=== PATIENT | female | born 1980 | race Caucasian/White ===

== ENCOUNTER 2023-12-06 11:44 | Outpatient (OUT) | payer BC, SELFPAY ==
--- NOTE | 2023-12-06 12:04 | XR_ITS ---
[facility] [place] [id number] Patient Name: RACHEL TAYLOR MRN: [id number] date: 1980 Sex: F Assigned Patient Location: [facility] Current Patient Location: [facility] Accession/Order Number: [id number] Exam Date: 12/06/2023 12:00 Report Date: 12/06/2023 12:36 At the request of: JUAN MCCONNELL Procedure: XR abdomen 1V EXAM: XR abdomen 1V HISTORY: Kidney Stone COMPARISON: None. TECHNIQUE: AP view of the abdomen. FINDINGS: Nonobstructive bowel gas pattern is noted. There are bilateral punctate renal calculi. The osseous structures are intact. XR/XR abdomen 1V IMPRESSION: Nonobstructive bowel gas pattern. Bilateral nephrolithiasis. Electronically authenticated by: DEBRA AYALA Date: 12/06/2023 12:36
== END 2023-12-06 11:45 | disposition home or self-care (01) ==
LOC: RAD 11:50
PROVIDERS: PCP Family Medicine; Visit Provider Urology
DX: N20.0 Calculus of kidney (principal)
CPT/HCPCS: 74018

== ENCOUNTER 2024-03-28 14:53 | Outpatient (OUT) | payer BC, SELFPAY ==
[2024-03-28 15:38] LABS: Basophils Percent Auto 0.6 % (0.2-2.0); Eosinophils Absolute Auto 0.4 10^3/uL (0.0-0.7); Eosinophils Percent Auto 5.2 % (0.9-7.0); Hemoglobin 12.2 g/dL (12.0-16.0); Immature Granulocytes Abs Auto 0.02 10^3/uL (0.00-0.03); Immature Granulocytes Pct Auto 0.3 % (0.0-0.5); Lymphocytes Absolute Auto 2.2 10^3/uL (1.2-3.8); Lymphocytes Percent Auto 31.1 % (20.5-60.0); Mean Corpuscular HGB Conc 32.1 g/dL (29.9-35.2); Mean Corpuscular Hemoglobin 29.9 pg (26.7-34.0); Mean Corpuscular Volume 93.1 fL (81.0-99.0); Mean Platelet Volume 10.4 fL (9.5-13.5); Monocytes Absolute Auto 0.4 10^3/uL (0.3-0.8); Monocytes Percent Auto 6.1 % (1.7-12.0); Neutrophils Percent Auto 56.7 % (43.0-75.0); Platelet Count 270 10^3/uL (150-450); Red Blood Count 4.08 10^6/uL (4.20-5.40); Red Cell Distribution Width 12.7 % (11.0-15.0); White Blood Count 7.1 10^3/uL (4.0-11.0)
[2024-03-28 15:42] LABS: Anion Gap 10.6; BUN Creatinine Ratio 11.5; Calcium 8.9 mg/dL (8.5-10.1); Carbon Dioxide 28.1 mmol/L (21.0-32.0); Chloride 105 mmol/L (98-107); Estimated GFR (African America >60 (>=60); Estimated GFR (Non-African Ame >60 (>=60); Glucose 98 mg/dL (74-106); Potassium 3.7 mmol/L (3.5-5.1); Sodium 140 mmol/L (136-145); Thyroid Stimulating Hormone 1.152 uIU/mL (0.358-3.740)
[2024-03-28 16:05] LABS: Free T4 1.17 ng/dL (0.76-1.46)
== END 2024-03-28 14:54 | disposition home or self-care (01) ==
LOC: LAB 14:54
PROVIDERS: PCP Family Medicine; Visit Provider Family Medicine
DX: R53.83 Other fatigue (principal); E03.9 Hypothyroidism, unspecified
CPT/HCPCS: 36415; 80048; 84439; 84443; 85025

== ENCOUNTER 2024-05-25 19:52 | Emergency (ER) | payer BC, SELFPAY ==
[2024-05-25 20:00] VITALS: BP 121/75; PULSE 74; TEMP 36.8; O2SAT 99; BMI 25.4
--- OUTSIDE RECORDS SUMMARY | 2024-05-25 20:02 | XMS_ITS | CCD ---
Author Organization [facility] CliniSyga Care Team Providers Care Director Of Perioperative Services Name Role Phone SHAIKH Desmond HOUSE Admitting Unavailable SANFORD MARTINEZ Consulting Unavailable DUMAS, DR TIERA Zacarias Primary Care Unavailable SHAIKH Desmond HOUSE Attending Unavailable SHAIKH Desmond HOUSE Consulting Unavailable SHANNAN, DR YEMI Fernandez Consulting Unavailable DUMAS, DR TIERA Zacarias Primary Care Unavailable ALEIDA, TRACI Attending Unavailable ALEIDA, TRACI Admitting Unavailable ALEIDA, TRACI Consulting Unavailable DUMAS, DR TIERA Zacarias Admitting Unavailable DUMAS, DR TIERA Zacarias Primary Care Unavailable DUMAS, DR TIERA Zacarias Attending Unavailable DUMAS, DR TIERA Zacarias Consulting Unavailable ALEIDA, TRACI Admitting Unavailable DUMAS, DR TIERA Zacarias Primary Care Unavailable ALEIDA, TRACI Attending Unavailable DUMAS, DR TIERA Zacarias Admitting Unavailable DUMAS, DR TIERA Zacarias Attending Unavailable DUMAS, DR TIERA Zacarias Consulting Unavailable DUMAS, DR TIERA Zacarias Primary Care Unavailable DUMAS, DR TIERA Zacarias Admitting Unavailable DUMAS, DR TIERA Zacarias Attending Unavailable DUMAS, DR TIERA Zacarias Consulting Unavailable ALESIA, DR TIERA Zacarias Primary Care Unavailable MD Tiera Dumas Primary Care Provider LELA Quijano Emergency Provider [phone] Tiera Dumas Unavailable MD Tiera Dumas Primary Care Provider DO Lucrecia Nunn Emergency Provider TIERA DUMAS Primary Care Physician Mariano MCCONNELL Attending Unavailable Mariano MCCONNELL Attending Unavailable MD Tiera Dumas Primary Care Provider DO Lucrecia Nunn Emergency Provider MD Mariano Mcconnell Attending Provider Mariano Mcconnell Admitting Unavailable Mariano Mcconnell Attending Unavailable Tiera Dumas Primary Care Unavailable Tiera Dumas Primary Care Unavailable Lucrecia Nunn Admitting Unavailable Lucrecia Nunn Attending Unavailable Tiera Dumas Primary Care Unavailable Mariano Mcconnell Admitting Unavailable Mariano Mcconnell Attending Unavailable Allergies Allergy Classification Reported Allergen(s) Allergy Type Date of Onset Reaction(s) Facility (3 sources) Codeine; Translations: [codeine] Drug Allergy 5 unknown [facility] (4 sources) Morphine; Translations: [morphine] Drug Allergy 5 Gastrointestinal Upset [facility] (1 source) Codeine; Translations: [codeine] Drug Allergy Nausea and vomiting [facility] (1 source) Morphine; Translations: [morphine] Drug Allergy Nausea [facility] (1 source) Codeine Drug Allergy 4 [facility] (1 source) Morphine Drug Allergy [address] [place] [address] Repository Medications Current Medications Medication Drug Class(es) Dates Sig (Normalized) Sig (Original) Acetaminophen / oxyCODONE (1 source) Opioid Agonist Start: 10-23-2015 Percocet 325 mg-5 mg Tab See Instructions, as needed for pain, 60 tab(s), Refill(s) 0, 1-2 tab(s) Oral q4hr Start Date: 10/23/15 Status: Ordered docusate sodium 100 mg oral capsule (1 source) Start: 10-23-2015 take 1 capsule by mouth twice daily as needed for constipation Colace 100 mg Cap 100 mg = 1 cap(s), Oral, BID, PRN for constipation, # 20 cap(s), Refills(s) 0 Start Date: 10/23/15 Status: Ordered levothyroxine sodium 0.137 mg oral tablet (10 sources) l-Thyroxine Start: 12-27-2023 take 1 tablet by mouth once daily Levothyroxine Active 0 .ROUTE .COMPLEX 90 December 27, 2023 11:54am TAKE 1 TABLET BY MOUTH DAILY Start: 12-07-2023 levothyroxine 137 mcg (0.137 mg) Tab Refills(s) 0 Start Date: 12/07/23 Status: Ordered Start: 12-13-2022 End: 12-27-2023 take 137 ug by mouth once daily Levothyroxine Discontinued 137 MCG PO Daily December 13, 2022 12:00am December 27, 2023 11:54am take 1 tablet by miki th once daily Levothyroxine Sodium 137 mcg TAKE 1 TABLET BY MOUTH DAILY for 90 Active meloxicam 15 mg oral tablet (1 source) Nonsteroidal Anti-inflammatory Drug Start: 10-23-2015 take 1 tablet by mouth once daily meloxicam 15 mg Tab 15 mg = 1 tab(s), Oral, Daily, # 30 tab(s), Refills(s) 2 Start Date: 10/23/15 Status: Ordered Methylprednisolone (4 sources) Corticosteroid Start: 03-28-2024 Methylprednisolone Active 0 PO per package directions March 28, 2024 12:00am PO PER PKG DIR for 6 days Start: 07-07-2023 methylPREDNISo lone 4 MG as directed Orally for 6 days Jun, Active Start: 12-03-2022 methylPREDNISo lone 4 MG as directed Orally for 6 days Nov, Active promethazine hydrochloride 25 mg oral tablet (1 source) Phenothiazine Start: 10-23-2015 take 1 tablet by mouth every eight hours as needed for nausea promethazine 25 mg Tab 25 mg = 1 tab(s), Oral, q8hr, PRN as needed for nausea/vomiting, # 30 tab(s), Refills(s) 0 Start Date: 10/23/15 Status: Ordered sulfamethoxazole 800 mg / trimethoprim 160 mg oral tablet (2 sources) Dihydrofolate Reductase Inhibitor Antibacterial, Sulfonamide Antimicrobial Start: 12-03-2022 take 1 tablet by mouth every twelve hours Bactrim DS 800-160 MG 1 tablet Orally Twice a day for 5 days Nov, Active tiZANidine 2 mg oral tablet (4 sources) Central alpha-2 Adrenergic Agonist Start: 03-28-2024 take 2 mg by mouth every eight hours Tizanidine Active 2 MG PO Every 8 hours March 28, 2024 12:00am Start: 12-03-2022 take 1 tablet by miki th every eight hours tiZANidine HCl 4 MG 1 tablet as needed Orally Three times a day for 5 days Nov, Active Completed/Discontinued Medications Medication Drug Class(es) Dates Sig (Normalized) Sig (Original) azithromycin 250 mg oral tablet (3 sources) Macrolide Antimicrobial Start: 01-12-2024 End: 03-28-2024 Azithromycin Discontinued 250 MG PO daily 6 January 12, 2024 12:00am March 28, 2024 2:25pm take 2 tablets today and then 1 for the next four days. Start: 07-07-2023 Azithromycin 2 50 MG as directed Orally 2 tabs po today, then 1 tab daily x 4 more days for 5 Jun, Active cephalexin 500 mg oral capsule (2 sources) Cephalosporin Antibacterial Start: 12-07-2023 End: 01-12-2024 take 500 mg by mouth twice daily Cephalexin Discontinued 500 MG PO Twice daily 6 December 07, 2023 12:00am January 12, 2024 10:19am ibuprofen 800 mg oral tablet (4 sources) Nonsteroidal Anti-inflammatory Drug Start: 06-24-2021 End: 12-13-2022 take 800 mg by mouth three times daily Ibuprofen Discontinued 800 MG PO Three times daily June 24, 2021 5:03pm December 13, 2022 11:22am ondansetron 4 mg oral tablet (3 sources) Serotonin-3 Receptor Antagonist Start: 11-13-2023 End: 12-07-2023 take 4 mg by mouth every eight hours Ondansetron Hcl Discontinued 4 MG PO Q8H 15 November 13, 2023 1:00am December 07, 2023 2:42pm oxyCODONE hydrochloride 5 mg oral tablet (3 sources) Opioid Agonist Start: 11-13-2023 End: 12-07-2023 take 5 mg by mouth every four to six hours Oxycodone Discontinued 5 MG PO EVERY 4-6 HOURS 12 November 13, 2023 December 07, 2023 2:42pm tamsulosin hydrochloride 0.4 mg oral capsule (3 sources) alpha-Adrenergic Guerrero Start: 11-13-2023 End: 12-07-2023 take 1 capsule by mouth once daily Tamsulosin (Flomax) 0.4 mg capsule Discontinued 0.4 MG PO Daily November 13, 2023 1:00am December 07, 2023 2:42pm Problems Active Problems Problem Classification Problem Date Documented Da te Episodic/Chronic Abdominal pain (3 sources) Abdominal pain; Translations: [Unspecified abdominal pain] Onset: 11-13-2023 Episodic Acquired foot deformities (1 source) Acquired deformity of left foot; Translations: [Other acquired deformities of left foot] Episodic Acquired foot deformities (1 source) Acquired deformity of right foot; Translations: [Other acquired deformities of right foot] Episodic Acute bronchitis (1 source) Acute bronchitis; Translations: [Acute bronchitis due to other specified organisms] Episodic Calculus of urinary tract (9 sources) Kidney stone; Translations: [Calculus of kidney] Onset: 12-01-2023 11-13-2023 Episodic Chronic obstructive pulmonary disease and bronchiectasis (1 source) Bronchitis, not specified as acute or chronic Episodic Endometriosis (1 source) Endometriosis (clinical) 10-10-2015 Chronic Fever of unknown origin (2 sources) Fever, unspecified; Translations: [Fever] Onset: 10-05-2021 Episodic Genitourinary symptoms and ill-defined conditions (2 sources) Hematuria, unspecified; Translations: [Unspecified symptoms and signs involving the genitourinary system] Episodic Immunizations and screening for infectious disease (1 source) Contact with and (suspected) exposure to other viral communicable diseases; Translations: [Contact with and (suspected) exposure to COVID-19] Episodic Malaise and fatigue (1 source) Chronic fatigue syndrome; Translations: [Chronic fatigue, unspecified] Chronic Malaise and fatigue (7 sources) Other fatigue; Translations: [Fatigue] Onset: 04-07-2022 Episodic Other circulatory disease (1 source) Elevated blood-pressure reading without diagnosis of hypertension; Translations: [Elevated blood-pressure reading, without diagnosis of hypertension] Episodic Other connective tissue disease (1 source) Spasm; Translations: [Other muscle spasm] Episodic Other connective tissue disease (1 source) Muscle pain; Translations: [MYALGIA, UNSPECIFIED SITE] Episodic Other connective tissue disease (1 source) Disorder of rotator cuff 10-10-2015 Episodic Other gastrointestinal disorders (1 source) Irritable bowel syndrome 10-10-2015 Chronic Other injuries and conditions due to external causes (1 source) History of fall; Translations: [History of falling] Episodic Other non-traumatic joint disorders (1 source) Arthralgia of the ankle and/or foot; Translations: [Pain in left ankle and joints of left foot] Episodic Other nutritional; endocrine; and metabolic disorders (1 source) Body mass index 25-29 - overweight; Translations: [Body mass index (BMI) 27.0-27.9, adult] Episodic Other nutritional; endocrine; and metabolic disorders (1 source) Overweight; Translations: [Overweight] Episodic Other upper respiratory infections (2 sources) Sinusitis; Translations: [Chronic sinusitis, unspecified] 01-12-2024 Chronic Ovarian cyst (1 source) Cyst of ovary 10-10-2015 Episodic Residual codes; unclassified (1 source) Tobacco user; Translations: [Tobacco use] Episodic Sprains and strains (10 sources) Sprain of ankle; Translations: [Sprain of unspecified ligament of unspecified ankle, initial encounter] 12-13-2022 Episodic Thyroid disorders (4 sources) Hypothyroidism; Translations: [Hypothyroidism, unspecified] 12-07-2023 Chronic Unclassified (3 sources) CONTACT W/AND (SUSP) EXPOS COVID-19; Translations: [CONTACT W/AND (SUSP) EXPOS COVID-19] Onset: 06-08-2021 Viral infection (2 sources) COVID-19; Translations: [Disease caused by 2019-nCoV] Onset: 10-05-2021 Past or Other Problems Problem Classification Problem Date Documented Da te Episodic/Chronic Allergic reactions (1 source) Contact dermatitis due to plants; Translations: [Unspecified contact dermatitis due to plants, except food] Onset: 01-27-2019 Episodic Other connective tissue disease (1 source) Pain in right foot; Translations: [PAIN IN RIGHT FOOT] Onset: 07-21-2021 Episodic Other connective tissue disease (1 source) Pain in left foot; Translations: [PAIN IN LEFT FOOT] Onset: 07-21-2021 Episodic Other non-traumatic joint disorders (4 sources) Pain in right ankle and joints of right foot; Translations: [PAIN IN RIGHT ANKLE] Onset: 07-15-2021 Episodic Other non-traumatic joint disorders (5 sources) Pain in left ankle and joints of left foot; Translations: [PAIN IN LEFT ANKLE] Onset: 07-07-2021 Episodic Unclassified (1 source) CONTACT W/AND (SUSP) EXPOS COVID-19; Translations: [CONTACT W/AND (SUSP) EXPOS COVID-19] Onset: 09-30-2021 Unclassified (1 source) Lumbar pain M54.50 Results Test Name Value Interpretation Reference Range Facility [facility] 12-08-2023 Forms [id number] #1.00TIFF Normal [facility] Operative Reporton Operative Report [id number] #1.00TIFF Normal [facility] RAD - MISCon 12-08-2023 RAD - MISC [id number] #1.00TIFF Normal [facility] MIS [id number] #1.00TIFF Normal [facility] Ambulatory Visit Summaryon 0 12-07-2023 Ambulatory Visit Summary NGUYEN TAYLOR :1980 Visit Date:12/07/2023 Ambulatory Visit Instructions Your Diagnosis Ureteral stone Kidney stone Flank pain Your Care Team Attending Physician - ENEDINA CONTRERAS, Mariano Causey Primary Care Physician - ALESIA CONTRERAS, TIERA This Is Your Medications List Contact prescribing physician if questions or concerns acetaminophen-oxycod one (Percocet 325 mg-5 mg Tab) docusate (Colace 100 mg Cap) levothyroxine (levothyroxine 137 mcg (0.137 mg) Tab) meloxicam (meloxicam 15 mg Tab) promethazine (promethazine 25 mg Tab) Procedures Performed Arthroscopy of shoulder (10/23/2015), section, reconstructive surgery after childbirth, Tubal ligation. Discharge Vitals Temperature (Temporal Artery) 37 ?C Heart Rate (Peripheral) 64 Respiratory Rate 16 Blood Pressure 111/78 Height 153 cm Height 60 in Weight 59 kg Weight 129.8 lb BMI 25.2 Medications What How Much When Instructions Unchanged acetaminophen-oxycod one (Percocet 325 mg-5 mg Tab) See instructions 1-2 tab(s) Oral q4hr Contact prescribing physician if questions or concerns Unchanged docusate (Colace 100 mg Cap) 1 Capsules By Mouth 2 times a day as needed for for constipation Contact prescribing physician if questions or concerns Unchanged levothyroxine (levothyroxine 137 mcg (0.137 mg) Tab) Contact prescribing physician if questions or concerns Unchanged meloxicam (meloxicam 15 mg Tab) 1 Tablets By Mouth Every day Contact prescribing physician if questions or concerns Unchanged promethazine (promethazine 25 mg Tab) 1 Tablets By Mouth Every 8 hours as needed for as needed for nausea/vomiting Contact prescribing physician if questions or concerns Medications and Immunizations Administered Not Given influenza virus vaccine, inactivated, Postpone due to refusal Allergies codeine (Nausea and vomiting) Problems Ongoing - Any problem that you are currently receiving treatment for. Flank pain Hypothyroid Kidney stone Ureteral stone Patient Survey You may receive a survey via text or e-mail asking about your office visit. Please share your experience with us by completing your survey. We appreciate your feedback and thank you for choosing us for your care. Education Materials Laser Therapy for Kidney Stones Laser therapy for kidney stones is a procedure to break up small, hard mineral deposits that form in the kidney (kidney stones). The procedure is done using a device that produces a focused beam of light (laser). The laser breaks up kidney stones into pieces that are small enough to be passed out of the body through urination or removed from the body during the procedure. You may need laser therapy if you have kidney stones that are painful or block your urinary tract. This procedure is done by inserting a tube (ureteroscope) into your kidney through the urethral opening. The urethra is the part of the body that drains urine from the bladder. In women, the urethra opens above the vaginal opening. In men, the urethra opens at the tip of the penis. The ureteroscope is inserted through the urethra, and surgical instruments are moved through the bladder and the muscular tube that connects the kidney to the bladder (ureter) until they reach the kidney. Tell a health care provider about: ? Any allergies you have. ? All medicines you are taking, including vitamins, herbs, eye drops, creams, and knqe-nta-xfngjdf medicines. ? Any problems you or family members have had with anesthetic medicines. ? Any blood disorders you have. ? Any surgeries you have had. ? Any medical conditions you have. ? Whether you are or may be . What are the risks? Generally, this is a safe procedure. However, problems may occur, including: ? Infection. ? Bleeding. ? Allergic reactions to medicines. ? Damage to the urethra, bladder, or ureter. ? Urinary tract infection (UTI). ? Narrowing of the urethra (urethral stricture). ? Difficulty passing urine. ? Blockage of the kidney caused by a fragment of kidney stone. What happens before the procedure? Medicines ? Ask your health care provider about: ? Changing or stopping your regular medicines. This is especially important if you are taking diabetes medicines or blood thinners. ? Taking medicines such as aspirin and ibuprofen. These medicines can thin your blood. Do not take these medicines unless your health care provider tells you to take them. ? Taking vwvo-pub-qhavdny medicines, vitamins, herbs, and supplements. Eating and drinking Follow instructions from your health care provider about eating and drinking, which may include: ? 8 hours before the procedure ? stop eating heavy meals or foods, such as meat, fried foods, or fatty foods. ? 6 hours before the procedure ? stop eating light meals or foods, such as toast or cereal. ? 6 hours before the procedure ? stop dri (more content not included)... Normal [facility] Amphetamine Screen Ql (U)Ord ered By: Sanford Mason on 12-07-2023 Amphetamines Ql (U) Negative Negative [facility] Barbiturates [Presence] in U rine by Screen methodOrdered By: Sanford Mason on 12-07-2023 Barbiturates Screen Ql (U) Negative Negative [facility] Benzodiazepines Screen Ql (U )Ordered By: Sanford Mason on 12-07-2023 Benzodiazepines Ql (U) Negative Negative [facility] Benzoylecgonine [Presence] i n Urine by Screen methodOrdered By: Sanford Mason on 12-07-2023 Benzoylecgonine Screen Ql (U) Negative Negative [facility] Cannabinoids [Presence] in U rine by Screen methodOrdered By: Sanford Mason on 12-07-2023 Cannabinoids Screen Ql (U) Positive Negative [facility] Comment on above: These are unconfirme d results and should not be used for legal purposes. Drug Cut-Off Concentration: AMPH 1000 ng/mL GARETT 200 ng/mL LEVY 200 ng/mL COCM 300 ng/mL OP 300 ng/mL PCP 25 ng/mL THC 20 ng/mL Drug Screen,Urineon 12-07-19 24 Amphetamine Screen,Urine Negative Normal Negative [facility] Comment on above: Performed By: #### U RDS #### [address] Barbiturate Screen,Urine Negative Normal Negative [facility] Comment on above: Performed By: #### U RDS #### [place] [address] [place] Benzodiazepines Screen,Urine Negative Normal Negative [facility] Comment on above: Performed By: #### U RDS #### [place] [address] [place] Cannabinoid Screen,Urine Positive High Negative [facility] Comment on above: Result Comment: Thes e are unconfirmed results and should not be used for legal purposes. Drug Cut-Off Concentration: AMPH 1000 ng/mL GARETT 200 ng/mL LEVY 200 ng/mL COCM 300 ng/mL OP 300 ng/mL PCP 25 ng/mL THC 20 ng/mL PERFORMED BY: [place] [id number] PATHOLOGIST INDUSTRIAL CONTROLS TECHNICIAN DINA WALKER M.D. Performed By: #### U RDS #### [place] [address] [place] Cocaine Screen,Urine Negative Normal Negative [facility] Comment on above: Performed By: #### U RDS #### [place] [address] [place] Opiate Screen,Urine Negative Normal Negative [facility] Comment on above: Performed By: #### U RDS #### [place] [address] [place] Phencyclidine Screen,Urine Negative Normal Negative [facility] Comment on above: Performed By: #### U RDS #### [place] [address] [place] urethrocystogram retroon 12-07-2023 [place] urethrocystogram retro [facility] [place] [address] [place] [address] Fluoroscopy Report Signed Patient: Nguyen Taylor MR#: [id number] : 1980 Acct:[id number] Age/Sex: 43 / F ADM Date: 12/07/23 Loc: [place] Room: Type: [facility] Attending Dr: Mariano Mcconnell MD Copies to: Mariano Mcconnell MD Ordering Provider: Mariano Mcconnell MD Date of Service: 12/07/23 FL/FL urethrocystogram retro: RETROGRADE [place] urethrocystogram retro 12/07/2023 5:24 PM SIGNS AND SYMPTOMS: Abdominal cramping, left lower quadrant pain, left flank pain with nausea PROTOCOL: Intraoperative views of the pelvis were obtained during cystourethrogram COMPARISON: 12/01/2023 FINDINGS: Contrast readily passes through the ureters into the renal collecting systems without evidence of filling defect. Cumulative Air Kerma in mGy: 183.2 mGy FL/FL urethrocystogram retro IMPRESSION: Contrast readily passes through the ureters into the renal collecting systems without evidence of filling defect. Impression dictated by: Gabriele Corbin M.D.12/07/2023 6:04 PM Dictation Location: [place] [address] Transcribed By: [facility] 12/07/231803 Dictated By: Gabriele Corbin II, MD 12/07/231801 Signed By: 12/07/231803 Normal [facility] HCG ( test) IA.rapi d Ql (U)Ordered By: Sanford Mason on 12-07-2023 HCG ( test) Ql (U) Negative [facility] HCG,Urineon 12-07-2023 Beta HCG ( test) Ql (U) Negative Normal [facility] Comment on above: Result Comment: PERF ORMED BY: [place] [id number] PATHOLOGIST INDUSTRIAL CONTROLS TECHNICIAN DINA WALKER M.D. Performed By: #### U HCG #### [address] Insurance Correspondenceon 0 12-07-2023 Insurance Correspondence [id number]#1.00TIFF Normal [facility] Opiates [Presence] in Urine by Screen methodOrdered By: Sanford Mason on 12-07-2023 Opiates Screen Ql (U) Negative Negative [facility] Patient Educationon 12-07-19 Patient Education Nephrology Laser Therapy for Kidney Stones Laser therapy for kidney stones is a procedure to break up small, hard mineral deposits that form in the kidney (kidney stones). The procedure is done using a device that produces a focused beam of light (laser). The laser breaks up kidney stones into pieces that are small enough to be passed out of the body through urination or removed from the body during the procedure. You may need laser therapy if you have kidney stones that are painful or block your urinary tract. This procedure is done by inserting a tube (ureteroscope) into your kidney through the urethral opening. The urethra is the part of the body that drains urine from the bladder. In women, the urethra opens above the vaginal opening. In men, the urethra opens at the tip of the penis. The ureteroscope is inserted through the urethra, and surgical instruments are moved through the bladder and the muscular tube that connects the kidney to the bladder (ureter) until they reach the kidney. Tell a health care provider about: ? Any allergies you have. ? All medicines you are taking, including vitamins, herbs, eye drops, creams, and bwqd-dng-ylsujsw medicines. ? Any problems you or family members have had with anesthetic medicines. ? Any blood disorders you have. ? Any surgeries you have had. ? Any medical conditions you have. ? Whether you are or may be . What are the risks? Generally, this is a safe procedure. However, problems may occur, including: ? Infection. ? Bleeding. ? Allergic reactions to medicines. ? Damage to the urethra, bladder, or ureter. ? Urinary tract infection (UTI). ? Narrowing of the urethra (urethral stricture). ? Difficulty passing urine. ? Blockage of the kidney caused by a fragment of kidney stone. What happens before the procedure? Medicines ? Ask your health care provider about: ? Changing or stopping your regular medicines. This is especially important if you are taking diabetes medicines or blood thinners. ? Taking medicines such as aspirin and ibuprofen. These medicines can thin your blood. Do not take these medicines unless your health care provider tells you to take them. ? Taking kpfi-ekv-ihokizv medicines, vitamins, herbs, and supplements. Eating and drinking Follow instructions from your health care provider about eating and drinking, which may include: ? 8 hours before the procedure ? stop eating heavy meals or foods, such as meat, fried foods, or fatty foods. ? 6 hours before the procedure ? stop eating light meals or foods, such as toast or cereal. ? 6 hours before the procedure ? stop drinking milk or drinks that contain milk. ? 2 hours before the procedure ? stop drinking clear liquids. Staying hydrated Follow instructions from your health care provider about hydration, which may include: ? Up to 2 hours before the procedure ? you may continue to drink clear liquids, such as water, clear fruit juice, black coffee, and plain tea. General instructions ? You may have a physical exam before the procedure. You may also have tests, such as imaging tests and blood or urine tests. ? If your ureter is too narrow, your health care provider may place a soft, flexible tube (stent) inside of it. The stent may be placed days or weeks before your laser therapy procedure. ? Plan to have someone take you home from the hospital or clinic. ? If you will be going home right after the procedure, plan to have someone stay with you for 24 hours. ? Do not use any products that contain nicotine or tobacco for at least 4 weeks before the procedure. These products include cigarettes, e-cigarettes, and chewing tobacco. If you need help quitting, ask your health care provider. ? Ask your health care provider: ? How your surgical site will be marked or identified. ? What steps will be taken to help prevent infection. These may include: ? Removing hair at the surgery site. ? Washing skin with a germ-killing soap. ? Taking antibiotic medicine. What happens during the procedure? ? An IV will be inserted into one of your veins. ? You will be given one or more of the following: ? A medicine to help you relax (sedative). ? A medicine to numb the area (local anesthetic). ? A medicine to make you fall asleep (general anesthetic). ? A ureteroscope will be inserted into your urethra. The ureteroscope will send images to a video screen in the operating room to guide your surgeon to the area of your kidney that will be treated. ? A small, flexible tube will be threaded through the ureteroscope and into your bladder and ureter, up to your kidney. ? The laser device will be inserted into your kidney through the tube. Your surgeon will pulse the laser on and off to break up kidney stones. ? A surgical instrument that has a tiny wire basket may be inserted through the tube into your kidney to remove the pieces (more content not included)... Normal [facility] Phencyclidine Screen Ql (U)O rdered By: Sanford Mason on 12-07-2023 Phencyclidine Ql (U) Negative Negative [facility] Urology Office/Clinic Noteon 12-07-2023 Urology Office/Clinic Note Chief Complaint Pt is here for [facility] ER f/u HPI Staff 43 year old female New Pt. Pt. was in the [facility] ER on 11/13/23 due to Lt. lower quadrant and lt. flank pain. CT done while in the ER. KUB done 12/01/23. Pt states she does not believe she has passed kidney stone. Dysuria: yes Incomplete bladder emptying: denies Hematuria: yes last seen this morning Frequency: yes Urgency: yes Nocturia: 1x a night Stream: little stream Leaking: denies Post void dripping: denies Wearing pads/ Depends: yes panty liner Urge incontinence: denies Stress incontinence: denies Incontinence without Sensory Awareness: denies Abdominal pain: yes suprapubic pain Flank pain: bilateral flank pain Sexual complaints: _ History of Present Illness Tests reviewed: reviewed UA I have reviewed the previous health record information and history for this patient from external providers. I have reviewed and verified the staff HPI to be accurate for this encounter. Review of Systems PHQ Score Initial Depression Screen Score: 0 SCORE ROS - Provider Constitutional: denies weight loss, denies hot flashes. Eyes: denies eye problems. Gastrointestinal: denies nausea, denies vomiting. Cardiovascular: denies chest pain or angina. Integumentary: no dryness Musculoskeletal: denies musculoskeletal symptoms. ENMT: denies otolaryngeal symptoms. Respiratory: no shortness of breath. Heme/Lymph: denies easy bleeding tendency, denies easy bruising tendency. Psychiatric: no confusion, no anxiety. Genitourinary: See HPI. Physical Exam Vitals & Measurements T: 37 ?C(Temporal Artery) HR: 64(Peripheral) RR: 16 BP: 111/78 HT: 60 in HT: 153 cm WT: 59 kg WT: 129.8 lb BMI: 25.2 General Appearance: alert , no acute distress, well nourished, well developed female. Head: normocephalic . Eyes: normal orbit and globe. ENMT: normal examination of external ears. Chest: Lungs CTA, respirations non labored . Cardiovascular: regular rate and rhythm. Abdomen: soft , non distended, no tenderness, no mass or organomegaly, no hernia. Genitourinary: bladder nonpalpable, no flank tenderness. Tender in LLQ. Lymph Nodes: unremarkable palpation of the cervical area. Skin: warm, dry, no bruising. Psychiatric: cooperative, affect appropriate for age, normal judgement, euthymic mood. Assessment/Plan 1. Ureteral stone (N20.1: Calculus of ureter) [facility] ER visit 11/13/23 due to left flank pain. Given Fomax and pain medication to help pass stone. CT AP w con 11/13/23 [facility] - Obstructing 3 mm L UVJ calculus wiht delayed enhancement of L kidney compared to R. KUB 12/01/23 [facility] - Punctate L renal calculus confirmed on prior CT. Known L UVJ stone may still be present as calcification is seen in this region. KUB 12/06/23 [facility] - Bilateral punctate renal calculi. Discussed imaging results, most recent KUB does not appear to have ureteral stone. Advised pt this can only be confirmed via CT scan. UA today shows large blood. Unclear if she still has stone given ongoing pain. Discussed management options including medical expulsive therapy vs intervention including extracorporeal shockwave lithotripsy vs ureteroscopy with laser lithotripsy/stone basket extraction possible stent. Offered to schedule pt today for stone procedure. Pt is willing to proceed. -Will schedule a Cystoscopy with Possible Left Retrogrades, Left Ureteroscopy, Left Laser Litho, Left Stone Basket, Left possible stent placement. The procedure risks, benefits, alternatives and complications have been discussed with the patient. These include but are not limited to bleeding, pain, infection, ureteral perforation, extravasation, stricture formation, sepsis, obstruction, inability to reach the stone, inability to fragment the stone, and inability to retrieve all stone fragments. The need for ancillary procedures such as stent placement and removal, retrograde urography, and percutaneous nephrostomy were also discussed. The patient also understood that a ureteral stent may be placed and removal of the stent is critical. Failure to follow up for stent removal can result in recurrent UTIs, encrustation of the stent, loss of kidney function and need for nephrectomy. All of their questions and concerns have been addressed. Full informed consent has been obtained. Will order General anesthesia. Risks discussed. 2. Kidney stone (N20.0: Calculus of kidney) See #1. 3. Flank pain (R10.9: Unspecified abdominal pain) Continues to have LLQ pain, 04/05. Pt is currently npo. -See #1 This patient was seen in the ER back on 11/13/2023 and was found to have a 3 mm left distal ureteral calculus with hydronephrosis. She has failed to pass the stone. Subsequent KUB on 12/01/2023 demonstrated the stone to be still present. KUB from a couple days ago at the [facility] is inconclusive. She continues with significant pain up to a level 7 out of 10 and does desire surgical intervention. This is well outlined above. She understands the ris (more content not included)... Normal [facility] Comment on above: Result Comment: Elec tronically Signed By: ENEDINA CONTRERAS, Mariano Causey\.br\Date and Time Signed: 12/07/23 12:06 EDT\.br\Electronically Co-Signed By: Lakeisha Beebe\.br\Date and Time Co-Signed: 12/07/23 12:02 EDT RAD - MISCon 12-06-2023 RAD - MISC [id number] #1.00TIFF Normal [facility] XR KUBon 12-01-2023 XR KUB [place] [address] XRay Report Signed Patient: Nguyen Taylor MR#: [id number] : 1980 Acct:[id number] Age/Sex: 43 / F ADM Date: 12/01/23 Loc: XD Room: Type: [facility] Attending Dr: Mariano Mcconnell MD Copies to: Mariano Mcconnell MD Ordering Provider: Mariano Mcconnell MD Date of Service: 12/01/23 XR/XR KUB: KIDNEY STON, N20.0 KUB: CLINICAL INFORMATION: Left flank pain today. Diagnosed with left kidney stone 2 days ago. COMPARISON: CT abdomen and pelvis 11/13/2023. FINDINGS: A punctate left renal calculus is noted confirmed on the prior CT study. The patient's known left UVJ stone may still be present as a calcification is seen within this region. No bowel obstruction or free air. Osseous structures demonstrate mild degenerative change. XR/XR KUB IMPRESSION: LEFT UROLITHIASIS. THE PATIENT'S KNOWN LEFT UVJ STONE MAY STILL BE PRESENT WITH A CALCIFICATION SEEN ON TODAY'S STUDY WITHIN THIS REGION. Impression dictated by: Freeman Palacios Jr., DPatitoOPatito12/01/2023 4:13 PM Dictation Location: [place] [address] Transcribed By: [facility] 12/01/23 1613 Dictated By: Freeman Palacios Jr, DO 12/01/23 1611 Signed By: 12/01/23 1613 Normal [facility] ED Note-Physicianon 11-19-19 ED Note-Physician [id number] #1.00TIFF Normal [facility] Alanine aminotransferase [En zymatic activity/volume] in Serum or PlasmaOrdered By: Lucrecia Nunn on 11-13-2023 ALT [Catalytic activity/Vol] 16 U/L 7-52 [facility] Albumin [Mass/volume] in Ser um or Plasma by Bromocresol green (BCG) dye binding methoOrdered By: Lucrecia Nunn on 11-13-2023 Albumin BCG dye [Mass/Vol] 4.8 g/dL 3.5-5.7 [facility] Alkaline phosphatase [Enzyma tic activity/volume] in Serum or PlasmaOrdered By: Lucrecia Nunn on 11-13-2023 ALP [Catalytic activity/Vol] 59 U/L 34-104 [facility] Aspartate aminotransferase [ Enzymatic activity/volume] in Serum or PlasmaOrdered By: Lucrecia Nunn on 11-13-2023 AST [Catalytic activity/Vol] 18 U/L 13-39 [facility] Automated epithelial cells c ount in urine sediment (number/area)Ordered By: Lucrecia Nunn on 11-13-2023 Epithelial cells Auto (Urine sed) [#/Area] None seen [HPF] 0-2 [facility] Automated erythrocytes count in urine sediment (number/area)Ordered By: Lucrecia Nunn on 11-13-2023 RBC Auto (Urine sed) [#/Area] 20-49 [HPF] 0-4 [facility] Automated leukocytes count i n urine sediment (number/area)Ordered By: Lucrecia Brown on 11-13-2023 WBC Auto (Urine sed) [#/Area] None seen [HPF] 0-4 [facility] Automated urine hyaline cast s count (number/volume)Ordered By: Lucrecia Brown on 11-13-2023 Hyaline casts Auto (U) [#/Vol] None seen [LPF] 0-1 [facility] Basic Metabolic Panelon 10-28 Anion gap [Moles/Vol] 12.0 mmol/L Normal 6.0-15.0 [facility] Comment on above: Performed By: #### C BC, HEPATIC, LIPASE, HCGQUAL, BMP #### [facility] [address] Calcium [Mass/Vol] 9.6 mg/dL Normal 8.6-10.3 [facility] Comment on above: Performed By: #### C BC, HEPATIC, LIPASE, HCGQUAL, BMP #### [facility] [address] [place] [address] [place] Chloride [Moles/Vol] 106 mmol/L Normal 98-107 [facility] Comment on above: Performed By: #### C BC, HEPATIC, LIPASE, HCGQUAL, BMP #### [address] CO2 [Moles/Vol] 22.8 mmol/L Normal 21.0-31.0 [facility] Comment on above: Performed By: #### C BC, HEPATIC, LIPASE, HCGQUAL, BMP #### [facility] [address] [place] [address] [place] Creatinine [Mass/Vol] 0.73 mg/dL Normal 0.60-1.20 [facility] Comment on above: Performed By: #### C BC, HEPATIC, LIPASE, HCGQUAL, BMP #### [facility] [address] [place] [address] [place] Creatinine Clr Calc Pharmacy 81.17 Normal [facility] Comment on above: Performed By: #### C BC, HEPATIC, LIPASE, HCGQUAL, BMP #### [facility] [address] [place] [address] [place] GFR/1.73 sq M.predicted MDRD (S/P/Bld) [Vol rate/Area] mL/min/{1.73_m2} Normal [facility] Comment on above: Performed By: #### C BC, HEPATIC, LIPASE, HCGQUAL, BMP #### [facility] [address] [place] [address] [place] Glucose [Mass/Vol] 92 mg/dL Normal 70-100 [facility] Comment on above: Result Comment: [facility] Glucose Reference Range is dependent on time and content of last meal. Glucose of more than 200 mg/dL in a nonstressed, ambulatory subject supports the diagnosis of Diabetes Mellitus. ADA recommended reference range Performed By: #### C BC, HEPATIC, LIPASE, HCGQUAL, BMP #### [facility] [address] [place] [address] [place] Potassium [Moles/Vol] 3.8 mmol/L Normal 3.5-5.1 [facility] Comment on above: Performed By: #### C BC, HEPATIC, LIPASE, HCGQUAL, BMP #### [facility] [address] [place] [address] [place] Sodium [Moles/Vol] 137 mmol/L Normal 136-145 [facility] Comment on above: Performed By: #### C BC, HEPATIC, LIPASE, HCGQUAL, BMP #### [facility] [address] [place] [address] [place] Urea nitrogen [Mass/Vol] 10 mg/dL Normal 7-25 [facility] Comment on above: Performed By: #### C BC, HEPATIC, LIPASE, HCGQUAL, BMP #### [facility] [address] [place] [address] [place] Basophils Auto (Bld) [#/Vol] Ordered By: Lucrecia Nunn on 11-13-2023 Basophils (Bld) [#/Vol] 0.0 10*3/uL 0.0-0.2 [facility] Basophils/100 WBC Auto (Bld) Ordered By: Lucrecia Nunn on 11-13-2023 Basophils/100 WBC (Bld) 0.4 % . [facility] Bilirubin Test strip Ql (U)O rdered By: Lucrecia Nunn on 11-13-2023 Bilirubin Ql (U) Negative Negative [facility] Bilirubin.direct [Mass/volum e] in Serum or PlasmaOrdered By: Lucrecia Nunn on 11-13-2023 Bilirubin.direct [Mass/Vol] 0.10 mg/dL 0.03-0.18 [facility] Bilirubin.total [Mass/volume ] in Serum or PlasmaOrdered By: Lucrecia uNnn on 11-13-2023 Bilirubin [Mass/Vol] 0.5 mg/dL 0.3-1.[address] [facility] [address] abdomen pelvis w conon CT abdomen pelvis w con [facility] [address] CT Scan Report Signed Patient: Nguyen Taylor MR#: [id number] : 1980 Acct:[id number] Age/Sex: 43 / F ADM Date: 11/13/23 Loc: ER Room: Type: [facility] ER Attending Dr: Copies to: Lucrecia Nunn DO Ordering Provider: Lucrecia Nunn DO Date of Service: 11/13/23 CT/CT abdomen pelvis w con: LLQ pain, L flank pain CT ABDOMEN AND PELVIS WITH INTRAVENOUS CONTRAST: CLINICAL HISTORY: Abdominal cramping, left flank pain and nausea COMPARISON: None TECHNIQUE: Spiral images were obtained through the abdomen and pelvis following the administration of intravenous contrast. This CT exam was performed using one or more following dose reduction techniques: Automated exposure control, adjustment of the mA and/or kV according to patient size, or use of iterative reconstruction technique. FINDINGS: Lung Bases: [Minimal scarring.] Organs:Liver portal vein gallbladder pancreas spleen and adrenal glands appear unremarkable. Obstructing 3 mm left UVJ calculus with associated delayed enhancement of the left kidney with compared to the right. The right kidney appears unremarkable. Abdominal aorta appears normal in caliber.[ GI: Stomach is grossly unremarkable. Small bowel appears nondilated. No acute colonic abnormality. Appendix is normal.[ Pelvis:[Urinary bladder is grossly unremarkable. Uterus is grossly unremarkable. No adnexal mass. Prominent periuterine vessels.] Peritoneum/Retroperi toneum:No free air, free fluid or lymphadenopathy.[ Abd wall/Bones:Abdominal wall demonstrates no acute findings. Osseous structures demonstrate degenerative change.[ CT/CT abdomen pelvis w con IMPRESSION: Obstructing 3 mm left UVJ stone. Impression dictated by: Freeman Palacios Jr., DPatitoOPatito11/13/2023 11:29 AM Dictation Location: [place] [address] Transcribed By: [facility] 11/13/23 1129 Dictated By: Freeman Palacios Jr, DO 11/13/23 1125 Signed By: 11/13/23 1129 Normal [facility] Calcium [Mass/volume] in Ser um or PlasmaOrdered By: Lucrecia Nunn on 11-13-2023 Calcium [Mass/Vol] 9.6 mg/dL 8.6-10.3 [facility] Carbon dioxide, total [Moles /volume] in Serum or PlasmaOrdered By: Lucrecia Nunn on 11-13-2023 CO2 [Moles/Vol] 22.8 mmol/L 21.0-31.0 [facility] Chloride [Moles/volume] in S noemy or PlasmaOrdered By: Lucrecia Nunn on 11-13-2023 Chloride [Moles/Vol] 106 mmol/L 98-107 [facility] Choriogonadotropin.beta subu nit [Units/volume] in Serum or PlasmaOrdered By: Lucrecia Nunn on 11-13-2023 HCG.beta subunit Qn Negative [facility] Color Auto (U)Ordered By: Shashank Nunn on 11-13-2023 Color (U) Yellow Yellow [facility] Complete Blood Count Auto Di ffon 11-13-2023 Basophils (Bld) [#/Vol] 0.0 10*3/uL Normal 0.0-0.2 [facility] Comment on above: Result Comment: PERF ORMED BY: [place] [id number] PATHOLOGIST [employer] TECHNICIAN DINA WALKER M.D. Performed By: #### C BC, HEPATIC, LIPASE, HCGQUAL, BMP #### [address] Basophils/100 WBC (Bld) 0.4 % Normal . T cassandra [facility] Comment on above: Performed By: #### C BC, HEPATIC, LIPASE, HCGQUAL, BMP #### [address] Eosinophils (Bld) [#/Vol] 0.3 10*3/uL Normal 0.0-0.45 [facility] Comment on above: Performed By: #### C BC, HEPATIC, LIPASE, HCGQUAL, BMP #### [address] Eosinophils/100 WBC (Bld) 3.4 % Normal . [facility] Comment on above: Performed By: #### C BC, HEPATIC, LIPASE, HCGQUAL, BMP #### [address] Erythrocyte distribution width (RBC) [Ratio] 13.3 % Normal 11.9-15.3 [facility] Comment on above: Performed By: #### C BC, HEPATIC, LIPASE, HCGQUAL, BMP #### [address] Hematocrit (Bld) [Volume fraction] 40.4 % Normal 34.0-46.4 [facility] Comment on above: Performed By: #### C BC, HEPATIC, LIPASE, HCGQUAL, BMP #### [address] Hemoglobin (Bld) [Mass/Vol] 13.6 g/dL Normal 11.8-15.4 [facility] Comment on above: Performed By: #### C BC, HEPATIC, LIPASE, HCGQUAL, BMP #### [place] [address] [place] Lymphocytes (Bld) [#/Vol] 1.7 10*3/uL Normal 1.00-4.8 [facility] Comment on above: Performed By: #### C BC, HEPATIC, LIPASE, HCGQUAL, BMP #### [place] [address] [place] Lymphocytes/100 WBC (Bld) 22.8 % Normal . [facility] Comment on above: Performed By: #### C BC, HEPATIC, LIPASE, HCGQUAL, BMP #### [address] MCH (RBC) [Entitic mass] 29.8 pg Normal 24.7-34.3 [facility] Comment on above: Performed By: #### C BC, HEPATIC, LIPASE, HCGQUAL, BMP #### [address] MCV (RBC) [Entitic vol] 88.6 fL Normal 80-100 [facility] Comment on above: Performed By: #### C BC, HEPATIC, LIPASE, HCGQUAL, BMP #### [address] Mean Corpuscular HGB Conc 33.7 g/dL Normal 32.0-35.0 [facility] Comment on above: Performed By: #### C BC, HEPATIC, LIPASE, HCGQUAL, BMP #### [address] Monocytes (Bld) [#/Vol] 0.4 10*3/uL Normal 0.0-0.8 [facility] Comment on above: Performed By: #### C BC, HEPATIC, LIPASE, HCGQUAL, BMP #### [address] Monocytes/100 WBC (Bld) 15.49 % Normal 0.00-20.00 [facility] Comment on above: Performed By: #### C BC, HEPATIC, LIPASE, HCGQUAL, BMP #### [address] Monocytes/100 WBC (Bld) 5.9 % Normal . [facility] Comment on above: Performed By: #### C BC, HEPATIC, LIPASE, HCGQUAL, BMP #### [address] Neutrophils (Bld) [#/Vol] 5.1 10*3/uL Normal 1.8-7.7 [facility] Comment on above: Performed By: #### C BC, HEPATIC, LIPASE, HCGQUAL, BMP #### [address] Neutrophils/100 WBC (Bld) 67.5 % Normal . [facility] Comment on above: Performed By: #### C BC, HEPATIC, LIPASE, HCGQUAL, BMP #### [address] NRBC% 0.1 /100{WBC} Normal 0-0.5 [facility] Comment on above: Performed By: #### C BC, HEPATIC, LIPASE, HCGQUAL, BMP #### [address] Platelet mean volume (Bld) [Entitic vol] 8.6 fL Normal 6.3-10.7 [facility] Comment on above: Performed By: #### C BC, HEPATIC, LIPASE, HCGQUAL, BMP #### [address] Platelets (Bld) [#/Vol] 295 10*3/uL Normal 150-450 [facility] Comment on above: Performed By: #### C BC, HEPATIC, LIPASE, HCGQUAL, BMP #### [address] RBC (Bld) [#/Vol] 4.56 10*6/uL Normal 3.60-5.00 [facility] Comment on above: Performed By: #### C BC, HEPATIC, LIPASE, HCGQUAL, BMP #### [address] WBC (Bld) [#/Vol] 7.5 10*3/uL Normal 3.8-11.6 [facility] Comment on above: Performed By: #### C BC, HEPATIC, LIPASE, HCGQUAL, BMP #### [address] Creatinine [Mass/volume] in Serum or PlasmaOrdered By: Lucrecia Nunn on 11-13-2023 Creatinine [Mass/Vol] 0.73 mg/dL 0.60-1.20 [facility] Dipstick and Microscopicon 0 11-13-2023 Appearance (U) Clear Normal Clear [facility] Comment on above: Order Comment: Name Collection Type:: Clean-Voided Midstream Performed By: #### A DDONUAPLUS ####[place] [id number] [place] [address] [facility] Bacteria,Urine None Seen Normal None Seen [facility] Comment on above: Order Comment: Name Collection Type:: Clean-Voided Midstream Performed By: #### A DDONUAPLUS ####[address] [address] [facility] Bilirubin,Urine Negative Normal Negative [facility] Comment on above: Order Comment: Name Collection Type:: Clean-Voided Midstream Performed By: #### A DDONUAPLUS ####[address] [address] [facility] Color (U) Yellow Normal Yellow [facility] Comment on above: Order Comment: Name Collection Type:: Clean-Voided Midstream Performed By: #### A DDONUAPLUS ####[address] [address] [facility] Glucose Ql (U) Normal Normal Normal [facility] Comment on above: Order Comment: Name Collection Type:: Clean-Voided Midstream Performed By: #### A DDONUAPLUS ####[address] [address] [facility] Hyaline Casts,Urine None Seen Normal 0-1 [facility] Comment on above: Order Comment: Name Collection Type:: Clean-Voided Midstream Result Comment: PERF ORMED BY: [facility] [address] [place] [address] PATHOLOGIST [employer] TECHNICIAN DINA WALKER M.D. Performed By: #### A DDONUAPLUS ####[address] [address] [facility] Ketones Ql (U) 1+ High Negative [facility] Comment on above: Order Comment: Name Collection Type:: Clean-Voided Midstream Performed By: #### A DDONUAPLUS ####[address] [address] [facility] Leukocyte esterase Test strip Ql (U) Negative Normal Negative [facility] Comment on above: Order Comment: Name Collection Type:: Clean-Voided Midstream Performed By: #### A DDONUAPLUS ####[address] [address] [facility] Nitrite,Urine Negative Normal Negative [facility] Comment on above: Order Comment: Name Collection Type:: Clean-Voided Midstream Performed By: #### A DDONUAPLUS ####[address] [address] [facility] Occult Blood,Urine 3+ High Negative [facility] Comment on above: Order Comment: Name Collection Type:: Clean-Voided Midstream Result Comment: PERF ORMED BY: [facility] [address] [facility] [address] PATHOLOGIST INDUSTRIAL CONTROLS TECHNICIAN DINA WALKER M.D. Performed By: #### A DDONUAPLUS ####[address] [address] [facility] pH (U) 7.5 [pH] Normal 5.0-9.0 [facility] Comment on above: Order Comment: Name Collection Type:: Clean-Voided Midstream Performed By: #### A DDONUAPLUS ####[address] [address] [facility] Protein,Urine Negative Normal Negative [facility] Comment on above: Order Comment: Name Collection Type:: Clean-Voided Midstream Performed By: #### A DDONUAPLUS ####[address] [address] [facility] RBC,Urine 20-49 High 0-4 [facility] Comment on above: Order Comment: Name Collection Type:: Clean-Voided Midstream Performed By: #### A DDONUAPLUS ####[address] [address] [facility] Specificy [place],Urine 1.011 Normal 1.001-1.030 [facility] Comment on above: Order Comment: Name Collection Type:: Clean-Voided Midstream Performed By: #### A DDONUAPLUS ####[address] Squamous Epithelial Cell,Urine None Seen Normal 0-2 [facility] Comment on above: Order Comment: Name Collection Type:: Clean-Voided Midstream Performed By: #### A DDONUAPLUS ####[address] Urobilinogen,Urine Normal Normal Normal [facility] Comment on above: Order Comment: Name Collection Type:: Clean-Voided Midstream Performed By: #### A DDONUAPLUS ####[address] WBC,Urine None Seen Normal 0-4 [facility] Comment on above: Order Comment: Name Collection Type:: Clean-Voided Midstream Performed By: #### A DDONUAPLUS ####[address] Eosinophils Auto (Bld) [#/Vo l]Ordered By: Lucrecia Nunn on 11-13-2023 Eosinophils (Bld) [#/Vol] 0.3 10*3/uL 0.0-0.45 [facility] Eosinophils/100 WBC Auto (Bl d)Ordered By: Lucrecia Nunn on 11-13-2023 Eosinophils/100 WBC (Bld) 3.4 % . [facility] Erythrocyte distribution wid th Auto (RBC) [Ratio]Ordered By: Lucrecia Nunn on 11-13-2023 Erythrocyte distribution width (RBC) [Ratio] 13.3 % 11.9-15.3 [facility] Globulin Calc (S) [Mass/Vol] Ordered By: Lucrecia Nunn on 11-13-2023 Globulin (S) [Mass/Vol] 3.0 g/dL [facility] Glucose [Mass/volume] in Ser um or PlasmaOrdered By: Lucrecia Nunn on 11-13-2023 Glucose [Mass/Vol] 92 mg/dL 70-100 [facility] Comment on above: ADA recommended refe rence rangeRandom Glucose Reference Range is dependent on time and content of last meal. Glucose of more than 200 mg/dL in a nonstressed, ambulatory subject supports the diagnosis of Diabetes Mellitus. HCG,Qualitative Serumon 10-28 HCG,Qualitative Serum Negative Normal [facility] Comment on above: Result Comment: PERF ORMED BY: [place] [address] PATHOLOGIST INDUSTRIAL CONTROLS TECHNICIAN DINA WALKER M.D. Performed By: #### C BC, HEPATIC, LIPASE, HCGQUAL, BMP #### [address] Hematocrit Auto (Bld) [Volum e fraction]Ordered By: Lucrecia Nunn on 11-13-2023 Hematocrit (Bld) [Volume fraction] 40.4 % 34.0-46.4 [facility] Hemoglobin [Mass/volume] in BloodOrdered By: Lucrecia Nunn on 11-13-2023 Hemoglobin (Bld) [Mass/Vol] 13.6 g/dL 11.8-15.4 [facility] Hepatic Panelon 11-13-2023 Albumin [Mass/Vol] 4.8 g/dL Normal 3.5-5.7 [facility] Comment on above: Performed By: #### C BC, HEPATIC, LIPASE, HCGQUAL, BMP #### [address] Albumin/Globulin [Mass ratio] 1.6 {ratio} Normal [facility] Comment on above: Performed By: #### C BC, HEPATIC, LIPASE, HCGQUAL, BMP #### [place] [address] [place] ALP [Catalytic activity/Vol] 59 U/L Normal 34-104 [facility] Comment on above: Performed By: #### C BC, HEPATIC, LIPASE, HCGQUAL, BMP #### [address] ALT [Catalytic activity/Vol] 16 U/L Normal 7-52 [facility] Comment on above: Performed By: #### C BC, HEPATIC, LIPASE, HCGQUAL, BMP #### [address] AST [Catalytic activity/Vol] 18 U/L Normal 13-39 [facility] Comment on above: Performed By: #### C BC, HEPATIC, LIPASE, HCGQUAL, BMP #### [address] Bilirubin [Mass/Vol] 0.5 mg/dL Normal 0.3-1.0 [facility] Comment on above: Performed By: #### C BC, HEPATIC, LIPASE, HCGQUAL, BMP #### [address] Bilirubin,Indirect 0.4 mg/dL Normal [facility] Comment on above: Performed By: #### C BC, HEPATIC, LIPASE, HCGQUAL, BMP #### [address] Bilirubin.indirect [Mass/Vol] 0.10 mg/dL Normal 0.03-0.18 [facility] Comment on above: Performed By: #### C BC, HEPATIC, LIPASE, HCGQUAL, BMP #### [address] Globulin (S) [Mass/Vol] 3.0 g/dL Normal T [facility] Comment on above: Performed By: #### C BC, HEPATIC, LIPASE, HCGQUAL, BMP #### [address] Protein [Mass/Vol] 7.8 g/dL Normal 6.4-8.9 [facility] Comment on above: Performed By: #### C BC, HEPATIC, LIPASE, HCGQUAL, BMP #### [address] Ketones Auto test strip (U) [Mass/Vol]Ordered By: Lucrecia Nunn on 11-13-2023 Ketones (U) [Mass/Vol] 1+ Negative [facility] Leukocytes [#/volume] correc marshal for nucleated erythrocytes in Blood by Automated counOrdered By: Lucrecia Nunn on 11-13-2023 WBC corrected for nucl RBC Auto (Bld) [#/Vol] 7.5 10*3/uL 3.8-11.6 [facility] Lipaseon 11-13-2023 Lipase [Catalytic activity/Vol] 45.0 U/L Normal 11.0-82.0 [facility] Comment on above: Performed By: #### C BC, HEPATIC, LIPASE, HCGQUAL, BMP #### [facility] [address] Lipase [Enzymatic activity/v olume] in Serum or PlasmaOrdered By: Lucrecia Nunn on 11-13-2023 Lipase [Catalytic activity/Vol] 45.0 U/L 11.0-82.0 [facility] Lymphocytes Auto (Bld) [#/Vo l]Ordered By: Lucrecia Nunn on 11-13-2023 Lymphocytes (Bld) [#/Vol] 1.7 10*3/uL 1.00-4.8 [facility] Lymphocytes/100 WBC Auto (Bl d)Ordered By: Lucrecia Nunn on 11-13-2023 Lymphocytes/100 WBC (Bld) 22.8 % . [facility] MCH Auto (RBC) [Entitic mass ]Ordered By: Lucrecia Nunn on 11-13-2023 MCH (RBC) [Entitic mass] 29.8 pg 24.7-34.3 [facility] MCHC Auto (RBC) [Mass/Vol]Or dered By: Lucrecia Nunn on 11-13-2023 MCHC (RBC) [Mass/Vol] 33.7 g/dL 32.0-35.0 [facility] MCV Auto (RBC) [Entitic vol] Ordered By: Lucrecia Nunn on 11-13-2023 MCV (RBC) [Entitic vol] 88.6 fL 80-100 [facility] Monocyte distribution width [Entitic volume] in Blood by AutomatedOrdered By: Lucrecia Nunn on 11-13-2023 Monocyte distribution width Auto (Bld) [Entitic vol] 15.49 % 0.00-20.00 [facility] Monocytes Auto (Bld) [#/Vol] Ordered By: Lucrecia Nunn on 11-13-2023 Monocytes (Bld) [#/Vol] 0.4 10*3/uL 0.0-0.8 [facility] Monocytes/100 WBC Auto (Bld) Ordered By: Lucrecia Nunn on 11-13-2023 Monocytes/100 WBC (Bld) 5.9 % . [facility] Neutrophils Auto (Bld) [#/Vo l]Ordered By: Lucrecia Nunn on 11-13-2023 Neutrophils (Bld) [#/Vol] 5.1 10*3/uL 1.8-7.7 [facility] Neutrophils/100 WBC Auto (Bl d)Ordered By: Lucrecia Nunn on 11-13-2023 Neutrophils/100 WBC (Bld) 67.5 % . [facility] Nitrite Test strip Ql (U)Ord ered By: Lucrecia Nunn on 11-13-2023 Nitrite Ql (U) Negative Negative [facility] No Panel InformationOrdered By: Lucrecia Nunn on 11-13-2023 Estimated GFR (CKD-EPI) > 60.0 mL/Min [facility] Creatinine Clearance (Chem 81.17 [facility] Nucleated erythrocytes [Pres ence] in Blood by Automated countOrdered By: Lucrecia Nunn on 11-13-2023 Nucleated RBC Auto Ql (Bld) 0.1 /100{WBC} 0-0.5 [facility] Platelet mean volume Auto (B ld) [Entitic vol]Ordered By: Lucrecia Nunn on 11-13-2023 Platelet mean volume (Bld) [Entitic vol] 8.6 fL 6.3-10.7 [facility] Platelets Auto (Bld) [#/Vol] Ordered By: Lucrecia Nunn on 11-13-2023 Platelets (Bld) [#/Vol] 295 10*3/uL 150-450 [facility] Potassium [Moles/volume] in Serum or PlasmaOrdered By: Lucrecia Nunn on 11-13-2023 Potassium [Moles/Vol] 3.8 mmol/L 3.5-5.1 [facility] Protein Auto test strip (U) [Mass/Vol]Ordered By: Lucrecia Nunn on 11-13-2023 Protein (U) [Mass/Vol] Negative Negative [facility] Protein [Mass/volume] in Ser um or PlasmaOrdered By: Lucrecia Nunn on 11-13-2023 Protein [Mass/Vol] 7.8 g/dL 6.4-8.9 [facility] RBC Auto (Bld) [#/Vol]Ordere d By: Lucrecia Nunn on 11-13-2023 RBC (Bld) [#/Vol] 4.56 10*6/uL 3.60-5.00 [facility] Serum or plasma albumin/glob ulin mass ratioOrdered By: Lucrecia Nunn on 11-13-2023 Albumin/Globulin [Mass ratio] 1.6 {ratio} [facility] Serum or plasma anion gap de terminationOrdered By: Lucrecia Nunn on 11-13-2023 Anion gap [Moles/Vol] 12.0 mmol/L 6.0-15.0 [facility] Serum or plasma non-glucuron idated bilirubin measurement (mass/volume)Ordered By: Lucrecia Nunn on 11-13-2023 Bilirubin.indirect [Mass/Vol] 0.4 mg/dL [facility] Sodium [Moles/volume] in Ser um or PlasmaOrdered By: Lucrecia Nunn on 11-13-2023 Sodium [Moles/Vol] 137 mmol/L 136-145 [facility] Specific gravity Auto test s trip (U) [Rel density]Ordered By: Lucrecia Nunn on 11-13-2023 Specific gravity (U) [Rel density] 1.011 1.001-1.030 [facility] Urea nitrogen [Mass/volume] in Serum or PlasmaOrdered By: Lucrecia Nunn on 11-13-2023 Urea nitrogen [Mass/Vol] 10 mg/dL 7-25 [facility] Urine bacteria detection by automated methodOrdered By: Lucrecia Nunn on 11-13-2023 Bacteria Auto Ql (U) None seen None Seen [facility] Urine clarity by refractomet ry automatedOrdered By: Lucrecia Nunn on 11-13-2023 Clarity Refractometry automated (U) Clear Clear [facility] Urine glucose measurement by automated test strip (mass/volume)Ordered By: Lucrecia Nunn on 11-13-2023 Glucose Auto test strip (U) [Mass/Vol] Normal mg/dL Normal [facility] Urine hemoglobin detection b y automated test stripOrdered By: Lucrecia Nunn on 11-13-2023 Hemoglobin Auto test strip Ql (U) 3+ Negative [facility] Urine leukocyte esterase det ection by automated test stripOrdered By: Lucrecia Nunn on 11-13-2023 Leukocyte esterase Auto test strip Ql (U) Negative Negative [facility] Urobilinogen Auto test strip (U) [Mass/Vol]Ordered By: Lucrecia Nunn on 11-13-2023 Urobilinogen (U) [Mass/Vol] Normal mg/dL Normal [facility] WBC Auto (Bld) [#/Vol]Ordere d By: Lucrecia Nunn on 11-13-2023 WBC (Bld) [#/Vol] 7.5 10*3/uL 3.8-11.6 [facility] pH Auto test strip (U)Ordere d By: Lucrecia Nunn on 11-13-2023 pH (U) 7.5 [pH] 5.0-9.0 [facility] CBC AUTO DIFFon 04-07-2022 BASO # 0.0 103/ul Normal 0.0-0.1 [facility] Comment on above: Performed By: #### C BC #### [facility] [address] [place] [address] Dr. Joe Desir Basophils/100 WBC (Bld) 0.2 % Normal 0.2-2.0 [facility] Comment on above: Performed By: #### C BC #### [facility] [address] [place] [address] Dr. Joe Desir EO # 0.3 103/ul Normal 0.0-0.7 [facility] Comment on above: Performed By: #### C BC #### [facility] [address] [place] [address] Dr. Joe Desir Eosinophils/100 WBC (Bld) 2.1 % Normal 0.9-7.0 [facility] Comment on above: Performed By: #### C BC #### [facility] [address] [place] [address] Dr. Joe Desir Erythrocyte distribution width (RBC) [Ratio] 12.9 % Normal 11.0-15.0 [facility] Comment on above: Performed By: #### C BC #### [facility] [address] [place] [address] Dr. Joe Desir Hematocrit (Bld) [Volume fraction] 41.1 % Normal 36.0-48.0 [facility] Comment on above: Performed By: #### C BC #### [facility] [address] [place] [address] Dr. Joe Desir Hemoglobin (Bld) [Mass/Vol] 13.5 g/dL Normal 12.0-16.0 [facility] Comment on above: Performed By: #### C BC #### [facility] [address] [place] [address] Dr. Joe Desir IG # 0.05 10e3/ul Critically high 0.00-0.03 [facility] Comment on above: Performed By: #### C BC #### [facility] [address] [place] [address] Dr. Joe Desir IG % 0.4 % Normal 0.0-0.5 [facility] Comment on above: Performed By: #### C BC #### [facility] [address] [place] [address] Dr. Joe Desri LYMPH # 2.3 103/ul Normal 1.2-3.8 [facility] Comment on above: Performed By: #### C BC #### [facility] [address] [place] [address] Dr. Joe Desir Lymphocytes/100 WBC (Bld) 17.7 % Critically low 20.5-60.0 [facility] Comment on above: Performed By: #### C BC #### [facility] [address] [place] [address] Dr. Joe Desir MANUAL DIFF REQ NO Normal [facility] Comment on above: Performed By: #### C BC #### [facility] [address] [place] [address] Dr. Joe Desir MCH (RBC) [Entitic mass] 30.4 pg Normal 26.7-34.0 [facility] Comment on above: Performed By: #### C BC #### [facility] [address] [place] [address] Dr. Joe Desir MCHC (RBC) [Mass/Vol] 32.8 g/dL Normal 29.9-35.2 [facility] Comment on above: Performed By: #### C BC #### [facility] [address] [place] [address] Dr. Joe Desir MCV (RBC) [Entitic vol] 92.6 fL Normal 81.0-99.0 [facility] Comment on above: Performed By: #### C BC #### [facility] [address] [place] [address] Dr. Joe Desir MONO # 0.6 103/ul Normal 0.3-0.8 [facility] Comment on above: Performed By: #### C BC #### [facility] [address] [place] [address] Dr. Joe Desir Monocytes/100 WBC (Bld) 4.7 % Normal 1.7-12.0 [facility] Comment on above: Performed By: #### C BC #### [facility] [address] [place] [address] Dr. Joe Desir NEUT # 9.6 103/ul Critically high 1.4-6.5 [facility] Comment on above: Performed By: #### C BC #### [facility] [address] [place] [address] Dr. Jeo Desir Neutrophils/100 WBC (Bld) 74.9 % Normal 43.0-75.0 [facility] Comment on above: Performed By: #### C BC #### [facility] [address] [place] [address] Dr. Joe Desir Platelet mean volume (Bld) [Entitic vol] 10.2 fL Normal 9.5-13.5 [facility] Comment on above: Performed By: #### C BC #### [facility] [address] [place] [address] Dr. Joe Desir PLT 285 103/ul Normal 150-450 [facility] Comment on above: Performed By: #### C BC #### [facility] [address] [place] [address] Dr. Joe Desir RBC 4.44 106/ul Normal 4.20-5.40 [facility] Comment on above: Performed By: #### C BC #### [facility] [address] [place] [address] Dr. Joe Desir WBC 12.8 103/ul Critically high 4.0-11.0 [facility] Comment on above: Performed By: #### C BC #### [facility] [address] [place] [address] Dr. Joe Desir FREE T4on 04-07-2022 Free T4 [Mass/Vol] 0.70 ng/dL Critically low 0.76-1.46 [facility] Comment on above: Performed By: #### F T4 #### [facility] [address] [place] [address] Dr. Joe Desir TSHon 04-07-2022 TSH 19.728 uIU/mL Critically high 0.358-3.740 [facility] Comment on above: Performed By: #### T SH #### [facility] [address] [place] [address] Dr. Joe Desir Covid-19 PCR (CVDTB)on SARS-CoV-2 (COVID-19) RNA KRISS+probe Ql (Unsp spec) Detected Critically abnormal NOT DETECTED [facility] Comment on above: Result Comment: This test is not yet approved or cleared by the [place] FDA. When there are no FDA-approved or cleared tests available, and other criteria are met, FDA can make tests available under an emergency access mechanism called an Emergency Use Authorization (EUA). The EUA for this test is supported by the Watch Repair Technician of Health and Human Service's (HHS's) declaration that circumstances exist to justify the emergency use of in vitro diagnostics for the detection and/or diagnosis of the virus that causes COVID-19. This EUA will remain in effect (meaning this test can be used) for the duration of the COVID-19 declaration justifying emergency of IVDs, unless it is terminated or revoked by FDA (after which the test may no longer be used). Performed By: #### C [facility] #### [facility] [address] [place], [place] [id number] Dr. Joe Desir XR ANKLE ELISA MIN 3 VIEWSon 1 XR ANKLE ELISA MIN 3 VIEWS EXAMINATION: XR ANKLE ELISA MIN 3 VIEWS, XR FOOT ELISA MIN 3 VIEWS HISTORY: Bilateral ankle joint pain COMPARISON: 07/07/2021 MRI FINDINGS: RIGHT FINDINGS: BONES: No acute fracture or dislocation. Exaggerated plantar arch. No significant arthropathy or acute abnormality. SOFT TISSUES: Negative. No visible soft tissue swelling. OTHER: Negative. LEFT FINDINGS: BONES: No acute fracture or dislocation. Exaggerated plantar arch. No significant arthropathy or acute abnormality. SOFT TISSUES: Negative. No visible soft tissue swelling. OTHER: Negative. IMPRESSION: RIGHT CONCLUSION: No acute abnormality LEFT CONCLUSION: No acute abnormality Electronically authenticated by: YEMI CAMPBELL Date: 2021-07-15 11:42 Normal [facility] MRI ANKLE LT WO CONon 2020 MRI ANKLE LT WO CON EXAM: MRI ANKLE LT WO CON HISTORY: Arthralgia of the ankle and/or foot. Acute left lateral ankle pain after falling and twisting the ankle. COMPARISON: None. TECHNIQUE: Multiplanar and multisequence imaging of the left ankle was performed without contrast. FINDINGS: No acute fracture or dislocation is evident. The distal tibiofibular intact. There is no OCD lesion involving the talar dome. There is relative preservation of the joint spaces in the ankle and visualized foot. The tarsometatarsal alignment appears grossly anatomic. There is slight thickening and intermediate signal of the Achilles tendon consistent with mild tendinopathy. No Achilles tendon tear is evident. No well-defined peroneal tendon tear is visualized. A small amount of fluid tracks along the peroneal tendons. The flexor and extensor tendons appear intact including the posterior tibialis tendon. Minimal fluid tracks along the posterior tibialis tendon. There is attenuation and intermediate signal of the anterior talofibular ligament consistent with a moderate prior sprain. There is mild thickening and intermediate signal of the calcaneofibular ligament consistent with a moderate prior sprain. The posterior talofibular ligament and superficial and deep components of the deltoid ligament appear intact. There is no cystic or solid mass in the region of the tarsal tunnel. There is no acute abnormality involving the plantar fascia. IMPRESSION: 1. No acute or healing fracture involving the ankle or visualized foot. There is no OCD lesion involving the talar dome. 2. There is mild tendinopathy of the Achilles tendon with no focal tendon tear. 3. Minimal fluid tracks along the peroneal tendons and posterior tibialis tendon. Correlation for clinical findings of mild tenosynovitis would be helpful. 4. Moderate prior sprain of the anterior talofibular ligament and calcaneofibular ligament Electronically authenticated by: SANFORD MARTINEZ Date: 2021-07-07 19:44 Normal [facility] Covid-19 PCR ([facility])on SARS-CoV-2 (COVID-19) RNA KRISS+probe Ql (Unsp spec) Not detected Normal NOT DETECTED [facility] Comment on above: Result Comment: This test is not yet approved or cleared by the [place] FDA. When there are no FDA-approved or cleared tests available, and other criteria are met, FDA can make tests available under an emergency access mechanism called an Emergency Use Authorization (EUA). The EUA for this test is supported by the [place] of Health and Human Service's (HHS's) declaration that circumstances exist to justify the emergency use of in vitro diagnostics for the detection and/or diagnosis of the virus that causes COVID-19. This EUA will remain in effect (meaning this test can be used) for the duration of the COVID-19 declaration justifying emergency of IVDs, unless it is terminated or revoked by FDA (after which the test may no longer be used). When diagnostic testing is negative, the possibility of a false negative should be considered in the context of a patient's recent exposures and the presence of clinical signs and symptoms consistent with SARS-CoV-2. Performed By: #### C VDAGS, CVDTB #### [facility] [address] [place] [address] Emy Cohen SYMPTOMATIC COVID-19 ANTIGEN on 05-30-2021 EUA Statement SEE BELOW Normal [facility] Comment on above: Result Comment: This test has not been FDA cleared or approved, but has been authorized by the FDA under an Emergency Use Authorization (EUA) for use by authorized laboratories certified under CLIA that meet the requirements to perform moderate or high complexity testing. This test has been authorized only for the detection of proteins from SARS-CoV-2, not for any other viruses or pathogens. The emergency use of this test is authorized for the duration of the declaration that circumstances exist justifying the authorization of emergency use of in vitro diagnostic tests for detection and/or diagnosis of Covid-19 under section 564(b)(1) of the Act, 21 U.S.C. 360bbb-3(b)(1), unless the declaration is terminated or authorization is revoked sooner. Performed By: #### C VDAGS, CVDTB #### [facility] [address] [place] [address] Emy Cohen SARS-CoV-2 (COVID-19) RNA KRISS+probe Ql (Unsp spec) Negative Normal NEGATIVE [facility] Comment on above: Result Comment: CONF IRMATION BY PCR PENDING PER CDC GUIDELINES/ SYMPTOMATIC PATIENT. Performed By: #### C VDAGS, CVDTBH #### [facility] [address] [place] [id number] Emy Cohen Vital Signs Date Time Vital Sign Value Performing Clinician Facility 03-28-2024 14:25-0400 Body height 152.4 cm [facility] 03-28-2024 14:250400 Body mass index (BMI) [Ratio] 25 kg/m2 [facility] 03-28-2024 [id number] Body weight 58.05 kg [facility] 03-28-2024 14:25-0400 Diastolic blood pressure 68 mm[Hg] [facility] 03-28-2024 14:25-0400 Heart rate 75 /min [facility] 03-28-2024 14:25-0400 Systolic blood pressure 103 mm[Hg] [facility] 01-12-2024 13:06-040 Body height 152.4 cm MD Tiera Dumas Work Phone: [facility] 01-12-2024 13:06-0400 Body mass index (BMI) [Ratio] 25.7 kg/m2 MD Tiera Dumas Work Phone: [facility] 01-12-2024 13:06-0400 Body weight 59.87 kg MD Tiera Dumas Work Phone: [facility] 01-12-2024 13:06-0400 Diastolic blood pressure 72 mm[Hg] MD Tiera Dumas Work Phone: [facility] 01-12-2024 13:06-0400 Heart rate 74 /min MD Tiera Dumas Work Phone: [facility] 01-12-2024 13:06-0400 SaO2% (BldA) [Mass fraction] 98 % MD Tiera Dumas Work Phone: [facility] 01-12-2024 13:06-0400 Systolic blood pressure 110 mm[Hg] MD Tiera Dumas Work Phone: [facility] 12-07-2023 17:40-0400 Diastolic blood pressure 76 mm[Hg] MD Tiera Dumas Work Phone: [facility] 12-07-2023 17:40-0400 Heart rate 69 /min MD Tiera Dumas Work Phone: [facility] 12-07-2023 17:40-0400 Respiratory rate 16 /min MD Tirea Dumas Work Phone: [facility] 12-07-2023 17:40-0400 SaO2% (BldA) [Mass fraction] 99 % MD Tiera Dumas Work Phone: [facility] 12-07-2023 17:40-0400 Systolic blood pressure 111 mm[Hg] MD Tiera Dumas Work Phone: [facility] 12-07-2023 15:13-0400 Body height 152.4 cm MD Tiera Dumas Work Phone: [facility] 12-07-2023 15:13-0400 Body mass index (BMI) [Ratio] 25.4 kg/m2 MD Tiera Dumas Work Phone: [facility] 12-07-2023 15:13-0400 Body weight 58.96 kg MD Tiera Dumas Work Phone: [facility] 12-07-2023 14:47-0400 Body temperature 98.8 [degF] MD Tiera Dumas Work Phone: [facility] 12-07-2023 11:34-0400 Body temperature 98.6 [degF] Mariano MCCONNELL [facility] 12-07-2023 11:34-0400 Diastolic blood pressure 78 mm[Hg] Mariano MCCONNELL [facility] 12-07-2023 11:34-0400 Heart rate 64 /min Mariano MCCONNELL [facility] 12-07-2023 11:34-0400 Respiratory rate 16 /min Mariano MCCONNELL [facility] 12-07-2023 11:34-0400 Systolic blood pressure 111 mm[Hg] Mariano MCCONNELL [facility] 11-13-2023 12:21-0500 Diastolic blood pressure 72 mm[Hg] MD Tiera Dumas Work Phone: [facility] 11-13-2023 12:21-0500 Heart rate 63 /min MD Tiera Dumas Work Phone: [facility] 11-13-2023 12:21-0500 Respiratory rate 18 /min MD Tiera Dumas Work Phone: [facility] 11-13-2023 12:21-0500 SaO2% (BldA) [Mass fraction] 100 % MD Tiera Dumas Work Phone: [facility] 11-13-2023 12:21-0500 Systolic blood pressure 106 mm[Hg] MD Tiera Dumas Work Phone: [facility] 11-13-2023 10:02-0500 Body height 156.21 cm MD Tiera Dumas Work Phone: [facility] 11-13-2023 10:02-0500 Body temperature 97.4 [degF] MD Tiera Dumas Work Phone: [facility] 11-13-2023 10:02-0500 Body weight 59 kg MD Tiera Dumas Work Phone: [facility] 12-13-2022 11:21-0400 Body height 154.94 cm MD Tiera Dumas Work Phone: [facility] 12-13-2022 11:21-0400 Body temperature 97.9 [degF] MD Tiera Dumas Work Phone: [facility] 12-13-2022 11:21-0400 Body weight 59 kg MD Tiera Dumas Work Phone: [facility] 12-13-2022 11:21-0400 Diastolic blood pressure 79 mm[Hg] MD Tiera Dumas Work Phone: [facility] 12-13-2022 11:21-0400 Heart rate 87 /min MD Tiera Dumas Work Phone: [facility] 12-13-2022 11:21-0400 Respiratory rate 18 /min MD Tiera Dumas Work Phone: [facility] 12-13-2022 11:21-0400 SaO2% (BldA) [Mass fraction] 97 % MD Tiera Dumas Work Phone: [facility] 12-13-2022 11:21-0400 Systolic blood pressure 118 mm[Hg] MD Tiera Dumas Work Phone: [facility] 12-03-2022 11:15-0500 Body height 153.67 cm Tiera Dumas Other [employer] Other 12-03-2022 11:15-0500 Body mass index (BMI) [Ratio] 24.78 kg/m2 Tiera Dumas Other [employer] Other 12-03-2022 11:15-0500 Body temperature 99.7 [degF] Tiera Dumas Other [employer] Other 12-03-2022 11:15-0500 Body weight 58.51 kg Tiera Dumas Other [employer] Other 12-03-2022 11:15-0500 Diastolic blood pressure 72 mm[Hg] Tiera Dumas Other [employer] Other 12-03-2022 11:15-0500 SaO2% (BldA) [Mass fraction] 97 % Tiera Dumas Other [employer] Other 12-03-2022 11:15-0500 Systolic blood pressure 112 mm[Hg] Tiera Dumas Other [employer] Other Encounters Encounter Date Encounter Type Care Provider Facility Start: 03-28-2024 End: 03-28-2024 ambulatory [facility] Work Phone: Start: 03-28-2024 End: 03-28-2024 Patient encounter procedure [facility] Physician [facility] Work Phone: Start: 01-12-2024 End: 01-12-2024 ambulatory MD Tiera Dumas Work Phone: [facility] Work Phone: Start: 01-12-2024 End: 01-12-2024 Patient encounter procedure MD Tiera Dumas Work Phone: [facility] Physician [facility] Work Phone: Start: 12-07-2023 End: 12-07-2023 ambulatory Mariano Mcconnell Facility:[facility] Start: 12-07-2023 End: 12-07-2023 Admission to same day surgery center MD Tiera Dumas Work Phone: [facility] [place] Start: 12-07-2023 End: 12-08-2023 ambulatory Mariano MCCONNELL Facility:[id number] Start: 12-07-2023 End: 12-08-2023 ambulatory Mariano MCCONNELL Facility:[facility] Start: 12-07-2023 End: 12-07-2023 Patient encounter procedure Mariano MCCONNELL [facility] Start: 12-01-2023 End: 12-01-2023 ambulatory Tiera Dumas Facility:[facility] Start: 12-01-2023 End: 12-01-2023 Patient encounter procedure MD Tiera Dumas Work Phone: [facility] [place] Work Phone: Start: 11-16-2023 ambulatory Mariano ENEDINA Facility:[facility] Start: 11-13-2023 End: 11-13-2023 Emergency department patient visit Tiera Dumas Facility:[facility] Start: 11-13-2023 End: 11-13-2023 Emergency department patient visit MD Tiera Dumas Work Phone: [facility] Work Phone: Start: 07-07-2023 (Televisit) Televisit Tiera Zepeda [facility] Start: 07-07-2023 End: 07-07-2023 ambulatory Tiera Dumas Other [employer] Other Start: 12-16-2022 End: 12-16-2022 ambulatory Tiera Dumas Other [employer] Other Start: 12-16-2022 Telephone encounter Tiera Dumas [facility] Start: 12-13-2022 End: 12-13-2022 Emergency department patient visit MD Tiera Dumas Work Phone: [facility] Work Phone: Start: 12-03-2022 End: 12-03-2022 ambulatory Tiera Dumas Other [facility] [employer] Other Start: 12-03-2022 Office outpatient vi sit [address] [facility] Start: 04-07-2022 End: 04-08-[address] TIERA DUMAS Facility:[facility] Start: 09-30-2021 End: 09-30-[address] TIERA DUMAS Facility:[facility] Start: 07-18-2021 ambulatory TRACIJAMIR CANTUEN Facilit y:[facility] Start: 07-15-2021 End: 07-16-[address] YEMI CAMPBELL Facility:[facility] Start: 07-07-2021 End: 07-08-2021 ambulatory VOGT H ASTRIDDajaHAMILTON Facility:[facility] Start: 05-30-2021 End: 05-30-[address] TIERA DUMAS Facility:[facility] Procedures Date Procedure Procedure Detail Performing Clinician Start: 12-07-2023 Cystoscopy MD Tiera Dumas Work Phone: Start: 12-01-2023 Diagnostic radiograp hy of abdomen MD Tiera Dumas Work Phone: Start: 11-13-2023 Computed tomography of abdomen and pelvis with contrast MD Tiera Dumas Work Phone: Start: 12-13-2022 X-ray of right ankle MD Tiera Dumas Work Phone: Start: 12-13-2022 X-ray of right foot MD Tiera Dumas Work Phone: Start: 10-23-2015 Arthroscopy of shoulder Mariano MCCONNELL section Mariano Burrell Depression screening Tiera Dumas Other Ligation of fallopian tube Aura keke ENEDINA reconstructive surge ry after childbirth Mariano MCCONNELL Plan of Treatment Date Care Activity Detail Author Start: 12-07-2023 [facility] Start: 12-07-2023 [facility] Patient Education [facility] Work Phone: Patient referral [facility] Work Phone: [facility] Immunizations Immunization Date Immunization Notes Care Provider Fa kevin 02-13-2021 SARS-CoV-2 (COVID-19 ) mRNA-1273 vaccine Mariano MCCONNELL [facility] 01-15-2021 SARS-CoV-2 (COVID-19 ) mRNA-1273 vaccine Mariano MCCONNELL [facility] 07-10-2018 influenza virus vaccine, unspecified formulation Mariano MCCONNELL [facility] 07-10-2018 Influenza, injectabl e, Madin [place] Canine Kidney, preservative free, quadrivalent MD Tiera Dumas Work Phone: [facility] 07-24-2015 influenza virus vaccine, unspecified formulation Mariano ENEDINA [facility] 07-24-2015 influenza, injectabl e, quadrivalent, contains preservative MD Tiera Dumas Work Phone: [facility] 07-25-2014 influenza virus vaccine, unspecified formulation Mariano ENEDINA [facility] 07-25-2014 influenza, seasonal, injectable, preservative free MD Tiera Dumas Work Phone: [facility] 08-02-2013 influenza virus vaccine, unspecified formulation Mariano ENEDINA [facility] 08-02-2013 influenza, seasonal, injectable MD Tiera Dumas Work Phone: [facility] NEGATED: Highlighted row has not occurred!12-07-2023 influenza virus vaccine, unspecified formulation Mariano MCCONNELL [facility] Payers Date Payer Category Payer Self-pay [id number] 2015 Unknown 1979 Unknown [id number] 2.16.84 [id number] 1979 Unknown [id number] 2.16.84 [id number] 1979 Unknown [id number] 2.16.84 [id number] 1979 Unknown [id number] 2.16.84 [id number] 1979 Unknown [id number] 2.16.84 [id number] 1979 Unknown [id number] 2.16.84 [id number] 1979 Unknown [id number] 2.16.8 [id number] 1979 Unknown [id number] 2.16.8 [id number] 1979 Unknown [id number] 2.16.8 [id number] 1959 Unknown [id number] Unknown [id number] 2.16.8 [id number] Unknown [id number] 2.16.8 [id number] Unknown [id number] 2.16.8 [id number] Social History Date Type Detail Facility Start: 12-13-2022 Tobacco smoking status NHIS Never smoked tobacco (finding) [facility] Start: 1980 Sex Assigned At Female [facility] Sex Assigned At [facility] Start: 11-13-2023 End: 03-28-2024 Tobacco smoking status NHIS Ex-smoker (finding) [facility] Tobacco smoking status Never [facility] NEGATED: Highlighted row Spencer [facility] Goals Date Patient Goal Desired Activity /State Functional Status Date Assessment Result Facility 12-07-2023 Functional Status N/A [facility] Discharge instructions 12-07-2023 Note Date & Type Note Facility 12-07-2023 Hospital Discharg e instructions Patient Education 12/07/2023 11:56:17 Laser Therapy for Kidney Stones Laser Therapy for Kidney Stones Laser therapy for kidney stones is a procedure to break up small, hard mineral deposits that form in the kidney (kidney stones). The procedure is done using a device that produces a focused beam of light (laser). The laser breaks up kidney stones into pieces that are small enough to be passed out of the body through urination or removed from the body during the procedure. You may need laser therapy if you have kidney stones that are painful or block your urinary tract. This procedure is done by inserting a tube (ureteroscope) into your kidney through the urethral opening. The urethra is the part of the body that drains urine from the bladder. In women, the urethra opens above the vaginal opening. In men, the urethra opens at the tip of the penis. The ureteroscope is inserted through the urethra, and surgical instruments are moved through the bladder and the muscular tube that connects the kidney to the bladder (ureter) until they reach the kidney. Tell a health care provider about: Any allergies you have. All medicines you are taking, including vitamins, herbs, eye drops, creams, and niqp-tjz-zdkqsoq medicines. Any problems you or family members have had with anesthetic medicines. Any blood disorders you have. Any surgeries you have had. Any medical conditions you have. Whether you are or may be . What are the risks? Generally, this is a safe procedure. However, problems may occur, including: Infection. Bleeding. Allergic reactions to medicines. Damage to the urethra, bladder, or ureter. Urinary tract infection (UTI). Narrowing of the urethra (urethral stricture). Difficulty passing urine. Blockage of the kidney caused by a fragment of kidney stone. What happens before the procedure? Medicines Ask your health care provider about: ?Changing or stopping your regular medicines. This is especially important if you are taking diabetes medicines or blood thinners. ?Taking medicines such as aspirin and ibuprofen. These medicines can thin your blood. Do not take these medicines unless your health care provider tells you to take them. ?Taking lsrk-uks-xfmrxei medicines, vitamins, herbs, and supplements. Eating and drinking Follow instructions from your health care provider about eating and drinking, which may include: 8 hours before the procedure stop eating heavy meals or foods, such as meat, fried foods, or fatty foods. 6 hours before the procedure stop eating light meals or foods, such as toast or cereal. 6 hours before the procedure stop drinking milk or drinks that contain milk. 2 hours before the procedure stop drinking clear liquids. Staying hydrated Follow instructions from your health care provider about hydration, which may include: Up to 2 hours before the procedure you may continue to drink clear liquids, such as water, clear fruit juice, black coffee, and plain tea. General instructions You may have a physical exam before the procedure. You may also have tests, such as imaging tests and blood or urine tests. If your ureter is too narrow, your health care provider may place a soft, flexible tube (stent) inside of it. The stent may be placed days or weeks before your laser therapy procedure. Plan to have someone take you home from the hospital or clinic. If you will be going home right after the procedure, plan to have someone stay with you for 24 hours. Do not use any products that contain nicotine or tobacco for at least 4 weeks before the procedure. These products include cigarettes, e-cigarettes, and chewing tobacco. If you need help quitting, ask your health care provider. Ask your health care provider: ?How your surgical site will be marked or identified. ?What steps will be taken to help prevent infection. These may include: ?Removing hair at the surgery site. ?Washing skin with a germ-killing soap. ?Taking antibiotic medicine. What happens during the procedure? An IV will be inserted into one of your veins. You will be given one or more of the following: ?A medicine to help you relax (sedative). ?A medicine to numb the area (local anesthetic). ?A medicine to make you fall asleep (general anesthetic). A ureteroscope will be inserted into your urethra. The ureteroscope will send images to a video screen in the operating room to guide your surgeon to the area of your kidney that will be treated. A small, flexible tube will be threaded through the ureteroscope and into your bladder and ureter, up to your kidney. The laser device will be inserted into your kidney through the tube. Your surgeon will pulse the laser on and off to break up kidney stones. A surgical instrument that has a tiny wire basket may be inserted through the tube into your kidney to remove the pieces of broken kidney stone. The procedure may vary among health care providers and hospitals. What happens after the procedure? Your blood pressure, heart rate, breathing rate, and blood oxygen level will be monitored until you leave the hospital or clinic. You will be given pain medicine as needed. You may continue to receive antibiotics. You may have a stent temporarily placed in your ureter. Do not drive for 24 hours if you were given a sedative during your procedure. You may be given a strainer to collect any stone fragments that you pass in your urine. Your health care provider may have these tested. This information is not intended to replace advice given to you by your health care provider. Make sure you discuss any questions you have with your health care provider. Document Revised: 01/20/2023 Document Reviewed: 05/18/2022 [employer] Patient Education 2022 [employer]. Follow Up Care 12/06/2023 08:36:19 With:ENEDINA CONTRERAS, Mariano Causey, URL Address: [address] [place], [place] [id number]- When: Unknown Comments:sched cysto/L RGP/URS/possible stent [facility] Evaluation note 07-07-2023 Note Date & Type Note Facility 07-07-2023 Evaluation note Encounter Date Diagnosis Assessment Notes Jun, Bronchitis (ICD-10 - J40) Finish antibiotics as prescribed. Medrol for chest tightness. Will call if needs work note. [employer] Other Evaluation note 12-03-2022 Note Date & Type Note Facility 12-03-2022 Evaluation note Encounter Date Diagnosis Assessment Notes Nov, Hematuria, unspecified type (ICD-10 - R31.9) Will treat based on her symptoms Nov, Lumbar pain (ICD-10 - M54.50) Generalized pain. no acute injury. Recommend rest and heat. [employer] Other Evaluation + Plan note Note Date & Type Note Facility Evaluation + Plan note No data available for this section [facility] Evaluation note Note Date & Type Note Facility Evaluation note No assessment information availa ble [facility] Work Phone: Evaluation note Note Date & Type Note Facility Evaluation note No Information [facility] [employer] Other Evaluation note Note Date & Type Note Facility Evaluation note Diagnosis Onset Date Sinusitis acute Fatigue acute Hypothyroid acute [facility] Work Phone: History general Narrative - Reported Note Date & Type Note Facility History general Narrative - Reported Type Surgical History Problem Title : past surgical history reviewed, Problem Description : past surgical history reviewed, Problem Comment : reviewed - no changes required, Problem Status : Active, Surgical History Problem Title : surg ical procedures, hx of, Problem Description : surgical procedures, hx of, Problem Comment : Tubal ligation Left Shoulder Surgery, Problem Status : Active, [employer] Other Hospital Discharge instructions Note Date & Type Note Facility Hospital Discharge instructions Additional Instructions We evaluated you for your pain. We found that you have a kidney stone on the left, it is 3 mm. You will most likely passed the stone. Your urine did not have an infection. Please use the oxycodone as needed for pain. Use the Zofran as needed for nausea. Please take the Flomax as this may help you pass the stone. Please follow very close with your primary care doctor. Additionally please schedule appoint with the urologist. Please return to the emergency department if you develop any worsening or concerning symptoms. [facility] Work Phone: Progress note Note Date & Type Note Facility Progress note No data available for this section [facility] Summary Purpose Family History Relationship Condition Age at Onset Recorded Date/T patricia father Unknown Not Specified Unknown Relationship Condition Age at Onset Recorded Date/T patricia Not Specified Diabetes mellitus Unknown Not Specified Gastrointestinal hemorrhage Unknown Unknown father COVID Unknown grandparent Malignant neoplasm of lung Unknown Relationship Condition Age at Onset Recorded Date/T patricia maternal grandmother Diabetes mellitus Unknown mother Gastrointestinal hemorrhage Unknown Unknown father COVID Unknown grandparent Malignant neoplasm of lung Unknown Advance Directives Advance Directive Response Recorded Date/ Time Advance Directives No May 5:17pm Advance Directive Response Recorded Date/ Time Advance Directives No May 4:17pm Chief Complaint and Reason for Visit Chief Complaint Fell down stairs, le ft arm and right foot pain Chief Complaint cramps, back pain Chief Complaint cramps, back pain n20.0 . sinus infection Chief Complaint sinus infection shoulder pain/fatigue Reason for Visit Sinusitis Fatigue Hypothyroid Additional Source Comments INFORMATION SOURCE (unrecogn ized section and content) DATE CREATED AUTHOR 04/15/2022 [facility] DATE CREATED AUTHOR AUTHOR'S ORGANIZ ATION 12/15/2023 [facility] DATE CREATED AUTHOR AUTHOR'S ORGANIZ ATION 01/14/2024 [facility] Care Teams (unrecognized sec tion and content) Team Status: Active Member Role Status Dates Tiera Dumas MD Primary Care Provider Active Team Status: Inactive Member Role Status Dates Tiera Dumas MD Primary Care Provider Active Elmer Quijano APRN Emergency Provider Active Team Status: Inactive Member Role Status Dates Tiera Dumas MD Primary Care Provider Active Start: November 13, 2023 End: November 13, 2023 Lucrecia Nunn DO Emergency Provider Active Start: November 13, 2023 End: November 13, 2023 Team Status: Inactive Member Role Status Dates Tiera Dumas MD Primary Care Provider Active Start: December 01, 2023 End: December 01, 2023 Mariano Mcconnell MD Attending Provider Active St art: December 01, 2023 End: December 01, 2023 Team Status: Inactive Member Role Status Dates Tiera Dumas MD Primary Care Provider Active Start: December 07, 2023 End: December 07, 2023 Mariano Mcconnell MD Attending Provider Active St art: December 07, 2023 End: December 07, 2023 Team Status: Inactive Member Role Status Dates Tiera Dumas MD Primary Care Provider Active Start: January 12, 2024 End: January 12, 2024 Nguyen Aguirre APRN [employer] Attending Provider Act ophelia Start: January 12, 2024 End: January 12, 2024 Team Status: Inactive Member Role Status Dates Tiera Dumas MD Primary Care Provide r, Attending Provider Active Start: March 28, 2024 End: March 28, 2024 Goals (unrecognized section and content) Goals may be documented in a n alternate sectionNo InformationNo InformationNo InformationGoals may be documented in an alternate section No data available for this sectionGoals may be documented in an alternate section REASON FOR VISIT (unrecogniz ed section and content) Multiple IssuesNeeds off Wor k NoteSinuses, Congestion, Cough- [phone] FOR RECORDS PERTAINING TO PATIENTS WHO ARE OR HAVE BEEN ENROLLED IN A CHEMICAL DEPENDENCY/SUBSTANCEABUSE PROGRAM, SOME INFORMATION MAY BE OMITTED. This clinical summary was aggregated from multiple sources. Caution should be exercised in using it in the provision of clinical care. This summary normalizes information from multiple sources, and as a consequence, information in this document may materially change the coding, format and clinical context of patient data. In addition, data may be omitted in some cases. CLINICAL DECISIONS SHOULD BE BASED ON THE PRIMARY CLINICAL RECORDS. [facility]. provides no warranty or guarantee of the accuracy or completeness of information in this document.
--- NOTE | 2024-05-25 20:17 | PC.NURSE ---
Pt presents to ER for bilateral foot pain after a fall at home Pt states she tripped off her front step and rolled her right ankle and when she fell also injured the left foot Pt states most the pain in the right foot is near the ankle and accross the top of the foot The foot does have mild generalized swelling with red/abrasion like rash present to the big toe and dorsal aspect of the foot The left foot has a similar red/abrasion like rash as well as an approximate golfball size lump of edematous tissue present to the top of the foot Pt states she cannot bear weight on either foot Pt is able to move all toes, sensation and pulses present Pt presented to ER in a wheelchair and was moved with assistance to ER bed and back to wheelchair to go to the restroom with the assistance of her spouse and this nurse as well as Deidra EDWARDS Ice packs placed bilaterally
--- NOTE | 2024-05-25 20:19 | XR_ITS ---
The [address] [address] Patient Name: RACHEL TAYLOR MRN: [id number] date: 1980 Sex: F Assigned Patient Location: ED.MAIN Current Patient Location: ED.MAIN Accession/Order Number: [id number] Exam Date: 05/25/2024 20:23 Report Date: 05/25/2024 22:23 At the request of: SHILPI REINOSO Procedure: XR foot ELISA min 3V XR foot ELISA min 3V: HISTORY: Foot pain, injury. Pain midfoot, anterior. Foot pain, injury. Pain midfoot, anterior. COMPARISON: 07/15/2021. TECHNIQUE: 3 views of each foot are submitted. FINDINGS: BONES/JOINT SPACES: No acute fracture is present in the left foot. There is a cortical step-off deformity in the fifth distal phalanx concerning for an acute fracture. Correlation with physical exam findings for point tenderness is recommended. No areas suspicious for fracture present elsewhere in the right foot.. The joint spaces are well-maintained in both feet. SOFT TISSUES: There is soft tissue swelling of the left foot. There is minimal soft tissue edema of the right foot. XR/XR foot ELISA min 3V IMPRESSION: 1. Imaging findings are concerning for an acute fracture of the fifth distal phalanx. Correlation for point tenderness on physical exam is recommended. 2. No acute fracture of the left foot. 3. Soft tissue swelling, left greater than right. Electronically authenticated by: HEMANT CABRERA Date: 05/25/2024 22:23
--- NOTE | 2024-05-25 20:33 | ED_ITS ---
HPI HPI - General Adult General Chief complaint: Extremity Injury, Lower Stated complaint: LOWER EXTREMITY INJURY Time Seen by Provider: 05/25/24 19:59 Source: patient Mode of arrival: Wheelchair Limitations: no limitations History of Present Illness HPI narrative: 43-year-old female to the emergency department chief complaint of bilateral foot pain. Patient reports that she stepped down funny off of a large step and inverted her right foot and then had pain over her right foot/lateral foot. She then stepped down with her left foot at a funny angle and now has pain over the anterior foot and swelling on that foot. She reports pain with walking. No medications taken prior to arrival. She did not fall. No other injuries. She denies any ankle, knee, hip pain. Related Data Home Medications ?Medication ?Instructions ?Recorded ?Confirmed levothyroxine 137 mcg tablet mcg 05/25/24 Allergies Allergy/AdvReac Type Severity Reaction Status Date / Time codeine AdvReac Intermediate Swelling Verified 05/25/24 19:59 of Lip/Tongue/Throat Opioid HPI Opioid Management Most Recent Opioid Data: No Data to Display Review of Systems ROS Status of ROS 10 or more systems reviewed and unremark able except as noted in history and below Exam Narrative Exam Narrative: VITALS: I have reviewed the triage vital signs. GENERAL: Well developed, well appearing adult in no acute distress. NEURO: Alert and oriented. Moves all extremities. Face is symmetric and expressive. EYES: PERRL. No scleral icterus or conjunctival injection. No discharge. HENT: Normocephalic, atraumatic. Hearing is grossly intact. Nares grossly patent and without discharge. Mucous membranes moist. NECK: No JVD. Patient moves neck without restriction. Right foot: Tenderness over the anterior foot. Mild swelling. DP and PT pulses are intact. Sensation intact of the foot. Similar content to the contralateral extremity. No hip or knee tenderness. Left foot: Tenderness over the anterior foot. Mild swelling. DP and PT pulses are intact. Sensation intact over the foot. Similar color and temperature to the contralateral extremity. No hip or knee tenderness. SKIN: Warm and dry. Normal turgor. No rash or lesions appreciated. PSYCH: Mood, affect, and interaction is appropriate to the setting. Constitutional Vital Signs, click to edit/add: Last Vital Signs Temp 98.2 F 05/25/24 20:00 Pulse 74 05/25/24 20:00 Resp 16 05/25/24 20:00 BP 121/75 05/25/24 20:00 Pulse Ox 99 05/25/24 20:00 Course Vital Signs Vital signs: Vital Signs Temperature 98.2 F 05/25/24 20:00 Pulse Rate 74 05/25/24 20:00 Respiratory Rate 16 05/25/24 20:00 Blood Pressure 121/75 05/25/24 20:00 Pulse Oximetry 99 05/25/24 20:00 Temperature 98.2 F 05/25/24 20:00 Pulse Rate 74 05/25/24 20:00 Respiratory Rate 16 05/25/24 20:00 Blood Pressure 121/75 05/25/24 20:00 Pulse Oximetry 99 05/25/24 20:00 Medical Decision Making MDM Narrative Medical decision making narrative: 43-year-old female to the emergency department chief complaint of bilateral foot pain. Vital stable, the patient is afebrile. Bilateral lower extremities are neurovascularly intact. Bilateral foot x-rays are ordered. Ibuprofen is orde red for discomfort. Patient agrees with this plan. X-rays without obvious acute fracture by my read. Radiologist over read question of cortical step-off at the distal fifth phalanx on the right foot. No other acute fracture. This does not correlate with any tenderness on exam. Foot sprains. Rest, ice, compression, elevation. Work note given. She will follow-up with PCP. Return precautions were discussed. All questions were answered. The patient was discharged home. Medical Records Medical records reviewed: Yes I reviewed the patient's medical records Imaging Data Foot x-ray: Radiologist's impression: ITS Impressions Foot X-Ray 05/25/24 20:19 IMPRESSION: 1. Imaging findings are concerning for an acute fracture of the fifth distal phalanx. Correlation for point tenderness on physical exam is recommended. 2. No acute fracture of the left foot. 3. Soft tissue swelling, left greater than right. Electronically authenticated by: HEMANT CABRERA Date: 05/25/2024 22:23 Discharge Plan Discharge Stand Alone Forms: Work/School Release, Portal Instructions Chief Complaint: Extremity Injury, Lower Clinical Impression: Foot sprain Patient Disposition: Home, Self-Care Time of Disposition Decision: 22:34 Condition: Good Mode of Transportation: Private Vehicle Prescriptions / Home Meds: No Action levothyroxine 137 mcg tablet Print Language: Libyan Instructions: Foot Sprain (ED), P.R.I.C.E. Treatment (ED) Additional Instructions: Tylenol or ibuprofen for discomfort. Elevate. Wear Noam wrap's for compression. Ice intermittently for the first 24 hours. Referrals: Tiera Hampton MD [Primary Care Provider] - 1 week
[2024-05-25] MEDS: IBUPROFEN 600 MG TABLET PO (20:50)
== END 2024-05-25 23:00 | disposition home or self-care (01) ==
PROVIDERS: Emergency Provider Student in an Organized Health Care Education/Training Program; PCP Family Medicine
DX: S93.601A Unspecified sprain of right foot, initial encounter (principal); S93.602A Unspecified sprain of left foot, initial encounter; X50.1XXA Overexertion from prolonged static or awkward postures, initial encounter
CPT/HCPCS: 73630; 99283

== ENCOUNTER 2024-06-01 11:44 | Outpatient (OUT) | payer BC, SELFPAY ==
--- NOTE | 2024-06-01 | XR_ITS ---
The [address] [address] Patient Name: RACHEL TAYLOR MRN: [id number] date: 1980 Sex: F Assigned Patient Location: Current Patient Location: Accession/Order Number: [id number] Exam Date: 06/01/2024 11:45 Report Date: 06/01/2024 18:25 At the request of: TRACI SHIN Procedure: XR ankle ELISA min 3V EXAM: XR ankle ELISA min 3V, XR foot RT min 3V HISTORY: BILATERAL ANKLE PAIN COMPARISON: Feet radiograph dated 05/25/2024. TECHNIQUE: Routine views were obtained for bilateral ankle and right foot. FINDINGS/IMPRESSION: Right foot: 1. The fracture described in the fifth toe in recent radiograph cannot be well appreciated in today's exam. This may be due to positioning. If there is a clinical concern, need for further evaluation with CT/MRI can be determined clinically. 2. No evidence of acute/traumatic subluxation. No significant degenerative changes. Bilateral ankle: Normal bony alignment and joint space are preserved without evidence of acute fracture, subluxation, significant degenerative or erosive changes. Electronically authenticated by: STEPHANY ODONNELL Date: 06/01/2024 18:25
--- NOTE | 2024-06-01 | XR_ITS ---
The [address] [address] Patient Name: RACHEL TAYLOR MRN: [id number] date: 1980 Sex: F Assigned Patient Location: Current Patient Location: Accession/Order Number: [id number] Exam Date: 06/01/2024 11:45 Report Date: 06/01/2024 18:25 At the request of: TRACI SHIN Procedure: XR foot RT min 3V EXAM: XR ankle ELISA min 3V, XR foot RT min 3V HISTORY: BILATERAL ANKLE PAIN COMPARISON: Feet radiograph dated 05/25/2024. TECHNIQUE: Routine views were obtained for bilateral ankle and right foot. FINDINGS/IMPRESSION: Right foot: 1. The fracture described in the fifth toe in recent radiograph cannot be well appreciated in today's exam. This may be due to positioning. If there is a clinical concern, need for further evaluation with CT/MRI can be determined clinically. 2. No evidence of acute/traumatic subluxation. No significant degenerative changes. Bilateral ankle: Normal bony alignment and joint space are preserved without evidence of acute fracture, subluxation, significant degenerative or erosive changes. Electronically authenticated by: STEPHANY ODONNELL Date: 06/01/2024 18:25
== END 2024-06-01 11:45 | disposition home or self-care (01) ==
LOC: EC 11:44
PROVIDERS: PCP Family Medicine; Visit Provider Physician Assistant
DX: M79.671 Pain in right foot (principal); M25.571 Pain in right ankle and joints of right foot; M25.572 Pain in left ankle and joints of left foot
CPT/HCPCS: 73610; 73630

== ENCOUNTER 2024-06-05 14:23 | Outpatient (OUT) | payer BC, SELFPAY ==
--- NOTE | 2024-06-05 14:28 | CT_ITS ---
The [address] [address] Patient Name: RACHEL TAYLOR MRN: [id number] date: 1980 Sex: F Assigned Patient Location: CT Current Patient Location: CT Accession/Order Number: [id number] Exam Date: 06/05/2024 14:45 Report Date: 06/05/2024 16:27 At the request of: TRACI SHIN Procedure: CT foot LT wo con EXAMINATION: CT foot LT wo con HISTORY: Navicular Fracture Left Foot COMPARISON: 06/01/2024 TECHNIQUE: Multi-planar CT images were created without IV contrast. Dose reduction techniques were achieved by using automated exposure control and/or adjustment of mA and/or kV according to patient size and/or use of iterative reconstruction technique. FINDINGS: BONES: Subtle contour deformity identified along the medial aspect of the navicular this is best seen on coronal image 54 consistent with a nondisplaced nonangulated fracture. Multiple calcific densities are identified along the lateral base of the first metatarsal as well as the lateral aspect of the medial cuneiform, avulsion fractures are favored. No Lisfranc fracture is identified. SOFT TISSUES: Negative. No visible soft tissue swelling. EFFUSION: None visible. OTHER: Negative. CT/CT foot LT wo con IMPRESSION: Nondisplaced medial navicular fracture Linear avulsion fractures along the lateral base of the first metatarsal and lateral medial cuneiform Electronically authenticated by: YEMI CAMPBELL Date: 06/05/2024 16:27
--- OUTSIDE RECORDS SUMMARY | 2024-06-05 14:45 | XMS_ITS | CCD ---
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 Name Role Phone SHAIKH Desmond HOUSE Admitting [...] Primary Care Provider LELA Quijano Emergency Provider [phone] Tiera Dumas Unavailable MD Tiera Dumas Primary Care Provider DO Lucrecia Nunn Emergency Provider TIERA DUMAS Primary Care Physician Mariano MCCONNELL Attending Unavailable Mariano MCCONNELL Attending Unavailable MD Tiera Dumas Primary Care Provider [phone] DO Lucrecia Nunn Emergency Provider MD Mariano Mcconnell Attending Provider Mariano Mcconnell Admitting Unavailable Mariano Mcconnell Attending Unavailable Tiera Dumas Primary Care Unavailable Tiera Dumas Primary Care Unavailable Lucrecia Nunn Admitting Unavailable Lucrecia Nunn Attending Unavailable Tiera Dumas Primary Care Unavailable Mariano cMconnell Admitting Unavailable Mariano Mcconnell Attending Unavailable Allergies Allergy Classification Reported Allergen(s) Allergy Type Date of Onset Reaction(s) Facility (3 sources) Codeine; Translations: [codeine] Drug Allergy 5 unknown [facility] Repository (4 sources) Morphine; Translations: [morphine] Drug Allergy 5 Gastrointestinal Upset [facility] Repository (1 source) Codeine; Translations: [codeine] Drug Allergy Nausea and vomiting [facility] (1 source) Morphine; Translations: [morphine] Drug Allergy Nausea [facility] (1 source) Codeine Drug Allergy 4 [facility] Repository (1 source) Morphine Drug Allergy [address] [place] [address] Repository Medications Current Medications Medication Drug Class(es) [...] Ordered levothyroxine sodium 0.137 mg oral tablet (13 sources) l-Thyroxine Start: 12-27-2023 End: 04-10-2024 take 1 tablet by mouth once daily Levothyroxine Active 0 .ROUTE .COMPLEX 90 April 10, 2024 10:17am TAKE 1 TABLET BY MOUTH ONCE DAILY Start: 12-07-2023 levothyroxine 137 mcg (0.137 [...] Refills(s) 2 Start Date: 10/23/15 Status: Ordered promethazine hydrochloride 25 mg oral tablet (1 [...] Sig (Original) azithromycin 250 mg oral tablet (4 sources) Macrolide Antimicrobial Start: 01-12-2024 End: 03-28-2024 Azithromycin Discontinued 250 MG PO daily 6 5 January 12, 2024 12:00am March 28, 2024 2:25pm take 2 tablets today and then 1 for the next four days. Start: 07-07-2023 Azithromycin 2 50 MG as directed Orally 2 tabs po today, then 1 tab daily x 4 more days for 5 Jun, Active cephalexin 500 mg oral capsule (3 sources) Cephalosporin Antibacterial Start: 12-07-2023 End: 01-12-2024 take 500 mg by mouth twice daily Cephalexin Discontinued 500 MG PO Twice daily 6 3 December 07, 2023 12:00am January 12, 2024 10:19am ibuprofen 800 mg oral tablet (5 sources) Nonsteroidal Anti-inflammatory Drug Start: 06-24-2021 End: 12-13-2022 take 800 mg by mouth three times daily Ibuprofen Discontinued 800 MG PO Three times daily June 24, 2021 5:03pm December 13, 2022 11:22am Methylprednisolone (5 sources) Corticosteroid Start: 03-28-2024 End: 05-30-2024 Methylprednisolone Discontinued 0 PO per package directions March 28, 2024 12:00am May 30, 2024 2:44pm PO PER PKG DIR for 6 days Start: 03-28-2024 Methylpredniso lone Active 0 PO per package directions March 28, 2024 12:00am PO PER PKG DIR for 6 days Start: 07-07-2023 methylPREDNISo lone 4 MG as directed Orally for 6 days Jun, Active Start: 12-03-2022 methylPREDNISo lone 4 MG as directed Orally for 6 days Nov, Active ondansetron 4 mg oral tablet (4 sources) Serotonin-3 Receptor Antagonist Start: 11-13-2023 End: 12-07-2023 take 4 mg by mouth every eight hours Ondansetron Hcl Discontinued 4 MG PO Q8H 15 5 November 13, 2023 1:00am December 07, 2023 2:42pm oxyCODONE hydrochloride 5 mg oral tablet (4 sources) Opioid Agonist Start: 11-13-2023 End: 12-07-2023 take 5 mg by mouth every four to six hours Oxycodone Discontinued 5 MG PO EVERY 4-6 HOURS 12 November 13, 2023 December 07, 2023 2:42pm tamsulosin hydrochloride 0.4 mg oral capsule (4 sources) alpha-Adrenergic Guerrero Start: 11-13-2023 End: 12-07-2023 take 1 capsule by mouth once daily Tamsulosin (Flomax) 0.4 mg capsule Discontinued 0.4 MG PO Daily November 13, 2023 1:00am December 07, 2023 2:42pm tiZANidine 2 mg oral tablet (5 sources) Central alpha-2 Adrenergic Agonist Start: 03-28-2024 End: 05-30-2024 take 2 mg by mouth every eight hours Tizanidine Discontinued 2 MG PO Every 8 hours March 28, 2024 12:00am May 30, 2024 2:44pm Start: 12-03-2022 take 1 tablet by miki th every eight hours tiZANidine HCl 4 MG 1 tablet as needed Orally Three times a day for 5 days Nov, Active Problems Active Problems Problem Classification Problem Date [...] specified organisms] Episodic Calculus of urinary tract (10 sources) Kidney stone; Translations: [Calculus of kidney] [...] [Chronic fatigue, unspecified] Chronic Malaise and fatigue (9 sources) Other fatigue; Translations: [Fatigue] Onset: 04-07-2022 [...] Translations: [Overweight] Episodic Other upper respiratory infections (3 sources) Sinusitis; Translations: [Chronic sinusitis, unspecified] 01-12-2024 Chronic Ovarian cyst (1 source) Cyst of ovary 10-10-2015 Episodic Residual codes; unclassified (1 source) Tobacco user; Translations: [Tobacco use] Episodic Spondylosis; intervertebral disc disorders; other back problems (2 sources) Acute thoracic back pain; Translations: [Pain in thoracic spine] 03-29-2024 Episodic Sprains and strains (12 sources) Sprain of ankle; Translations: [Sprain of unspecified ligament of unspecified ankle, initial encounter] 12-13-2022 Episodic Thyroid disorders (6 sources) Hypothyroidism; Translations: [Hypothyroidism, unspecified] 12-07-2023 Chronic [...] Test Name Value Interpretation Reference Range Facility Basophils Auto (Bld) [#/Vol] on 03-28-2024 Basophils (Bld) [#/Vol] 0.0 10 3/uL 0.0-0.1 [facility] Basophils/100 WBC Auto (Bld) on 03-28-2024 Basophils/100 WBC (Bld) 0.6 % 0.2-2.0 [facility] Eosinophils/100 WBC Auto (Bl d)on 03-28-2024 Eosinophils/100 WBC (Bld) 5.2 % 0.9-7.0 [facility] Erythrocyte distribution wid th Auto (RBC) [Ratio]on 03-28-2024 Erythrocyte distribution width (RBC) [Ratio] 12.7 % 11.0-15.0 [facility] Estimated glomerular filtrat ion rate (GFR) non- Americanon 03-28-2024 GFR/1.73 sq M.predicted among non-blacks MDRD (S/P/Bld) [Vol rate/Area] mL/min/{1.73_m2} >=60 [facility] Hematocrit Auto (Bld) [Volum e fraction]on 03-28-2024 Hematocrit (Bld) [Volume fraction] 38.0 % 36.0-48.0 [facility] Hemoglobin [Mass/volume] in Bloodon 03-28-2024 Hemoglobin (Bld) [Mass/Vol] 12.2 g/dL 12.0-16.0 [facility] Laboratory - Chemistry and C hemistry - challengeon 03-28-2024 Calcium [Mass/Vol] 8.9 mg/dL 8.5-10.1 [facility] Chloride [Moles/Vol] 105 mmol/L 98-107 [facility] CO2 [Moles/Vol] 28.1 mmol/L 21.0-32.0 [facility] Creatinine [Mass/Vol] 0.78 mg/dL 0.55-1.02 [facility] Free T4 [Mass/Vol] 1.17 ng/dL 0.76-1.46 [facility] GFR/1.73 sq M.predicted MDRD (S/P/Bld) [Vol rate/Area] mL/min/{1.73_m2} >=60 [facility] Glucose [Mass/Vol] 98 mg/dL 74-106 [facility] Potassium [Moles/Vol] 3.7 mmol/L 3.5-5.1 [facility] Sodium [Moles/Vol] 140 mmol/L 136-145 [facility] TSH Qn 1.152 m[IU]/L 0.358-3.740 [facility] Urea nitrogen [Mass/Vol] 9.0 mg/dL 7.0-18.0 [facility] Urea nitrogen/Creatinine [Mass ratio] 11.5 mg/mg [facility] - Hematology and Cell countson 03-28-2024 Immature granulocytes/100 WBC (Bld) 0.3 % 0.0-0.5 [facility] Leukocytes [#/volume] correc marshal for nucleated erythrocytes in Blood by Automated counon 03-28-2024 WBC corrected for nucl RBC Auto (Bld) [#/Vol] 7.1 10 3/uL 4.0-11.0 [facility] Lymphocytes Auto (Bld) [#/Vo l]on 03-28-2024 Lymphocytes (Bld) [#/Vol] 2.2 10 3/uL 1.2-3.8 [facility] Lymphocytes/100 WBC Auto (Bl d)on 03-28-2024 Lymphocytes/100 WBC (Bld) 31.1 % 20.5-60.0 [facility] MCH Auto (RBC) [Entitic mass ]on 03-28-2024 MCH (RBC) [Entitic mass] 29.9 pg 26.7-34.0 [facility] MCHC Auto (RBC) [Mass/Vol]on 03-28-2024 MCHC (RBC) [Mass/Vol] 32.1 g/dL 29.9-35.2 [facility] MCV Auto (RBC) [Entitic vol] on 03-28-2024 MCV (RBC) [Entitic vol] 93.1 fL 81.0-99.0 [facility] Monocytes Auto (Bld) [#/Vol] on 03-28-2024 Monocytes (Bld) [#/Vol] 0.4 10 3/uL 0.3-0.8 [facility] Monocytes/100 WBC Auto (Bld) on 03-28-2024 Monocytes/100 WBC (Bld) 6.1 % 1.7-12.0 [facility] Neutrophils Auto (Bld) [#/Vo l]on 03-28-2024 Neutrophils (Bld) [#/Vol] 4.0 10 3/uL 1.4-6.5 [facility] Neutrophils/100 WBC Auto (Bl d)on 03-28-2024 Neutrophils/100 WBC (Bld) 56.7 % 43.0-75.0 [facility] No Panel Informationon 03-28 Eosinophils # (Auto) 0.4 10 3/uL 0.0-0.7 [facility] Immature Granulocyte # (Auto) 0.02 10 3/uL 0.00-0.03 [facility] Platelet mean volume Auto (B ld) [Entitic vol]on 03-28-2024 Platelet mean volume (Bld) [Entitic vol] 10.4 fL 9.5-13.5 [facility] Platelets Auto (Bld) [#/Vol] on 03-28-2024 Platelets (Bld) [#/Vol] 270 10 3/uL 150-450 [facility] RBC Auto (Bld) [#/Vol]on RBC (Bld) [#/Vol] 4.08 10 6/uL Low 4.20-5.40 [facility] Serum or plasma anion gap de terminationon 03-28-2024 Anion gap [Moles/Vol] 10.6 mmol/L [facility] Formson 12-08-2023 Forms [id number] #1.00TIFF [facility] Operative Reporton Operative Report [id number] #1.00TIFF [facility] RAD - MISCon 12-08-2023 [facility] - MISC [id number] #1.00TIFF Normal [facility] [id number] #1.00TIFF [facility] Ambulatory Visit Summaryon 0 12-07-2023 Ambulatory Visit Summary OSKAR TAYLORJULISA Marroquin :1980 Visit Date:12/07/2023 Ambulatory Visit Instructions Your Diagnosis Ureteral stone Kidney stone Flank pain Your Care Team Attending Physician - ENEDINA CONTRERAS, Mariano Causey Primary Care Physician - TIERA DUMAS MD This Is Your Medications List Contact prescribing [...] including vitamins, herbs, eye drops, creams, and ilcf-dog-eopoqlz medicines. ? Any problems you or family [...] tells you to take them. ? Taking icou-kiq-nnrkyyk medicines, vitamins, herbs, and supplements. Eating and [...] stop dri (more content not included)... Normal [facility] Amphetamine Screen Ql (U)Ord ered By: Sanford Mason on 12-07-2023 Amphetamines Ql (U) Negative Negative [facility] Barbiturates [Presence] in U rine by Screen methodOrdered By: Sanford Mason on 12-07-2023 Barbiturates Screen Ql (U) Negative Negative [facility] Benzodiazepines Screen Ql (U )Ordered By: Sanford Mason on 12-07-2023 Benzodiazepines Ql (U) Negative Negative [facility] Benzoylecgonine [Presence] i n Urine by Screen methodOrdered By: Sanford Mason on 12-07-2023 Benzoylecgonine Screen Ql (U) Negative Negative [facility] Cannabinoids [Presence] in U rine by Screen methodOrdered By: Sanford Mason on 12-07-2023 Cannabinoids Screen Ql (U) Positive Negative [facility] Comment on above: These are unconfirme d results and should not be used for legal purposes. Drug Cut-Off Concentration: AMPH 1000 ng/mL GARETT 200 ng/mL LEVY 200 ng/mL COCM 300 ng/mL OP 300 ng/mL PCP 25 ng/mL THC 20 ng/mL Drug Screen,Urineon 12-07-19 24 Amphetamine Screen,Urine Negative Normal Negative [facility] Comment on above: Performed By: #### U RDS #### [address] Barbiturate Screen,Urine Negative Normal Negative [facility] Comment on above: Performed By: #### U RDS #### [address] Benzodiazepines Screen,Urine Negative Normal Negative [facility] Comment on above: Performed By: #### U RDS #### [address] Cannabinoid Screen,Urine Positive High Negative [facility] Comment on above: Result Comment: Thes e are unconfirmed results and should not be used for legal purposes. Drug Cut-Off Concentration: AMPH 1000 ng/mL GARETT 200 ng/mL LEVY 200 ng/mL COCM 300 ng/mL OP 300 ng/mL PCP 25 ng/mL THC 20 ng/mL PERFORMED BY: [place] [address] [address] SEALER DINA WALKER M.D. Performed By: #### U RDS #### [address] Cocaine Screen,Urine Negative Normal Negative [facility] Comment on above: Performed By: #### U RDS #### [address] Opiate Screen,Urine Negative Normal Negative [facility] Comment on above: Performed By: #### U RDS #### [address] Phencyclidine Screen,Urine Negative Normal Negative [facility] Comment on above: Performed By: #### U RDS #### [address] [place] urethrocystogram retroon 12-07-2023 [place] urethrocystogram retro [facility] Main [place] [address] [place] [address] Fluoroscopy Report Signed Patient: Nguyen Taylor MR#: [id number] : 1980 Acct:[id number] Age/Sex: 43 / F ADM Date: 12/07/23 Loc: [place] Room: Type: [facility] Attending Dr: Mariano Mcconnell MD Copies to: [...] Gabriele Corbin M.D.12/07/2023 6:04 PM Dictation Location: [place] [address] Transcribed By: [facility] 12/07/231803 Dictated By: Gabriele Corbin II, MD 12/07/231801 Signed By: 12/07/231803 Normal [facility] HCG ( test) IA.rapi d Ql (U)Ordered By: Sanford Mason on 12-07-2023 HCG ( test) Ql (U) Negative [facility] HCG,Urineon 12-07-2023 Beta HCG ( test) Ql (U) Negative Normal [facility] Comment on above: Result Comment: PERF ORMED BY: [place] [address] [address] SEALER DINA WALKER M.D. Performed By: #### U HCG #### [address] Insurance Correspondenceon 0 12-07-2023 Insurance Correspondence [id number]#1.00TIFF [facility] Opiates [Presence] in Urine by Screen methodOrdered By: Sanford Mason on 12-07-2023 Opiates Screen Ql (U) Negative Negative [facility] Patient Educationon 12-07-19 Patient Education Nephrology [...] including vitamins, herbs, eye drops, creams, and ltsc-ouo-eeebtgc medicines. ? Any problems you or family [...] tells you to take them. ? Taking lolu-iug-aouifji medicines, vitamins, herbs, and supplements. Eating and [...] the pieces (more content not included)... [facility] Phencyclidine Screen Ql (U)O rdered By: Sanford Mason on 12-07-2023 Phencyclidine Ql (U) Negative Negative [facility] Urology Office/Clinic Noteon 12-07-2023 Urology Office/Clinic Note Chief Complaint Pt is here for [facility] f/u HPI Staff 43 year old female New Pt. Pt. was in the [facility] ER on 11/13/23 due to Lt. lower [...] 1. Ureteral stone (N20.1: Calculus of ureter) [facility] visit 11/13/23 due to left flank pain. Given Fomax and pain medication to help pass stone. CT AP w con 11/13/23 [facility] - Obstructing 3 mm L UVJ calculus [...] abdominal pain) Continues to have LLQ pain, 7/10. Pt is currently npo. -See #1 This patient was seen in the ER back on 11/13/2023 and was found to have a 3 mm left distal ureteral calculus with hydronephrosis. She has failed to pass the stone. Subsequent KUB on 12/01/2023 demonstrated the stone to be still present. KUB from a couple days ago at the [facility] is inconclusive. She continues with significant pain up to a level 7 out of 10 and does desire surgical intervention. This is well outlined above. She understands the ris (more content not included)... [facility] Comment on above: Result Comment: Elec tronically Signed By: Mariano MCCONNELL MD\.br\Date and Time Signed: 12/07/23 12:06 EDT\.br\Electronically Co-Signed By: Lakeisha Beebe\.br\Date and Time Co-Signed: 12/07/23 12:02 EDT RAD - MISCon 12-06-2023 RAD - MISC [id number] #1.00TIFF [facility] XR KUBon 12-01-2023 XR KUB [facility] [place] [address] XRay Report Signed Patient: Nguyen Taylor MR#: [id number] : 1980 Acct:[id number] Age/Sex: 43 / F ADM Date: 12/01/23 Loc: XD Room: Type: [facility] Attending Dr: Mariano Mcconnell MD Copies [...] REGION. Impression dictated by: Freeman Palacios Jr., D.O.12/01/2023 4:13 PM Dictation Location: [place] [address] Transcribed By: [facility] 12/01/23 1613 Dictated By: Freeman Palacios Jr, DO 12/01/23 1611 Signed By: 12/01/23 1613 Normal [facility] ED Note-Physicianon 11-19-19 ED Note-Physician [id number] #1.00TIFF [facility] Alanine aminotransferase [En zymatic activity/volume] in Serum or PlasmaOrdered By: Lucrecia Nunn on 11-13-2023 ALT [Catalytic activity/Vol] 16 U/L 7-52 [facility] Albumin [Mass/volume] in Ser um or Plasma by Bromocresol green (BCG) dye binding methoOrdered By: Lucrecia Nunn on 11-13-2023 Albumin BCG dye [Mass/Vol] 4.8 g/dL 3.5-5.7 [facility] Alkaline phosphatase [Enzyma tic activity/volume] in Serum or PlasmaOrdered By: Lucrecia Nunn on 11-13-2023 ALP [Catalytic activity/Vol] 59 U/L 34-104 [facility] Aspartate aminotransferase [ Enzymatic activity/volume] in Serum or PlasmaOrdered By: Lucrecia Nunn on 11-13-2023 AST [Catalytic activity/Vol] 18 U/L 13-39 [facility] Automated epithelial cells c ount in urine sediment (number/area)Ordered By: Lucrecia Nunn on 11-13-2023 Epithelial cells Auto (Urine sed) [#/Area] None seen [HPF] 0-2 [facility] Automated erythrocytes count in urine sediment (number/area)Ordered By: Lucrecia Nunn on 11-13-2023 RBC Auto (Urine sed) [#/Area] 20-49 [HPF] 0-4 [facility] Automated leukocytes count i n urine sediment (number/area)Ordered By: Lucrecia Edouard on 11-13-2023 WBC Auto (Urine sed) [#/Area] None seen [HPF] 0-4 [facility] Automated urine hyaline cast s count (number/volume)Ordered By: Lucrecia Edouard on 11-13-2023 Hyaline casts Auto (U) [#/Vol] None seen [LPF] 0-1 [facility] Basic Metabolic Panelon 10-28 Anion gap [Moles/Vol] 12.0 mmol/L Normal 6.0-15.0 [facility] Comment on above: Performed By: #### C BC, HEPATIC, LIPASE, HCGQUAL, BMP #### [address] Calcium [Mass/Vol] 9.6 mg/dL Normal 8.6-10.3 [facility] Comment on above: Performed By: #### C BC, HEPATIC, LIPASE, HCGQUAL, BMP #### [address] Chloride [Moles/Vol] 106 mmol/L Normal 98-107 [facility] Comment on above: Performed By: #### C BC, HEPATIC, LIPASE, HCGQUAL, BMP #### [address] CO2 [Moles/Vol] 22.8 mmol/L Normal 21.0-31.0 [facility] Comment on above: Performed By: #### C BC, HEPATIC, LIPASE, HCGQUAL, BMP #### [address] Creatinine [Mass/Vol] 0.73 mg/dL Normal 0.60-1.20 [facility] Comment on above: Performed By: #### C BC, HEPATIC, LIPASE, HCGQUAL, BMP #### [address] Creatinine Clr Calc Pharmacy 81.17 Normal [facility] Comment on above: Performed By: #### C BC, HEPATIC, LIPASE, HCGQUAL, BMP #### [address] GFR/1.73 sq M.predicted MDRD (S/P/Bld) [Vol rate/Area] mL/min/{1.73_m2} Normal [facility] Comment on above: Performed By: #### C BC, HEPATIC, LIPASE, HCGQUAL, BMP #### [facility] [address] Glucose [Mass/Vol] 92 mg/dL Normal 70-100 [facility] Comment on above: Result Comment: [facility] Glucose Reference Range is dependent on time and content of last meal. Glucose of more than 200 mg/dL in a nonstressed, ambulatory subject supports the diagnosis of Diabetes Mellitus. ADA recommended reference range Performed By: #### C BC, HEPATIC, LIPASE, HCGQUAL, BMP #### [address] Potassium [Moles/Vol] 3.8 mmol/L Normal 3.5-5.1 [facility] Comment on above: Performed By: #### C BC, HEPATIC, LIPASE, HCGQUAL, BMP #### [place] [address] [place] Sodium [Moles/Vol] 137 mmol/L Normal 136-145 [facility] Comment on above: Performed By: #### C BC, HEPATIC, LIPASE, HCGQUAL, BMP #### [place] [address] [place] Urea nitrogen [Mass/Vol] 10 mg/dL Normal 7-25 [facility] Comment on above: Performed By: #### C BC, HEPATIC, LIPASE, HCGQUAL, BMP #### [facility] [address] [place] [address] [place] Basophils Auto (Bld) [#/Vol] Ordered By: Lucrecia Nunn on 11-13-2023 Basophils (Bld) [#/Vol] 0.0 10*3/uL 0.0-0.2 [facility] Basophils/100 WBC Auto (Bld) Ordered By: Lucrecia Nunn on 11-13-2023 Basophils/100 WBC (Bld) 0.4 % . [facility] Bilirubin Test strip Ql (U)O rdered By: Lucrecia Nunn on 11-13-2023 Bilirubin Ql (U) Negative Negative [facility] Bilirubin.direct [Mass/volum e] in Serum or PlasmaOrdered By: Lucrecia Nunn on 11-13-2023 Bilirubin.direct [Mass/Vol] 0.10 mg/dL 0.03-0.18 [facility] Bilirubin.total [Mass/volume ] in Serum or PlasmaOrdered By: Lucrecia Nunn on 11-13-2023 Bilirubin [Mass/Vol] 0.5 mg/dL 0.3-1.0 [facility] CT abdomen pelvis w conon CT abdomen pelvis w con [facility] Main [place] [address] [place] [address] CT Scan Report Signed Patient: Nguyen Taylor MR#: [id number] : 1980 Acct:[id number] Age/Sex: 43 / F ADM Date: 11/13/23 Loc: ER Room: Type: [facility] ER Attending Dr: Copies to: Lucrecia Nunn [...] stone. Impression dictated by: Freeman Palacios Jr., D.OPatito11/13/2023 11:29 AM Dictation Location: [place] [address] Transcribed By: [facility] 11/13/23 1129 Dictated By: Freeman Palacios Jr, DO 11/13/23 1125 Signed By: 11/13/23 1129 Normal [facility] Calcium [Mass/volume] in Ser um or PlasmaOrdered By: Lucrecia Nunn on 11-13-2023 Calcium [Mass/Vol] 9.6 mg/dL 8.6-10.3 [facility] Carbon dioxide, total [Moles /volume] in Serum or PlasmaOrdered By: Lucrecia Nunn on 11-13-2023 CO2 [Moles/Vol] 22.8 mmol/L 21.0-31.0 [facility] Chloride [Moles/volume] in S noemy or PlasmaOrdered By: Lucrecia Nunn on 11-13-2023 Chloride [Moles/Vol] 106 mmol/L 98-107 [facility] Choriogonadotropin.beta subu nit [Units/volume] in Serum or PlasmaOrdered By: Lucrecia Nunn on 11-13-2023 HCG.beta subunit Qn Negative [facility] Color Auto (U)Ordered By: Shashank Nunn on 11-13-2023 Color (U) Yellow Yellow [facility] Complete Blood Count Auto Di ffon 11-13-2023 Basophils (Bld) [#/Vol] 0.0 10*3/uL Normal 0.0-0.2 [facility] Comment on above: Result Comment: PERF ORMED BY: [place] [address] [address] SEALER DINA WALKER M.D. Performed By: #### C BC, HEPATIC, LIPASE, HCGQUAL, BMP #### [address] Basophils/100 WBC (Bld) 0.4 % Normal . T [facility] Comment on above: Performed By: #### C BC, HEPATIC, LIPASE, HCGQUAL, BMP #### [address] Eosinophils (Bld) [#/Vol] 0.3 10*3/uL Normal 0.0-0.45 [facility] Comment on above: Performed By: #### C BC, HEPATIC, LIPASE, HCGQUAL, BMP #### [address] Eosinophils/100 WBC (Bld) 3.4 % Normal . [facility] Comment on above: Performed By: #### C BC, HEPATIC, LIPASE, HCGQUAL, BMP #### [address] Erythrocyte distribution width (RBC) [Ratio] 13.3 % Normal 11.9-15.3 [facility] Comment on above: Performed By: #### C BC, HEPATIC, LIPASE, HCGQUAL, BMP #### [address] Hematocrit (Bld) [Volume fraction] 40.4 % Normal 34.0-46.4 [facility] Comment on above: Performed By: #### C BC, HEPATIC, LIPASE, HCGQUAL, BMP #### [address] Hemoglobin (Bld) [Mass/Vol] 13.6 g/dL Normal 11.8-15.4 [facility] Comment on above: Performed By: #### C BC, HEPATIC, LIPASE, HCGQUAL, BMP #### [address] Lymphocytes (Bld) [#/Vol] 1.7 10*3/uL Normal 1.00-4.8 [facility] Comment on above: Performed By: #### C BC, HEPATIC, LIPASE, HCGQUAL, BMP #### [address] Lymphocytes/100 WBC (Bld) 22.8 % Normal . [facility] Comment on above: Performed By: #### C BC, HEPATIC, LIPASE, HCGQUAL, BMP #### [address] MCH (RBC) [Entitic mass] 29.8 pg Normal 24.7-34.3 [facility] Comment on above: Performed By: #### C BC, HEPATIC, LIPASE, HCGQUAL, BMP #### [address] MCV (RBC) [Entitic vol] 88.6 fL Normal 80-100 [facility] Comment on above: Performed By: #### C BC, HEPATIC, LIPASE, HCGQUAL, BMP #### [address] Mean Corpuscular HGB Conc 33.7 g/dL Normal 32.0-35.0 [facility] Comment on above: Performed By: #### C BC, HEPATIC, LIPASE, HCGQUAL, BMP #### [address] Monocytes (Bld) [#/Vol] 0.4 10*3/uL Normal 0.0-0.8 [facility] Comment on above: Performed By: #### C BC, HEPATIC, LIPASE, HCGQUAL, BMP #### [address] Monocytes/100 WBC (Bld) 15.49 % Normal 0.00-20.00 [facility] Comment on above: Performed By: #### C BC, HEPATIC, LIPASE, HCGQUAL, BMP #### [address] Monocytes/100 WBC (Bld) 5.9 % Normal . [facility] Comment on above: Performed By: #### C BC, HEPATIC, LIPASE, HCGQUAL, BMP #### [address] Neutrophils (Bld) [#/Vol] 5.1 10*3/uL Normal 1.8-7.7 [facility] Comment on above: Performed By: #### C BC, HEPATIC, LIPASE, HCGQUAL, BMP #### [address] Neutrophils/100 WBC (Bld) 67.5 % Normal . [facility] Comment on above: Performed By: #### C BC, HEPATIC, LIPASE, HCGQUAL, BMP #### [address] NRBC% 0.1 /100{WBC} Normal 0-0.5 [facility] Comment on above: Performed By: #### C BC, HEPATIC, LIPASE, HCGQUAL, BMP #### [address] Platelet mean volume (Bld) [Entitic vol] 8.6 fL Normal 6.3-10.7 [facility] Comment on above: Performed By: #### C BC, HEPATIC, LIPASE, HCGQUAL, BMP #### [address] Platelets (Bld) [#/Vol] 295 10*3/uL Normal 150-450 [facility] Comment on above: Performed By: #### C BC, HEPATIC, LIPASE, HCGQUAL, BMP #### [address] RBC (Bld) [#/Vol] 4.56 10*6/uL Normal 3.60-5.00 [facility] Comment on above: Performed By: #### C BC, HEPATIC, LIPASE, HCGQUAL, BMP #### [address] WBC (Bld) [#/Vol] 7.5 10*3/uL Normal 3.8-11.6 [facility] Comment on above: Performed By: #### C BC, HEPATIC, LIPASE, HCGQUAL, BMP #### [address] Creatinine [Mass/volume] in Serum or PlasmaOrdered By: Lucrecia Nunn on 11-13-2023 Creatinine [Mass/Vol] 0.73 mg/dL 0.60-1.20 [facility] Dipstick and Microscopicon 0 11-13-2023 Appearance (U) Clear Normal Clear [facility] Comment on above: Order Comment: Name Collection Type:: Clean-Voided Midstream Performed By: #### A DDONUAPLUS ####[id number] [place] [address] [facility] Bacteria,Urine None Seen Normal None Seen [facility] Comment on above: Order Comment: Name Collection Type:: Clean-Voided Midstream Performed By: #### A DDONUAPLUS ####[address] [address] [place] Bilirubin,Urine Negative Normal Negative [facility] Comment on above: Order Comment: Name Collection Type:: Clean-Voided Midstream Performed By: #### A DDONUAPLUS ####[address] [address] [facility] Color (U) Yellow Normal Yellow [facility] Comment on above: Order Comment: Name Collection Type:: Clean-Voided Midstream Performed By: #### A DDONUAPLUS ####[address] [address] [facility] Glucose Ql (U) Normal Normal Normal [facility] Comment on above: Order Comment: Name Collection Type:: Clean-Voided Midstream Performed By: #### A DDONUAPLUS ####[address] [address] [facility] Hyaline Casts,Urine None Seen Normal 0-1 [facility] Comment on above: Order Comment: Name Collection Type:: Clean-Voided Midstream Result Comment: PERF ORMED BY: [facility] [address] [place] [address] [address] SEALER DINA WALKER M.D. Performed By: #### A DDONUAPLUS ####[address] [address] [facility] Ketones Ql (U) 1+ High Negative [facility] Comment on above: Order Comment: Name Collection Type:: Clean-Voided Midstream Performed By: #### A DDONUAPLUS ####[address] [address] [place] [address] [facility] Leukocyte esterase Test strip Ql (U) Negative Normal Negative [facility] Comment on above: Order Comment: Name Collection Type:: Clean-Voided Midstream Performed By: #### A DDONUAPLUS ####[address] [address] [facility] Nitrite,Urine Negative Normal Negative [facility] Comment on above: Order Comment: Name Collection Type:: Clean-Voided Midstream Performed By: #### A DDONUAPLUS ####[address] [address] [facility] Occult Blood,Urine 3+ High Negative [facility] Comment on above: Order Comment: Name Collection Type:: Clean-Voided Midstream Result Comment: PERF ORMED BY: [facility] [address] [place] [place] [id number] PATHOLOGIST DRIVEWAY SEALER DINA WALKER M.D. Performed By: #### A DDONUAPLUS ####[address] [address] [facility] pH (U) 7.5 [pH] Normal 5.0-9.0 [facility] Comment on above: Order Comment: Name Collection Type:: Clean-Voided Midstream Performed By: #### A DDONUAPLUS ####[address] [address] [facility] Protein,Urine Negative Normal Negative [facility] Comment on above: Order Comment: Name Collection Type:: Clean-Voided Midstream Performed By: #### A DDONUAPLUS ####[address] [address] [facility] RBC,Urine 20-49 High 0-4 [facility] Comment on above: Order Comment: Name Collection Type:: Clean-Voided Midstream Performed By: #### A DDONUAPLUS ####[address] [address] [facility] Specificy [place],Urine 1.011 Normal 1.001-1.030 [facility] Comment on above: Order Comment: Name Collection Type:: Clean-Voided Midstream Performed By: #### A DDONUAPLUS ####[id number] Squamous Epithelial Cell,Urine None Seen Normal 0-2 [facility] Comment on above: Order Comment: Name Collection Type:: Clean-Voided Midstream Performed By: #### A DDONUAPLUS ####[id number] Urobilinogen,Urine Normal Normal Normal [facility] Comment on above: Order Comment: Name Collection Type:: Clean-Voided Midstream Performed By: #### A DDONUAPLUS ####[id number] WBC,Urine None Seen Normal 0-4 [facility] Comment on above: Order Comment: Name Collection Type:: Clean-Voided Midstream Performed By: #### A DDONUAPLUS ####[address] Eosinophils Auto (Bld) [#/Vo l]Ordered By: Lucrecia Nunn on 11-13-2023 Eosinophils (Bld) [#/Vol] 0.3 10*3/uL 0.0-0.45 [facility] Eosinophils/100 WBC Auto (Bl d)Ordered By: Lucrecia Nunn on 11-13-2023 Eosinophils/100 WBC (Bld) 3.4 % . [facility] Erythrocyte distribution wid th Auto (RBC) [Ratio]Ordered By: Lucrecia Nunn on 11-13-2023 Erythrocyte distribution width (RBC) [Ratio] 13.3 % 11.9-15.3 [facility] Globulin Calc (S) [Mass/Vol] Ordered By: Lucrecia Nunn on 11-13-2023 Globulin (S) [Mass/Vol] 3.0 g/dL [facility] Glucose [Mass/volume] in Ser um or PlasmaOrdered By: Lucrecia Nunn on 11-13-2023 Glucose [Mass/Vol] 92 mg/dL 70-100 [facility] Comment on above: ADA recommended refe rence rangeRandom Glucose Reference Range is dependent on time and content of last meal. Glucose of more than 200 mg/dL in a nonstressed, ambulatory subject supports the diagnosis of Diabetes Mellitus. HCG,Qualitative Serumon 10-28 HCG,Qualitative Serum Negative Normal [facility] Comment on above: Result Comment: PERF ORMED BY: [place] [address] [address] SEALER DINA WALKER M.D. Performed By: #### C BC, HEPATIC, LIPASE, HCGQUAL, BMP #### [address] Hematocrit Auto (Bld) [Volum e fraction]Ordered By: Lucrecia Nunn on 11-13-2023 Hematocrit (Bld) [Volume fraction] 40.4 % 34.0-46.4 [facility] Hemoglobin [Mass/volume] in BloodOrdered By: Lucrecia Nunn on 11-13-2023 Hemoglobin (Bld) [Mass/Vol] 13.6 g/dL 11.8-15.4 [facility] Hepatic Panelon 11-13-2023 Albumin [Mass/Vol] 4.8 g/dL Normal 3.5-5.7 [facility] Comment on above: Performed By: #### C BC, HEPATIC, LIPASE, HCGQUAL, BMP #### [address] Albumin/Globulin [Mass ratio] 1.6 {ratio} Normal [facility] Comment on above: Performed By: #### C BC, HEPATIC, LIPASE, HCGQUAL, BMP #### [address] ALP [Catalytic activity/Vol] 59 U/L Normal 34-104 [facility] Comment on above: Performed By: #### C BC, HEPATIC, LIPASE, HCGQUAL, BMP #### [address] ALT [Catalytic activity/Vol] 16 U/L Normal 7-52 [facility] Comment on above: Performed By: #### C BC, HEPATIC, LIPASE, HCGQUAL, BMP #### [address] AST [Catalytic activity/Vol] 18 U/L Normal 13-39 [facility] Comment on above: Performed By: #### C BC, HEPATIC, LIPASE, HCGQUAL, BMP #### [address] Bilirubin [Mass/Vol] 0.5 mg/dL Normal 0.3-1.0 [facility] Comment on above: Performed By: #### C BC, HEPATIC, LIPASE, HCGQUAL, BMP #### [address] Bilirubin,Indirect 0.4 mg/dL Normal [facility] Comment on above: Performed By: #### C BC, HEPATIC, LIPASE, HCGQUAL, BMP #### [address] Bilirubin.indirect [Mass/Vol] 0.10 mg/dL Normal 0.03-0.18 [facility] Comment on above: Performed By: #### C BC, HEPATIC, LIPASE, HCGQUAL, BMP #### [address] Globulin (S) [Mass/Vol] 3.0 g/dL Normal T [facility] Comment on above: Performed By: #### C BC, HEPATIC, LIPASE, HCGQUAL, BMP #### [address] Protein [Mass/Vol] 7.8 g/dL Normal 6.4-8.9 [facility] Comment on above: Performed By: #### C BC, HEPATIC, LIPASE, HCGQUAL, BMP #### [address] Ketones Auto test strip (U) [Mass/Vol]Ordered By: Lucrecia Nunn on 11-13-2023 Ketones (U) [Mass/Vol] 1+ Negative [facility] Leukocytes [#/volume] correc marshal for nucleated erythrocytes in Blood by Automated counOrdered By: Lucrecai Nunn on 11-13-2023 WBC corrected for nucl RBC Auto (Bld) [#/Vol] 7.5 10*3/uL 3.8-11.6 [facility] Lipaseon 11-13-2023 Lipase [Catalytic activity/Vol] 45.0 U/L Normal 11.0-82.0 [facility] Comment on above: Performed By: #### C BC, HEPATIC, LIPASE, HCGQUAL, BMP #### [facility] [address] Lipase [Enzymatic activity/v olume] in Serum or PlasmaOrdered By: Lucrecia Nunn on 11-13-2023 Lipase [Catalytic activity/Vol] 45.0 U/L 11.0-82.0 [facility] Lymphocytes Auto (Bld) [#/Vo l]Ordered By: Lucrecia Nunn on 11-13-2023 Lymphocytes (Bld) [#/Vol] 1.7 10*3/uL 1.00-4.8 [facility] Lymphocytes/100 WBC Auto (Bl d)Ordered By: Lucrecia Nunn on 11-13-2023 Lymphocytes/100 WBC (Bld) 22.8 % . [facility] MCH Auto (RBC) [Entitic mass ]Ordered By: Lucrecia Nunn on 11-13-2023 MCH (RBC) [Entitic mass] 29.8 pg 24.7-34.3 [facility] MCHC Auto (RBC) [Mass/Vol]Or dered By: Lucrecia Nunn on 11-13-2023 MCHC (RBC) [Mass/Vol] 33.7 g/dL 32.0-35.0 [facility] MCV Auto (RBC) [Entitic vol] Ordered By: Lucrecia Nunn on 11-13-2023 MCV (RBC) [Entitic vol] 88.6 fL 80-100 [facility] Monocyte distribution width [Entitic volume] in Blood by AutomatedOrdered By: Lucrecia Nunn on 11-13-2023 Monocyte distribution width Auto (Bld) [Entitic vol] 15.49 % 0.00-20.00 [facility] Monocytes Auto (Bld) [#/Vol] Ordered By: Lucrecia Nunn on 11-13-2023 Monocytes (Bld) [#/Vol] 0.4 10*3/uL 0.0-0.8 [facility] Monocytes/100 WBC Auto (Bld) Ordered By: Lucrecia Nunn on 11-13-2023 Monocytes/100 WBC (Bld) 5.9 % . [facility] Neutrophils Auto (Bld) [#/Vo l]Ordered By: Lucrecia Nunn on 11-13-2023 Neutrophils (Bld) [#/Vol] 5.1 10*3/uL 1.8-7.7 [facility] Neutrophils/100 WBC Auto (Bl d)Ordered By: Lucrecia Nunn on 11-13-2023 Neutrophils/100 WBC (Bld) 67.5 % . [facility] Nitrite Test strip Ql (U)Ord ered By: Lucrecia Nunn on 11-13-2023 Nitrite Ql (U) Negative Negative [facility] No Panel InformationOrdered By: Lucrecia Nunn on 11-13-2023 Estimated GFR (CKD-EPI) > 60.0 mL/Min [facility] Creatinine Clearance (Chem 81.17 [facility] Nucleated erythrocytes [Pres ence] in Blood by Automated countOrdered By: Lucrecia Nunn on 11-13-2023 Nucleated RBC Auto Ql (Bld) 0.1 /100{WBC} 0-0.5 [facility] Platelet mean volume Auto (B ld) [Entitic vol]Ordered By: Lucrecia Nunn on 11-13-2023 Platelet mean volume (Bld) [Entitic vol] 8.6 fL 6.3-10.7 [facility] Platelets Auto (Bld) [#/Vol] Ordered By: Lucrecia Nunn on 11-13-2023 Platelets (Bld) [#/Vol] 295 10*3/uL 150-450 [facility] Potassium [Moles/volume] in Serum or PlasmaOrdered By: Lucrecia Nunn on 11-13-2023 Potassium [Moles/Vol] 3.8 mmol/L 3.5-5.1 [facility] Protein Auto test strip (U) [Mass/Vol]Ordered By: Lucrecia Nunn on 11-13-2023 Protein (U) [Mass/Vol] Negative Negative [facility] Protein [Mass/volume] in Ser um or PlasmaOrdered By: Lucrecia Nunn on 11-13-2023 Protein [Mass/Vol] 7.8 g/dL 6.4-8.9 [facility] RBC Auto (Bld) [#/Vol]Ordere d By: Lucrecia Nunn on 11-13-2023 RBC (Bld) [#/Vol] 4.56 10*6/uL 3.60-5.00 [facility] Serum or plasma albumin/glob ulin mass ratioOrdered By: Lucrecia Nunn on 11-13-2023 Albumin/Globulin [Mass ratio] 1.6 {ratio} [facility] Serum or plasma anion gap de terminationOrdered By: Lucrecia Nunn on 11-13-2023 Anion gap [Moles/Vol] 12.0 mmol/L 6.0-15.0 [facility] Serum or plasma non-glucuron idated bilirubin measurement (mass/volume)Ordered By: Lucrecia Nunn on 11-13-2023 Bilirubin.indirect [Mass/Vol] 0.4 mg/dL [facility] Sodium [Moles/volume] in Ser um or PlasmaOrdered By: Lucrecia Nunn on 11-13-2023 Sodium [Moles/Vol] 137 mmol/L 136-145 [facility] Specific gravity Auto test s trip (U) [Rel density]Ordered By: Lucrecia Nunn on 11-13-2023 Specific gravity (U) [Rel density] 1.011 1.001-1.030 [facility] Urea nitrogen [Mass/volume] in Serum or PlasmaOrdered By: Lucrecia Nunn on 11-13-2023 Urea nitrogen [Mass/Vol] 10 mg/dL 7-25 [facility] Urine bacteria detection by automated methodOrdered By: Lucrecia Nunn on 11-13-2023 Bacteria Auto Ql (U) None seen None Seen [facility] Urine clarity by refractomet ry automatedOrdered By: Lucrecia Nunn on 11-13-2023 Clarity Refractometry automated (U) Clear Clear [facility] Urine glucose measurement by automated test strip (mass/volume)Ordered By: Lucrecia Nunn on 11-13-2023 Glucose Auto test strip (U) [Mass/Vol] Normal mg/dL Normal [facility] Urine hemoglobin detection b y automated test stripOrdered By: Lucrecia Nunn on 11-13-2023 Hemoglobin Auto test strip Ql (U) 3+ Negative [facility] Urine leukocyte esterase det ection by automated test stripOrdered By: Lucrecia Nunn on 11-13-2023 Leukocyte esterase Auto test strip Ql (U) Negative Negative [facility] Urobilinogen Auto test strip (U) [Mass/Vol]Ordered By: Lucrecia Nunn on 11-13-2023 Urobilinogen (U) [Mass/Vol] Normal mg/dL Normal [facility] WBC Auto (Bld) [#/Vol]Ordere d By: Lucrecia Nunn on 11-13-2023 WBC (Bld) [#/Vol] 7.5 10*3/uL 3.8-11.6 [facility] pH Auto test strip (U)Ordere d By: Lucrecia Nunn on 11-13-2023 pH (U) 7.5 [pH] 5.0-9.0 [facility] CBC AUTO DIFFon 04-07-2022 BASO # 0.0 103/ul Normal 0.0-0.1 [facility] Comment on above: Performed By: #### C BC #### [facility] [address] [place] [address] Dr. Joe Desir Basophils/100 WBC (Bld) 0.2 % Normal 0.2-2.0 [facility] Comment on above: Performed By: #### C BC #### [facility] [address] [place] [address] Dr. Joe Desir EO # 0.3 103/ul Normal 0.0-0.7 [facility] Comment on above: Performed By: #### C BC #### [facility] [address] [place] [address] Dr. Joe Desir Eosinophils/100 WBC (Bld) 2.1 % Normal 0.9-7.0 [facility] Comment on above: Performed By: #### C BC #### [facility] [address] [place] [address] Dr. Joe Desir Erythrocyte distribution width (RBC) [Ratio] 12.9 % Normal 11.0-15.0 [facility] Comment on above: Performed By: #### C BC #### [facility] [address] [place] [address] Dr. Joe Desir Hematocrit (Bld) [Volume fraction] 41.1 % Normal 36.0-48.0 [facility] Comment on above: Performed By: #### C BC #### [facility] [address] [place] [address] Dr. Joe Desir Hemoglobin (Bld) [Mass/Vol] 13.5 g/dL Normal 12.0-16.0 [facility] Comment on above: Performed By: #### C BC #### [facility] [address] [place] [address] Dr. Joe Desir IG # 0.05 10e3/ul Critically high 0.00-0.03 [facility] Comment on above: Performed By: #### C BC #### [facility] [address] [place] [address] Dr. Joe Desir IG % 0.4 % Normal 0.0-0.5 [facility] Comment on above: Performed By: #### C BC #### [facility] [address] [place] [address] Dr. Joe Desir LYMPH # 2.3 103/ul Normal 1.2-3.8 [facility] Comment on above: Performed By: #### C BC #### [facility] [address] [place] [address] Dr. Joe Desir Lymphocytes/100 WBC (Bld) 17.7 % Critically low 20.5-60.0 [facility] Comment on above: Performed By: #### C BC #### [facility] [address] [place] [address] Dr. Joe Desir MANUAL DIFF REQ NO Normal [facility] Comment on above: Performed By: #### C BC #### [facility] [address] [place] [address] Dr. Joe Desir MCH (RBC) [Entitic mass] 30.4 pg Normal 26.7-34.0 [facility] Comment on above: Performed By: #### C BC #### [facility] [address] [address] [address] Joe Desir MCHC (RBC) [Mass/Vol] 32.8 g/dL Normal 29.9-35.2 [facility] Comment on above: Performed By: #### C BC #### [facility] [address] [address] [address] Joe Desir MCV (RBC) [Entitic vol] 92.6 fL Normal 81.0-99.0 [facility] Comment on above: Performed By: #### C BC #### [facility] [address] [address] [address] Joe Desir MONO # 0.6 103/ul Normal 0.3-0.8 [facility] Comment on above: Performed By: #### C BC #### [facility] [address] [address] [address] Joe Desir Monocytes/100 WBC (Bld) 4.7 % Normal 1.7-12.0 [facility] Comment on above: Performed By: #### C BC #### [facility] [address] [address] [address] Joe Desir NEUT # 9.6 103/ul Critically high 1.4-6.5 [facility] Comment on above: Performed By: #### C BC #### [facility] [address] [address] [address] Joe Desir Neutrophils/100 WBC (Bld) 74.9 % Normal 43.0-75.0 [facility] Comment on above: Performed By: #### C BC #### [facility] [address] [address] [address] Joe Desir Platelet mean volume (Bld) [Entitic vol] 10.2 fL Normal 9.5-13.5 [facility] Comment on above: Performed By: #### C BC #### [facility] [address] [address] [address] Joe Desir PLT 285 103/ul Normal 150-450 [facility] Comment on above: Performed By: #### C BC #### [facility] [address] [place] [address] Dr. Joe Desir RBC 4.44 106/ul Normal 4.20-5.40 [facility] Comment on above: Performed By: #### C BC #### [facility] [address] [place] [address] Dr. Joe Desir WBC 12.8 103/ul Critically high 4.0-11.0 [facility] Comment on above: Performed By: #### C BC #### [facility] [address] [place] [address] Dr. Joe Desir FREE T4on 04-07-2022 Free T4 [Mass/Vol] 0.70 ng/dL Critically low 0.76-1.46 [facility] Comment on above: Performed By: #### F T4 #### [facility] [address] [place] [address] Dr. Joe Desir TSHon 04-07-2022 TSH 19.728 uIU/mL Critically high 0.358-3.740 [facility] Comment on above: Performed By: #### T SH #### [facility] [address] [place] [address] Dr. Joe Desir Covid-19 PCR [facility]on SARS-CoV-2 (COVID-19) RNA KRISS+probe Ql (Unsp spec) Detected Critically abnormal NOT DETECTED [facility] Comment on above: Result Comment: This test is not yet approved or cleared by the [place] FDA. When there are no FDA-approved or cleared tests available, and other criteria are met, FDA can make tests available under an emergency access mechanism called an Emergency Use Authorization (EUA). The EUA for this test is supported by the [place] of Health and Human Service's (HHS's) declaration [...] be used). Performed By: #### C [facility] #### [facility] [address] [place] [address] Dr. Joe Desir XR ANKLE ELISA MIN [...] YEMI CAMPBELL Date: 2021-07-15 11:42 Normal [facility] MRI ANKLE LT WO CONon 2020 MRI [...] SANFORD MARTINEZ Date: 2021-07-07 19:44 Normal [facility] Covid-19 PCR ([facility])on SARS-CoV-2 (COVID-19) RNA KRISS+probe Ql (Unsp spec) Not detected Normal NOT DETECTED [facility] Comment on above: Result Comment: This test is not yet approved or cleared by the [place] FDA. When there are no FDA-approved or cleared tests available, and other criteria are met, FDA can make tests available under an emergency access mechanism called an Emergency Use Authorization (EUA). The EUA for this test is supported by the [employer] of Health and Human Service's (HHS's) declaration [...] Performed By: #### C VDAGS, CVDTB #### [facility] [address] [place] [address] Emy Cohen SYMPTOMATIC COVID-19 ANTIGEN on 05-30-2021 EUA Statement SEE BELOW Normal [facility] Comment on above: Result Comment: This test [...] is revoked sooner. Performed By: #### C SITAS, CVDTB #### [facility] [address] [place] [id number] Emy Cohen SARS-CoV-2 (COVID-19) RNA KRISS+probe Ql (Unsp spec) Negative Normal NEGATIVE [facility] Comment on above: Result Comment: CONF IRMATION BY PCR PENDING PER CDC GUIDELINES/ SYMPTOMATIC PATIENT. Performed By: #### C SYDAGS, CVDTB #### [facility] [address] [place], [place] [address] Emy Cohen Vital Signs Date Time Vital Sign Value Performing Clinician Facility 05-30-2024 14:38-0400 Body height 152.4 cm [facility] 05-30-2024 14:38-0400 Body mass index (BMI) [Ratio] 25.5 kg/m2 [facility] 05-30-2024 14:38-0400 Body weight 59.42 kg [facility] 05-30-2024 14:38-0400 Diastolic blood pressure 74 mm[Hg] [facility] 05-30-2024 14:38-0400 Heart rate 67 /min [facility] 05-30-2024 14:38-0400 SaO2% (BldA) [Mass fraction] 98 % [facility] 05-30-2024 14:38-0400 Systolic blood pressure 122 mm[Hg] [facility] 03-28-2024 14:25-0400 Body height 152.4 cm [facility] 03-28-2024 14:25-0400 Body mass index (BMI) [Ratio] 25 kg/m2 [facility] 03-28-2024 14:25-0400 Body weight 58.05 kg [facility] 03-28-2024 14:25-0400 Diastolic blood pressure 68 mm[Hg] [facility] 03-28-2024 14:25-0400 Heart rate 75 /min [facility] 03-28-2024 14:25-0400 Systolic blood pressure 103 mm[Hg] [facility] 01-12-2024 13:06-0400 Body height 152.4 cm MD Tiera Dumas Work Phone: [facility] 01-12-2024 13:06-0400 Body mass index (BMI) [Ratio] 25.7 kg/m2 MD Tiera Dumas Work Phone: [facility] 01-12-2024 13:06-0400 Body weight 59.87 kg MD Tiera Dumas Work Phone: [facility] 01-12-2024 13:06-0400 Diastolic blood pressure 72 mm[Hg] MD Tiera Dumas Work Phone: [facility] 01-12-2024 13:06-0400 Heart rate 74 /min MD Tiera Dumas Work Phone: [facility] 01-12-2024 13:06-0400 SaO2% (BldA) [Mass fraction] 98 % MD Tiera Dumas Work Phone: [facility] 01-12-2024 13:06-0400 Systolic blood pressure 110 mm[Hg] MD Tiera Dumas Work Phone: [facility] 12-07-2023 17:40-0400 Diastolic blood pressure 76 mm[Hg] MD Tiera Dumas Work Phone: [facility] 12-07-2023 17:40-0400 Heart rate 69 /min MD Tiera Dumas Work Phone: [facility] 12-07-2023 17:40-0400 Respiratory rate 16 /min MD Tiera Dumas Work Phone: [facility] 12-07-2023 17:40-0400 SaO2% (BldA) [Mass fraction] 99 % MD Tiera Dumas Work Phone: [facility] 12-07-2023 17:40-0400 Systolic blood pressure 111 mm[Hg] MD Tiera Dumas Work Phone: [facility] 12-07-2023 15:13-0400 Body height 152.4 cm MD Tiera Dumas Work Phone: [facility] 12-07-2023 15:13-0400 Body mass index (BMI) [Ratio] 25.4 kg/m2 MD Tiera Dumas Work Phone: [facility] 12-07-2023 15:13-0400 Body weight 58.96 kg MD Tiera Dumas Work Phone: [facility] 12-07-2023 14:47-0400 Body temperature 98.8 [degF] MD Tiera Dumas Work Phone: [facility] 12-07-2023 11:34-0400 Body temperature 98.6 [degF] Mariano ENEDINA [facility] 12-07-2023 11:34-0400 Diastolic blood pressure 78 mm[Hg] Mariano MCCONNELL [facility] 12-07-2023 11:34-0400 Heart rate 64 /min Mariano COOK [facility] 12-07-2023 11:34-0400 Respiratory rate 16 /min Mariano COOK [facility] 12-07-2023 11:34-0400 Systolic blood pressure 111 mm[Hg] Mariano COOK [facility] 11-13-2023 12:21-0500 Diastolic blood pressure 72 mm[Hg] MD Tiera Dumas Work Phone: [facility] 11-13-2023 12:21-0500 Heart rate 63 /min MD Tiera Dumas Work Phone: [facility] 11-13-2023 12:21-0500 Respiratory rate 18 /min MD Tiera Dumas Work Phone: [facility] 11-13-2023 12:21-0500 SaO2% (BldA) [Mass fraction] 100 % MD Tiera Dumas Work Phone: [facility] 11-13-2023 12:21-0500 Systolic blood pressure 106 mm[Hg] MD Tiera Dumas Work Phone: [facility] 11-13-2023 10:02-0500 Body height 156.21 cm MD Tiera Dumas Work Phone: [facility] 11-13-2023 10:02-0500 Body temperature 97.4 [degF] MD Tiera Dumas Work Phone: [facility] 11-13-2023 10:02-0500 Body weight 59 kg MD Tiera Dumas Work Phone: [facility] 12-13-2022 11:21-0400 Body height 154.94 cm MD Tiera Dumas Work Phone: [facility] 12-13-2022 11:21-0400 Body temperature 97.9 [degF] MD Tiera Dumas Work Phone: [facility] 12-13-2022 11:21-0400 Body weight 59 kg MD Tiera Dumas Work Phone: [facility] 12-13-2022 11:21-0400 Diastolic blood pressure 79 mm[Hg] MD Tiera Dumas Work Phone: [facility] 12-13-2022 11:21-0400 Heart rate 87 /min MD Tiera Dumas Work Phone: [facility] 12-13-2022 11:21-0400 Respiratory rate 18 /min MD Tiera Dumas Work Phone: [facility] 12-13-2022 11:21-0400 SaO2% (BldA) [Mass fraction] 97 % MD Tiera Dumas Work Phone: [facility] 12-13-2022 11:21-0400 Systolic blood pressure 118 mm[Hg] MD Tiera Dumas Work Phone: [facility] 12-03-2022 11:15-0500 Body height 153.67 cm Tiera Dumas Other [facility] Other 12-03-2022 11:15-0500 Body mass index (BMI) [Ratio] 24.78 kg/m2 Tiera Dumas Other [facility] Other 12-03-2022 11:15-0500 Body temperature 99.7 [degF] Tiera Dumas Other [facility] Other 12-03-2022 11:15-0500 Body weight 58.51 kg Tiera Dumas Other [facility] Other 12-03-2022 11:15-0500 Diastolic blood pressure 72 mm[Hg] Tiera Dumas Other [facility] Other 12-03-2022 11:15-0500 SaO2% (BldA) [Mass fraction] 97 % Tiera Dumas Other [facility] Other 12-03-2022 11:15-0500 Systolic blood pressure 112 mm[Hg] Tiera Dumas Other [facility] Other Encounters Encounter Date Encounter Type Care Provider Facility Start: 05-30-2024 End: 05-30-2024 ambulatory [facility] Work Phone: Start: 05-30-2024 End: 05-30-2024 Patient encounter procedure [facility] Work Phone: Start: 03-28-2024 End: 03-28-2024 ambulatory [facility] Work Phone: Start: 03-28-2024 End: 03-28-2024 Patient encounter procedure [facility] Work Phone: Start: 01-12-2024 End: 01-12-2024 ambulatory MD Tiera Dumas Work Phone: [facility] Work Phone: Start: 01-12-2024 End: 01-12-2024 Patient encounter procedure MD Tiera Dumas Work Phone: [facility] Work Phone: Start: 12-07-2023 End: 12-07-2023 ambulatory Mariano Mcconnell [facility] Start: 12-07-2023 End: 12-07-2023 Admission to same day surgery center MD Tiera Dumas Work Phone: [facility] [place] Start: 12-07-2023 End: 12-08-2023 ambulatory Mariano MCCONNELL Facility:[id number] Start: 12-07-2023 End: 12-08-2023 ambulatory Mariano MCCONNELL Facility:[facility] Start: 12-07-2023 End: 12-07-2023 Patient encounter procedure Mariano MCCONNELL [facility] Start: 12-01-2023 End: 12-01-2023 ambulatory Tiera Dumas Facility[facility] Start: 12-01-2023 End: 12-01-2023 Patient encounter procedure MD Tiera Dumas Work Phone: [facility] [place] Work Phone: Start: 11-16-2023 ambulatory Mariano MCCONNELL Facility:[facility] Start: 11-13-2023 End: 11-13-2023 Emergency department patient visit Tiera Dumas Facility[facility] Start: 11-13-2023 End: 11-13-2023 Emergency department patient visit MD Tiera Dumas Work Phone: [facility] Work Phone: Start: 07-07-2023 (Televisit) Televisit Tiera Dumas [facility] Start: 07-07-2023 End: 07-07-2023 ambulatory Tiera Dumas Other [facility] Other Start: 12-16-2022 End: 12-16-2022 ambulatory Tiera Dumas Other [facility] Other Start: 12-16-[address] [facility] Start: 12-13-2022 End: 12-13-2022 Emergency department patient visit MD Tiera Dumas Work Phone: [facility] Work Phone: Start: 12-03-2022 End: 12-03-2022 ambulatory Tiera Dumas Other [facility] Other Start: 12-03-2022 Office outpatient vi sit [address] [facility] Start: 04-07-2022 End: 04-08-[address] TIERA DUMAS Facility:[facility] Start: 09-30-2021 End: 09-30-[address] TIERA DUMAS Facility:[facility] Start: 07-18-2021 ambulatory TRACI SHIN Facilit y:[facility] Start: 07-15-2021 End: 07-16-[address] YEMI CAMPBELL Facility:[facility] Start: 07-07-2021 End: 07-08-2021 ambulatory SHAIKH Desmond HOUSE Facility:[facility] Start: 05-30-2021 End: 05-30-[address] [...] Phone: Start: 10-23-2015 Arthroscopy of shoulder Mariano ENEDINA section Mariano Burrell Depression screening Tiera Dumas Other Ligation of fallopian tube Aura MCCONNELL reconstructive surge ry after childbirth Mariano ENEDINA Plan of Treatment Date Care Activity Detail Author Start: 12-07-2023 [facility] Start: 12-07-2023 [facility] Patient Education [facility] Work Phone: Patient referral [facility] Work Phone: [facility] Immunizations Immunization Date Immunization Notes Care Provider Fa cility 02-13-2021 SARS-CoV-2 (COVID-19 ) mRNA-1273 vaccine Mariano MCCONNELL [facility] 01-15-2021 SARS-CoV-2 (COVID-19 ) mRNA-1273 vaccine Mariano MCCONNELL [facility] 07-10-2018 influenza virus vaccine, unspecified formulation Mariano MCCONNELL [facility] 07-10-2018 Influenza, injectabl e, Madin Amairani Canine Kidney, preservative free, quadrivalent MD Tiera Dumas Work Phone: [facility] 07-24-2015 influenza virus vaccine, unspecified formulation Mariano MCCONNELL [facility] 07-24-2015 influenza, injectabl e, quadrivalent, contains preservative MD Tiera Dumas Work Phone: [facility] 07-25-2014 influenza virus vaccine, unspecified formulation Mariano MCCONNELL [facility] 07-25-2014 influenza, seasonal, injectable, preservative free MD Tiera Dumas Work Phone: [facility] 08-02-2013 influenza virus vaccine, unspecified formulation Mariano MCCONNELL [facility] 08-02-2013 influenza, seasonal, injectable MD Tiera Dumas Work Phone: [facility] NEGATED: Highlighted row has not occurred!12-07-2023 influenza virus vaccine, unspecified formulation Mariano MCCONNELL [facility] Payers Date Payer Category Payer Self-pay [id number] Unknown 1980 Unknown [id number] .16.84 [id number] 1979 Unknown [id number] .16.84 [id number] 1979 Unknown [id number] .16.84 [id number] 1979 Unknown [id number] .16.84 [id number] 1979 Unknown [id number] .16.84 [id number] 1979 Unknown [id number] .16.84 [id number] 1979 Unknown [id number] 2.16.8 [id number] 1979 Unknown [id number] 2.16.8 [id number] 1979 Unknown [id number] 2.16.8 [id number] 1959 Unknown [id number] Unknown [id number] 2.16.8 [id number] Unknown [id number] 2.16.8 [id number] Unknown [id number] 2.16.8 [id number] Social History Date Type Detail Facility Start: 12-13-2022 Tobacco smoking status [facility] Never smoked tobacco (finding) [facility] Start: 1980 Sex Assigned At Female [facility] Sex Assigned At [facility] Start: 11-13-2023 End: 03-28-2024 Tobacco smoking status [facility] Ex-smoker (finding) [facility] Tobacco smoking status Never [facility] NEGATED: Highlighted row [facility] Goals Date Patient Goal Desired Activity /State Functional Status Date Assessment Result Facility 12-07-2023 Functional Status N/A [facility] Clinical Notes 12-03-2022 to 12-07-2023 Note Date & Type Note Facility [...] including vitamins, herbs, eye drops, creams, and yieq-hut-cshoooi medicines. Any problems you or family members [...] provider tells you to take them. ?Taking fsqd-mgr-zltrcno medicines, vitamins, herbs, and supplements. Eating and [...] provider. Document Revised: 01/20/2023 Document Reviewed: 05/18/2022 [employer] Patient Education 2022 [employer]. Follow Up Care 12/06/2023 08:36:19 With:ENEDINA CONTRERAS, Mariano Causey, URL Address: [address] [place] [address] [place], [place] [id number]- When: Unknown Comments:sched cysto/L RGP/URS/possible stent [facility] 07-07-2023 Evaluation note Encounter Date Diagnosis Assessment Notes Jun, Bronchitis (ICD-10 - J40) Finish antibiotics as prescribed. Medrol for chest tightness. Will call if needs work note. [facility] Other 03-09-2023 Evaluation note* Encounter Date Diagnosis Assessment Notes Treatment Notes Treatment Clinical Notes Nov, Hematuria, unspecified type (ICD-10 - R31.9) Will treat based on her symptoms Nov, Lumbar pain (ICD-10 - M54.50) Generalized pain. no acute injury. Recommend rest and heat. [facility] Other Evaluation + Plan note No data available for this section [facility] [place] Evaluation noteNo assessment information available [facility] Work Phone: Evaluation noteNo InformationNort [employer] Other Evaluation note* Diagnosis Onset Date Resolution Status Sinusitis acute Fatigue acute Hypothyroid acute [facility] Work Phone: Evaluation note* Diagnosis Onset Date Resolution Status Acute thoracic back pain acu te Fatigue acute Hypothyroid acute [facility] Work Phone: History general Narrative - Reported* Type Description Date Surgical History Problem Title : past surgical history reviewed, Problem Description : past surgical history reviewed, Problem Comment : reviewed - no changes required, Problem Status : Active, Surgical History Problem Title : surg ical procedures, hx of, Problem Description : surgical procedures, hx of, Problem Comment : Tubal ligation Left Shoulder Surgery, Problem Status : Active, [facility] Other Hospital Discharge instructions Additional Instructions We evaluated [...] if you develop any worsening or concerning symptoms.[facility] Work Phone: Progress note No data available for this section [facility] Summary Purpose Family History Relationship Condition Age [...] pain/fatigue Reason for Visit Sinusitis Fatigue Hypothyroid Chief Complaint shoulder pain/fatigu e Sprained Ankles Reason for Visit Acute thoracic back pain Fatigue Hypothyroid Additional Source Comments INFORMATION SOURCE (unrecogn ized section and content) DATE CREATED AUTHOR 04/15/2022 [facility] DATE CREATED AUTHOR AUTHOR'S ORGANIZ ATION 12/15/2023 [facility] DATE CREATED AUTHOR AUTHOR'S ORGANIZ ATION 01/14/[address] [facility] Care Teams (unrecognized sec tion and content) Team Status: Active Member Role Status Dates Tiera Dumas MD Primary Care Provider Active Team Status: Inactive Member Role Status Dates Tiera Dumas MD Primary Care Provider Active Elmer Quijano APRN Emergency Provider Active Team Status: Inactive Member Role Status Cheli Dumas MD Primary Care Provider Active Start: November 13, 2023 End: November 13, 2023 Lucrecia Nunn DO Emergency Provider Active Start: November 13, 2023 End: November 13, 2023 Team Status: Inactive Member Role Status Cheli Dumas MD Primary Care Provider Active Start: December 01, 2023 End: December 01, 2023 Mariano Mcconnell MD Attending Provider Active St art: December 01, 2023 End: December 01, 2023 Team Status: Inactive Member Role Status Cheli Dumas MD Primary Care Provider Active Start: December 07, 2023 End: December 07, 2023 Mariano Mcconnell MD Attending Provider Active St art: December 07, 2023 End: December 07, 2023 Team Status: Inactive Member Role Status Cheli Dumas MD Primary Care Provider Active Start: January 12, 2024 End: January 12, 2024 Nguyen Aguirre APRN [employer] Attending Provider Act ophelia Start: January 12, 2024 End: January 12, 2024 Team Status: Inactive Member Role Status Cheli Dumas MD Primary Care Provide r, Attending Provider Active Start: March 28, 2024 End: March 28, 2024 Team Status: Inactive Member Role Status Cheli Dumas MD Primary Care Provide r, Attending Provider Active Start: May 30, 2024 End: May 30, 2024 Goals (unrecognized section and content) Goals may be documented in a n alternate sectionNo InformationNo InformationNo InformationGoals may be documented in an alternate section No data available for this sectionGoals may be documented in an alternate sectionGoals may be documented in an alternate section REASON FOR VISIT (unrecogniz ed section and content) Multiple IssuesNeeds off Wor k NoteSinuses, Congestion, Cough- [phone] FOR RECORDS PERTAINING TO PATIENTS WHO ARE [...] BE BASED ON THE PRIMARY CLINICAL RECORDS. [employer] [facility]. provides no warranty or guarantee of the accuracy or completeness of information in this document.
== END 2024-06-05 14:24 | disposition home or self-care (01) ==
LOC: CT 14:23
PROVIDERS: PCP Family Medicine; Visit Provider Physician Assistant
DX: S92.255A Nondisplaced fracture of navicular [scaphoid] of left foot, initial encounter for closed fracture (principal)
CPT/HCPCS: 73700

== ENCOUNTER 2024-06-27 10:20 | Outpatient (OUT) | payer BC, SELFPAY ==
--- NOTE | 2024-06-27 | XR_ITS ---
The [address] [address] Patient Name: RACHEL TAYLOR MRN: [id number] date: 1980 Sex: F Assigned Patient Location: Current Patient Location: Accession/Order Number: [id number] Exam Date: 06/27/2024 10:21 Report Date: 06/28/2024 07:51 At the request of: LACY SHARMA Procedure: XR foot LT min 3V PROCEDURE: XR foot LT min 3V COMPARISON: None. HISTORY: LEFT FOOT PAIN FINDINGS: BONES:No fracture, acute abnormality, or significant arthropathy. SOFT TISSUES:Negative. No visible soft tissue swelling. EFFUSION:None visible. OTHER: Negative. XR/XR foot LT min 3V IMPRESSION: No acute radiographic abnormality Electronically authenticated by: YEMI CAMPBELL Date: 06/28/2024 07:51
--- OUTSIDE RECORDS SUMMARY | 2024-06-27 10:23 | XMS_ITS | CCD ---
Author Organization [facility] CliniSyfl Care Team Providers Care Social Media Designer Name Role Phone SHAIKH Desmond HOUSE Admitting [...] Primary Care Provider LELA Quijano Emergency Provider [phone] Tiera Dumas Unavailable MD Tiera Dumas Primary [...] Translations: [codeine] Drug Allergy 5 unknown The [facility] Repository (4 sources) Morphine; Translations: [morphine] Drug Allergy 5 Gastrointestinal Upset [facility] Rep[facility] (1 source) Codeine; Translations: [codeine] Drug Allergy Nausea and vomiting [facility] (1 source) Morphine; Translations: [morphine] Drug Allergy Nausea [facility] (1 source) Codeine Drug Allergy 4 [facility] Repository (1 source) Morphine Drug Allergy [address] [place] [address] Repository Medications Current Medications Medication Drug Class(es) [...] Basophils (Bld) [#/Vol] 0.0 10 3/uL 0.0-0.1 [facility] Basophils/100 WBC Auto (Bld) on 03-28-2024 Basophils/100 WBC (Bld) 0.6 % 0.2-2.0 [facility] Eosinophils/100 WBC Auto (Bl d)on 03-28-2024 Eosinophils/100 WBC (Bld) 5.2 % 0.9-7.0 [facility] Erythrocyte distribution wid th Auto (RBC) [Ratio]on 03-28-2024 Erythrocyte distribution width (RBC) [Ratio] 12.7 % 11.0-15.0 [facility] Estimated glomerular filtrat ion rate (GFR) non- Americanon 03-28-2024 GFR/1.73 sq M.predicted among non-blacks MDRD (S/P/Bld) [Vol rate/Area] mL/min/{1.73_m2} >=60 [facility] Hematocrit Auto (Bld) [Volum e fraction]on 03-28-2024 Hematocrit (Bld) [Volume fraction] 38.0 % 36.0-48.0 [facility] Hemoglobin [Mass/volume] in Bloodon 03-28-2024 Hemoglobin (Bld) [Mass/Vol] 12.2 g/dL 12.0-16.0 [facility] Laboratory - Chemistry and C hemistry - challengeon 03-28-2024 Calcium [Mass/Vol] 8.9 mg/dL 8.5-10.1 [facility] Chloride [Moles/Vol] 105 mmol/L 98-107 [facility] CO2 [Moles/Vol] 28.1 mmol/L 21.0-32.0 [facility] Creatinine [Mass/Vol] 0.78 mg/dL 0.55-1.02 [facility] Free T4 [Mass/Vol] 1.17 ng/dL 0.76-1.46 [facility] GFR/1.73 sq M.predicted MDRD (S/P/Bld) [Vol rate/Area] mL/min/{1.73_m2} >=60 [facility] Glucose [Mass/Vol] 98 mg/dL 74-106 [facility] Potassium [Moles/Vol] 3.7 mmol/L 3.5-5.1 [facility] Sodium [Moles/Vol] 140 mmol/L 136-145 [facility] TSH Qn 1.152 m[IU]/L 0.358-3.740 [facility] Urea nitrogen [Mass/Vol] 9.0 mg/dL 7.0-18.0 [facility] Urea nitrogen/Creatinine [Mass ratio] 11.5 mg/mg [facility] Laboratory - Hematology and Cell countson 03-28-2024 Immature granulocytes/100 WBC (Bld) 0.3 % 0.0-0.5 [facility] Leukocytes [#/volume] correc marshal for nucleated erythrocytes in Blood by Automated counon 03-28-2024 WBC corrected for nucl RBC Auto (Bld) [#/Vol] 7.1 10 3/uL 4.0-11.0 [facility] Lymphocytes Auto (Bld) [#/Vo l]on 03-28-2024 Lymphocytes (Bld) [#/Vol] 2.2 10 3/uL 1.2-3.8 [facility] Lymphocytes/100 WBC Auto (Bl d)on 03-28-2024 Lymphocytes/100 WBC (Bld) 31.1 % 20.5-60.0 [facility] MCH Auto (RBC) [Entitic mass ]on 03-28-2024 MCH (RBC) [Entitic mass] 29.9 pg 26.7-34.0 [facility] MCHC Auto (RBC) [Mass/Vol]on 03-28-2024 MCHC (RBC) [Mass/Vol] 32.1 g/dL 29.9-35.2 [facility] MCV Auto (RBC) [Entitic vol] on 03-28-2024 MCV (RBC) [Entitic vol] 93.1 fL 81.0-99.0 [facility] Monocytes Auto (Bld) [#/Vol] on 03-28-2024 Monocytes (Bld) [#/Vol] 0.4 10 3/uL 0.3-0.8 [facility] Monocytes/100 WBC Auto (Bld) on 03-28-2024 Monocytes/100 WBC (Bld) 6.1 % 1.7-12.0 [facility] Neutrophils Auto (Bld) [#/Vo l]on 03-28-2024 Neutrophils (Bld) [#/Vol] 4.0 10 3/uL 1.4-6.5 [facility] Neutrophils/100 WBC Auto (Bl d)on 03-28-2024 Neutrophils/100 WBC (Bld) 56.7 % 43.0-75.0 [facility] No Panel Informationon 03-28 Eosinophils # (Auto) 0.4 10 3/uL 0.0-0.7 [facility] Immature Granulocyte # (Auto) 0.02 10 3/uL 0.00-0.03 [facility] Platelet mean volume Auto (B ld) [Entitic vol]on 03-28-2024 Platelet mean volume (Bld) [Entitic vol] 10.4 fL 9.5-13.5 [facility] Platelets Auto (Bld) [#/Vol] on 03-28-2024 Platelets (Bld) [#/Vol] 270 10 3/uL 150-450 [facility] RBC Auto (Bld) [#/Vol]on RBC (Bld) [#/Vol] 4.08 10 6/uL Low 4.20-5.40 [facility] Serum or plasma anion gap de terminationon 03-28-2024 Anion gap [Moles/Vol] 10.6 mmol/L [facility] Formson 12-08-2023 Forms [id number] #1.00TIFF Normal [facility] Operative Reporton Operative Report [id number] #1.00TIFF Normal [facility] RAD - MISCon 12-08-2023 [facility] - MISC [id number] #1.00TIFF Normal [facility] [id number] #1.00TIFF Normal [facility] Ambulatory Visit Summaryon 0 12-07-2023 Ambulatory Visit Summary OSKAR TAYLORJLUISA Marroquin :1980 Visit Date:12/07/2023 Ambulatory Visit Instructions [...] including vitamins, herbs, eye drops, creams, and oftu-atr-zwqcwmw medicines. ? Any problems you or family [...] tells you to take them. ? Taking rgzl-djm-yvmccrv medicines, vitamins, herbs, and supplements. Eating and [...] dri (more content not included)... Normal [facility] Amphetamine Screen Ql (U)Ord ered By: Sanford Mason on 12-07-2023 Amphetamines Ql (U) Negative Negative [facility] Barbiturates [Presence] in U rine by Screen methodOrdered By: Sanford Mason on 12-07-2023 Barbiturates Screen Ql (U) Negative Negative [facility] Benzodiazepines Screen Ql (U )Ordered By: Sanford Mason on 12-07-2023 Benzodiazepines Ql (U) Negative Negative [facility] Benzoylecgonine [Presence] i n Urine by Screen methodOrdered By: Sanford Mason on 12-07-2023 Benzoylecgonine Screen Ql (U) Negative Negative [facility] Cannabinoids [Presence] in U rine by Screen methodOrdered By: Sanford Mason on 12-07-2023 Cannabinoids Screen Ql (U) Positive Negative [facility] Comment on above: These are unconfirme d results and should not be used for legal purposes. Drug Cut-Off Concentration: AMPH 1000 ng/mL GARETT 200 ng/mL LEVY 200 ng/mL COCM 300 ng/mL OP 300 ng/mL PCP 25 ng/mL THC 20 ng/mL Drug Screen,Urineon 12-07-19 24 Amphetamine Screen,Urine Negative Normal Negative [facility] Comment on above: Performed By: #### U RDS #### [address] Barbiturate Screen,Urine Negative Normal Negative [facility] Comment on above: Performed By: #### U RDS #### [address] Benzodiazepines Screen,Urine Negative Normal Negative [facility] Comment on above: Performed By: #### U RDS #### [address] Cannabinoid Screen,Urine Positive High Negative [facility] Comment on above: Result Comment: Thes e are unconfirmed results and should not be used for legal purposes. Drug Cut-Off Concentration: AMPH 1000 ng/mL GARETT 200 ng/mL LEVY 200 ng/mL COCM 300 ng/mL OP 300 ng/mL PCP 25 ng/mL THC 20 ng/mL PERFORMED BY: [place] [address] PATHOLOGIST [employer] CONSTRU[employer] WORKER DINA WALKER M.D. Performed By: #### U RDS #### [address] Cocaine Screen,Urine Negative Normal Negative [facility] Comment on above: Performed By: #### U RDS #### [address] Opiate Screen,Urine Negative Normal Negative [facility] Comment on above: Performed By: #### U RDS #### [address] Phencyclidine Screen,Urine Negative Normal Negative [facility] Comment on above: Performed By: #### U RDS #### [address] [place] urethrocystogram retroon 12-07-2023 [place] urethrocystogram retro [facility] [place] [address] [place] [address] Fluoroscopy Report Signed Patient: Nguyen Taylor MR#: [id number] : 1980 Acct:[id number] Age/Sex: 43 / F ADM Date: 12/07/23 Loc: CT Room: Type: [facility] Attending Dr: Mariano Mcconnell MD Copies to: [...] Gabriele Corbin M.D.12/07/2023 6:04 PM Dictation Location: [place] [address] Transcribed By: [facility] 12/07/231803 Dictated By: Gabriele Corbin II, MD 12/07/231801 Signed By: 12/07/231803 Normal [facility] HCG ( test) IA.rapi d Ql (U)Ordered By: Sanford Mason on 12-07-2023 HCG ( test) Ql (U) Negative [facility] HCG,Urineon 12-07-2023 Beta HCG ( test) Ql (U) Negative Normal [facility] Comment on above: Result Comment: PERF ORMED BY: [place] [address] PATHOLOGIST STEEL CONSTRUCTION WORKER DINA WALKER M.D. Performed By: #### U HCG #### [address] Insurance Correspondenceon 0 12-07-2023 Insurance Correspondence [id number]#1.00TIFF Normal [facility] Opiates [Presence] in Urine by Screen methodOrdered By: Sanford Mason on 12-07-2023 Opiates Screen Ql (U) Negative Negative [facility] Patient Educationon 12-07-19 Patient Education Nephrology [...] including vitamins, herbs, eye drops, creams, and vowc-jmg-twwjnjx medicines. ? Any problems you or family [...] tells you to take them. ? Taking rwmk-bbj-evlvczd medicines, vitamins, herbs, and supplements. Eating and [...] the pieces (more content not included)... Normal [facility] Phencyclidine Screen Ql (U)O rdered By: Sanford Mason on 12-07-2023 Phencyclidine Ql (U) Negative Negative [facility] Urology Office/Clinic Noteon 12-07-2023 Urology Office/Clinic Note Chief Complaint Pt is here for [facility] ER f/u HPI Staff 43 year old female New Pt. Pt. was in the [facility] ER on 11/13/23 [...] 1. Ureteral stone (N20.1: Calculus of ureter) [facility] ER visit 11/13/23 due to left flank pain. Given Fomax and pain medication to help pass stone. CT AP w con 11/13/23 [facility] - Obstructing 3 [...] from a couple days ago at the [facility] is inconclusive. She continues with significant pain up to a level 7 out of 10 and does desire surgical intervention. This is well outlined above. She understands the ris (more content not included)... Normal [facility] Comment on above: Result Comment: Elec tronically Signed By: Mariano MCCONNELL MD\.br\Date and Time Signed: 12/07/23 12:06 EDT\.br\Electronically Co-Signed By: Lakeisha Beebe\.br\Date and Time Co-Signed: 12/07/23 12:02 EDT RAD - MISCon 12-06-2023 RAD - MISC [id number] #1.00TIFF [facility] XR KUBon 12-01-2023 XR KUB [facility] [place] [address] XRay Report Signed Patient: Nguyen Taylor MR#: [id number] : 1980 Acct:[id number] Age/Sex: 43 / F ADM Date: 12/01/23 Loc: XD Room: Type: [facility] Attending Dr: Mariano Mcconnell MD [...] Palacios Jr., D.O.12/01/2023 4:13 PM Dictation Location: [place] [address] Transcribed By: [facility] 12/01/23 1613 Dictated By: Freeman Palacios Jr, DO 12/01/23 1611 Signed By: 12/01/23 1613 Normal [facility] ED Note-Physicianon 11-19-19 ED Note-Physician [id number] #1.00TIFF Normal [facility] Alanine aminotransferase [En zymatic activity/volume] in Serum or PlasmaOrdered By: Lucrecia Nunn on 11-13-2023 ALT [Catalytic activity/Vol] 16 U/L 7-52 [facility] Albumin [Mass/volume] in Ser um or Plasma by Bromocresol green (BCG) dye binding methoOrdered By: Lucrecia Nunn on 11-13-2023 Albumin BCG dye [Mass/Vol] 4.8 g/dL 3.5-5.7 [facility] Alkaline phosphatase [Enzyma tic activity/volume] in Serum or PlasmaOrdered By: Lucrecia Nunn on 11-13-2023 ALP [Catalytic activity/Vol] 59 U/L 34-104 [facility] Aspartate aminotransferase [ Enzymatic activity/volume] in Serum or PlasmaOrdered By: Lucrecia Nunn on 11-13-2023 AST [Catalytic activity/Vol] 18 U/L 13-39 [facility] Automated epithelial cells c ount in urine sediment (number/area)Ordered By: Lucrecia Nunn on 11-13-2023 Epithelial cells Auto (Urine sed) [#/Area] None seen [HPF] 0-2 [facility] Automated erythrocytes count in urine sediment (number/area)Ordered By: Lucrecia Nunn on 11-13-2023 RBC Auto (Urine sed) [#/Area] 20-49 [HPF] 0-4 [facility] Automated leukocytes count i n urine sediment (number/area)Ordered By: Lucrecia Edouard on 11-13-2023 WBC Auto (Urine sed) [#/Area] None seen [HPF] 0-4 [facility] Automated urine hyaline cast s count (number/volume)Ordered By: Lucrecia Edouard on 11-13-2023 Hyaline casts Auto (U) [#/Vol] None seen [LPF] 0-1 [facility] Basic Metabolic Panelon 10-28 Anion gap [Moles/Vol] 12.0 mmol/L Normal 6.0-15.0 [facility] Comment on above: Performed By: #### C BC, HEPATIC, LIPASE, HCGQUAL, BMP #### [address] Calcium [Mass/Vol] 9.6 mg/dL Normal 8.6-10.3 [facility] Comment on above: Performed By: #### C BC, HEPATIC, LIPASE, HCGQUAL, BMP #### [address] Chloride [Moles/Vol] 106 mmol/L Normal 98-107 [facility] Comment on above: Performed By: #### C BC, HEPATIC, LIPASE, HCGQUAL, BMP #### [address] CO2 [Moles/Vol] 22.8 mmol/L Normal 21.0-31.0 [facility] Comment on above: Performed By: #### C BC, HEPATIC, LIPASE, HCGQUAL, BMP #### [address] Creatinine [Mass/Vol] 0.73 mg/dL Normal 0.60-1.20 [facility] Comment on above: Performed By: #### C BC, HEPATIC, LIPASE, HCGQUAL, BMP #### [address] Creatinine Clr Calc Pharmacy 81.17 Normal [facility] Comment on above: Performed By: #### C BC, HEPATIC, LIPASE, HCGQUAL, BMP #### [address] GFR/1.73 sq M.predicted MDRD (S/P/Bld) [Vol rate/Area] mL/min/{1.73_m2} Normal [facility] Comment on above: Performed By: #### C BC, HEPATIC, LIPASE, HCGQUAL, BMP #### [facility] [address] Glucose [Mass/Vol] 92 mg/dL Normal 70-100 [facility] Comment on above: Result Comment: [facility] Glucose Reference Range is dependent on time and content of last meal. Glucose of more than 200 mg/dL in a nonstressed, ambulatory subject supports the diagnosis of Diabetes Mellitus. ADA recommended reference range Performed By: #### C BC, HEPATIC, LIPASE, HCGQUAL, BMP #### [address] Potassium [Moles/Vol] 3.8 mmol/L Normal 3.5-5.1 [facility] Comment on above: Performed By: #### C BC, HEPATIC, LIPASE, HCGQUAL, BMP #### [place] [id number] [place] Sodium [Moles/Vol] 137 mmol/L Normal 136-145 [facility] Comment on above: Performed By: #### C BC, HEPATIC, LIPASE, HCGQUAL, BMP #### [place] [id number] [place] Urea nitrogen [Mass/Vol] 10 mg/dL Normal 7-25 [facility] Comment on above: Performed By: #### C BC, HEPATIC, LIPASE, HCGQUAL, BMP #### [facility] [address] [place] [address] [place] Basophils Auto (Bld) [#/Vol] Ordered By: Lucrecia Nunn on 11-13-2023 Basophils (Bld) [#/Vol] 0.0 10*3/uL 0.0-0.2 [facility] Basophils/100 WBC Auto (Bld) Ordered By: Lucrecia Nunn on 11-13-2023 Basophils/100 WBC (Bld) 0.4 % . [facility] Bilirubin Test strip Ql (U)O rdered By: Lucrecia Nunn on 11-13-2023 Bilirubin Ql (U) Negative Negative [facility] Bilirubin.direct [Mass/volum e] in Serum or PlasmaOrdered By: Lucrecia Nunn on 11-13-2023 Bilirubin.direct [Mass/Vol] 0.10 mg/dL 0.03-0.18 [facility] Bilirubin.total [Mass/volume ] in Serum or PlasmaOrdered By: Lucrecia Nunn on 11-13-2023 Bilirubin [Mass/Vol] 0.5 mg/dL 0.3-1.[address] [facility] [address] abdomen pelvis w conon CT abdomen pelvis w con [facility] [place] [address] [place] [address] CT Scan Report Signed Patient: Nguyen Taylor MR#: [id number] : 1980 Acct:[id number] Age/Sex: 43 / F ADM Date: 11/13/23 Loc: ER Room: Type: [facility] ER Attending Dr: Copies to: Lucrecia [...] Palacios Jr., D.OPatito11/13/2023 11:29 AM Dictation Location: [place] [address] Transcribed By: [facility] 11/13/23 1129 Dictated By: Freeman Palacios Jr, DO 11/13/23 1125 Signed By: 11/13/23 1129 Normal [facility] Calcium [Mass/volume] in Ser um or PlasmaOrdered By: Lucrecia Nunn on 11-13-2023 Calcium [Mass/Vol] 9.6 mg/dL 8.6-10.3 [facility] Carbon dioxide, total [Moles /volume] in Serum or PlasmaOrdered By: Lucrecia Nunn on 11-13-2023 CO2 [Moles/Vol] 22.8 mmol/L 21.0-31.0 [facility] Chloride [Moles/volume] in S noemy or PlasmaOrdered By: Lucrecia Nunn on 11-13-2023 Chloride [Moles/Vol] 106 mmol/L 98-107 [facility] Choriogonadotropin.beta subu nit [Units/volume] in Serum or PlasmaOrdered By: Lucrecia Nunn on 11-13-2023 HCG.beta subunit Qn Negative [facility] Color Auto (U)Ordered By: Shashank Nunn on 11-13-2023 Color (U) Yellow Yellow [facility] Complete Blood Count Auto Di ffon 11-13-2023 Basophils (Bld) [#/Vol] 0.0 10*3/uL Normal 0.0-0.2 [facility] Comment on above: Result Comment: PERF ORMED BY: [place] [address] PATHOLOGIST [employer] WORKER DINA WALKER M.D. Performed By: #### C BC, HEPATIC, LIPASE, HCGQUAL, BMP #### [address] Basophils/100 WBC (Bld) 0.4 % Normal . [facility] Comment on above: Performed By: #### C BC, HEPATIC, LIPASE, HCGQUAL, BMP #### [address] Eosinophils (Bld) [#/Vol] 0.3 10*3/uL Normal 0.0-0.45 [facility] Comment on above: Performed By: #### C BC, HEPATIC, LIPASE, HCGQUAL, BMP #### [address] Eosinophils/100 WBC (Bld) 3.4 % Normal . [facility] Comment on above: Performed By: #### C BC, HEPATIC, LIPASE, HCGQUAL, BMP #### [address] Erythrocyte distribution width (RBC) [Ratio] 13.3 % Normal 11.9-15.3 [facility] Comment on above: Performed By: #### C BC, HEPATIC, LIPASE, HCGQUAL, BMP #### [address] Hematocrit (Bld) [Volume fraction] 40.4 % Normal 34.0-46.4 [facility] Comment on above: Performed By: #### C BC, HEPATIC, LIPASE, HCGQUAL, BMP #### [address] Hemoglobin (Bld) [Mass/Vol] 13.6 g/dL Normal 11.8-15.4 [facility] Comment on above: Performed By: #### C BC, HEPATIC, LIPASE, HCGQUAL, BMP #### [address] Lymphocytes (Bld) [#/Vol] 1.7 10*3/uL Normal 1.00-4.8 [facility] Comment on above: Performed By: #### C BC, HEPATIC, LIPASE, HCGQUAL, BMP #### [address] Lymphocytes/100 WBC (Bld) 22.8 % Normal . [facility] Comment on above: Performed By: #### C BC, HEPATIC, LIPASE, HCGQUAL, BMP #### [address] MCH (RBC) [Entitic mass] 29.8 pg Normal 24.7-34.3 [facility] Comment on above: Performed By: #### C BC, HEPATIC, LIPASE, HCGQUAL, BMP #### [address] MCV (RBC) [Entitic vol] 88.6 fL Normal 80-100 [facility] Comment on above: Performed By: #### C BC, HEPATIC, LIPASE, HCGQUAL, BMP #### [address] Mean Corpuscular HGB Conc 33.7 g/dL Normal 32.0-35.0 [facility] Comment on above: Performed By: #### C BC, HEPATIC, LIPASE, HCGQUAL, BMP #### [address] Monocytes (Bld) [#/Vol] 0.4 10*3/uL Normal 0.0-0.8 [facility] Comment on above: Performed By: #### C BC, HEPATIC, LIPASE, HCGQUAL, BMP #### [address] Monocytes/100 WBC (Bld) 15.49 % Normal 0.00-20.00 [facility] Comment on above: Performed By: #### C BC, HEPATIC, LIPASE, HCGQUAL, BMP #### [address] Monocytes/100 WBC (Bld) 5.9 % Normal . [facility] Comment on above: Performed By: #### C BC, HEPATIC, LIPASE, HCGQUAL, BMP #### [address] Neutrophils (Bld) [#/Vol] 5.1 10*3/uL Normal 1.8-7.7 [facility] Comment on above: Performed By: #### C BC, HEPATIC, LIPASE, HCGQUAL, BMP #### [address] Neutrophils/100 WBC (Bld) 67.5 % Normal . [facility] Comment on above: Performed By: #### C BC, HEPATIC, LIPASE, HCGQUAL, BMP #### [address] NRBC% 0.1 /100{WBC} Normal 0-0.5 [facility] Comment on above: Performed By: #### C BC, HEPATIC, LIPASE, HCGQUAL, BMP #### [address] Platelet mean volume (Bld) [Entitic vol] 8.6 fL Normal 6.3-10.7 [facility] Comment on above: Performed By: #### C BC, HEPATIC, LIPASE, HCGQUAL, BMP #### [address] Platelets (Bld) [#/Vol] 295 10*3/uL Normal 150-450 [facility] Comment on above: Performed By: #### C BC, HEPATIC, LIPASE, HCGQUAL, BMP #### [address] RBC (Bld) [#/Vol] 4.56 10*6/uL Normal 3.60-5.00 [facility] Comment on above: Performed By: #### C BC, HEPATIC, LIPASE, HCGQUAL, BMP #### [address] WBC (Bld) [#/Vol] 7.5 10*3/uL Normal 3.8-11.6 [facility] Comment on above: Performed By: #### C BC, HEPATIC, LIPASE, HCGQUAL, BMP #### [address] Creatinine [Mass/volume] in Serum or PlasmaOrdered By: Lucrecia Nunn on 11-13-2023 Creatinine [Mass/Vol] 0.73 mg/dL 0.60-1.20 [facility] Dipstick and Microscopicon 0 11-13-2023 Appearance (U) Clear Normal Clear [facility] Comment on above: Order Comment: Name Collection Type:: Clean-Voided Midstream Performed By: #### A DDONUAPLUS ####[place] [address] [place] [address] [facility] Bacteria,Urine None Seen Normal None Seen [facility] Comment on above: Order Comment: Name Collection Type:: Clean-Voided Midstream Performed By: #### A DDONUAPLUS ####[address] [address] [place] Bilirubin,Urine Negative Normal Negative [facility] Comment on above: Order Comment: Name Collection Type:: Clean-Voided Midstream Performed By: #### A DDONUAPLUS ####[address] [address] [facility] Color (U) Yellow Normal Yellow [facility] Comment on above: Order Comment: Name Collection Type:: Clean-Voided Midstream Performed By: #### A DDONUAPLUS ####[address] [address] [facility] Glucose Ql (U) Normal Normal Normal [facility] Comment on above: Order Comment: Name Collection Type:: Clean-Voided Midstream Performed By: #### A DDONUAPLUS ####[address] [address] [facility] Hyaline Casts,Urine None Seen Normal 0-1 [facility] Comment on above: Order Comment: Name Collection Type:: Clean-Voided Midstream Result Comment: PERF ORMED BY: [facility] [address] [place] [address] PATHOLOGIST [employer]STRU[employer] WORKER DINA WALKER M.D. Performed By: #### A DDONUAPLUS ####[address] [address] [facility] Ketones Ql (U) 1+ High Negative [facility] Comment on above: Order Comment: Name Collection Type:: Clean-Voided Midstream Performed By: #### A DDONUAPLUS ####[address] [address] [place] [address] [facility] Leukocyte esterase Test strip Ql (U) Negative Normal Negative [facility] Comment on above: Order Comment: Name Collection Type:: Clean-Voided Midstream Performed By: #### A DDONUAPLUS ####[address] [address] [facility] Nitrite,Urine Negative Normal Negative [facility] Comment on above: Order Comment: Name Collection Type:: Clean-Voided Midstream Performed By: #### A DDONUAPLUS ####[address] [address] [facility] Occult Blood,Urine 3+ High Negative [facility] Comment on above: Order Comment: Name Collection Type:: Clean-Voided Midstream Result Comment: PERF ORMED BY: [facility] [address] [place] [id number] PATHOLOGIST [employer] DINA WALKER M.D. Performed By: #### A DDONUAPLUS ####[address] [address] [facility] pH (U) 7.5 [pH] Normal 5.0-9.0 [facility] Comment on above: Order Comment: Name Collection Type:: Clean-Voided Midstream Performed By: #### A DDONUAPLUS ####[address] [address] [facility] Protein,Urine Negative Normal Negative [facility] Comment on above: Order Comment: Name Collection Type:: Clean-Voided Midstream Performed By: #### A DDONUAPLUS ####[address] [address] [facility] RBC,Urine 20-49 High 0-4 [facility] Comment on above: Order Comment: Name Collection Type:: Clean-Voided Midstream Performed By: #### A DDONUAPLUS ####[address] [address] [facility] Specificy [place],Urine 1.011 Normal 1.001-1.030 [facility] Comment on above: Order Comment: Name Collection Type:: Clean-Voided Midstream Performed By: #### A DDONUAPLUS ####[place] [id number] Squamous Epithelial Cell,Urine None Seen Normal 0-2 [facility] Comment on above: Order Comment: Name Collection Type:: Clean-Voided Midstream Performed By: #### A DDONUAPLUS ####[place] [id number] Urobilinogen,Urine Normal Normal Normal [facility] Comment on above: Order Comment: Name Collection Type:: Clean-Voided Midstream Performed By: #### A DDONUAPLUS ####[place] [id number] WBC,Urine None Seen Normal 0-4 [facility] Comment on above: Order Comment: Name Collection Type:: Clean-Voided Midstream Performed By: #### A DDONUAPLUS ####[address] Eosinophils Auto (Bld) [#/Vo l]Ordered By: Lucrecia Nunn on 11-13-2023 Eosinophils (Bld) [#/Vol] 0.3 10*3/uL 0.0-0.45 [facility] Eosinophils/100 WBC Auto (Bl d)Ordered By: Lucrecia Nunn on 11-13-2023 Eosinophils/100 WBC (Bld) 3.4 % . [facility] Erythrocyte distribution wid th Auto (RBC) [Ratio]Ordered By: Lucrecia Nunn on 11-13-2023 Erythrocyte distribution width (RBC) [Ratio] 13.3 % 11.9-15.3 [facility] Globulin Calc (S) [Mass/Vol] Ordered By: Lucrecia Nunn on 11-13-2023 Globulin (S) [Mass/Vol] 3.0 g/dL [facility] Glucose [Mass/volume] in Ser um or PlasmaOrdered By: Lucrecia Nunn on 11-13-2023 Glucose [Mass/Vol] 92 mg/dL 70-100 [facility] Comment on above: ADA recommended refe rence rangeRandom Glucose Reference Range is dependent on time and content of last meal. Glucose of more than 200 mg/dL in a nonstressed, ambulatory subject supports the diagnosis of Diabetes Mellitus. HCG,Qualitative Serumon 10-28 HCG,Qualitative Serum Negative Normal [facility] Comment on above: Result Comment: PERF ORMED BY: [place] [address] PATHOLOGIST [employer]STRU[employer] WORKER DINA WALKER M.D. Performed By: #### C BC, HEPATIC, LIPASE, HCGQUAL, BMP #### [address] Hematocrit Auto (Bld) [Volum e fraction]Ordered By: Lucrecia Nunn on 11-13-2023 Hematocrit (Bld) [Volume fraction] 40.4 % 34.0-46.4 [facility] Hemoglobin [Mass/volume] in BloodOrdered By: Lucrecia Nunn on 11-13-2023 Hemoglobin (Bld) [Mass/Vol] 13.6 g/dL 11.8-15.4 [facility] Hepatic Panelon 11-13-2023 Albumin [Mass/Vol] 4.8 g/dL Normal 3.5-5.7 [facility] Comment on above: Performed By: #### C BC, HEPATIC, LIPASE, HCGQUAL, BMP #### [address] Albumin/Globulin [Mass ratio] 1.6 {ratio} Normal [facility] Comment on above: Performed By: #### C BC, HEPATIC, LIPASE, HCGQUAL, BMP #### [address] ALP [Catalytic activity/Vol] 59 U/L Normal 34-104 [facility] Comment on above: Performed By: #### C BC, HEPATIC, LIPASE, HCGQUAL, BMP #### [address] ALT [Catalytic activity/Vol] 16 U/L Normal 7-52 [facility] Comment on above: Performed By: #### C BC, HEPATIC, LIPASE, HCGQUAL, BMP #### [address] AST [Catalytic activity/Vol] 18 U/L Normal 13-39 [facility] Comment on above: Performed By: #### C BC, HEPATIC, LIPASE, HCGQUAL, BMP #### [address] Bilirubin [Mass/Vol] 0.5 mg/dL Normal 0.3-1.0 [facility] Comment on above: Performed By: #### C BC, HEPATIC, LIPASE, HCGQUAL, BMP #### [address] Bilirubin,Indirect 0.4 mg/dL Normal [facility] Comment on above: Performed By: #### C BC, HEPATIC, LIPASE, HCGQUAL, BMP #### [address] Bilirubin.indirect [Mass/Vol] 0.10 mg/dL Normal 0.03-0.18 [facility] Comment on above: Performed By: #### C BC, HEPATIC, LIPASE, HCGQUAL, BMP #### [address] Globulin (S) [Mass/Vol] 3.0 g/dL Normal [facility] Comment on above: Performed By: #### C BC, HEPATIC, LIPASE, HCGQUAL, BMP #### [address] Protein [Mass/Vol] 7.8 g/dL Normal 6.4-8.9 [facility] Comment on above: Performed By: #### C BC, HEPATIC, LIPASE, HCGQUAL, BMP #### [address] Ketones Auto test strip (U) [Mass/Vol]Ordered By: Lucrecia Nunn on 11-13-2023 Ketones (U) [Mass/Vol] 1+ Negative [facility] Leukocytes [#/volume] correc marshal for nucleated erythrocytes in Blood by Automated counOrdered By: Lucrecia Nunn on 11-13-2023 WBC corrected for nucl RBC Auto (Bld) [#/Vol] 7.5 10*3/uL 3.8-11.6 [facility] Lipaseon 11-13-2023 Lipase [Catalytic activity/Vol] 45.0 U/L Normal 11.0-82.0 [facility] Comment on above: Performed By: #### C BC, HEPATIC, LIPASE, HCGQUAL, BMP #### [facility] [address] Lipase [Enzymatic activity/v olume] in Serum or PlasmaOrdered By: Lucrecia Nunn on 11-13-2023 Lipase [Catalytic activity/Vol] 45.0 U/L 11.0-82.0 [facility] Lymphocytes Auto (Bld) [#/Vo l]Ordered By: Lucrecia Nunn on 11-13-2023 Lymphocytes (Bld) [#/Vol] 1.7 10*3/uL 1.00-4.8 [facility] Lymphocytes/100 WBC Auto (Bl d)Ordered By: Lucrecia Nunn on 11-13-2023 Lymphocytes/100 WBC (Bld) 22.8 % . [facility] MCH Auto (RBC) [Entitic mass ]Ordered By: Lucrecia Nunn on 11-13-2023 MCH (RBC) [Entitic mass] 29.8 pg 24.7-34.3 [facility] MCHC Auto (RBC) [Mass/Vol]Or dered By: Lucrecia Nunn on 11-13-2023 MCHC (RBC) [Mass/Vol] 33.7 g/dL 32.0-35.0 [facility] MCV Auto (RBC) [Entitic vol] Ordered By: Lucrecia Nunn on 11-13-2023 MCV (RBC) [Entitic vol] 88.6 fL 80-100 [facility] Monocyte distribution width [Entitic volume] in Blood by AutomatedOrdered By: Lucrecia Nunn on 11-13-2023 Monocyte distribution width Auto (Bld) [Entitic vol] 15.49 % 0.00-20.00 [facility] Monocytes Auto (Bld) [#/Vol] Ordered By: Lucrecia Nunn on 11-13-2023 Monocytes (Bld) [#/Vol] 0.4 10*3/uL 0.0-0.8 [facility] Monocytes/100 WBC Auto (Bld) Ordered By: Lucrecia Nunn on 11-13-2023 Monocytes/100 WBC (Bld) 5.9 % . [facility] Neutrophils Auto (Bld) [#/Vo l]Ordered By: Lucrecia Nunn on 11-13-2023 Neutrophils (Bld) [#/Vol] 5.1 10*3/uL 1.8-7.7 [facility] Neutrophils/100 WBC Auto (Bl d)Ordered By: Lucrecia Nunn on 11-13-2023 Neutrophils/100 WBC (Bld) 67.5 % . [facility] Nitrite Test strip Ql (U)Ord ered By: Lucrecia Nunn on 11-13-2023 Nitrite Ql (U) Negative Negative [facility] No Panel InformationOrdered By: Lucrecia Nunn on 11-13-2023 Estimated GFR (CKD-EPI) > 60.0 mL/Min [facility] Creatinine Clearance (Chem 81.17 [facility] Nucleated erythrocytes [Pres ence] in Blood by Automated countOrdered By: Lucrecia Nunn on 11-13-2023 Nucleated RBC Auto Ql (Bld) 0.1 /100{WBC} 0-0.5 [facility] Platelet mean volume Auto (B ld) [Entitic vol]Ordered By: Lucrecia Nunn on 11-13-2023 Platelet mean volume (Bld) [Entitic vol] 8.6 fL 6.3-10.7 [facility] Platelets Auto (Bld) [#/Vol] Ordered By: Lucrecia Nunn on 11-13-2023 Platelets (Bld) [#/Vol] 295 10*3/uL 150-450 [facility] Potassium [Moles/volume] in Serum or PlasmaOrdered By: Lucrecia Nunn on 11-13-2023 Potassium [Moles/Vol] 3.8 mmol/L 3.5-5.1 [facility] Protein Auto test strip (U) [Mass/Vol]Ordered By: Lucrecia Nunn on 11-13-2023 Protein (U) [Mass/Vol] Negative Negative [facility] Protein [Mass/volume] in Ser um or PlasmaOrdered By: Lucrecia Nunn on 11-13-2023 Protein [Mass/Vol] 7.8 g/dL 6.4-8.9 [facility] RBC Auto (Bld) [#/Vol]Ordere d By: Lucrecia Nunn on 11-13-2023 RBC (Bld) [#/Vol] 4.56 10*6/uL 3.60-5.00 [facility] Serum or plasma albumin/glob ulin mass ratioOrdered By: Lucrecia Nunn on 11-13-2023 Albumin/Globulin [Mass ratio] 1.6 {ratio} [facility] Serum or plasma anion gap de terminationOrdered By: Lucrecia Nunn on 11-13-2023 Anion gap [Moles/Vol] 12.0 mmol/L 6.0-15.0 [facility] Serum or plasma non-glucuron idated bilirubin measurement (mass/volume)Ordered By: Lucrecia Nunn on 11-13-2023 Bilirubin.indirect [Mass/Vol] 0.4 mg/dL [facility] Sodium [Moles/volume] in Ser um or PlasmaOrdered By: Lucrecia Nunn on 11-13-2023 Sodium [Moles/Vol] 137 mmol/L 136-145 [facility] Specific gravity Auto test s trip (U) [Rel density]Ordered By: Lucrecia Nunn on 11-13-2023 Specific gravity (U) [Rel density] 1.011 1.001-1.030 [facility] Urea nitrogen [Mass/volume] in Serum or PlasmaOrdered By: Lucrecia Nunn on 11-13-2023 Urea nitrogen [Mass/Vol] 10 mg/dL 7-25 [facility] Urine bacteria detection by automated methodOrdered By: Lucrecia Nunn on 11-13-2023 Bacteria Auto Ql (U) None seen None Seen [facility] Urine clarity by refractomet ry automatedOrdered By: Lucrecia uNnn on 11-13-2023 Clarity Refractometry automated (U) Clear Clear [facility] Urine glucose measurement by automated test strip (mass/volume)Ordered By: Lucrecia Nunn on 11-13-2023 Glucose Auto test strip (U) [Mass/Vol] Normal mg/dL Normal [facility] Urine hemoglobin detection b y automated test stripOrdered By: Lucrecia Nunn on 11-13-2023 Hemoglobin Auto test strip Ql (U) 3+ Negative [facility] Urine leukocyte esterase det ection by automated test stripOrdered By: Lucrecia Nunn on 11-13-2023 Leukocyte esterase Auto test strip Ql (U) Negative Negative [facility] Urobilinogen Auto test strip (U) [Mass/Vol]Ordered By: Lucrecia Nunn on 11-13-2023 Urobilinogen (U) [Mass/Vol] Normal mg/dL Normal [facility] WBC Auto (Bld) [#/Vol]Ordere d By: Lucrecia Nunn on 11-13-2023 WBC (Bld) [#/Vol] 7.5 10*3/uL 3.8-11.6 [facility] pH Auto test strip (U)Ordere d By: Lucrecia Nunn on 11-13-2023 pH (U) 7.5 [pH] 5.0-9.0 [facility] CBC AUTO DIFFon 04-07-2022 BASO # 0.0 103/ul Normal 0.0-0.1 [facility] Comment on above: Performed By: #### C BC #### [facility] [address] [place] [address] Dr. Joe Desir Basophils/100 WBC (Bld) 0.2 % Normal 0.2-2.[address] [facility] Comment on above: Performed By: #### C BC #### [facility] [address] [place] [address] Dr. Joe Desir EO # 0.3 103/ul Normal 0.0-0.7 [facility] Comment on above: Performed By: #### C BC #### [facility] [address] [place] [address] Dr. Joe Desir Eosinophils/100 WBC (Bld) 2.1 % Normal 0.9-7.0 [facility] Comment on above: Performed By: #### C BC #### [facility] [address] [place] [address] Dr. Joe Desir Erythrocyte distribution width (RBC) [Ratio] 12.9 % Normal 11.0-15.0 [facility] Comment on above: Performed By: #### C BC #### [facility] [address] [place] [address] Dr. Joe Desir Hematocrit (Bld) [Volume fraction] 41.1 % Normal 36.0-48.0 [facility] Comment on above: Performed By: #### C BC #### [facility] [address] [place] [address] Dr. Joe Desir Hemoglobin (Bld) [Mass/Vol] 13.5 g/dL Normal 12.0-16.0 [facility] Comment on above: Performed By: #### C BC #### [facility] [address] [place] [address] Dr. Jeo Desir IG # 0.05 10e3/ul Critically high 0.00-0.03 [facility] Comment on above: Performed By: #### C BC #### [facility] [address] [place] [address] Dr. Joe Desir IG % 0.4 % Normal 0.0-0.5 [facility] Comment on above: Performed By: #### C BC #### [facility] [address] [place] [address] Dr. Joe Desir LYMPH # 2.3 103/ul Normal 1.2-3.8 [facility] Comment on above: Performed By: #### C BC #### [facility] [address] [place] [address] Dr. Joe Desir Lymphocytes/100 WBC (Bld) 17.7 % Critically low 20.5-60.0 [facility] Comment on above: Performed By: #### C BC #### [facility] [address] [place] [address] Dr. Joe Desir MANUAL DIFF REQ NO Normal [place] Comment on above: Performed By: #### C BC #### [facility] [address] [place] [address] Dr. Joe Desir MCH (RBC) [Entitic mass] 30.4 pg Normal 26.7-34.0 [facility] Comment on above: Performed By: #### C BC #### [facility] [address] [address] [address] Joe Desir MCHC (RBC) [Mass/Vol] 32.8 g/dL Normal 29.9-35.2 [facility] Comment on above: Performed By: #### C BC #### [facility] [address] [address] [address] Joe Desir MCV (RBC) [Entitic vol] 92.6 fL Normal 81.0-99.[address] [facility] Comment on above: Performed By: #### C BC #### [facility] [address] [address] [address] Joe Desir MONO # 0.6 103/ul Normal 0.3-0.8 [facility] Comment on above: Performed By: #### C BC #### [facility] [address] [address] [address] Joe Desir Monocytes/100 WBC (Bld) 4.7 % Normal 1.7-12.[address] [facility] Comment on above: Performed By: #### C BC #### [facility] [address] [address] [address] Joe Desir NEUT # 9.6 103/ul Critically high 1.4-6.5 [place] Comment on above: Performed By: #### C BC #### [facility] [address] [address] [address] Joe Desir Neutrophils/100 WBC (Bld) 74.9 % Normal 43.0-75.0 [facility] Comment on above: Performed By: #### C BC #### [facility] [address] [address] [address] Joe Desir Platelet mean volume (Bld) [Entitic vol] 10.2 fL Normal 9.5-13.5 [facility] Comment on above: Performed By: #### C BC #### [facility] [address] [address] [address] Joe Desir PLT 285 103/ul Normal 150-450 [facility] Comment on above: Performed By: #### C BC #### [facility] [address] [place] [address] Dr. Joe Desir RBC 4.44 106/ul Normal 4.20-5.40 [facility] Comment on above: Performed By: #### C BC #### [facility] [address] [place] [address] Dr. Joe Desir WBC 12.8 103/ul Critically high 4.0-11.0 [facility] Comment on above: Performed By: #### C BC #### [facility] [address] [place] [address] Dr. Joe Desir FREE T4on 04-07-2022 Free T4 [Mass/Vol] 0.70 ng/dL Critically low 0.76-1.46 Th e [facility] Comment on above: Performed By: #### F T4 #### [facility] [address] [place] [address] Dr. Joe Desir TSHon 04-07-2022 TSH 19.728 uIU/mL Critically high 0.358-3.740 [facility] Comment on above: Performed By: #### T SH #### [facility] [address] [place] [address] Dr. Joe Desir [facility]on SARS-CoV-2 (COVID-19) RNA KRISS+probe Ql (Unsp spec) Detected Critically abnormal NOT DETECTED The [facility] Comment on above: Result Comment: This test is not yet approved or cleared by the [place] FDA. When there are no FDA-approved or cleared tests available, and other criteria are met, FDA can make tests available under an emergency access mechanism called an Emergency Use Authorization (EUA). The EUA for this test is supported by the Mechanical Inspector of Health and Human Service's (HHS's) declaration [...] longer be used). Performed By: #### C [facility] #### [facility] [address] [place] [address] Dr. Joe Desir XR ANKLE ELISA MIN [...] YEMI CAMPBELL Date: 2021-07-15 11:42 Normal The [facility] MRI ANKLE LT WO CONon 2020 [...] SANFORD MARTINEZ Date: 2021-07-07 19:44 Normal The [facility] Covid-19 PCR ([facility])on SARS-CoV-2 (COVID-19) RNA KRISS+probe Ql (Unsp spec) Not detected Normal NOT DETECTED The [facility] Comment on above: Result Comment: This test is not yet approved or cleared by the [place] FDA. When there are no FDA-approved or cleared tests available, and other criteria are met, FDA can make tests available under an emergency access mechanism called an Emergency Use Authorization (EUA). The EUA for this test is supported by the Mechanical Inspector of Health and Human Service's (HHS's) declaration [...] Performed By: #### C VDAGS, CVDTB #### [facility] [address] [place] [address] Emy Cohen SYMPTOMATIC COVID-19 ANTIGEN on 05-30-2021 EUA Statement SEE BELOW Normal The [facility] Comment on above: Result Comment: This test [...] Performed By: #### C SITAS, CVDTB #### [facility] [address] [place] [address] Emy Cohen SARS-CoV-2 (COVID-19) RNA KRISS+probe Ql (Unsp spec) Negative Normal NEGATIVE The [facility] Comment on above: Result Comment: CONF IRMATION BY PCR PENDING PER CDC GUIDELINES/ SYMPTOMATIC PATIENT. Performed By: #### C SYDAGS, CVDTB #### [facility] [address] [place], [place] [address] Emy Cohen Vital Signs Date Time Vital Sign Value Performing Clinician Facility 05-30-2024 14:38-0400 Body height 152.4 cm [facility] [place] 05-30-2024 14:38-0400 Body mass index (BMI) [Ratio] 25.5 kg/m2 [facility] 05-30-2024 14:38-0400 Body weight 59.42 kg [facility] 05-30-2024 14:38-0400 Diastolic blood pressure 74 mm[Hg] [facility] 05-30-2024 14:38-0400 Heart rate 67 /min [facility] [place] 05-30-2024 14:38-0400 SaO2% (BldA) [Mass fraction] 98 % [facility] 05-30-2024 14:38-0400 Systolic blood pressure 122 mm[Hg] [facility] 03-28-2024 14:25-0400 Body height 152.4 cm [facility] 03-28-2024 14:25-0400 Body mass index (BMI) [Ratio] 25 kg/m2 [facility] 03-28-2024 14:25-0400 Body weight 58.05 kg [facility] 03-28-2024 14:25-0400 Diastolic blood pressure 68 mm[Hg] [facility] 03-28-2024 14:25-0400 Heart rate 75 /min [facility] 03-28-2024 14:25-0400 Systolic blood pressure 103 mm[Hg] [facility] 01-12-2024 13:06-0400 Body height 152.4 cm MD Tiera Dumas Work Phone: [facility] 01-12-2024 13:06-0400 Body mass index (BMI) [Ratio] 25.7 kg/m2 MD Tiera Dumas Work Phone: [facility] 01-12-2024 13:06-0400 Body weight 59.87 kg MD Tiera Dumas Work Phone: [facility] 01-12-2024 13:06-0400 Diastolic blood pressure 72 mm[Hg] MD Tiera Dumas Work Phone: [facility] 01-12-2024 13:06-0400 Heart rate 74 /min MD Tiera Dumas Work Phone: [facility] 01-12-2024 13:06-0400 SaO2% (BldA) [Mass fraction] 98 % MD Tiera Dumas Work Phone: [facility] 01-12-2024 13:06-0400 Systolic blood pressure 110 mm[Hg] MD Tiera Dumas Work Phone: [facility] 12-07-2023 17:40-0400 Diastolic blood pressure 76 mm[Hg] MD Tiera Dumas Work Phone: [facility] 12-07-2023 17:40-0400 Heart rate 69 /min MD Tiera Dumas Work Phone: [facility] 12-07-2023 17:40-0400 Respiratory rate 16 /min MD Tiera Dumas Work Phone: [facility] 12-07-2023 17:40-0400 SaO2% (BldA) [Mass fraction] 99 % MD Tiera Dumas Work Phone: [facility] 12-07-2023 17:40-0400 Systolic blood pressure 111 mm[Hg] MD Tiera Dumas Work Phone: [facility] 12-07-2023 15:13-0400 Body height 152.4 cm MD Tiera Dumas Work Phone: [facility] 12-07-2023 15:13-0400 Body mass index (BMI) [Ratio] 25.4 kg/m2 MD Tiera Dumas Work Phone: [facility] 12-07-2023 15:13-0400 Body weight 58.96 kg MD Tiera Dumas Work Phone: [facility] 12-07-2023 14:47-0400 Body temperature 98.8 [degF] MD Tiera Dumas Work Phone: [facility] 12-07-2023 11:34-0400 Body temperature 98.6 [degF] Mariano ENEDINA [facility] 12-07-2023 11:34-0400 Diastolic blood pressure 78 mm[Hg] Mariano MCCONNELL [facility] 12-07-2023 11:34-0400 Heart rate 64 /min Mariano COOK [facility] 12-07-2023 11:34-0400 Respiratory rate 16 /min Mariano COOK [facility] 12-07-2023 11:34-0400 Systolic blood pressure 111 mm[Hg] Mariano COOK [facility] 11-13-2023 12:21-0500 Diastolic blood pressure 72 mm[Hg] MD Tiera Dumas Work Phone: [facility] 11-13-2023 12:21-0500 Heart rate 63 /min MD Tiera Dumas Work Phone: [facility] 11-13-2023 12:21-0500 Respiratory rate 18 /min MD Tiera Dumas Work Phone: [facility] 11-13-2023 12:21-0500 SaO2% (BldA) [Mass fraction] 100 % MD Tiera Dumas Work Phone: [facility] 11-13-2023 12:21-0500 Systolic blood pressure 106 mm[Hg] MD Tiera Dumas Work Phone: [facility] 11-13-2023 10:02-0500 Body height 156.21 cm MD Tiera Dumas Work Phone: [facility] 11-13-2023 10:02-0500 Body temperature 97.4 [degF] MD Tiera Dumas Work Phone: [facility] 11-13-2023 10:02-0500 Body weight 59 kg MD Tiera Dumas Work Phone: [facility] 12-13-2022 11:21-0400 Body height 154.94 cm MD Tiera Dumas Work Phone: [facility] 12-13-2022 11:21-0400 Body temperature 97.9 [degF] MD Tiera Dumas Work Phone: [facility] 12-13-2022 11:21-0400 Body weight 59 kg MD Tiera Dumas Work Phone: [facility] 12-13-2022 11:21-0400 Diastolic blood pressure 79 mm[Hg] MD Tiera Dumas Work Phone: [facility] 12-13-2022 11:21-0400 Heart rate 87 /min MD Tiera Dumas Work Phone: [facility] 12-13-2022 11:21-0400 Respiratory rate 18 /min MD Tiera Dumas Work Phone: [facility] 12-13-2022 11:21-0400 SaO2% (BldA) [Mass fraction] 97 % MD Tiera Dumas Work Phone: [facility] 12-13-2022 11:21-0400 Systolic blood pressure 118 mm[Hg] MD Tiera Dumas Work Phone: [facility] 12-03-2022 11:15-0500 Body height 153.67 cm Tiera Dumas Other [employer] Other 12-03-2022 11:15-0500 Body mass index (BMI) [Ratio] 24.78 kg/m2 Tiera Dumas Other [employer] Other 12-03-2022 11:15-0500 Body temperature 99.7 [degF] Tiera Dumas Other [employer] Other 12-03-2022 11:15-0500 Body weight 58.51 kg Tiera Dumas Other [employer] Other 12-03-2022 11:15-0500 Diastolic blood pressure 72 mm[Hg] Tiera Dumas Other [employer] Other 12-03-2022 11:15-0500 SaO2% (BldA) [Mass fraction] 97 % Tiera Dumas Other [employer] Other 12-03-2022 11:15-0500 Systolic blood pressure 112 mm[Hg] Tiera Dumas Other [employer] Other Encounters Encounter Date Encounter Type Care Provider Facility Start: 05-30-2024 End: 05-30-2024 ambulatory [facility] Work Phone: Start: 05-30-2024 End: 05-30-2024 Patient encounter procedure [facility] Work Phone: Start: 03-28-2024 End: 03-28-2024 ambulatory [facility] Work Phone: Start: 03-28-2024 End: 03-28-2024 Patient encounter procedure [facility] Work Phone: Start: 01-12-2024 End: 01-12-2024 ambulatory MD Tiera Dumas Work Phone: [facility] Work Phone: Start: 01-12-2024 End: 01-12-2024 Patient encounter procedure MD Tiera Dumas Work Phone: [facility] Work Phone: Start: 12-07-2023 End: 12-07-2023 ambulatory Mariano Mcconnell Facility:[facility] Start: 12-07-2023 End: 12-07-2023 Admission to same day surgery center MD Tiera Dumas Work Phone: [facility] [place] Start: 12-07-2023 End: 12-08-2023 ambulatory Mariano MCCONNELL Facility:[id number] Start: 12-07-2023 End: 12-08-2023 ambulatory Mariano MCCONNELL Facility:[facility] Start: 12-07-2023 End: 12-07-2023 Patient encounter procedure Mariano MCCONNELL [facility] Start: 12-01-2023 End: 12-01-2023 ambulatory Tiera Dumas Facility:[facility] Start: 12-01-2023 End: 12-01-2023 Patient encounter procedure MD Tiera Dumas Work Phone: [facility] [place] Work Phone: Start: 11-16-2023 ambulatory Mariano MCCONNELL Facility:[facility] Start: 11-13-2023 End: 11-13-2023 Emergency department patient visit Tiera Dumas Facility:[facility] Start: 11-13-2023 End: 11-13-2023 Emergency department patient visit MD Tiera Dumas Work Phone: [facility] Work Phone: Start: 07-07-2023 (Televisit) Televisit Tiera Dumas [facility] Start: 07-07-2023 End: 07-07-2023 ambulatory Tiera Dumas Other [employer] Other Start: 12-16-2022 End: 12-16-2022 ambulatory Tiera Dumas Other [employer] Other Start: 12-16-2022 Telephone encounter Tiera Dumas [facility] Start: 12-13-2022 End: 12-13-2022 Emergency department patient visit MD Tiera Dumas Work Phone: [facility] Work Phone: Start: 12-03-2022 End: 12-03-2022 ambulatory Tiera Dumas Other [employer] Other Start: 12-03-2022 Office outpatient vi sit 15 minutes Tiera Dumas [facility] Start: 04-07-2022 End: 04-08-2022 ambulatory [...] Date Care Activity Detail Author Start: 12-07-2023 [facility] Start: 12-07-2023 [facility] Patient Education [facility] Work Phone: Patient referral [facility] Work Phone: [facility] Immunizations Immunization Date Immunization Notes Care Provider Fa cility 02-13-2021 SARS-CoV-2 (COVID-19 ) mRNA-1273 vaccine Mariano MCCONNELL [facility] 01-15-2021 SARS-CoV-2 (COVID-19 ) mRNA-1273 vaccine Mariano MCCONNELL [facility] 07-10-2018 influenza virus vaccine, unspecified formulation Mariano MCCONNELL [facility] 07-10-2018 Influenza, injectabl e, Madin Amairani Canine Kidney, preservative free, quadrivalent MD Tiera Dumas Work Phone: [facility] 07-24-2015 influenza virus vaccine, unspecified formulation Mariano MCCONNELL [facility] 07-24-2015 influenza, injectabl e, quadrivalent, contains preservative MD Tiera Dumas Work Phone: [facility] 07-25-2014 influenza virus vaccine, unspecified formulation Mariano MCCONNELL [facility] 07-25-2014 influenza, seasonal, injectable, preservative free MD Tiera Dumas Work Phone: [facility] 08-02-2013 influenza virus vaccine, unspecified formulation Mariano MCCONNELL [facility] 08-02-2013 influenza, seasonal, injectable MD Tiera Dumas Work Phone: [facility] NEGATED: Highlighted row has not occurred!12-07-2023 influenza virus vaccine, unspecified formulation Mariano MCCONNELL [facility] Payers Date Payer Category Payer Self-pay [id number] 2015 Unknown 1979 Unknown [id number] .16.84 [id number] 1979 Unknown [id number] .16.84 [id number] 1979 Unknown [id number] .16.84 [id number] 1979 Unknown [id number] .16.84 [id number] 1979 Unknown [id number] .16.84 [id number] 1979 Unknown [id number] .16.84 [id number] 1979 Unknown [id number] 2.16.8 [id number] 1979 Unknown [id number] 2.16.8 [id number] 1979 Unknown [id number] 2.16.8 [id number] 1959 Unknown [id number] Unknown [id number] 2.16.8 [id number] Unknown [id number] 2.16.8 [id number] Unknown [id number] 2.16.8 [id number] Social History Date Type Detail Facility Start: 12-13-2022 Tobacco smoking status [facility] Never smoked tobacco (finding) [facility] Start: 1980 Sex Assigned At Female [facility] Sex Assigned At [facility] Start: 11-13-2023 End: 03-28-2024 Tobacco smoking status [facility] Ex-smoker (finding) [facility] Tobacco smoking status Never [facility] NEGATED: Highlighted row [facility] Goals Date Patient Goal Desired Activity /State Functional Status Date Assessment Result Facility 12-07-2023 Functional Status N/A [facility] Clinical Notes 12-03-2022 to 12-07-2023 Note Date [...] including vitamins, herbs, eye drops, creams, and zhaz-rqk-[id number] medicines. Any problems you or family members [...] provider tells you to take them. ?Taking ykuf-vje-rrxxavv medicines, vitamins, herbs, and supplements. Eating and [...] provider. Document Revised: 01/20/2023 Document Reviewed: 05/18/2022 [employer] Patient Education 2022 [employer]. Follow Up Care 12/06/2023 08:36:19 With:ENEDINA CONTRERAS, Mariano Causey, URL Address: [address] [place] [address] [place], [place] [id number]- When: Unknown Comments:sched cysto/L RGP/URS/possible stent [facility] 07-07-2023 Evaluation note Encounter Date Diagnosis Assessment Notes Jun, Bronchitis (ICD-10 - J40) Finish antibiotics as prescribed. Medrol for chest tightness. Will call if needs work note. [employer] Other 03-09-2023 Evaluation note* Encounter Date Diagnosis Assessment Notes Treatment Notes Treatment Clinical Notes Nov, Hematuria, unspecified type (ICD-10 - R31.9) Will treat based on her symptoms Nov, Lumbar pain (ICD-10 - M54.50) Generalized pain. no acute injury. Recommend rest and heat. [employer] Other Evaluation + Plan note No data available for this section [facility] Evaluation noteNo assessment information available [facility] Work Phone: Evaluation noteNo [employer] Other Evaluation note* Diagnosis Onset Date Resolution Status Sinusitis acute Fatigue acute Hypothyroid acute [facility] Work Phone: Evaluation note* Diagnosis Onset Date Resolution Status Acute thoracic back pain acu te Fatigue acute Hypothyroid acute [facility] Work Phone: History general Narrative - Reported* [...] Left Shoulder Surgery, Problem Status : Active, [employer] Other Hospital Discharge instructions Additional Instructions We [...] if you develop any worsening or concerning symptoms.[facility] Work Phone: Progress note No data available for this section [facility] Summary Purpose Family History Relationship Condition [...] DATE CREATED AUTHOR AUTHOR'S ORGANIZ ATION 12/15/2023 [facility] DATE CREATED AUTHOR AUTHOR'S ORGANIZ ATION 01/14/2024 [facility] Care Teams (unrecognized sec [...] End: January 12, 2024 Nguyen Aguirre APRN [employer]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 [employer] [facility]. provides no warranty or guarantee of the accuracy or completeness of information in this document.
== END 2024-06-27 10:21 | disposition home or self-care (01) ==
LOC: EC 10:20
PROVIDERS: PCP Family Medicine; Visit Provider Podiatrist Foot & Ankle Surgery
DX: M79.672 Pain in left foot (principal)
CPT/HCPCS: 73630

== ENCOUNTER 2024-07-13 10:03 | Outpatient (OUT) | payer BC, SELFPAY ==
--- OUTSIDE RECORDS SUMMARY | 2024-07-13 10:07 | XMS_ITS | CCD ---
Author Organization [facility] CliniSynj Care Team Providers Care Research Program Intern Name Role Phone SHAIKH Desmond HOUSE Admitting [...] Primary Care Provider LELA Quijano Emergency Provider [phone] Tiera Dumas Unavailable MD Tiera Dumas Primary Care Provider DO Lucrecia Nunn Emergency Provider TIERA DUMAS Primary Care Physician Mariano MCCONNELL Attending Unavailable Mariano MCCONNELL Attending Unavailable MD Tiera Dumas Primary Care Provider DO Lucrecia Nunn Emergency Provider [phone] MD Mariano Mcconnell Attending Provider Mariano Mcconnell [...] Translations: [codeine] Drug Allergy [address] [facility] Repository (4 sources) Morphine; Translations: [morphine] Drug Allergy [address] [facility] Repository (1 source) Codeine; Translations: [codeine] Drug Allergy Nausea and vomiting [facility] (1 source) Morphine; Translations: [morphine] Drug Allergy Nausea [facility] (1 source) Codeine Drug Allergy 4 [facility] Repository (1 source) Morphine Drug Allergy [address] [place] [address] Repository Medications Current Medications Medication Drug Class(es) [...] Basophils (Bld) [#/Vol] 0.0 10 3/uL 0.0-0.1 [facility] Basophils/100 WBC Auto (Bld) on 03-28-2024 Basophils/100 WBC (Bld) 0.6 % 0.2-2.0 [facility] Eosinophils/100 WBC Auto (Bl d)on 03-28-2024 Eosinophils/100 WBC (Bld) 5.2 % 0.9-7.0 [facility] Erythrocyte distribution wid th Auto (RBC) [Ratio]on 03-28-2024 Erythrocyte distribution width (RBC) [Ratio] 12.7 % 11.0-15.0 [facility] Estimated glomerular filtrat ion rate (GFR) non- Americanon 03-28-2024 GFR/1.73 sq M.predicted among non-blacks MDRD (S/P/Bld) [Vol rate/Area] mL/min/{1.73_m2} >=60 [facility] Hematocrit Auto (Bld) [Volum e fraction]on 03-28-2024 Hematocrit (Bld) [Volume fraction] 38.0 % 36.0-48.0 [facility] Hemoglobin [Mass/volume] in Bloodon 03-28-2024 Hemoglobin (Bld) [Mass/Vol] 12.2 g/dL 12.0-16.0 [facility] Laboratory - Chemistry and C hemistry - challengeon 03-28-2024 Calcium [Mass/Vol] 8.9 mg/dL 8.5-10.1 [facility] Chloride [Moles/Vol] 105 mmol/L 98-107 [facility] CO2 [Moles/Vol] 28.1 mmol/L 21.0-32.0 [facility] Creatinine [Mass/Vol] 0.78 mg/dL 0.55-1.02 [facility] Free T4 [Mass/Vol] 1.17 ng/dL 0.76-1.46 [facility] GFR/1.73 sq M.predicted MDRD (S/P/Bld) [Vol rate/Area] mL/min/{1.73_m2} >=60 [facility] Glucose [Mass/Vol] 98 mg/dL 74-106 [facility] Potassium [Moles/Vol] 3.7 mmol/L 3.5-5.1 [facility] Sodium [Moles/Vol] 140 mmol/L 136-145 [facility] TSH Qn 1.152 m[IU]/L 0.358-3.740 [facility] Urea nitrogen [Mass/Vol] 9.0 mg/dL 7.0-18.0 [facility] Urea nitrogen/Creatinine [Mass ratio] 11.5 mg/mg [facility] - Hematology and Cell countson 03-28-2024 Immature granulocytes/100 WBC (Bld) 0.3 % 0.0-0.5 [facility] Leukocytes [#/volume] correc marshal for nucleated erythrocytes in Blood by Automated counon 03-28-2024 WBC corrected for nucl RBC Auto (Bld) [#/Vol] 7.1 10 3/uL 4.0-11.0 [facility] Lymphocytes Auto (Bld) [#/Vo l]on 03-28-2024 Lymphocytes (Bld) [#/Vol] 2.2 10 3/uL 1.2-3.8 [facility] Lymphocytes/100 WBC Auto (Bl d)on 03-28-2024 Lymphocytes/100 WBC (Bld) 31.1 % 20.5-60.0 [facility] MCH Auto (RBC) [Entitic mass ]on 03-28-2024 MCH (RBC) [Entitic mass] 29.9 pg 26.7-34.0 [facility] MCHC Auto (RBC) [Mass/Vol]on 03-28-2024 MCHC (RBC) [Mass/Vol] 32.1 g/dL 29.9-35.2 [facility] MCV Auto (RBC) [Entitic vol] on 03-28-2024 MCV (RBC) [Entitic vol] 93.1 fL 81.0-99.0 [facility] Monocytes Auto (Bld) [#/Vol] on 03-28-2024 Monocytes (Bld) [#/Vol] 0.4 10 3/uL 0.3-0.8 [facility] Monocytes/100 WBC Auto (Bld) on 03-28-2024 Monocytes/100 WBC (Bld) 6.1 % 1.7-12.0 [facility] Neutrophils Auto (Bld) [#/Vo l]on 03-28-2024 Neutrophils (Bld) [#/Vol] 4.0 10 3/uL 1.4-6.5 [facility] Neutrophils/100 WBC Auto (Bl d)on 03-28-2024 Neutrophils/100 WBC (Bld) 56.7 % 43.0-75.0 [facility] No Panel Informationon 03-28 Eosinophils # (Auto) 0.4 10 3/uL 0.0-0.7 [facility] Immature Granulocyte # (Auto) 0.02 10 3/uL 0.00-0.03 [facility] Platelet mean volume Auto (B ld) [Entitic vol]on 03-28-2024 Platelet mean volume (Bld) [Entitic vol] 10.4 fL 9.5-13.5 [facility] Platelets Auto (Bld) [#/Vol] on 03-28-2024 Platelets (Bld) [#/Vol] 270 10 3/uL 150-450 [facility] RBC Auto (Bld) [#/Vol]on RBC (Bld) [#/Vol] 4.08 10 6/uL Low 4.20-5.40 [facility] Serum or plasma anion gap de terminationon 03-28-2024 Anion gap [Moles/Vol] 10.6 mmol/L [facility] Formson 12-08-2023 Forms [id number] #1.00TIFF Normal [facility] Operative Reporton Operative Report [id number] #1.00TIFF Normal [facility] RAD - MISCon 12-08-2023 [facility] - MISC [id number] #1.00TIFF Normal [facility] [id number] #1.00TIFF Normal [facility] Ambulatory Visit Summaryon 0 12-07-2023 Ambulatory Visit [...] including vitamins, herbs, eye drops, creams, and nzdp-fgs-sjxmfif medicines. ? Any problems you or family [...] tells you to take them. ? Taking csdt-qby-hihatns medicines, vitamins, herbs, and supplements. Eating and [...] dri (more content not included)... Normal [facility] Amphetamine Screen Ql (U)Ord ered By: Sanford Mason on 12-07-2023 Amphetamines Ql (U) Negative Negative [facility] Barbiturates [Presence] in U rine by Screen methodOrdered By: Sanford Mason on 12-07-2023 Barbiturates Screen Ql (U) Negative Negative [facility] Benzodiazepines Screen Ql (U )Ordered By: Sanford Mason on 12-07-2023 Benzodiazepines Ql (U) Negative Negative [facility] Benzoylecgonine [Presence] i n Urine by Screen methodOrdered By: Sanford Mason on 12-07-2023 Benzoylecgonine Screen Ql (U) Negative Negative [facility] Cannabinoids [Presence] in U rine by Screen methodOrdered By: Sanford Mason on 12-07-2023 Cannabinoids Screen Ql (U) Positive Negative [facility] Comment on above: These are unconfirme d results and should not be used for legal purposes. Drug Cut-Off Concentration: AMPH 1000 ng/mL GARETT 200 ng/mL LEVY 200 ng/mL COCM 300 ng/mL OP 300 ng/mL PCP 25 ng/mL THC 20 ng/mL Drug Screen,Urineon 12-07-19 24 Amphetamine Screen,Urine Negative Normal Negative [facility] Comment on above: Performed By: #### U RDS #### [address] Barbiturate Screen,Urine Negative Normal Negative [facility] Comment on above: Performed By: #### U RDS #### [address] Benzodiazepines Screen,Urine Negative Normal Negative [facility] Comment on above: Performed By: #### U RDS #### [address] Cannabinoid Screen,Urine Positive High Negative [facility] Comment on above: Result Comment: Thes e are unconfirmed results and should not be used for legal purposes. Drug Cut-Off Concentration: AMPH 1000 ng/mL GARETT 200 ng/mL LEVY 200 ng/mL COCM 300 ng/mL OP 300 ng/mL PCP 25 ng/mL THC 20 ng/mL PERFORMED BY: [place] [address] PATHOLOGIST MANAGER OF TRAINING AND DEVELOPMENT DINA WALKER M.D. Performed By: #### U RDS #### [address] Cocaine Screen,Urine Negative Normal Negative [facility] Comment on above: Performed By: #### U RDS #### [address] Opiate Screen,Urine Negative Normal Negative [facility] Comment on above: Performed By: #### U RDS #### [address] Phencyclidine Screen,Urine Negative Normal Negative [facility] Comment on above: Performed By: #### U RDS #### [address] [place] urethrocystogram retroon 12-07-2023 [place] urethrocystogram retro [facility] [place] [address] [place] [address] Fluoroscopy Report Signed Patient: Nguyen Taylor MR#: [id number] : 1980 Acct:[id number] Age/Sex: 43 / F ADM Date: 12/07/23 Loc: [place] Room: Type: [facility] Attending Dr: Mariano Mcconnell MD Copies to: [...] Gabriele Corbin M.D.12/07/2023 6:04 PM Dictation Location: [place] [address] Transcribed By: [facility] 12/07/231803 Dictated By: Gabriele Corbin II, MD 12/07/231801 Signed By: 12/07/231803 Normal [facility] HCG ( test) [place].rapi d Ql (U)Ordered By: Sanford Mason on 12-07-2023 HCG ( test) Ql (U) Negative [facility] HCG,Urineon 12-07-2023 Beta HCG ( test) Ql (U) Negative Normal [facility] Comment on above: Result Comment: PERF ORMED BY: [place] [address] PATHOLOGIST MANAGER OF TRAINING AND DEVELOPMENT DINA WALKER M.D. Performed By: #### U HCG #### [address] Insurance Correspondenceon 0 12-07-2023 Insurance Correspondence [id number]#1.00TIFF Normal [facility] Opiates [Presence] in Urine by Screen methodOrdered By: Sanford Mason on 12-07-2023 Opiates Screen Ql (U) Negative Negative [facility] Patient Educationon 12-07-19 Patient Education [...] including vitamins, herbs, eye drops, creams, and rzmi-orz-optsltq medicines. ? Any problems you or family [...] tells you to take them. ? Taking phxh-ula-ihwuoed medicines, vitamins, herbs, and supplements. Eating and [...] (more content not included)... Normal [facility] Phencyclidine Screen Ql (U)O rdered By: Sanford Mason on 12-07-2023 Phencyclidine Ql (U) Negative Negative [facility] Urology Office/Clinic Noteon 12-07-2023 Urology Office/Clinic Note Chief Complaint Pt is here for [facility] ER f/u HPI Staff 43 year old female New Pt. Pt. was in the [facility] ER on 11/13/23 due to Lt. lower [...] 1. Ureteral stone (N20.1: Calculus of ureter) [facility] ER visit 11/13/23 due to left flank pain. Given Fomax and pain medication to help pass stone. CT AP w con 11/13/23 [facility] - Obstructing 3 mm L UVJ calculus [...] from a couple days ago at the [facility] is inconclusive. She continues with significant pain up to a level 7 out of 10 and does desire surgical intervention. This is well outlined above. She understands the ris (more content not included)... Normal [facility] Comment on above: Result Comment: Elec tronically Signed By: Mairano MCCONNELL MD\.br\Date and Time Signed: 12/07/23 12:06 EDT\.br\Electronically Co-Signed By: Lakeisha Beebe\.br\Date and Time Co-Signed: 12/07/23 12:02 EDT RAD - MISCon 12-06-2023 RAD - MISC [id number] #1.00TIFF [facility] XR KUBon 12-01-2023 XR KUB [facility] [place] [address] XRay Report Signed Patient: Nguyen Taylor MR#: [id number] : 1980 Acct:[id number] Age/Sex: 43 / F ADM Date: 12/01/23 Loc: XD Room: Type: [facility] Attending Dr: Mariano Mcconnell MD [...] Palacios Jr., D.O.12/01/2023 4:13 PM Dictation Location: [place] [address] Transcribed By: [facility] 12/01/23 1613 Dictated By: Freeman Palacios Jr, DO 12/01/23 1611 Signed By: 12/01/23 1613 Normal [facility] ED Note-Physicianon 11-19-19 ED Note-Physician [id number] #1.00TIFF Normal [facility] Alanine aminotransferase [En zymatic activity/volume] in Serum or PlasmaOrdered By: Lucrecia Nunn on 11-13-2023 ALT [Catalytic activity/Vol] 16 U/L 7-52 [facility] Albumin [Mass/volume] in Ser um or Plasma by Bromocresol green (BCG) dye binding methoOrdered By: Lucrecia Nunn on 11-13-2023 Albumin BCG dye [Mass/Vol] 4.8 g/dL 3.5-5.7 [facility] Alkaline phosphatase [Enzyma tic activity/volume] in Serum or PlasmaOrdered By: Lucrecia Nunn on 11-13-2023 ALP [Catalytic activity/Vol] 59 U/L 34-104 [facility] Aspartate aminotransferase [ Enzymatic activity/volume] in Serum or PlasmaOrdered By: Lucrecia Nunn on 11-13-2023 AST [Catalytic activity/Vol] 18 U/L 13-39 [facility] Automated epithelial cells c ount in urine sediment (number/area)Ordered By: Lucrecia Nunn on 11-13-2023 Epithelial cells Auto (Urine sed) [#/Area] None seen [HPF] 0-2 [facility] Automated erythrocytes count in urine sediment (number/area)Ordered By: Lucrecia Nunn on 11-13-2023 RBC Auto (Urine sed) [#/Area] 20-49 [HPF] 0-4 [facility] Automated leukocytes count i n urine sediment (number/area)Ordered By: Lucrecia Edouard on 11-13-2023 WBC Auto (Urine sed) [#/Area] None seen [HPF] 0-4 [facility] Automated urine hyaline cast s count (number/volume)Ordered By: Lucrecia Edouard on 11-13-2023 Hyaline casts Auto (U) [#/Vol] None seen [LPF] 0-1 [facility] Basic Metabolic Panelon 10-28 Anion gap [Moles/Vol] 12.0 mmol/L Normal 6.0-15.0 [facility] Comment on above: Performed By: #### C BC, HEPATIC, LIPASE, HCGQUAL, BMP #### [address] Calcium [Mass/Vol] 9.6 mg/dL Normal 8.6-10.3 [facility] Comment on above: Performed By: #### C BC, HEPATIC, LIPASE, HCGQUAL, BMP #### [address] Chloride [Moles/Vol] 106 mmol/L Normal 98-107 [facility] Comment on above: Performed By: #### C BC, HEPATIC, LIPASE, HCGQUAL, BMP #### [address] CO2 [Moles/Vol] 22.8 mmol/L Normal 21.0-31.0 [facility] Comment on above: Performed By: #### C BC, HEPATIC, LIPASE, HCGQUAL, BMP #### [address] Creatinine [Mass/Vol] 0.73 mg/dL Normal 0.60-1.20 [facility] Comment on above: Performed By: #### C BC, HEPATIC, LIPASE, HCGQUAL, BMP #### [address] Creatinine Clr Calc Pharmacy 81.17 Normal [facility] Comment on above: Performed By: #### C BC, HEPATIC, LIPASE, HCGQUAL, BMP #### [address] GFR/1.73 sq M.predicted MDRD (S/P/Bld) [Vol rate/Area] mL/min/{1.73_m2} Normal [facility] Comment on above: Performed By: #### C BC, HEPATIC, LIPASE, HCGQUAL, BMP #### [facility] [address] Glucose [Mass/Vol] 92 mg/dL Normal 70-100 [facility] Comment on above: Result Comment: [facility] Glucose Reference Range is dependent on time and content of last meal. Glucose of more than 200 mg/dL in a nonstressed, ambulatory subject supports the diagnosis of Diabetes Mellitus. ADA recommended reference range Performed By: #### C BC, HEPATIC, LIPASE, HCGQUAL, BMP #### [address] Potassium [Moles/Vol] 3.8 mmol/L Normal 3.5-5.1 [facility] Comment on above: Performed By: #### C BC, HEPATIC, LIPASE, HCGQUAL, BMP #### [place] [address] [place] Sodium [Moles/Vol] 137 mmol/L Normal 136-145 [facility] Comment on above: Performed By: #### C BC, HEPATIC, LIPASE, HCGQUAL, BMP #### [place] [address] [place] Urea nitrogen [Mass/Vol] 10 mg/dL Normal 7-25 [facility] Comment on above: Performed By: #### C BC, HEPATIC, LIPASE, HCGQUAL, BMP #### [facility] [address] [place] [address] [place] Basophils Auto (Bld) [#/Vol] Ordered By: Lucrecia Nunn on 11-13-2023 Basophils (Bld) [#/Vol] 0.0 10*3/uL 0.0-0.2 [facility] Basophils/100 WBC Auto (Bld) Ordered By: Lucrecia Nunn on 11-13-2023 Basophils/100 WBC (Bld) 0.4 % . [facility] Bilirubin Test strip Ql (U)O rdered By: Lucrecia Nunn on 11-13-2023 Bilirubin Ql (U) Negative Negative [facility] Bilirubin.direct [Mass/volum e] in Serum or PlasmaOrdered By: Lucrecia Nunn on 11-13-2023 Bilirubin.direct [Mass/Vol] 0.10 mg/dL 0.03-0.18 [facility] Bilirubin.total [Mass/volume ] in Serum or PlasmaOrdered By: Lucrecia Nunn on 11-13-2023 Bilirubin [Mass/Vol] 0.5 mg/dL 0.3-1.[address] [facility] [address] abdomen pelvis w conon CT abdomen pelvis w con [facility] [place] [address] [place] [address] CT Scan Report Signed Patient: Nguyen Taylor MR#: [id number] : 1980 Acct:[id number] Age/Sex: 43 / F ADM Date: 11/13/23 Loc: ER Room: Type: [facility] ER Attending Dr: Copies to: Lucrecia [...] Palacios Jr., D.OPatito11/13/2023 11:29 AM Dictation Location: [place] [address] Transcribed By: [facility] 11/13/23 1129 Dictated By: Freeman Palacios Jr, DO 11/13/23 1125 Signed By: 11/13/23 1129 Normal [facility] Calcium [Mass/volume] in Ser um or PlasmaOrdered By: Lucrecia Nunn on 11-13-2023 Calcium [Mass/Vol] 9.6 mg/dL 8.6-10.3 [facility] Carbon dioxide, total [Moles /volume] in Serum or PlasmaOrdered By: Lucrecia Nunn on 11-13-2023 CO2 [Moles/Vol] 22.8 mmol/L 21.0-31.0 [facility] Chloride [Moles/volume] in S noemy or PlasmaOrdered By: Lucrecia Nunn on 11-13-2023 Chloride [Moles/Vol] 106 mmol/L 98-107 [facility] Choriogonadotropin.beta subu nit [Units/volume] in Serum or PlasmaOrdered By: Lucrecia Nunn on 11-13-2023 HCG.beta subunit Qn Negative [facility] Color Auto (U)Ordered By: Shashank Nunn on 11-13-2023 Color (U) Yellow Yellow [facility] Complete Blood Count Auto Di ffon 11-13-2023 Basophils (Bld) [#/Vol] 0.0 10*3/uL Normal 0.0-0.2 [facility] Comment on above: Result Comment: PERF ORMED BY: [place] [address] PATHOLOGIST MANAGER OF TRAINING AND DEVELOPMENT DINA WALKER M.D. Performed By: #### C BC, HEPATIC, LIPASE, HCGQUAL, BMP #### [address] Basophils/100 WBC (Bld) 0.4 % Normal . T [facility] Comment on above: Performed By: #### C BC, HEPATIC, LIPASE, HCGQUAL, BMP #### [address] Eosinophils (Bld) [#/Vol] 0.3 10*3/uL Normal 0.0-0.45 [facility] Comment on above: Performed By: #### C BC, HEPATIC, LIPASE, HCGQUAL, BMP #### [address] Eosinophils/100 WBC (Bld) 3.4 % Normal . [facility] Comment on above: Performed By: #### C BC, HEPATIC, LIPASE, HCGQUAL, BMP #### [address] Erythrocyte distribution width (RBC) [Ratio] 13.3 % Normal 11.9-15.3 [facility] Comment on above: Performed By: #### C BC, HEPATIC, LIPASE, HCGQUAL, BMP #### [address] Hematocrit (Bld) [Volume fraction] 40.4 % Normal 34.0-46.4 [facility] Comment on above: Performed By: #### C BC, HEPATIC, LIPASE, HCGQUAL, BMP #### [address] Hemoglobin (Bld) [Mass/Vol] 13.6 g/dL Normal 11.8-15.4 [facility] Comment on above: Performed By: #### C BC, HEPATIC, LIPASE, HCGQUAL, BMP #### [address] Lymphocytes (Bld) [#/Vol] 1.7 10*3/uL Normal 1.00-4.8 [facility] Comment on above: Performed By: #### C BC, HEPATIC, LIPASE, HCGQUAL, BMP #### [address] Lymphocytes/100 WBC (Bld) 22.8 % Normal . [facility] Comment on above: Performed By: #### C BC, HEPATIC, LIPASE, HCGQUAL, BMP #### [address] MCH (RBC) [Entitic mass] 29.8 pg Normal 24.7-34.3 [facility] Comment on above: Performed By: #### C BC, HEPATIC, LIPASE, HCGQUAL, BMP #### [address] MCV (RBC) [Entitic vol] 88.6 fL Normal 80-100 [facility] Comment on above: Performed By: #### C BC, HEPATIC, LIPASE, HCGQUAL, BMP #### [address] Mean Corpuscular HGB Conc 33.7 g/dL Normal 32.0-35.0 [facility] Comment on above: Performed By: #### C BC, HEPATIC, LIPASE, HCGQUAL, BMP #### [address] Monocytes (Bld) [#/Vol] 0.4 10*3/uL Normal 0.0-0.8 [facility] Comment on above: Performed By: #### C BC, HEPATIC, LIPASE, HCGQUAL, BMP #### [address] Monocytes/100 WBC (Bld) 15.49 % Normal 0.00-20.00 [facility] Comment on above: Performed By: #### C BC, HEPATIC, LIPASE, HCGQUAL, BMP #### [address] Monocytes/100 WBC (Bld) 5.9 % Normal . [facility] Comment on above: Performed By: #### C BC, HEPATIC, LIPASE, HCGQUAL, BMP #### [address] Neutrophils (Bld) [#/Vol] 5.1 10*3/uL Normal 1.8-7.7 [facility] Comment on above: Performed By: #### C BC, HEPATIC, LIPASE, HCGQUAL, BMP #### [address] Neutrophils/100 WBC (Bld) 67.5 % Normal . [facility] Comment on above: Performed By: #### C BC, HEPATIC, LIPASE, HCGQUAL, BMP #### [address] NRBC% 0.1 /100{WBC} Normal 0-0.5 [facility] Comment on above: Performed By: #### C BC, HEPATIC, LIPASE, HCGQUAL, BMP #### [address] Platelet mean volume (Bld) [Entitic vol] 8.6 fL Normal 6.3-10.7 [facility] Comment on above: Performed By: #### C BC, HEPATIC, LIPASE, HCGQUAL, BMP #### [address] Platelets (Bld) [#/Vol] 295 10*3/uL Normal 150-450 [facility] Comment on above: Performed By: #### C BC, HEPATIC, LIPASE, HCGQUAL, BMP #### [address] RBC (Bld) [#/Vol] 4.56 10*6/uL Normal 3.60-5.00 [facility] Comment on above: Performed By: #### C BC, HEPATIC, LIPASE, HCGQUAL, BMP #### [address] WBC (Bld) [#/Vol] 7.5 10*3/uL Normal 3.8-11.6 [facility] Comment on above: Performed By: #### C BC, HEPATIC, LIPASE, HCGQUAL, BMP #### [address] Creatinine [Mass/volume] in Serum or PlasmaOrdered By: Lucrecia Nunn on 11-13-2023 Creatinine [Mass/Vol] 0.73 mg/dL 0.60-1.20 [facility] Dipstick and Microscopicon 0 11-13-2023 Appearance (U) Clear Normal Clear [facility] Comment on above: Order Comment: Name Collection Type:: Clean-Voided Midstream Performed By: #### A DDONUAPLUS ####[place] [address] [place] [address] [facility] Bacteria,Urine None Seen Normal None Seen [facility] Comment on above: Order Comment: Name Collection Type:: Clean-Voided Midstream Performed By: #### A DDONUAPLUS ####[address] [address] [place] Bilirubin,Urine Negative Normal Negative [facility] Comment on above: Order Comment: Name Collection Type:: Clean-Voided Midstream Performed By: #### A DDONUAPLUS ####[address] [address] [facility] Color (U) Yellow Normal Yellow [facility] Comment on above: Order Comment: Name Collection Type:: Clean-Voided Midstream Performed By: #### A DDONUAPLUS ####[address] [address] [facility] Glucose Ql (U) Normal Normal Normal [facility] Comment on above: Order Comment: Name Collection Type:: Clean-Voided Midstream Performed By: #### A DDONUAPLUS ####[address] [address] [facility] Hyaline Casts,Urine None Seen Normal 0-1 [facility] Comment on above: Order Comment: Name Collection Type:: Clean-Voided Midstream Result Comment: PERF ORMED BY: [facility] [address] [place] [address] PATHOLOGIST MANAGER OF TRAINING AND DEVELOPMENT DINA WALKER M.D. Performed By: #### A DDONUAPLUS ####[address] [address] [facility] Ketones Ql (U) 1+ High Negative [facility] Comment on above: Order Comment: Name Collection Type:: Clean-Voided Midstream Performed By: #### A DDONUAPLUS ####[place] [address] [place] [address] [facility] Leukocyte esterase Test strip Ql (U) Negative Normal Negative [facility] Comment on above: Order Comment: Name Collection Type:: Clean-Voided Midstream Performed By: #### A DDONUAPLUS ####[address] [address] [facility] Nitrite,Urine Negative Normal Negative [facility] Comment on above: Order Comment: Name Collection Type:: Clean-Voided Midstream Performed By: #### A DDONUAPLUS ####[address] [address] [facility] Occult Blood,Urine 3+ High Negative [facility] Comment on above: Order Comment: Name Collection Type:: Clean-Voided Midstream Result Comment: PERF ORMED BY: [facility] [address] [place] [id number] PATHOLOGIST MANAGER OF TRAINING AND DEVELOPMENT DINA WALKER M.D. Performed By: #### A DDONUAPLUS ####[address] [address] [facility] pH (U) 7.5 [pH] Normal 5.0-9.0 [facility] Comment on above: Order Comment: Name Collection Type:: Clean-Voided Midstream Performed By: #### A DDONUAPLUS ####[address] [address] [facility] Protein,Urine Negative Normal Negative [facility] Comment on above: Order Comment: Name Collection Type:: Clean-Voided Midstream Performed By: #### A DDONUAPLUS ####[address] [address] [facility] RBC,Urine 20-49 High 0-4 [facility] Comment on above: Order Comment: Name Collection Type:: Clean-Voided Midstream Performed By: #### A DDONUAPLUS ####[address] [address] [facility] Specificy [place],Urine 1.011 Normal 1.001-1.030 [facility] Comment on above: Order Comment: Name Collection Type:: Clean-Voided Midstream Performed By: #### A DDONUAPLUS ####[place] [id number] Squamous Epithelial Cell,Urine None Seen Normal 0-2 [facility] Comment on above: Order Comment: Name Collection Type:: Clean-Voided Midstream Performed By: #### A DDONUAPLUS ####[place] [id number] Urobilinogen,Urine Normal Normal Normal [facility] Comment on above: Order Comment: Name Collection Type:: Clean-Voided Midstream Performed By: #### A DDONUAPLUS ####[place] [id number] WBC,Urine None Seen Normal 0-4 [facility] Comment on above: Order Comment: Name Collection Type:: Clean-Voided Midstream Performed By: #### A DDONUAPLUS ####[address] Eosinophils Auto (Bld) [#/Vo l]Ordered By: Lucrecia Nunn on 11-13-2023 Eosinophils (Bld) [#/Vol] 0.3 10*3/uL 0.0-0.45 [facility] Eosinophils/100 WBC Auto (Bl d)Ordered By: Lucrecia Nunn on 11-13-2023 Eosinophils/100 WBC (Bld) 3.4 % . [facility] Erythrocyte distribution wid th Auto (RBC) [Ratio]Ordered By: Lucrecia Nunn on 11-13-2023 Erythrocyte distribution width (RBC) [Ratio] 13.3 % 11.9-15.3 [facility] Globulin Calc (S) [Mass/Vol] Ordered By: Lucrecia Nunn on 11-13-2023 Globulin (S) [Mass/Vol] 3.0 g/dL [facility] Glucose [Mass/volume] in Ser um or PlasmaOrdered By: Lucrecia Nunn on 11-13-2023 Glucose [Mass/Vol] 92 mg/dL 70-100 [facility] Comment on above: ADA recommended refe rence rangeRandom Glucose Reference Range is dependent on time and content of last meal. Glucose of more than 200 mg/dL in a nonstressed, ambulatory subject supports the diagnosis of Diabetes Mellitus. HCG,Qualitative Serumon 10-28 HCG,Qualitative Serum Negative Normal [facility] Comment on above: Result Comment: PERF ORMED BY: [place] [address] PATHOLOGIST MANAGER OF TRAINING AND DEVELOPMENT DINA WALKER M.D. Performed By: #### C BC, HEPATIC, LIPASE, HCGQUAL, BMP #### [address] Hematocrit Auto (Bld) [Volum e fraction]Ordered By: Lucrecia Nunn on 11-13-2023 Hematocrit (Bld) [Volume fraction] 40.4 % 34.0-46.4 [facility] Hemoglobin [Mass/volume] in BloodOrdered By: Lucrecia Nunn on 11-13-2023 Hemoglobin (Bld) [Mass/Vol] 13.6 g/dL 11.8-15.4 [facility] Hepatic Panelon 11-13-2023 Albumin [Mass/Vol] 4.8 g/dL Normal 3.5-5.7 [facility] Comment on above: Performed By: #### C BC, HEPATIC, LIPASE, HCGQUAL, BMP #### [address] Albumin/Globulin [Mass ratio] 1.6 {ratio} Normal [facility] Comment on above: Performed By: #### C BC, HEPATIC, LIPASE, HCGQUAL, BMP #### [address] ALP [Catalytic activity/Vol] 59 U/L Normal 34-104 [facility] Comment on above: Performed By: #### C BC, HEPATIC, LIPASE, HCGQUAL, BMP #### [address] ALT [Catalytic activity/Vol] 16 U/L Normal 7-52 [facility] Comment on above: Performed By: #### C BC, HEPATIC, LIPASE, HCGQUAL, BMP #### [address] AST [Catalytic activity/Vol] 18 U/L Normal 13-39 [facility] Comment on above: Performed By: #### C BC, HEPATIC, LIPASE, HCGQUAL, BMP #### [address] Bilirubin [Mass/Vol] 0.5 mg/dL Normal 0.3-1.0 [facility] Comment on above: Performed By: #### C BC, HEPATIC, LIPASE, HCGQUAL, BMP #### [address] Bilirubin,Indirect 0.4 mg/dL Normal [facility] Comment on above: Performed By: #### C BC, HEPATIC, LIPASE, HCGQUAL, BMP #### [address] Bilirubin.indirect [Mass/Vol] 0.10 mg/dL Normal 0.03-0.18 [facility] Comment on above: Performed By: #### C BC, HEPATIC, LIPASE, HCGQUAL, BMP #### [address] Globulin (S) [Mass/Vol] 3.0 g/dL Normal T [facility] Comment on above: Performed By: #### C BC, HEPATIC, LIPASE, HCGQUAL, BMP #### [address] Protein [Mass/Vol] 7.8 g/dL Normal 6.4-8.9 [facility] Comment on above: Performed By: #### C BC, HEPATIC, LIPASE, HCGQUAL, BMP #### [address] Ketones Auto test strip (U) [Mass/Vol]Ordered By: Lucrecia Nunn on 11-13-2023 Ketones (U) [Mass/Vol] 1+ Negative [facility] Leukocytes [#/volume] correc marshal for nucleated erythrocytes in Blood by Automated counOrdered By: Lucrecia Nunn on 11-13-2023 WBC corrected for nucl RBC Auto (Bld) [#/Vol] 7.5 10*3/uL 3.8-11.6 [facility] Lipaseon 11-13-2023 Lipase [Catalytic activity/Vol] 45.0 U/L Normal 11.0-82.0 [facility] Comment on above: Performed By: #### C BC, HEPATIC, LIPASE, HCGQUAL, BMP #### [facility] [address] Lipase [Enzymatic activity/v olume] in Serum or PlasmaOrdered By: Lucrecia Nunn on 11-13-2023 Lipase [Catalytic activity/Vol] 45.0 U/L 11.0-82.0 [facility] Lymphocytes Auto (Bld) [#/Vo l]Ordered By: Lucrecia Nunn on 11-13-2023 Lymphocytes (Bld) [#/Vol] 1.7 10*3/uL 1.00-4.8 [facility] Lymphocytes/100 WBC Auto (Bl d)Ordered By: Lucrecia Nunn on 11-13-2023 Lymphocytes/100 WBC (Bld) 22.8 % . [facility] MCH Auto (RBC) [Entitic mass ]Ordered By: Lucrecia Nunn on 11-13-2023 MCH (RBC) [Entitic mass] 29.8 pg 24.7-34.3 [facility] MCHC Auto (RBC) [Mass/Vol]Or dered By: Lucrecia Nunn on 11-13-2023 MCHC (RBC) [Mass/Vol] 33.7 g/dL 32.0-35.0 [facility] MCV Auto (RBC) [Entitic vol] Ordered By: Lucrecia Nunn on 11-13-2023 MCV (RBC) [Entitic vol] 88.6 fL 80-100 [facility] Monocyte distribution width [Entitic volume] in Blood by AutomatedOrdered By: Lucrecia Nunn on 11-13-2023 Monocyte distribution width Auto (Bld) [Entitic vol] 15.49 % 0.00-20.00 [facility] Monocytes Auto (Bld) [#/Vol] Ordered By: Lucrecia Nunn on 11-13-2023 Monocytes (Bld) [#/Vol] 0.4 10*3/uL 0.0-0.8 [facility] Monocytes/100 WBC Auto (Bld) Ordered By: Lucrecia Nunn on 11-13-2023 Monocytes/100 WBC (Bld) 5.9 % . [facility] Neutrophils Auto (Bld) [#/Vo l]Ordered By: Lucrecia Nunn on 11-13-2023 Neutrophils (Bld) [#/Vol] 5.1 10*3/uL 1.8-7.7 [facility] Neutrophils/100 WBC Auto (Bl d)Ordered By: Lucrecia Nunn on 11-13-2023 Neutrophils/100 WBC (Bld) 67.5 % . [facility] Nitrite Test strip Ql (U)Ord ered By: Lucrecia Nunn on 11-13-2023 Nitrite Ql (U) Negative Negative [facility] No Panel InformationOrdered By: Lucrecia Nunn on 11-13-2023 Estimated GFR (CKD-EPI) > 60.0 mL/Min [facility] Creatinine Clearance (Chem 81.17 [facility] Nucleated erythrocytes [Pres ence] in Blood by Automated countOrdered By: Lucrecia Nunn on 11-13-2023 Nucleated RBC Auto Ql (Bld) 0.1 /100{WBC} 0-0.5 [facility] Platelet mean volume Auto (B ld) [Entitic vol]Ordered By: Lucrecia Nunn on 11-13-2023 Platelet mean volume (Bld) [Entitic vol] 8.6 fL 6.3-10.7 [facility] Platelets Auto (Bld) [#/Vol] Ordered By: Lucrecia Nunn on 11-13-2023 Platelets (Bld) [#/Vol] 295 10*3/uL 150-450 [facility] Potassium [Moles/volume] in Serum or PlasmaOrdered By: Lucrecia Nunn on 11-13-2023 Potassium [Moles/Vol] 3.8 mmol/L 3.5-5.1 [facility] Protein Auto test strip (U) [Mass/Vol]Ordered By: Lucrecia Nunn on 11-13-2023 Protein (U) [Mass/Vol] Negative Negative [facility] Protein [Mass/volume] in Ser um or PlasmaOrdered By: Lucrecia Nunn on 11-13-2023 Protein [Mass/Vol] 7.8 g/dL 6.4-8.9 [facility] RBC Auto (Bld) [#/Vol]Ordere d By: Lucrecia Nunn on 11-13-2023 RBC (Bld) [#/Vol] 4.56 10*6/uL 3.60-5.00 [facility] Serum or plasma albumin/glob ulin mass ratioOrdered By: Lucrecia Nunn on 11-13-2023 Albumin/Globulin [Mass ratio] 1.6 {ratio} [facility] Serum or plasma anion gap de terminationOrdered By: Lucrecia Nunn on 11-13-2023 Anion gap [Moles/Vol] 12.0 mmol/L 6.0-15.0 [facility] Serum or plasma non-glucuron idated bilirubin measurement (mass/volume)Ordered By: Lucrecia Nunn on 11-13-2023 Bilirubin.indirect [Mass/Vol] 0.4 mg/dL [facility] Sodium [Moles/volume] in Ser um or PlasmaOrdered By: Lucrecia Nunn on 11-13-2023 Sodium [Moles/Vol] 137 mmol/L 136-145 [facility] Specific gravity Auto test s trip (U) [Rel density]Ordered By: Lucrecia Nunn on 11-13-2023 Specific gravity (U) [Rel density] 1.011 1.001-1.030 [facility] Urea nitrogen [Mass/volume] in Serum or PlasmaOrdered By: Lucrecia Nunn on 11-13-2023 Urea nitrogen [Mass/Vol] 10 mg/dL 7-25 [facility] Urine bacteria detection by automated methodOrdered By: Lucrecia Nunn on 11-13-2023 Bacteria Auto Ql (U) None seen None Seen [facility] Urine clarity by refractomet ry automatedOrdered By: Lucrecia Nunn on 11-13-2023 Clarity Refractometry automated (U) Clear Clear [facility] Urine glucose measurement by automated test strip (mass/volume)Ordered By: Lucrecia Nunn on 11-13-2023 Glucose Auto test strip (U) [Mass/Vol] Normal mg/dL Normal [facility] Urine hemoglobin detection b y automated test stripOrdered By: Lucrecia Nunn on 11-13-2023 Hemoglobin Auto test strip Ql (U) 3+ Negative [facility] Urine leukocyte esterase det ection by automated test stripOrdered By: Lucrecia Nunn on 11-13-2023 Leukocyte esterase Auto test strip Ql (U) Negative Negative [facility] Urobilinogen Auto test strip (U) [Mass/Vol]Ordered By: Lucrecia Nunn on 11-13-2023 Urobilinogen (U) [Mass/Vol] Normal mg/dL Normal [facility] WBC Auto (Bld) [#/Vol]Ordere d By: Lucercia Nunn on 11-13-2023 WBC (Bld) [#/Vol] 7.5 10*3/uL 3.8-11.6 [facility] pH Auto test strip (U)Ordere d By: Lucrecia Nunn on 11-13-2023 pH (U) 7.5 [pH] 5.0-9.0 [facility] CBC AUTO DIFFon 04-07-2022 BASO # 0.0 103/ul Normal 0.0-0.1 [facility] Comment on above: Performed By: #### C BC #### [facility] [address] [place] [address] Dr. Joe Desir Basophils/100 WBC (Bld) 0.2 % Normal 0.2-2.0 [facility] Comment on above: Performed By: #### C BC #### [facility] [address] [place] [address] Dr. Joe Desir EO # 0.3 103/ul Normal 0.0-0.7 [facility] Comment on above: Performed By: #### C BC #### [facility] [address] [place] [address] Dr. Joe Desir Eosinophils/100 WBC (Bld) 2.1 % Normal 0.9-7.0 [facility] Comment on above: Performed By: #### C BC #### [facility] [address] [place] [address] Dr. Joe Desir Erythrocyte distribution width (RBC) [Ratio] 12.9 % Normal 11.0-15.0 [facility] Comment on above: Performed By: #### C BC #### [facility] [address] [place] [address] Dr. Joe Desir Hematocrit (Bld) [Volume fraction] 41.1 % Normal 36.0-48.0 [facility] Comment on above: Performed By: #### C BC #### [facility] [address] [place] [address] Dr. Joe Desir Hemoglobin (Bld) [Mass/Vol] 13.5 g/dL Normal 12.0-16.0 [facility] Comment on above: Performed By: #### C BC #### [facility] [address] [place] [address] Dr. Joe Desir IG # 0.05 10e3/ul Critically high 0.00-0.03 [facility] Comment on above: Performed By: #### C BC #### [facility] [address] [place] [address] Dr. Joe Desir IG % 0.4 % Normal 0.0-0.5 [facility] Comment on above: Performed By: #### C BC #### [facility] [address] [place] [address] Dr. Joe Desir LYMPH # 2.3 103/ul Normal 1.2-3.8 [facility] Comment on above: Performed By: #### C BC #### [facility] [address] [place] [address] Dr. Joe Desir Lymphocytes/100 WBC (Bld) 17.7 % Critically low 20.5-60.0 [facility] Comment on above: Performed By: #### C BC #### [facility] [address] [place] [address] Dr. Joe Desir MANUAL DIFF REQ NO Normal [facility] Comment on above: Performed By: #### C BC #### [facility] [address] [place] [address] Dr. Joe Desir MCH (RBC) [Entitic mass] 30.4 pg Normal 26.7-34.0 [facility] Comment on above: Performed By: #### C BC #### [facility] [address] [address] [address] Joe Desir MCHC (RBC) [Mass/Vol] 32.8 g/dL Normal 29.9-35.2 [facility] Comment on above: Performed By: #### C BC #### [facility] [address] [place] [address] [address] Joe Desir MCV (RBC) [Entitic vol] 92.6 fL Normal 81.0-99.0 [facility] Comment on above: Performed By: #### C BC #### [facility] [address] [address] [address] Joe Desir MONO # 0.6 103/ul Normal 0.3-0.8 [facility] Comment on above: Performed By: #### C BC #### [facility] [address] [address] [address] Joe Desir Monocytes/100 WBC (Bld) 4.7 % Normal 1.7-12.0 [facility] Comment on above: Performed By: #### C BC #### [facility] [address] [address] [address] Joe Desir NEUT # 9.6 103/ul Critically high 1.4-6.5 [facility] Comment on above: Performed By: #### C BC #### [facility] [address] [address] [address] Joe Desir Neutrophils/100 WBC (Bld) 74.9 % Normal 43.0-75.0 [facility] Comment on above: Performed By: #### C BC #### [facility] [address] [address] [address] Joe Desir Platelet mean volume (Bld) [Entitic vol] 10.2 fL Normal 9.5-13.5 [facility] Comment on above: Performed By: #### C BC #### [facility] [address] [address] [address] Joe Desir PLT 285 103/ul Normal 150-450 [facility] Comment on above: Performed By: #### C BC #### [facility] [address] [place] [address] Dr. Joe Desir RBC 4.44 106/ul Normal 4.20-5.40 [facility] Comment on above: Performed By: #### C BC #### [facility] [address] [place] [address] Dr. Joe Desir WBC 12.8 103/ul Critically high 4.0-11.0 [facility] Comment on above: Performed By: #### C BC #### [facility] [address] [place] [address] Dr. Joe Desir FREE T4on 04-07-2022 Free T4 [Mass/Vol] 0.70 ng/dL Critically low 0.76-1.[address] [facility] Comment on above: Performed By: #### F T4 #### [facility] [address] [place] [address] Dr. Joe Desir TSHon 04-07-2022 TSH 19.728 uIU/mL Critically high 0.358-3.740 [facility] Comment on above: Performed By: #### T SH #### [facility] [address] [place] [address] Dr. Joe Desir [facility] SARS-CoV-2 (COVID-19) RNA KRISS+probe Ql (Unsp spec) Detected Critically abnormal NOT DETECTED [facility] Comment on above: Result Comment: This test is not yet approved or cleared by the [place] FDA. When there are no FDA-approved or cleared tests available, and other criteria are met, FDA can make tests available under an emergency access mechanism called an Emergency Use Authorization (EUA). The EUA for this test is supported by the Retail Pharmacy Technician of Health and Human Service's (HHS's) [...] longer be used). Performed By: #### C [facility] #### [facility] [address] [place] [address] Dr. Joe Desir XR ANKLE ELISA MIN [...] YEMI CAMPBELL Date: 2021-07-15 11:[address] [facility] MRI ANKLE LT WO CONon 2020 [...] SANFORD MARTINEZ Date: 2021-07-07 19:[address] [facility] Covid-19 PCR ([facility])on SARS-CoV-2 (COVID-19) RNA KRISS+probe Ql (Unsp spec) Not detected Normal NOT DETECTED [facility] Comment on above: Result Comment: This test is not yet approved or cleared by the [place] FDA. When there are no FDA-approved or cleared tests available, and other criteria are met, FDA can make tests available under an emergency access mechanism called an Emergency Use Authorization (EUA). The EUA for this test is supported by the Retail Pharmacy Technician of Health and Human Service's (HHS's) [...] Performed By: #### C VDAGS, CVDTB #### [facility] [address] [place] [address] Emy Cohen SYMPTOMATIC COVID-19 ANTIGEN on 05-30-2021 EUA Statement SEE BELOW Normal [facility] Comment on above: Result Comment: This [...] Performed By: #### C SITAS, CVDTB #### [facility] [address] [place] [id number] Emy Cohen SARS-CoV-2 (COVID-19) RNA KRISS+probe Ql (Unsp spec) Negative Normal NEGATIVE [facility] Comment on above: Result Comment: CONF IRMATION BY PCR PENDING PER CDC GUIDELINES/ SYMPTOMATIC PATIENT. Performed By: #### C SYDAGS, CVDTB #### [facility] [address] [place], [place] [address] Emy Cohen Vital Signs Date Time Vital Sign Value Performing Clinician Facility 05-30-2024 14:38-0400 Body height 152.4 cm [facility] 05-30-2024 14:38-0400 Body mass index (BMI) [Ratio] 25.5 kg/m2 [facility] 05-30-2024 14:38-0400 Body weight 59.42 kg [facility] 05-30-2024 14:38-0400 Diastolic blood pressure 74 mm[Hg] [facility] 05-30-2024 14:38-0400 Heart rate 67 /min [facility] 05-30-2024 14:38-0400 SaO2% (BldA) [Mass fraction] 98 % [facility] 05-30-2024 14:38-0400 Systolic blood pressure 122 mm[Hg] [facility] 03-28-2024 14:25-0400 Body height 152.4 cm [facility] 03-28-2024 14:25-0400 Body mass index (BMI) [Ratio] 25 kg/m2 [facility] 03-28-2024 14:25-0400 Body weight 58.05 kg [facility] 03-28-2024 14:25-0400 Diastolic blood pressure 68 mm[Hg] [facility] 03-28-2024 14:25-0400 Heart rate 75 /min [facility] 03-28-2024 14:25-0400 Systolic blood pressure 103 mm[Hg] [facility] 01-12-2024 13:06-0400 Body height 152.4 cm MD Tiera Dumas Work Phone: [facility] 01-12-2024 13:06-0400 Body mass index (BMI) [Ratio] 25.7 kg/m2 MD Tiera Dumas Work Phone: [facility] 01-12-2024 13:06-0400 Body weight 59.87 kg MD Tiera Dumas Work Phone: [facility] 01-12-2024 13:06-0400 Diastolic blood pressure 72 mm[Hg] MD Tiera Dumas Work Phone: [facility] 01-12-2024 13:06-0400 Heart rate 74 /min MD Tiera Dumas Work Phone: [facility] 01-12-2024 13:06-0400 SaO2% (BldA) [Mass fraction] 98 % MD Tiera Dumas Work Phone: [facility] 01-12-2024 13:06-0400 Systolic blood pressure 110 mm[Hg] MD Tiera Dumas Work Phone: [facility] 12-07-2023 17:40-0400 Diastolic blood pressure 76 mm[Hg] MD Tiera Dumas Work Phone: [facility] 12-07-2023 17:40-0400 Heart rate 69 /min MD Tiera Dumas Work Phone: [facility] 12-07-2023 17:40-0400 Respiratory rate 16 /min MD Tiera Dumas Work Phone: [facility] 12-07-2023 17:40-0400 SaO2% (BldA) [Mass fraction] 99 % MD Tiera Dumas Work Phone: [facility] 12-07-2023 17:40-0400 Systolic blood pressure 111 mm[Hg] MD Tiera Dumas Work Phone: [facility] 12-07-2023 15:13-0400 Body height 152.4 cm MD Tiera Dumas Work Phone: [facility] 12-07-2023 15:13-0400 Body mass index (BMI) [Ratio] 25.4 kg/m2 MD Tiera Dumas Work Phone: [facility] 12-07-2023 15:13-0400 Body weight 58.96 kg MD Tiera Dumas Work Phone: [facility] 12-07-2023 14:47-0400 Body temperature 98.8 [degF] MD Tiera Dumas Work Phone: [facility] 12-07-2023 11:34-0400 Body temperature 98.6 [degF] Mariano ENEDINA [facility] 12-07-2023 11:34-0400 Diastolic blood pressure 78 mm[Hg] Mariano MCCONNELL [facility] 12-07-2023 11:34-0400 Heart rate 64 /min Mariano COOK [facility] 12-07-2023 11:34-0400 Respiratory rate 16 /min Mariano COOK [facility] 12-07-2023 11:34-0400 Systolic blood pressure 111 mm[Hg] Mariano COOK [facility] 11-13-2023 12:21-0500 Diastolic blood pressure 72 mm[Hg] MD Tiera Dumas Work Phone: [facility] 11-13-2023 12:21-0500 Heart rate 63 /min MD Tiera Dumas Work Phone: [facility] 11-13-2023 12:21-0500 Respiratory rate 18 /min MD Tiera Dumas Work Phone: [facility] 11-13-2023 12:21-0500 SaO2% (BldA) [Mass fraction] 100 % MD Tiera Dumas Work Phone: [facility] 11-13-2023 12:21-0500 Systolic blood pressure 106 mm[Hg] MD Tiera Dumas Work Phone: [facility] 11-13-2023 10:02-0500 Body height 156.21 cm MD Tiera Dumas Work Phone: [facility] 11-13-2023 10:02-0500 Body temperature 97.4 [degF] MD Tiera Dumas Work Phone: [facility] 11-13-2023 10:02-0500 Body weight 59 kg MD Tiera Dumas Work Phone: [facility] 12-13-2022 11:21-0400 Body height 154.94 cm MD Tiera Dumas Work Phone: [facility] 12-13-2022 11:21-0400 Body temperature 97.9 [degF] MD Tiera Dumas Work Phone: [facility] 12-13-2022 11:21-0400 Body weight 59 kg MD Tiera Dumas Work Phone: [facility] 12-13-2022 11:21-0400 Diastolic blood pressure 79 mm[Hg] MD Tiera Dumas Work Phone: [facility] 12-13-2022 11:21-0400 Heart rate 87 /min MD Tiera Dumas Work Phone: [facility] 12-13-2022 11:21-0400 Respiratory rate 18 /min MD Tiera Dumas Work Phone: [facility] 12-13-2022 11:21-0400 SaO2% (BldA) [Mass fraction] 97 % MD Tiera Dumas Work Phone: [facility] 12-13-2022 11:21-0400 Systolic blood pressure 118 mm[Hg] MD Tiera Dumas Work Phone: [facility] 12-03-2022 11:15-0500 Body height 153.67 cm Tiera Dumas Other [facility] Other 12-03-2022 11:15-0500 Body mass index (BMI) [Ratio] 24.78 kg/m2 Tiera Dumas Other [facility] Other 12-03-2022 11:15-0500 Body temperature 99.7 [degF] Tiera Dumas Other [facility] Other 12-03-2022 11:15-0500 Body weight 58.51 kg Tiera Dumas Other [facility] Other 12-03-2022 11:15-0500 Diastolic blood pressure 72 mm[Hg] Tiera Dumas Other [facility] Other 12-03-2022 11:15-0500 SaO2% (BldA) [Mass fraction] 97 % Tiera Dumas Other [facility] Other 12-03-2022 11:15-0500 Systolic blood pressure 112 mm[Hg] Tiera Dumas Other [facility] Other Encounters Encounter Date Encounter Type Care Provider Facility Start: 05-30-2024 End: 05-30-2024 ambulatory [facility] Work Phone: Start: 05-30-2024 End: 05-30-2024 Patient encounter procedure [facility] Work Phone: Start: 03-28-2024 End: 03-28-2024 ambulatory [facility] Work Phone: Start: 03-28-2024 End: 03-28-2024 Patient encounter procedure [facility] Work Phone: Start: 01-12-2024 End: 01-12-2024 ambulatory MD Tiera Dumas Work Phone: [facility] Work Phone: Start: 01-12-2024 End: 01-12-2024 Patient encounter procedure MD Tiera Dumas Work Phone: [facility] Work Phone: Start: 12-07-2023 End: 12-07-2023 ambulatory Mariano Mcconnell Facility:[facility] Start: 12-07-2023 End: 12-07-2023 Admission to same day surgery center MD Tiera Dumas Work Phone: [facility] [place] Start: 12-07-2023 End: 12-08-2023 ambulatory Mariano MCCONNELL Facility:[id number] Start: 12-07-2023 End: 12-08-2023 ambulatory Mariano MCCONNELL Facility:[facility] Start: 12-07-2023 End: 12-07-2023 Patient encounter procedure Mariano MCCONNELL [facility] Start: 12-01-2023 End: 12-01-2023 ambulatory Tiera Dumas Facility:[facility] Start: 12-01-2023 End: 12-01-2023 Patient encounter procedure MD Tiera Dumas Work Phone: [facility] [place] Work Phone: Start: 11-16-2023 ambulatory Mariano MCCONNELL Facility:[facility] Start: 11-13-2023 End: 11-13-2023 Emergency department patient visit Tiera Dumas Facility:[facility] Start: 11-13-2023 End: 11-13-2023 Emergency department patient visit MD Tiera Dumas Work Phone: [facility] Work Phone: Start: 07-07-2023 (Televisit) Televisit Tiera Dumas [facility] Start: 07-07-2023 End: 07-07-2023 ambulatory Tiera Dumas Other [facility] Other Start: 12-16-2022 End: 12-16-2022 ambulatory Tiera Dumas Other [facility] Other Start: 12-16-2022 Telephone encounter Tiera Dumas [facility] Start: 12-13-2022 End: 12-13-2022 Emergency department patient visit MD Tiera Dumas Work Phone: [facility] Work Phone: Start: 12-03-2022 End: 12-03-2022 ambulatory Tiera Dumas Other [facility] Other Start: 12-03-2022 Office outpatient vi sit 15 minutes Tiera Dumas [facility] Start: 04-07-2022 End: 04-08-2022 ambulatory [...] Date Care Activity Detail Author Start: 12-07-2023 [facility] Start: 12-07-2023 [facility] Patient Education [facility] Work Phone: Patient referral [facility] Work Phone: [facility] Immunizations Immunization Date Immunization Notes Care Provider Fa cility 02-13-2021 SARS-CoV-2 (COVID-19 ) mRNA-1273 vaccine Mariano MCCONNELL [facility] 01-15-2021 SARS-CoV-2 (COVID-19 ) mRNA-1273 vaccine Mariano MCCONNELL [facility] 07-10-2018 influenza virus vaccine, unspecified formulation Mariano MCCONNELL [facility] 07-10-2018 Influenza, injectabl e, Madin Amairani Canine Kidney, preservative free, quadrivalent MD Tiera Dumas Work Phone: [facility] 07-24-2015 influenza virus vaccine, unspecified formulation Mariano MCCONNELL [facility] 07-24-2015 influenza, injectabl e, quadrivalent, contains preservative MD Tiera Dumas Work Phone: [facility] 07-25-2014 influenza virus vaccine, unspecified formulation Mariano MCCONNELL [facility] 07-25-2014 influenza, seasonal, injectable, preservative free MD Tiera Dumas Work Phone: [facility] 08-02-2013 influenza virus vaccine, unspecified formulation Mariano MCCONNELL [facility] 08-02-2013 influenza, seasonal, injectable MD Tiera Dumas Work Phone: [facility] NEGATED: Highlighted row has not occurred!12-07-2023 influenza virus vaccine, unspecified formulation Mariano MCCONNELL [facility] Payers Date Payer Category Payer Self-pay [id number] 2015 Unknown 1980 Unknown [id number] .16.84 [id number] 1979 Unknown [id number] .16.84 [id number] 1979 Unknown [id number] .16.84 [id number] 1979 Unknown [id number] .16.84 [id number] 1979 Unknown [id number] .16.84 [id number] 1979 Unknown [id number] .16.84 [id number] 1979 Unknown [id number] 2.16.8 [id number] 1979 Unknown [id number] 2.16.8 [id number] 1979 Unknown [id number] 2.16.8 [id number] 1959 Unknown [id number] Unknown [id number] 2.16.8 [id number] Unknown [id number] 2.16.8 [id number] Unknown [id number] 2.16.8 [id number] Social History Date Type Detail Facility Start: 12-13-2022 Tobacco smoking status [facility] Never smoked tobacco (finding) [facility] Start: 1980 Sex Assigned At Female [facility] Sex Assigned At [facility] Start: 11-13-2023 End: 03-28-2024 Tobacco smoking status [facility] Ex-smoker (finding) [facility] Tobacco smoking status Never [facility] NEGATED: Highlighted row [facility] Goals Date Patient Goal Desired Activity /State Functional Status Date Assessment Result Facility 12-07-2023 Functional Status N/A [facility] Clinical Notes 12-03-2022 to 12-07-2023 [...] including vitamins, herbs, eye drops, creams, and vwzv-chs-ylkjwws medicines. Any problems you or family members [...] provider tells you to take them. ?Taking tsud-quh-uxggawu medicines, vitamins, herbs, and supplements. Eating and [...] provider. Document Revised: 01/20/2023 Document Reviewed: 05/18/2022 [employer] Patient Education 2022 [employer]. Follow Up Care 12/06/2023 08:36:19 With:ENEDINA CONTRERAS, Mariano Causey, URL Address: [address] [place] [address] [place], [place] [id number]- When: Unknown Comments:sched cysto/L RGP/URS/possible stent [facility] 07-07-2023 Evaluation note Encounter Date Diagnosis Assessment Notes Jun, Bronchitis (ICD-10 - J40) Finish antibiotics as prescribed. Medrol for chest tightness. Will call if needs work note. [facility] Other 03-09-2023 Evaluation note* Encounter Date Diagnosis Assessment Notes Treatment Notes Treatment Clinical Notes Nov, Hematuria, unspecified type (ICD-10 - R31.9) Will treat based on her symptoms Nov, Lumbar pain (ICD-10 - M54.50) Generalized pain. no acute injury. Recommend rest and heat. [facility] Other Evaluation + Plan note No data available for this section [facility] Evaluation noteNo assessment information available [facility] Work Phone: Evaluation noteNo InformationNort [employer] Other Evaluation note* Diagnosis Onset Date Resolution Status Sinusitis acute Fatigue acute Hypothyroid acute [facility] Work Phone: Evaluation note* Diagnosis Onset Date Resolution Status Acute thoracic back pain acu te Fatigue acute Hypothyroid acute [facility] Work Phone: History general Narrative - Reported* [...] Left Shoulder Surgery, Problem Status : Active, [facility] Other Hospital Discharge instructions Additional Instructions We [...] if you develop any worsening or concerning symptoms.[facility] Work Phone: Progress note No data available for this section [facility] Summary Purpose Family History Relationship Condition [...] DATE CREATED AUTHOR AUTHOR'S ORGANIZ ATION 12/15/2023 [facility] DATE CREATED AUTHOR AUTHOR'S ORGANIZ ATION 01/14/2024 [facility] Care Teams (unrecognized sec tion [...] End: January 12, 2024 Nguyen Aguirre APRN EDUCATION ASSISTANT-C Attending Provider Act ophelia Start: January 12, [...] IssuesNeeds off Wor k NoteSinuses, Congestion, Cough- [phone] FOR RECORDS PERTAINING TO PATIENTS WHO ARE [...] BE BASED ON THE PRIMARY CLINICAL RECORDS. [facility]. provides no warranty or guarantee of the accuracy or completeness of information in this document.
--- NOTE | 2024-07-13 10:11 | CT_ITS ---
The [address] [address] Patient Name: RACHEL TAYLOR MRN: [id number] date: 1980 Sex: F Assigned Patient Location: CT Current Patient Location: Accession/Order Number: [id number] Exam Date: 07/13/2024 10:14 Report Date: 07/14/2024 15:26 At the request of: LACY SHARMA Procedure: CT foot LT wo con EXAMINATION: CT foot LT wo con HISTORY: Navicular Fracture COMPARISON: 06/05/2024 TECHNIQUE: Multi-planar CT images were created without IV contrast. Dose reduction techniques were achieved by using automated exposure control and/or adjustment of mA and/or kV according to patient size and/or use of iterative reconstruction technique. FINDINGS: BONES: Stable fracture along the medial aspect of the navicular consistent with a nondisplaced fracture with some increase in lysis suggesting lytic healing. Again noted are multiple linear calcific densities along the lateral aspect of the first metatarsal base, proximal and distal medial cuneiform. No dislocation is observed SOFT TISSUES: Negative. No visible soft tissue swelling. EFFUSION: None visible. OTHER: Negative. CT/CT foot LT wo con IMPRESSION: Stable exam with no change in fractures from the prior exam Electronically authenticated by: YEMI CAMPBELL Date: 07/14/2024 15:26
== END 2024-07-13 10:04 | disposition home or self-care (01) ==
LOC: CT 10:03
PROVIDERS: PCP Family Medicine; Visit Provider Podiatrist Foot & Ankle Surgery
DX: S92.255D Nondisplaced fracture of navicular [scaphoid] of left foot, subsequent encounter for fracture with routine healing (principal)
CPT/HCPCS: 73700

== ENCOUNTER 2024-08-16 09:35 | Outpatient (OUT) | payer BC, SELFPAY ==
--- NOTE | 2024-08-16 09:38 | XR_ITS ---
The [address] [address] Patient Name: RACHEL TAYLOR MRN: [id number] date: 1980 Sex: F Assigned Patient Location: [facility] Current Patient Location: Accession/Order Number: [id number] Exam Date: 08/16/2024 09:38 Report Date: 08/17/2024 06:55 At the request of: LACY SHARMA Procedure: XR foot LT min 3V PROCEDURE: XR foot LT min 3V HISTORY: Left Foot Pain COMPARISON: XR foot left 06/27/2024 FINDINGS: BONES:No fracture, acute abnormality, or significant arthropathy. SOFT TISSUES:No visible soft tissue swelling. EFFUSION:None visible. OTHER: Negative. XR/XR foot LT min 3V IMPRESSION: 1. No acute bone abnormality or significant degenerative changes. Electronically authenticated by: EDWARD SMITH Date: 08/17/2024 06:55
--- OUTSIDE RECORDS SUMMARY | 2024-08-16 09:51 | XMS_ITS | CCD ---
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 Name Role Phone SHAIKH Desmond [...] Primary Care Provider LELA Quijano Emergency Provider [phone] Tiera Dumas Unavailable MD Tiera Dumas Primary Care Provider DO Lucrecia Nunn Emergency Provider TIERA DUMAS Primary Care Physician Mariano MCCONNELL Attending Unavailable Mariano MCCONNELL Attending Unavailable MD Tiera Dumas Primary Care Provider DO Lucrecia Nunn Emergency Provider [phone] MD Mariano Mcconnell Attending Provider [phone] Mariano Mcconnell Admitting Unavailable Mariano Mcconnell Attending Unavailable Tiera Dumas Primary Care Unavailable Tiera Dumas Primary Care Unavailable Lucrecia Nunn Admitting Unavailable Lucrecia Nunn Attending Unavailable Tiera Dumas Primary Care Unavailable Mariano Mcconnell Admitting Unavailable Mariano Mcconnell Attending Unavailable Allergies Allergy Classification Reported Allergen(s) Allergy Type Date of Onset Reaction(s) Facility (3 sources) Codeine; Translations: [codeine] Drug Allergy 5 unknown [facility] Repository (4 sources) Morphine; Translations: [morphine] Drug Allergy 5 Gastrointestinal Upset [facility] Repository (1 source) Codeine; Translations: [codeine] Drug Allergy Nausea and vomiting [facility] (1 source) Morphine; Translations: [morphine] Drug Allergy Nausea [facility] (1 source) Codeine Drug Allergy 4 [facility] Repository (1 source) Morphine Drug Allergy [address] [place] [address] Repository Medications Current Medications Medication Drug Class(es) [...] Basophils (Bld) [#/Vol] 0.0 10 3/uL 0.0-0.1 [facility] Basophils/100 WBC Auto (Bld) on 03-28-2024 Basophils/100 WBC (Bld) 0.6 % 0.2-2.0 [facility] Eosinophils/100 WBC Auto (Bl d)on 03-28-2024 Eosinophils/100 WBC (Bld) 5.2 % 0.9-7.0 [facility] Erythrocyte distribution wid th Auto (RBC) [Ratio]on 03-28-2024 Erythrocyte distribution width (RBC) [Ratio] 12.7 % 11.0-15.0 [facility] Estimated glomerular filtrat ion rate (GFR) non- Americanon 03-28-2024 GFR/1.73 sq M.predicted among non-blacks MDRD (S/P/Bld) [Vol rate/Area] mL/min/{1.73_m2} >=60 [facility] Hematocrit Auto (Bld) [Volum e fraction]on 03-28-2024 Hematocrit (Bld) [Volume fraction] 38.0 % 36.0-48.0 [facility] Hemoglobin [Mass/volume] in Bloodon 03-28-2024 Hemoglobin (Bld) [Mass/Vol] 12.2 g/dL 12.0-16.0 [facility] Laboratory - Chemistry and C hemistry - challengeon 03-28-2024 Calcium [Mass/Vol] 8.9 mg/dL 8.5-10.1 [place] Chloride [Moles/Vol] 105 mmol/L 98-107 [facility] CO2 [Moles/Vol] 28.1 mmol/L 21.0-32.0 [facility] Creatinine [Mass/Vol] 0.78 mg/dL 0.55-1.02 [facility] Free T4 [Mass/Vol] 1.17 ng/dL 0.76-1.46 [place] GFR/1.73 sq M.predicted MDRD (S/P/Bld) [Vol rate/Area] mL/min/{1.73_m2} >=60 [facility] Glucose [Mass/Vol] 98 mg/dL 74-106 [place] Potassium [Moles/Vol] 3.7 mmol/L 3.5-5.1 [facility] Sodium [Moles/Vol] 140 mmol/L 136-145 [place] TSH Qn 1.152 m[IU]/L 0.358-3.740 [facility] Urea nitrogen [Mass/Vol] 9.0 mg/dL 7.0-18.0 [facility] Urea nitrogen/Creatinine [Mass ratio] 11.5 mg/mg [facility] Laboratory - Hematology and Cell countson 03-28-2024 Immature granulocytes/100 WBC (Bld) 0.3 % 0.0-0.5 [facility] Leukocytes [#/volume] correc marshal for nucleated erythrocytes in Blood by Automated counon 03-28-2024 WBC corrected for nucl RBC Auto (Bld) [#/Vol] 7.1 10 3/uL 4.0-11.0 [facility] Lymphocytes Auto (Bld) [#/Vo l]on 03-28-2024 Lymphocytes (Bld) [#/Vol] 2.2 10 3/uL 1.2-3.8 [facility] Lymphocytes/100 WBC Auto (Bl d)on 03-28-2024 Lymphocytes/100 WBC (Bld) 31.1 % 20.5-60.0 [facility] MCH Auto (RBC) [Entitic mass ]on 03-28-2024 MCH (RBC) [Entitic mass] 29.9 pg 26.7-34.0 [facility] MCHC Auto (RBC) [Mass/Vol]on 03-28-2024 MCHC (RBC) [Mass/Vol] 32.1 g/dL 29.9-35.2 [facility] MCV Auto (RBC) [Entitic vol] on 03-28-2024 MCV (RBC) [Entitic vol] 93.1 fL 81.0-99.0 [facility] Monocytes Auto (Bld) [#/Vol] on 03-28-2024 Monocytes (Bld) [#/Vol] 0.4 10 3/uL 0.3-0.8 [facility] Monocytes/100 WBC Auto (Bld) on 03-28-2024 Monocytes/100 WBC (Bld) 6.1 % 1.7-12.0 [facility] Neutrophils Auto (Bld) [#/Vo l]on 03-28-2024 Neutrophils (Bld) [#/Vol] 4.0 10 3/uL 1.4-6.5 [facility] Neutrophils/100 WBC Auto (Bl d)on 03-28-2024 Neutrophils/100 WBC (Bld) 56.7 % 43.0-75.0 [facility] No Panel Informationon 03-28 Eosinophils # (Auto) 0.4 10 3/uL 0.0-0.7 [facility] Immature Granulocyte # (Auto) 0.02 10 3/uL 0.00-0.03 [facility] Platelet mean volume Auto (B ld) [Entitic vol]on 03-28-2024 Platelet mean volume (Bld) [Entitic vol] 10.4 fL 9.5-13.5 [facility] Platelets Auto (Bld) [#/Vol] on 03-28-2024 Platelets (Bld) [#/Vol] 270 10 3/uL 150-450 [facility] RBC Auto (Bld) [#/Vol]on RBC (Bld) [#/Vol] 4.08 10 6/uL Low 4.20-5.40 [facility] Serum or plasma anion gap de terminationon 03-28-2024 Anion gap [Moles/Vol] 10.6 mmol/L [facility] Formson 12-08-2023 Forms [id number] #1.00TIFF Normal [facility] Operative Reporton Operative Report [id number] #1.00TIFF Normal [facility] RAD - MISCon 12-08-2023 [facility] - MISC [id number] #1.00TIFF Normal [facility] [id number] #1.00TIFF Normal [facility] Ambulatory Visit Summaryon 0 12-07-2023 Ambulatory [...] including vitamins, herbs, eye drops, creams, and ftka-mkc-duprdnj medicines. ? Any problems you or family [...] tells you to take them. ? Taking qkjf-izp-otemwmc medicines, vitamins, herbs, and supplements. Eating and [...] on 12-07-2023 Amphetamines Ql (U) Negative Negative [facility] Barbiturates [Presence] in U rine by Screen methodOrdered By: Sanford Mason on 12-07-2023 Barbiturates Screen Ql (U) Negative Negative [facility] Benzodiazepines Screen Ql (U )Ordered By: Sanford Mason on 12-07-2023 Benzodiazepines Ql (U) Negative Negative [facility] Benzoylecgonine [Presence] i n Urine by Screen methodOrdered By: Sanford Mason on 12-07-2023 Benzoylecgonine Screen Ql (U) Negative Negative [facility] Cannabinoids [Presence] in U rine by Screen methodOrdered By: Sanford Mason on 12-07-2023 Cannabinoids Screen Ql (U) Positive Negative [facility] Comment on above: These are unconfirme [...] above: Performed By: #### U RDS #### [address] Barbiturate Screen,Urine Negative Normal Negative [facility] Comment on above: Performed By: #### U RDS #### [address] Benzodiazepines Screen,Urine Negative Normal Negative [facility] Comment on above: Performed By: #### U RDS #### [address] Cannabinoid Screen,Urine Positive High Negative [facility] Comment on above: Result Comment: Thes e are unconfirmed results and should not be used for legal purposes. Drug Cut-Off Concentration: AMPH 1000 ng/mL GARETT 200 ng/mL LEVY 200 ng/mL COCM 300 ng/mL OP 300 ng/mL PCP 25 ng/mL THC 20 ng/mL PERFORMED BY: [place] [address] PATHOLOGIST STUDENT UNION CONSULTANT DINA WALKER M.D. Performed By: #### U RDS #### [address] Cocaine Screen,Urine Negative Normal Negative [facility] Comment on above: Performed By: #### U RDS #### [address] Opiate Screen,Urine Negative Normal Negative [facility] Comment on above: Performed By: #### U RDS #### [address] Phencyclidine Screen,Urine Negative Normal Negative [facility] Comment on above: Performed By: #### U RDS #### [address] [place] urethrocystogram retroon 12-07-2023 [place] urethrocystogram retro [facility] Main [place] [address] [place] [address] Fluoroscopy Report Signed Patient: Nguyen Taylor MR#: [id number] : 1980 Acct:[id number] Age/Sex: 43 / F ADM Date: 12/07/23 Loc: [place] Room: Type: [facility] Attending Dr: Mariano Mcconnell MD Copies to: [...] Gabriele Corbin M.D.12/07/2023 6:04 PM Dictation Location: [place] [address] Transcribed By: [facility] 12/07/231803 Dictated By: Gabriele Corbin II, MD 12/07/231801 Signed By: 12/07/231803 Normal [facility] HCG ( test) IA.rapi d Ql (U)Ordered By: Sanford Mason on 12-07-2023 HCG ( test) Ql (U) Negative [facility] HCG,Urineon 12-07-2023 Beta HCG ( test) Ql (U) Negative Normal [facility] Comment on above: Result Comment: PERF ORMED BY: [place] [address] PATHOLOGIST STUDENT UNION CONSULTANT DINA WALKER M.D. Performed By: #### U HCG #### [address] Insurance Correspondenceon 0 12-07-2023 Insurance Correspondence [id number]#1.00TIFF Normal [facility] Opiates [Presence] in Urine by Screen methodOrdered By: Sanford Mason on 12-07-2023 Opiates Screen Ql (U) Negative Negative [facility] Patient Educationon 12-07-19 Patient Education [...] including vitamins, herbs, eye drops, creams, and tvrs-zva-zedhhkv medicines. ? Any problems you or family [...] tells you to take them. ? Taking lgmh-iqn-xfhbowx medicines, vitamins, herbs, and supplements. Eating and [...] content not included)... Normal [facility] Phencyclidine Screen Ql (U)O rdered By: Sanford Mason on 12-07-2023 Phencyclidine Ql (U) Negative Negative [facility] Urology Office/Clinic Noteon 12-07-2023 Urology Office/Clinic Note Chief Complaint Pt is here for [facility] ER f/u HPI Staff 43 year old female New Pt. Pt. was in the [facility] ER on 11/13/23 due to Lt. lower [...] 1. Ureteral stone (N20.1: Calculus of ureter) [facility] ER visit 11/13/23 due to left flank pain. Given Fomax and pain medication to help pass stone. CT AP w con 11/13/23 [facility] - Obstructing 3 mm L UVJ calculus [...] from a couple days ago at the [facility] is inconclusive. She continues with significant pain up to a level 7 out of 10 and does desire surgical intervention. This is well outlined above. She understands the ris (more content not included)... Normal [facility] Comment on above: Result Comment: Elec tronically Signed By: Mariano MCCONNELL MD\.br\Date and Time Signed: 12/07/23 12:06 EDT\.br\Electronically Co-Signed By: Lakeisha Beebe\.br\Date and Time Co-Signed: 12/07/23 12:02 EDT RAD - MISCon 12-06-2023 RAD - MISC [id number] #1.00TIFF [facility] XR KUBon 12-01-2023 XR KUB [facility] [place] [place] [address] XRay Report Signed Patient: Nguyen Taylor MR#: [id number] : 1980 Acct:[id number] Age/Sex: 43 / F ADM Date: 12/01/23 Loc: XD Room: Type: [facility] Attending Dr: Mariano Mcconnell MD Copies [...] D.O.12/01/2023 4:13 PM Dictation Location: [place] [address] Transcribed By: [facility] 12/01/23 1613 Dictated By: Freeman Palacios Jr, DO 12/01/23 1611 Signed By: 12/01/23 1613 Normal [facility] ED Note-Physicianon 11-19-19 ED Note-Physician [id number] #1.00TIFF Normal [facility] Alanine aminotransferase [En zymatic activity/volume] in Serum or PlasmaOrdered By: Lucrecia Nunn on 11-13-2023 ALT [Catalytic activity/Vol] 16 U/L 7-52 [facility] Albumin [Mass/volume] in Ser um or Plasma by Bromocresol green (BCG) dye binding methoOrdered By: Lucrecia Nunn on 11-13-2023 Albumin BCG dye [Mass/Vol] 4.8 g/dL 3.5-5.7 [facility] Alkaline phosphatase [Enzyma tic activity/volume] in Serum or PlasmaOrdered By: Lucrecia Nunn on 11-13-2023 ALP [Catalytic activity/Vol] 59 U/L 34-104 [facility] Aspartate aminotransferase [ Enzymatic activity/volume] in Serum or PlasmaOrdered By: Lucrecia Nunn on 11-13-2023 AST [Catalytic activity/Vol] 18 U/L 13-39 [facility] Automated epithelial cells c ount in urine sediment (number/area)Ordered By: Lucrecia Nunn on 11-13-2023 Epithelial cells Auto (Urine sed) [#/Area] None seen [HPF] 0-2 [facility] Automated erythrocytes count in urine sediment (number/area)Ordered By: Lucrecia Nunn on 11-13-2023 RBC Auto (Urine sed) [#/Area] 20-49 [HPF] 0-4 [facility] Automated leukocytes count i n urine sediment (number/area)Ordered By: Lucrecia Edouard on 11-13-2023 WBC Auto (Urine sed) [#/Area] None seen [HPF] 0-4 [facility] Automated urine hyaline cast s count (number/volume)Ordered By: Lucrecia Edouard on 11-13-2023 Hyaline casts Auto (U) [#/Vol] None seen [LPF] 0-1 [facility] Basic Metabolic Panelon 10-28 Anion gap [Moles/Vol] 12.0 mmol/L Normal 6.0-15.0 [facility] Comment on above: Performed By: #### C BC, HEPATIC, LIPASE, HCGQUAL, BMP #### [address] Calcium [Mass/Vol] 9.6 mg/dL Normal 8.6-10.3 [facility] Comment on above: Performed By: #### C BC, HEPATIC, LIPASE, HCGQUAL, BMP #### [address] Chloride [Moles/Vol] 106 mmol/L Normal 98-107 [facility] Comment on above: Performed By: #### C BC, HEPATIC, LIPASE, HCGQUAL, BMP #### [address] CO2 [Moles/Vol] 22.8 mmol/L Normal 21.0-31.0 [facility] Comment on above: Performed By: #### C BC, HEPATIC, LIPASE, HCGQUAL, BMP #### [address] Creatinine [Mass/Vol] 0.73 mg/dL Normal 0.60-1.20 [facility] Comment on above: Performed By: #### C BC, HEPATIC, LIPASE, HCGQUAL, BMP #### [address] Creatinine Clr Calc Pharmacy 81.17 Normal [facility] Comment on above: Performed By: #### C BC, HEPATIC, LIPASE, HCGQUAL, BMP #### [address] GFR/1.73 sq M.predicted MDRD (S/P/Bld) [Vol rate/Area] mL/min/{1.73_m2} Normal [facility] Comment on above: Performed By: #### C BC, HEPATIC, LIPASE, HCGQUAL, BMP #### [facility] [address] Glucose [Mass/Vol] 92 mg/dL Normal 70-100 [facility] Comment on above: Result Comment: [facility] Glucose Reference Range is dependent on time and content of last meal. Glucose of more than 200 mg/dL in a nonstressed, ambulatory subject supports the diagnosis of Diabetes Mellitus. ADA recommended reference range Performed By: #### C BC, HEPATIC, LIPASE, HCGQUAL, BMP #### [address] Potassium [Moles/Vol] 3.8 mmol/L Normal 3.5-5.1 [facility] Comment on above: Performed By: #### C BC, HEPATIC, LIPASE, HCGQUAL, BMP #### [place] [address] [place] Sodium [Moles/Vol] 137 mmol/L Normal 136-145 [facility] Comment on above: Performed By: #### C BC, HEPATIC, LIPASE, HCGQUAL, BMP #### [place] [address] [place] Urea nitrogen [Mass/Vol] 10 mg/dL Normal 7-25 [facility] Comment on above: Performed By: #### C BC, HEPATIC, LIPASE, HCGQUAL, BMP #### [facility] [address] [place] [address] [place] Basophils Auto (Bld) [#/Vol] Ordered By: Lucrecia Nunn on 11-13-2023 Basophils (Bld) [#/Vol] 0.0 10*3/uL 0.0-0.2 [facility] Basophils/100 WBC Auto (Bld) Ordered By: Lucrecia Nunn on 11-13-2023 Basophils/100 WBC (Bld) 0.4 % . [facility] Bilirubin Test strip Ql (U)O rdered By: Lucrecia Nunn on 11-13-2023 Bilirubin Ql (U) Negative Negative [facility] Bilirubin.direct [Mass/volum e] in Serum or PlasmaOrdered By: Lucrecia Nunn on 11-13-2023 Bilirubin.direct [Mass/Vol] 0.10 mg/dL 0.03-0.18 [facility] Bilirubin.total [Mass/volume ] in Serum or PlasmaOrdered By: Lucrecia Nunn on 11-13-2023 Bilirubin [Mass/Vol] 0.5 mg/dL 0.3-1.[address] [facility] [address] abdomen pelvis w conon CT abdomen pelvis w con [facility] Main [place] [address] [place] [address] CT Scan Report Signed Patient: Nguyen Taylor MR#: [id number] : 1980 Acct:[id number] Age/Sex: 43 / F ADM Date: 11/13/23 Loc: ER Room: Type: [facility] ER Attending Dr: Copies to: Lucrecia [...] D.OPatito11/13/2023 11:29 AM Dictation Location: [place] [address] Transcribed By: [facility] 11/13/23 1129 Dictated By: Freeman Palacios Jr, DO 11/13/23 1125 Signed By: 11/13/23 1129 Normal [facility] Calcium [Mass/volume] in Ser um or PlasmaOrdered By: Lucrecia Nunn on 11-13-2023 Calcium [Mass/Vol] 9.6 mg/dL 8.6-10.3 [place] Carbon dioxide, total [Moles /volume] in Serum or PlasmaOrdered By: Lucrecia Nunn on 11-13-2023 CO2 [Moles/Vol] 22.8 mmol/L 21.0-31.0 [facility] Chloride [Moles/volume] in S noemy or PlasmaOrdered By: Lucrecia Nunn on 11-13-2023 Chloride [Moles/Vol] 106 mmol/L 98-107 [facility] Choriogonadotropin.beta subu nit [Units/volume] in Serum or PlasmaOrdered By: Lucrecia Nunn on 11-13-2023 HCG.beta subunit Qn Negative [facility] Color Auto (U)Ordered By: Shashank Nunn on 11-13-2023 Color (U) Yellow Yellow [facility] Complete Blood Count Auto Di ffon 11-13-2023 Basophils (Bld) [#/Vol] 0.0 10*3/uL Normal 0.0-0.2 [facility] Comment on above: Result Comment: PERF ORMED BY: [place] [address] PATHOLOGIST STUDENT UNION CONSULTANT DINA WALKER M.D. Performed By: #### C BC, HEPATIC, LIPASE, HCGQUAL, BMP #### [address] Basophils/100 WBC (Bld) 0.4 % Normal . [facility] Comment on above: Performed By: #### C BC, HEPATIC, LIPASE, HCGQUAL, BMP #### [address] Eosinophils (Bld) [#/Vol] 0.3 10*3/uL Normal 0.0-0.45 [facility] Comment on above: Performed By: #### C BC, HEPATIC, LIPASE, HCGQUAL, BMP #### [address] Eosinophils/100 WBC (Bld) 3.4 % Normal . [facility] Comment on above: Performed By: #### C BC, HEPATIC, LIPASE, HCGQUAL, BMP #### [address] Erythrocyte distribution width (RBC) [Ratio] 13.3 % Normal 11.9-15.3 [facility] Comment on above: Performed By: #### C BC, HEPATIC, LIPASE, HCGQUAL, BMP #### [address] Hematocrit (Bld) [Volume fraction] 40.4 % Normal 34.0-46.4 [facility] Comment on above: Performed By: #### C BC, HEPATIC, LIPASE, HCGQUAL, BMP #### [address] Hemoglobin (Bld) [Mass/Vol] 13.6 g/dL Normal 11.8-15.4 [facility] Comment on above: Performed By: #### C BC, HEPATIC, LIPASE, HCGQUAL, BMP #### [address] Lymphocytes (Bld) [#/Vol] 1.7 10*3/uL Normal 1.00-4.8 [facility] Comment on above: Performed By: #### C BC, HEPATIC, LIPASE, HCGQUAL, BMP #### [address] Lymphocytes/100 WBC (Bld) 22.8 % Normal . [facility] Comment on above: Performed By: #### C BC, HEPATIC, LIPASE, HCGQUAL, BMP #### [address] MCH (RBC) [Entitic mass] 29.8 pg Normal 24.7-34.3 [facility] Comment on above: Performed By: #### C BC, HEPATIC, LIPASE, HCGQUAL, BMP #### [address] MCV (RBC) [Entitic vol] 88.6 fL Normal 80-100 [facility] Comment on above: Performed By: #### C BC, HEPATIC, LIPASE, HCGQUAL, BMP #### [address] Mean Corpuscular HGB Conc 33.7 g/dL Normal 32.0-35.0 [facility] Comment on above: Performed By: #### C BC, HEPATIC, LIPASE, HCGQUAL, BMP #### [address] Monocytes (Bld) [#/Vol] 0.4 10*3/uL Normal 0.0-0.8 [facility] Comment on above: Performed By: #### C BC, HEPATIC, LIPASE, HCGQUAL, BMP #### [address] Monocytes/100 WBC (Bld) 15.49 % Normal 0.00-20.00 [facility] Comment on above: Performed By: #### C BC, HEPATIC, LIPASE, HCGQUAL, BMP #### [address] Monocytes/100 WBC (Bld) 5.9 % Normal . [facility] Comment on above: Performed By: #### C BC, HEPATIC, LIPASE, HCGQUAL, BMP #### [address] Neutrophils (Bld) [#/Vol] 5.1 10*3/uL Normal 1.8-7.7 [facility] Comment on above: Performed By: #### C BC, HEPATIC, LIPASE, HCGQUAL, BMP #### [address] Neutrophils/100 WBC (Bld) 67.5 % Normal . [facility] Comment on above: Performed By: #### C BC, HEPATIC, LIPASE, HCGQUAL, BMP #### [address] NRBC% 0.1 /100{WBC} Normal 0-0.5 [facility] Comment on above: Performed By: #### C BC, HEPATIC, LIPASE, HCGQUAL, BMP #### [address] Platelet mean volume (Bld) [Entitic vol] 8.6 fL Normal 6.3-10.7 [facility] Comment on above: Performed By: #### C BC, HEPATIC, LIPASE, HCGQUAL, BMP #### [address] Platelets (Bld) [#/Vol] 295 10*3/uL Normal 150-450 [facility] Comment on above: Performed By: #### C BC, HEPATIC, LIPASE, HCGQUAL, BMP #### [address] RBC (Bld) [#/Vol] 4.56 10*6/uL Normal 3.60-5.00 [facility] Comment on above: Performed By: #### C BC, HEPATIC, LIPASE, HCGQUAL, BMP #### [address] WBC (Bld) [#/Vol] 7.5 10*3/uL Normal 3.8-11.6 [facility] Comment on above: Performed By: #### C BC, HEPATIC, LIPASE, HCGQUAL, BMP #### [address] Creatinine [Mass/volume] in Serum or PlasmaOrdered By: Lucrecia Nunn on 11-13-2023 Creatinine [Mass/Vol] 0.73 mg/dL 0.60-1.20 [facility] Dipstick and Microscopicon 0 11-13-2023 Appearance (U) Clear Normal Clear [facility] Comment on above: Order Comment: Name Collection Type:: Clean-Voided Midstream Performed By: #### A DDONUAPLUS ####[place] [address] [place] [address] [facility] Bacteria,Urine None Seen Normal None Seen [facility] Comment on above: Order Comment: Name Collection Type:: Clean-Voided Midstream Performed By: #### A DDONUAPLUS ####[address] [address] [place] Bilirubin,Urine Negative Normal Negative [facility] Comment on above: Order Comment: Name Collection Type:: Clean-Voided Midstream Performed By: #### A DDONUAPLUS ####[address] [address] [facility] Color (U) Yellow Normal Yellow [facility] Comment on above: Order Comment: Name Collection Type:: Clean-Voided Midstream Performed By: #### A DDONUAPLUS ####[address] [address] [facility] Glucose Ql (U) Normal Normal Normal [facility] Comment on above: Order Comment: Name Collection Type:: Clean-Voided Midstream Performed By: #### A DDONUAPLUS ####[address] [address] [facility] Hyaline Casts,Urine None Seen Normal 0-1 [facility] Comment on above: Order Comment: Name Collection Type:: Clean-Voided Midstream Result Comment: PERF ORMED BY: [facility] [address] [place] [address] PATHOLOGIST STUDENT UNION CONSULTANT DINA WALKER M.D. Performed By: #### A DDONUAPLUS ####[address] [address] [facility] Ketones Ql (U) 1+ High Negative [facility] Comment on above: Order Comment: Name Collection Type:: Clean-Voided Midstream Performed By: #### A DDONUAPLUS ####[address] [address] [place] [address] [facility] Leukocyte esterase Test strip Ql (U) Negative Normal Negative [facility] Comment on above: Order Comment: Name Collection Type:: Clean-Voided Midstream Performed By: #### A DDONUAPLUS ####[address] [address] [facility] Nitrite,Urine Negative Normal Negative [facility] Comment on above: Order Comment: Name Collection Type:: Clean-Voided Midstream Performed By: #### A DDONUAPLUS ####[address] [address] [facility] Occult Blood,Urine 3+ High Negative [facility] Comment on above: Order Comment: Name Collection Type:: Clean-Voided Midstream Result Comment: PERF ORMED BY: [facility] [address] [place] [id number] PATHOLOGIST STUDENT UNION CONSULTANT DINA WALKER M.D. Performed By: #### A DDONUAPLUS ####[address] [address] [facility] pH (U) 7.5 [pH] Normal 5.0-9.0 [facility] Comment on above: Order Comment: Name Collection Type:: Clean-Voided Midstream Performed By: #### A DDONUAPLUS ####[address] [address] [facility] Protein,Urine Negative Normal Negative [facility] Comment on above: Order Comment: Name Collection Type:: Clean-Voided Midstream Performed By: #### A DDONUAPLUS ####[address] [address] [facility] RBC,Urine 20-49 High 0-4 [facility] Comment on above: Order Comment: Name Collection Type:: Clean-Voided Midstream Performed By: #### A DDONUAPLUS ####[address] [address] [facility] Specificy [place],Urine 1.011 Normal 1.001-1.030 [facility] Comment on above: Order Comment: Name Collection Type:: Clean-Voided Midstream Performed By: #### A DDONUAPLUS ####[place] [address] Squamous Epithelial Cell,Urine None Seen Normal 0-2 [facility] Comment on above: Order Comment: Name Collection Type:: Clean-Voided Midstream Performed By: #### A DDONUAPLUS ####[place] [address] Urobilinogen,Urine Normal Normal Normal [facility] Comment on above: Order Comment: Name Collection Type:: Clean-Voided Midstream Performed By: #### A DDONUAPLUS ####[place] [address] WBC,Urine None Seen Normal 0-4 [facility] Comment on above: Order Comment: Name Collection Type:: Clean-Voided Midstream Performed By: #### A DDONUAPLUS ####[address] Eosinophils Auto (Bld) [#/Vo l]Ordered By: Lucrecia Nunn on 11-13-2023 Eosinophils (Bld) [#/Vol] 0.3 10*3/uL 0.0-0.45 [facility] Eosinophils/100 WBC Auto (Bl d)Ordered By: Lcurecia Nunn on 11-13-2023 Eosinophils/100 WBC (Bld) 3.4 % . [facility] Erythrocyte distribution wid th Auto (RBC) [Ratio]Ordered By: Lucrecia Nunn on 11-13-2023 Erythrocyte distribution width (RBC) [Ratio] 13.3 % 11.9-15.3 [facility] Globulin Calc (S) [Mass/Vol] Ordered By: Lucrecia Nunn on 11-13-2023 Globulin (S) [Mass/Vol] 3.0 g/dL [facility] Glucose [Mass/volume] in Ser um or PlasmaOrdered By: Lucrecia Nunn on 11-13-2023 Glucose [Mass/Vol] 92 mg/dL 70-100 [place] Comment on above: ADA recommended refe rence rangeRandom Glucose Reference Range is dependent on time and content of last meal. Glucose of more than 200 mg/dL in a nonstressed, ambulatory subject supports the diagnosis of Diabetes Mellitus. HCG,Qualitative Serumon 10-28 HCG,Qualitative Serum Negative Normal [facility] Comment on above: Result Comment: PERF ORMED BY: [place] [address] PATHOLOGIST STUDENT UNION CONSULTANT DINA WALKER M.D. Performed By: #### C BC, HEPATIC, LIPASE, HCGQUAL, BMP #### [address] Hematocrit Auto (Bld) [Volum e fraction]Ordered By: Lucrecia Nunn on 11-13-2023 Hematocrit (Bld) [Volume fraction] 40.4 % 34.0-46.4 [facility] Hemoglobin [Mass/volume] in BloodOrdered By: Lucrecia Nunn on 11-13-2023 Hemoglobin (Bld) [Mass/Vol] 13.6 g/dL 11.8-15.4 [facility] Hepatic Panelon 11-13-2023 Albumin [Mass/Vol] 4.8 g/dL Normal 3.5-5.7 [facility] Comment on above: Performed By: #### C BC, HEPATIC, LIPASE, HCGQUAL, BMP #### [address] Albumin/Globulin [Mass ratio] 1.6 {ratio} Normal [facility] Comment on above: Performed By: #### C BC, HEPATIC, LIPASE, HCGQUAL, BMP #### [address] ALP [Catalytic activity/Vol] 59 U/L Normal 34-104 [facility] Comment on above: Performed By: #### C BC, HEPATIC, LIPASE, HCGQUAL, BMP #### [address] ALT [Catalytic activity/Vol] 16 U/L Normal 7-52 [facility] Comment on above: Performed By: #### C BC, HEPATIC, LIPASE, HCGQUAL, BMP #### [address] AST [Catalytic activity/Vol] 18 U/L Normal 13-39 [facility] Comment on above: Performed By: #### C BC, HEPATIC, LIPASE, HCGQUAL, BMP #### [address] Bilirubin [Mass/Vol] 0.5 mg/dL Normal 0.3-1.0 [facility] Comment on above: Performed By: #### C BC, HEPATIC, LIPASE, HCGQUAL, BMP #### [address] Bilirubin,Indirect 0.4 mg/dL Normal [facility] Comment on above: Performed By: #### C BC, HEPATIC, LIPASE, HCGQUAL, BMP #### [address] Bilirubin.indirect [Mass/Vol] 0.10 mg/dL Normal 0.03-0.18 [facility] Comment on above: Performed By: #### C BC, HEPATIC, LIPASE, HCGQUAL, BMP #### [address] Globulin (S) [Mass/Vol] 3.0 g/dL Normal [facility] Comment on above: Performed By: #### C BC, HEPATIC, LIPASE, HCGQUAL, BMP #### [address] Protein [Mass/Vol] 7.8 g/dL Normal 6.4-8.9 [facility] Comment on above: Performed By: #### C BC, HEPATIC, LIPASE, HCGQUAL, BMP #### [address] Ketones Auto test strip (U) [Mass/Vol]Ordered By: Lucrecia Nunn on 11-13-2023 Ketones (U) [Mass/Vol] 1+ Negative [facility] Leukocytes [#/volume] correc marshal for nucleated erythrocytes in Blood by Automated counOrdered By: Lucrecia Nunn on 11-13-2023 WBC corrected for nucl RBC Auto (Bld) [#/Vol] 7.5 10*3/uL 3.8-11.6 [facility] Lipaseon 11-13-2023 Lipase [Catalytic activity/Vol] 45.0 U/L Normal 11.0-82.0 [facility] Comment on above: Performed By: #### C BC, HEPATIC, LIPASE, HCGQUAL, BMP #### [facility] [address] Lipase [Enzymatic activity/v olume] in Serum or PlasmaOrdered By: Lucrecia Nunn on 11-13-2023 Lipase [Catalytic activity/Vol] 45.0 U/L 11.0-82.0 [facility] Lymphocytes Auto (Bld) [#/Vo l]Ordered By: Lucrecia Nunn on 11-13-2023 Lymphocytes (Bld) [#/Vol] 1.7 10*3/uL 1.00-4.8 [facility] Lymphocytes/100 WBC Auto (Bl d)Ordered By: Lucrecia Nunn on 11-13-2023 Lymphocytes/100 WBC (Bld) 22.8 % . [facility] MCH Auto (RBC) [Entitic mass ]Ordered By: Lucrecia Nunn on 11-13-2023 MCH (RBC) [Entitic mass] 29.8 pg 24.7-34.3 [facility] MCHC Auto (RBC) [Mass/Vol]Or dered By: Lucrecia Nunn on 11-13-2023 MCHC (RBC) [Mass/Vol] 33.7 g/dL 32.0-35.0 [facility] MCV Auto (RBC) [Entitic vol] Ordered By: Lucrecia Nunn on 11-13-2023 MCV (RBC) [Entitic vol] 88.6 fL 80-100 [facility] Monocyte distribution width [Entitic volume] in Blood by AutomatedOrdered By: Lucrecia Nunn on 11-13-2023 Monocyte distribution width Auto (Bld) [Entitic vol] 15.49 % 0.00-20.00 [facility] Monocytes Auto (Bld) [#/Vol] Ordered By: Lucrecia Nunn on 11-13-2023 Monocytes (Bld) [#/Vol] 0.4 10*3/uL 0.0-0.8 [facility] Monocytes/100 WBC Auto (Bld) Ordered By: Lucrecia Nunn on 11-13-2023 Monocytes/100 WBC (Bld) 5.9 % . [facility] Neutrophils Auto (Bld) [#/Vo l]Ordered By: Lucrecia Nunn on 11-13-2023 Neutrophils (Bld) [#/Vol] 5.1 10*3/uL 1.8-7.7 [facility] Neutrophils/100 WBC Auto (Bl d)Ordered By: Lucrecia Nunn on 11-13-2023 Neutrophils/100 WBC (Bld) 67.5 % . [facility] Nitrite Test strip Ql (U)Ord ered By: Lucrecia Nunn on 11-13-2023 Nitrite Ql (U) Negative Negative [facility] No Panel InformationOrdered By: Lucrecia Nunn on 11-13-2023 Estimated GFR (CKD-EPI) > 60.0 mL/Min [facility] Creatinine Clearance (Chem 81.17 [facility] Nucleated erythrocytes [Pres ence] in Blood by Automated countOrdered By: Lucrecia Nunn on 11-13-2023 Nucleated RBC Auto Ql (Bld) 0.1 /100{WBC} 0-0.5 [facility] Platelet mean volume Auto (B ld) [Entitic vol]Ordered By: Lucrecia Nunn on 11-13-2023 Platelet mean volume (Bld) [Entitic vol] 8.6 fL 6.3-10.7 [facility] Platelets Auto (Bld) [#/Vol] Ordered By: Lucrecia Nunn on 11-13-2023 Platelets (Bld) [#/Vol] 295 10*3/uL 150-450 [facility] Potassium [Moles/volume] in Serum or PlasmaOrdered By: Lucrecia Nunn on 11-13-2023 Potassium [Moles/Vol] 3.8 mmol/L 3.5-5.1 [facility] Protein Auto test strip (U) [Mass/Vol]Ordered By: Lucrecia Nnun on 11-13-2023 Protein (U) [Mass/Vol] Negative Negative [facility] Protein [Mass/volume] in Ser um or PlasmaOrdered By: Lucrecia Nunn on 11-13-2023 Protein [Mass/Vol] 7.8 g/dL 6.4-8.9 [place] RBC Auto (Bld) [#/Vol]Ordere d By: Lucrecia Nunn on 11-13-2023 RBC (Bld) [#/Vol] 4.56 10*6/uL 3.60-5.00 [facility] Serum or plasma albumin/glob ulin mass ratioOrdered By: Lucrecia Nunn on 11-13-2023 Albumin/Globulin [Mass ratio] 1.6 {ratio} [facility] Serum or plasma anion gap de terminationOrdered By: Lucrecia Nunn on 11-13-2023 Anion gap [Moles/Vol] 12.0 mmol/L 6.0-15.0 [facility] Serum or plasma non-glucuron idated bilirubin measurement (mass/volume)Ordered By: Lucrecia Nunn on 11-13-2023 Bilirubin.indirect [Mass/Vol] 0.4 mg/dL [facility] Sodium [Moles/volume] in Ser um or PlasmaOrdered By: Lucrecia Nunn on 11-13-2023 Sodium [Moles/Vol] 137 mmol/L 136-145 [place] Specific gravity Auto test s trip (U) [Rel density]Ordered By: Lucrecia Nunn on 11-13-2023 Specific gravity (U) [Rel density] 1.011 1.001-1.030 [facility] Urea nitrogen [Mass/volume] in Serum or PlasmaOrdered By: Lucrecia Nunn on 11-13-2023 Urea nitrogen [Mass/Vol] 10 mg/dL 7-25 [facility] Urine bacteria detection by automated methodOrdered By: Lucrecia Nunn on 11-13-2023 Bacteria Auto Ql (U) None seen None Seen [facility] Urine clarity by refractomet ry automatedOrdered By: Lucrecia Nunn on 11-13-2023 Clarity Refractometry automated (U) Clear Clear [facility] Urine glucose measurement by automated test strip (mass/volume)Ordered By: Lucrecia Nunn on 11-13-2023 Glucose Auto test strip (U) [Mass/Vol] Normal mg/dL Normal [facility] Urine hemoglobin detection b y automated test stripOrdered By: Lucrecia Nunn on 11-13-2023 Hemoglobin Auto test strip Ql (U) 3+ Negative [facility] Urine leukocyte esterase det ection by automated test stripOrdered By: Lucrecia Nunn on 11-13-2023 Leukocyte esterase Auto test strip Ql (U) Negative Negative [facility] Urobilinogen Auto test strip (U) [Mass/Vol]Ordered By: Lucrecia Nunn on 11-13-2023 Urobilinogen (U) [Mass/Vol] Normal mg/dL Normal [facility] WBC Auto (Bld) [#/Vol]Ordere d By: Lucrecia Nunn on 11-13-2023 WBC (Bld) [#/Vol] 7.5 10*3/uL 3.8-11.6 [place] pH Auto test strip (U)Ordere d By: Lucrecia Nunn on 11-13-2023 pH (U) 7.5 [pH] 5.0-9.0 [facility] CBC AUTO DIFFon 04-07-2022 BASO # 0.0 103/ul Normal 0.0-0.1 [facility] Comment on above: Performed By: #### C BC #### [facility] [address] [place] [address] Dr. Joe Desir Basophils/100 WBC (Bld) 0.2 % Normal 0.2-2.0 [facility] Comment on above: Performed By: #### C BC #### [facility] [address] [place] [address] Dr. Joe Desir EO # 0.3 103/ul Normal 0.0-0.7 [facility] Comment on above: Performed By: #### C BC #### [facility] [address] [place] [address] Dr. Joe Desir Eosinophils/100 WBC (Bld) 2.1 % Normal 0.9-7.0 [facility] Comment on above: Performed By: #### C BC #### [facility] [address] [place] [address] Dr. Joe Desir Erythrocyte distribution width (RBC) [Ratio] 12.9 % Normal 11.0-15.0 [facility] Comment on above: Performed By: #### C BC #### [facility] [address] [place] [address] Dr. Joe Desir Hematocrit (Bld) [Volume fraction] 41.1 % Normal 36.0-48.0 [facility] Comment on above: Performed By: #### C BC #### [facility] [address] [place] [address] Dr. Joe Desir Hemoglobin (Bld) [Mass/Vol] 13.5 g/dL Normal 12.0-16.0 [facility] Comment on above: Performed By: #### C BC #### [facility] [address] [place] [address] Dr. Joe Desir IG # 0.05 10e3/ul Critically high 0.00-0.03 [facility] Comment on above: Performed By: #### C BC #### [facility] [address] [place] [address] Dr. Joe Desir IG % 0.4 % Normal 0.0-0.5 [facility] Comment on above: Performed By: #### C BC #### [facility] [address] [place] [address] Dr. Joe Desir LYMPH # 2.3 103/ul Normal 1.2-3.8 [facility] Comment on above: Performed By: #### C BC #### [facility] [address] [place] [address] Dr. Joe Desir Lymphocytes/100 WBC (Bld) 17.7 % Critically low 20.5-60.0 [facility] Comment on above: Performed By: #### C BC #### [facility] [address] [place] [address] Dr. Joe Desir MANUAL DIFF REQ NO Normal [facility] Comment on above: Performed By: #### C BC #### [facility] [address] [place] [address] Dr. Joe Desir MCH (RBC) [Entitic mass] 30.4 pg Normal 26.7-34.0 [facility] Comment on above: Performed By: #### C BC #### [facility] [address] [address] [address] Joe Desir MCHC (RBC) [Mass/Vol] 32.8 g/dL Normal 29.9-35.2 [facility] Comment on above: Performed By: #### C BC #### [facility] [address] [address] [address] Joe Desir MCV (RBC) [Entitic vol] 92.6 fL Normal 81.0-99.0 [facility] Comment on above: Performed By: #### C BC #### [facility] [address] [address] [address] Joe Desir MONO # 0.6 103/ul Normal 0.3-0.8 [facility] Comment on above: Performed By: #### C BC #### [facility] [address] [address] [address] Joe Desir Monocytes/100 WBC (Bld) 4.7 % Normal 1.7-12.0 [facility] Comment on above: Performed By: #### C BC #### [facility] [address] [address] [address] Joe Desir NEUT # 9.6 103/ul Critically high 1.4-6.5 [facility] Comment on above: Performed By: #### C BC #### [facility] [address] [address] [address] Joe Desir Neutrophils/100 WBC (Bld) 74.9 % Normal 43.0-75.0 [facility] Comment on above: Performed By: #### C BC #### [facility] [address] [address] [address] Joe Desir Platelet mean volume (Bld) [Entitic vol] 10.2 fL Normal 9.5-13.5 [facility] Comment on above: Performed By: #### C BC #### [facility] [address] [address] [address] Joe Desir PLT 285 103/ul Normal 150-450 [facility] Comment on above: Performed By: #### C BC #### [facility] [address] [place] [address] Dr. Joe Desir RBC 4.44 106/ul Normal 4.20-5.40 [facility] Comment on above: Performed By: #### C BC #### [facility] [address] [place] [address] Dr. Joe Desir WBC 12.8 103/ul Critically high 4.0-11.0 [facility] Comment on above: Performed By: #### C BC #### [facility] [address] [place] [address] Dr. Joe Desir FREE T4on 04-07-2022 Free T4 [Mass/Vol] 0.70 ng/dL Critically low 0.76-1.46 [facility] Comment on above: Performed By: #### F T4 #### [facility] [address] [place] [address] Dr. Joe Desir TSHon 04-07-2022 TSH 19.728 uIU/mL Critically high 0.358-3.740 [facility] Comment on above: Performed By: #### T SH #### [facility] [address] [place] [address] Dr. Joe Desir [facility]on SARS-CoV-2 (COVID-19) RNA KRISS+probe Ql (Unsp spec) Detected Critically abnormal NOT DETECTED [facility] Comment on above: Result Comment: This test is not yet approved or cleared by the [place] FDA. When there are no FDA-approved or cleared tests available, and other criteria are met, FDA can make tests available under an emergency access mechanism called an Emergency Use Authorization (EUA). The EUA for this test is supported by the [place] of Health and Human Service's (HHS's) declaration [...] longer be used). Performed By: #### C [facility] #### [facility] [address] [place] [address] Dr. Joe Desir XR ANKLE ELISA MIN [...] YEMI CAMPBELL Date: 2021-07-15 11:42 Normal [facility] MRI ANKLE LT WO CONon 2020 [...] SANFORD MARTINEZ Date: 2021-07-07 19:44 Normal [facility] Covid-19 PCR ([facility])on SARS-CoV-2 (COVID-19) RNA KRISS+probe Ql (Unsp spec) Not detected Normal NOT DETECTED [facility] Comment on above: Result Comment: This test is not yet approved or cleared by the [place] FDA. When there are no FDA-approved or cleared tests available, and other criteria are met, FDA can make tests available under an emergency access mechanism called an Emergency Use Authorization (EUA). The EUA for this test is supported by the [employer] Under[employer] of Health and Human Service's (HHS's) declaration [...] Performed By: #### C VDAGS, CVDTB #### [facility] [address] [place] [address] Emy Cohen SYMPTOMATIC COVID-19 ANTIGEN on 05-30-2021 EUA Statement SEE BELOW Normal [facility] Comment on above: Result Comment: This [...] Performed By: #### C SITAS, CVDTB #### [facility] [address] [place] [id number] Emy Cohen SARS-CoV-2 (COVID-19) RNA KRISS+probe Ql (Unsp spec) Negative Normal NEGATIVE [facility] Comment on above: Result Comment: CONF IRMATION BY PCR PENDING PER CDC GUIDELINES/ SYMPTOMATIC PATIENT. Performed By: #### C SYDAGS, CVDTB #### [facility] [address] [place], [place] [address] Emy Cohen Vital Signs Date Time Vital Sign Value Performing Clinician Facility 05-30-2024 14:38-0400 Body height 152.4 cm [facility] 05-30-2024 14:38-0400 Body mass index (BMI) [Ratio] 25.5 kg/m2 [facility] 05-30-2024 14:38-0400 Body weight 59.42 kg [facility] 05-30-2024 14:38-0400 Diastolic blood pressure 74 mm[Hg] [facility] 05-30-2024 14:38-0400 Heart rate 67 /min [facility] 05-30-2024 14:38-0400 SaO2% (BldA) [Mass fraction] 98 % [facility] 05-30-2024 14:38-0400 Systolic blood pressure 122 mm[Hg] [facility] 03-28-2024 14:25-0400 Body height 152.4 cm [facility] 03-28-2024 14:25-0400 Body mass index (BMI) [Ratio] 25 kg/m2 [facility] 03-28-2024 14:25-0400 Body weight 58.05 kg [facility] 03-28-2024 14:25-0400 Diastolic blood pressure 68 mm[Hg] [facility] 03-28-2024 14:25-0400 Heart rate 75 /min [facility] 03-28-2024 14:25-0400 Systolic blood pressure 103 mm[Hg] [facility] 01-12-2024 13:06-0400 Body height 152.4 cm MD Tiera Dumas Work Phone: [facility] 01-12-2024 13:06-0400 Body mass index (BMI) [Ratio] 25.7 kg/m2 MD Tiera Dumas Work Phone: [facility] 01-12-2024 13:06-0400 Body weight 59.87 kg MD Tiera Dumas Work Phone: [facility] 01-12-2024 13:06-0400 Diastolic blood pressure 72 mm[Hg] MD Tiera Dumas Work Phone: [facility] 01-12-2024 13:06-0400 Heart rate 74 /min MD Tiera Dumas Work Phone: [facility] 01-12-2024 13:06-0400 SaO2% (BldA) [Mass fraction] 98 % MD Tiera Dumas Work Phone: [facility] 01-12-2024 13:06-0400 Systolic blood pressure 110 mm[Hg] MD Tiera Dumas Work Phone: [facility] 12-07-2023 17:40-0400 Diastolic blood pressure 76 mm[Hg] MD Tiera Dumas Work Phone: [facility] 12-07-2023 17:40-0400 Heart rate 69 /min MD Tiera Dumas Work Phone: [facility] 12-07-2023 17:40-0400 Respiratory rate 16 /min MD Tiera Dumas Work Phone: [facility] 12-07-2023 17:40-0400 SaO2% (BldA) [Mass fraction] 99 % MD Tiera Dumas Work Phone: [facility] 12-07-2023 17:40-0400 Systolic blood pressure 111 mm[Hg] MD Tiera Dumas Work Phone: [facility] 12-07-2023 15:13-0400 Body height 152.4 cm MD Tiera Dumas Work Phone: [facility] 12-07-2023 15:13-0400 Body mass index (BMI) [Ratio] 25.4 kg/m2 MD Tiera Dumas Work Phone: [facility] 12-07-2023 15:13-0400 Body weight 58.96 kg MD Tiera Dumas Work Phone: [facility] 12-07-2023 14:47-0400 Body temperature 98.8 [degF] MD Tiera Dumas Work Phone: [facility] 12-07-2023 11:34-0400 Body temperature 98.6 [degF] Mariano ENEDINA [facility] 12-07-2023 11:34-0400 Diastolic blood pressure 78 mm[Hg] Mariano MCCONNELL [facility] 12-07-2023 11:34-0400 Heart rate 64 /min Mariano COOK [facility] 12-07-2023 11:34-0400 Respiratory rate 16 /min Mariano COOK [facility] 12-07-2023 11:34-0400 Systolic blood pressure 111 mm[Hg] Mariano COOK [facility] 11-13-2023 12:21-0500 Diastolic blood pressure 72 mm[Hg] MD Tiera Dumas Work Phone: [facility] 11-13-2023 12:21-0500 Heart rate 63 /min MD Tiera Dumas Work Phone: [facility] 11-13-2023 12:21-0500 Respiratory rate 18 /min MD Tiera Dumas Work Phone: [facility] 11-13-2023 12:21-0500 SaO2% (BldA) [Mass fraction] 100 % MD Tiera Dumas Work Phone: [facility] 11-13-2023 12:21-0500 Systolic blood pressure 106 mm[Hg] MD Tiera Dumas Work Phone: [facility] 11-13-2023 10:02-0500 Body height 156.21 cm MD Tiera Dumas Work Phone: [facility] 11-13-2023 10:02-0500 Body temperature 97.4 [degF] MD Tiera Dumas Work Phone: [facility] 11-13-2023 10:02-0500 Body weight 59 kg MD Tiera Dumas Work Phone: [facility] 12-13-2022 11:21-0400 Body height 154.94 cm MD Tiera Dumas Work Phone: [facility] 12-13-2022 11:21-0400 Body temperature 97.9 [degF] MD Tiera Dumas Work Phone: [facility] 12-13-2022 11:21-0400 Body weight 59 kg MD Tiera Dumas Work Phone: [facility] 12-13-2022 11:21-0400 Diastolic blood pressure 79 mm[Hg] MD Tiera Dumas Work Phone: [facility] 12-13-2022 11:21-0400 Heart rate 87 /min MD Tiera Dumas Work Phone: [facility] 12-13-2022 11:21-0400 Respiratory rate 18 /min MD Tiera Dumas Work Phone: [facility] 12-13-2022 11:21-0400 SaO2% (BldA) [Mass fraction] 97 % MD Tiera Dumas Work Phone: [facility] 12-13-2022 11:21-0400 Systolic blood pressure 118 mm[Hg] MD Tiera Dumas Work Phone: [facility] 12-03-2022 11:15-0500 Body height 153.67 cm Tiera Dumas Other [facility] Other 12-03-2022 11:15-0500 Body mass index (BMI) [Ratio] 24.78 kg/m2 Tiera Dumas Other [facility] Other 12-03-2022 11:15-0500 Body temperature 99.7 [degF] Tiera Dumas Other [facility] Other 12-03-2022 11:15-0500 Body weight 58.51 kg Tiera Dumas Other [facility] Other 12-03-2022 11:15-0500 Diastolic blood pressure 72 mm[Hg] Tiera Dumas Other [facility] Other 12-03-2022 11:15-0500 SaO2% (BldA) [Mass fraction] 97 % Tiera Dumas Other [facility] Other 12-03-2022 11:15-0500 Systolic blood pressure 112 mm[Hg] Tiera Dumas Other [facility] Other Encounters Encounter Date Encounter Type Care Provider Facility Start: 05-30-2024 End: 05-30-2024 ambulatory [facility] Work Phone: Start: 05-30-2024 End: 05-30-2024 Patient encounter procedure [facility] Work Phone: Start: 03-28-2024 End: 03-28-2024 ambulatory [facility] Work Phone: Start: 03-28-2024 End: 03-28-2024 Patient encounter procedure [facility] Work Phone: Start: 01-12-2024 End: 01-12-2024 ambulatory MD Tiera Dumas Work Phone: [facility] Work Phone: Start: 01-12-2024 End: 01-12-2024 Patient encounter procedure MD Tiera Dumas Work Phone: [facility] Work Phone: Start: 12-07-2023 End: 12-07-2023 ambulatory Mariano Mcconnell Facility:[facility] Start: 12-07-2023 End: 12-07-2023 Admission to same day surgery center MD Tiera Dumas Work Phone: [facility] [place] Start: 12-07-2023 End: 12-08-2023 ambulatory Mariano MCCONNELL Facility:[id number] Start: 12-07-2023 End: 12-08-2023 ambulatory Mariano MCCONNELL Facility:[facility] Start: 12-07-2023 End: 12-07-2023 Patient encounter procedure Mariano MCCONNELL [facility] Start: 12-01-2023 End: 12-01-2023 ambulatory Tiera Dumas Facility:[facility] Start: 12-01-2023 End: 12-01-2023 Patient encounter procedure MD Tiera Dumas Work Phone: [facility] [place] Work Phone: Start: 11-16-2023 ambulatory Mariano MCCONNELL Facility:[facility] Start: 11-13-2023 End: 11-13-2023 Emergency department patient visit Tiera Dumas Facility:[facility] Start: 11-13-2023 End: 11-13-2023 Emergency department patient visit MD Tiera Dumas Work Phone: [facility] Work Phone: Start: 07-07-2023 (Televisit) Televisit Tiera Dumas [facility] Start: 07-07-2023 End: 07-07-2023 ambulatory Tiera Dumas Other [facility] Other Start: 12-16-2022 End: 12-16-2022 ambulatory Tiera Dumas Other [facility] Other Start: 12-16-2022 Telephone encounter Tiera Dumas [facility] Start: 12-13-2022 End: 12-13-2022 Emergency department patient visit MD Tiera Dumas Work Phone: [facility] Work Phone: Start: 12-03-2022 End: 12-03-2022 ambulatory Tiera Dumas Other [facility] Other Start: 12-03-2022 Office outpatient vi sit 15 minutes Tiera Dumas [facility] Start: 04-07-2022 End: 04-08-[address] TIERA [...] Date Care Activity Detail Author Start: 12-07-2023 [facility] Start: 12-07-2023 [facility] Patient Education [facility] Work Phone: Patient referral [facility] Work Phone: [facility] Immunizations Immunization Date Immunization Notes Care Provider Fa cility 02-13-2021 SARS-CoV-2 (COVID-19 ) mRNA-1273 vaccine Mariano MCCONNELL [facility] 01-15-2021 SARS-CoV-2 (COVID-19 ) mRNA-1273 vaccine Mariano MCCONNELL [facility] 07-10-2018 influenza virus vaccine, unspecified formulation Mariano MCCONNELL [facility] 07-10-2018 Influenza, injectabl e, Madin Amairani Canine Kidney, preservative free, quadrivalent MD Tiera Dumas Work Phone: [facility] 07-24-2015 influenza virus vaccine, unspecified formulation Mariano MCCONNELL [facility] 07-24-2015 influenza, injectabl e, quadrivalent, contains preservative MD Tiera Dmuas Work Phone: [facility] 07-25-2014 influenza virus vaccine, unspecified formulation Mariano MCCONNELL [facility] 07-25-2014 influenza, seasonal, injectable, preservative free MD Tiera Dumas Work Phone: [facility] 08-02-2013 influenza virus vaccine, unspecified formulation Mariano MCCONNELL [facility] 08-02-2013 influenza, seasonal, injectable MD Tiera Dumas Work Phone: [facility] NEGATED: Highlighted row has not occurred!12-07-2023 influenza virus vaccine, unspecified formulation Mariano MCCONNELL [facility] Payers Date Payer Category Payer Self-pay [id number] 2015 Unknown 1979 Unknown [id number] .16.84 [id number] 1979 Unknown [id number] .16.84 [id number] 1979 Unknown [id number] .16.84 [id number] 1979 Unknown [id number] .16.84 [id number] 1979 Unknown [id number] .16.84 [id number] 1979 Unknown [id number] .16.84 [id number] 1979 Unknown [id number] 2.16.8 [id number] 1979 Unknown [id number] 2.16.8 [id number] 1979 Unknown [id number] 2.16.8 [id number] 1959 Unknown [id number] Unknown [id number] 2.16.8 [id number] Unknown [id number] 2.16.8 [id number] Unknown [id number] 2.16.8 [id number] Social History Date Type Detail Facility Start: 12-13-2022 Tobacco smoking status [facility] Never smoked tobacco (finding) [facility] Start: 1980 Sex Assigned At Female [facility] Sex Assigned At [facility] Start: 11-13-2023 End: 03-28-2024 Tobacco smoking status TXIS Ex-smoker (finding) [facility] Tobacco smoking status Never [facility] NEGATED: Highlighted row [facility] Goals Date Patient Goal Desired Activity /State Functional Status Date Assessment Result Facility 12-07-2023 Functional Status N/A [facility] Clinical Notes 12-03-2022 to 12-07-2023 Note Date [...] including vitamins, herbs, eye drops, creams, and mktk-eor-aerrrje medicines. Any problems you or family members [...] provider tells you to take them. ?Taking witp-piz-qmitceu medicines, vitamins, herbs, and supplements. Eating and [...] provider. Document Revised: 01/20/2023 Document Reviewed: 05/18/2022 [employer] Patient Education 2022 [employer]. Follow Up Care 12/06/2023 08:36:19 With:ENEDINA CONTRERAS, Mariano Causey, URL Address: [address] [place] [address] [place], [place] [id number]- When: Unknown Comments:sched cysto/L RGP/URS/possible stent [facility] 07-07-2023 Evaluation note Encounter Date Diagnosis Assessment Notes Jun, Bronchitis (ICD-10 - J40) Finish antibiotics as prescribed. Medrol for chest tightness. Will call if needs work note. [facility] Other 03-09-2023 Evaluation note* Encounter Date Diagnosis Assessment Notes Treatment Notes Treatment Clinical Notes Nov, Hematuria, unspecified type (ICD-10 - R31.9) Will treat based on her symptoms Nov, Lumbar pain (ICD-10 - M54.50) Generalized pain. no acute injury. Recommend rest and heat. [facility] Other Evaluation + Plan note No data available for this section [facility] [place] Evaluation noteNo assessment information available [facility] Work Phone: Evaluation noteNo [email or web address] Other Evaluation note* Diagnosis Onset Date Resolution Status Sinusitis acute Fatigue acute Hypothyroid acute [facility] Work Phone: Evaluation note* Diagnosis Onset Date Resolution Status Acute thoracic back pain acu te Fatigue acute Hypothyroid acute [facility] Work Phone: History general Narrative [...] Left Shoulder Surgery, Problem Status : Active, [facility] Other Hospital Discharge instructions Additional Instructions We [...] if you develop any worsening or concerning symptoms.[facility] Work Phone: Progress note No data available for this section [facility] Summary Purpose Family History Relationship Condition [...] content) DATE CREATED AUTHOR 04/15/2022 [facility] DATE CREATED AUTHOR AUTHOR'S ORGANIZ ATION 12/15/2023 [facility] DATE CREATED AUTHOR AUTHOR'S ORGANIZ ATION 01/14/2024 [facility] Care Teams (unrecognized sec tion [...] End: January 12, 2024 Nguyen Aguirre APRN [employer]INEER-[employer] Attending Provider Act ophelia Start: January 12, [...] IssuesNeeds off Wor k NoteSinuses, Congestion, Cough- [phone] FOR RECORDS PERTAINING TO PATIENTS WHO ARE [...] BE BASED ON THE PRIMARY CLINICAL RECORDS. [facility]. provides no warranty or guarantee of the accuracy or completeness of information in this document.
== END 2024-08-16 09:36 | disposition home or self-care (01) ==
LOC: RAD 09:35
PROVIDERS: PCP Family Medicine; Visit Provider Podiatrist Foot & Ankle Surgery
DX: M79.672 Pain in left foot (principal)
CPT/HCPCS: 73630

== ENCOUNTER 2024-09-13 10:32 | Outpatient (OUT) | payer BC, SELFPAY ==
--- OUTSIDE RECORDS SUMMARY | 2024-09-12 16:11 | XMS_ITS | CCD ---
Author Organization [facility] CliniSysd Care Team Providers Care Head Charrer Name Role Phone SHAIKH Desmond HOUSE Admitting [...] Primary Care Provider LELA Quijano Emergency Provider [phone] Tiera Dumas Unavailable MD Tiera Dumas Primary Care Provider DO Lucrecia Nunn Emergency Provider [phone] TIERA DUMAS Primary Care Physician [phone] Mariano MCCONNELL Attending Unavailable Mariano MCCONNELL Attending Unavailable MD Tiera Dumas Primary Care Provider DO Lucrecia Nunn Emergency Provider MD Mariano Mcconnell Attending Provider [phone] Mariano Mcconnell Admitting Unavailable Mariano Mcconnell Attending Unavailable Tiera Dumas Primary Care Unavailable Tiera Dumas Primary Care Unavailable Lucrecia Nunn Admitting Unavailable Lucrecia Nunn Attending Unavailable Tiera Dumas Primary Care Unavailable Mariano Mcconnell Admitting Unavailable Mariano Mcconnell Attending Unavailable Allergies Allergy Classification Reported Allergen(s) Allergy Type Date of Onset Reaction(s) Facility (3 sources) Codeine; Translations: [codeine] Drug Allergy 5 unknown [facility] Repository (4 sources) Morphine; Translations: [morphine] Drug Allergy 5 Gastrointestinal Upset [facility] Repository (1 source) Codeine; Translations: [codeine] Drug Allergy Nausea and vomiting [facility] (1 source) Morphine; Translations: [morphine] Drug Allergy Nausea [facility] (1 source) Codeine Drug Allergy 4 [facility] Repository (1 source) Morphine Drug Allergy [address] [place] [address] Repository Medications Current Medications Medication Drug Class(es) [...] Basophils (Bld) [#/Vol] 0.0 10 3/uL 0.0-0.1 [facility] Basophils/100 WBC Auto (Bld) on 03-28-2024 Basophils/100 WBC (Bld) 0.6 % 0.2-2.0 [facility] Eosinophils/100 WBC Auto (Bl d)on 03-28-2024 Eosinophils/100 WBC (Bld) 5.2 % 0.9-7.0 [facility] Erythrocyte distribution wid th Auto (RBC) [Ratio]on 03-28-2024 Erythrocyte distribution width (RBC) [Ratio] 12.7 % 11.0-15.0 [facility] Estimated glomerular filtrat ion rate (GFR) non- Americanon 03-28-2024 GFR/1.73 sq M.predicted among non-blacks MDRD (S/P/Bld) [Vol rate/Area] mL/min/{1.73_m2} >=60 [facility] Hematocrit Auto (Bld) [Volum e fraction]on 03-28-2024 Hematocrit (Bld) [Volume fraction] 38.0 % 36.0-48.0 [facility] Hemoglobin [Mass/volume] in Bloodon 03-28-2024 Hemoglobin (Bld) [Mass/Vol] 12.2 g/dL 12.0-16.0 [facility] Laboratory - Chemistry and C hemistry - challengeon 03-28-2024 Calcium [Mass/Vol] 8.9 mg/dL 8.5-10.1 [facility] Chloride [Moles/Vol] 105 mmol/L 98-107 [facility] CO2 [Moles/Vol] 28.1 mmol/L 21.0-32.0 [facility] Creatinine [Mass/Vol] 0.78 mg/dL 0.55-1.02 [facility] Free T4 [Mass/Vol] 1.17 ng/dL 0.76-1.46 [facility] GFR/1.73 sq M.predicted MDRD (S/P/Bld) [Vol rate/Area] mL/min/{1.73_m2} >=60 [facility] Glucose [Mass/Vol] 98 mg/dL 74-106 [facility] Potassium [Moles/Vol] 3.7 mmol/L 3.5-5.1 [facility] Sodium [Moles/Vol] 140 mmol/L 136-145 [facility] TSH Qn 1.152 m[IU]/L 0.358-3.740 [facility] Urea nitrogen [Mass/Vol] 9.0 mg/dL 7.0-18.0 [facility] Urea nitrogen/Creatinine [Mass ratio] 11.5 mg/mg [facility] Laboratory - Hematology and Cell countson 03-28-2024 Immature granulocytes/100 WBC (Bld) 0.3 % 0.0-0.5 [facility] Leukocytes [#/volume] correc marshal for nucleated erythrocytes in Blood by Automated counon 03-28-2024 WBC corrected for nucl RBC Auto (Bld) [#/Vol] 7.1 10 3/uL 4.0-11.0 [facility] Lymphocytes Auto (Bld) [#/Vo l]on 03-28-2024 Lymphocytes (Bld) [#/Vol] 2.2 10 3/uL 1.2-3.8 [facility] Lymphocytes/100 WBC Auto (Bl d)on 03-28-2024 Lymphocytes/100 WBC (Bld) 31.1 % 20.5-60.0 [facility] MCH Auto (RBC) [Entitic mass ]on 03-28-2024 MCH (RBC) [Entitic mass] 29.9 pg 26.7-34.0 [facility] MCHC Auto (RBC) [Mass/Vol]on 03-28-2024 MCHC (RBC) [Mass/Vol] 32.1 g/dL 29.9-35.2 [facility] MCV Auto (RBC) [Entitic vol] on 03-28-2024 MCV (RBC) [Entitic vol] 93.1 fL 81.0-99.0 [facility] Monocytes Auto (Bld) [#/Vol] on 03-28-2024 Monocytes (Bld) [#/Vol] 0.4 10 3/uL 0.3-0.8 [facility] Monocytes/100 WBC Auto (Bld) on 03-28-2024 Monocytes/100 WBC (Bld) 6.1 % 1.7-12.0 [facility] Neutrophils Auto (Bld) [#/Vo l]on 03-28-2024 Neutrophils (Bld) [#/Vol] 4.0 10 3/uL 1.4-6.5 [facility] Neutrophils/100 WBC Auto (Bl d)on 03-28-2024 Neutrophils/100 WBC (Bld) 56.7 % 43.0-75.0 [facility] No Panel Informationon 03-28 Eosinophils # (Auto) 0.4 10 3/uL 0.0-0.7 [facility] Immature Granulocyte # (Auto) 0.02 10 3/uL 0.00-0.03 [facility] Platelet mean volume Auto (B ld) [Entitic vol]on 03-28-2024 Platelet mean volume (Bld) [Entitic vol] 10.4 fL 9.5-13.5 [facility] Platelets Auto (Bld) [#/Vol] on 03-28-2024 Platelets (Bld) [#/Vol] 270 10 3/uL 150-450 [facility] RBC Auto (Bld) [#/Vol]on RBC (Bld) [#/Vol] 4.08 10 6/uL Low 4.20-5.40 [facility] Serum or plasma anion gap de terminationon 03-28-2024 Anion gap [Moles/Vol] 10.6 mmol/L [facility] Formson 12-08-2023 Forms [id number] #1.00TIFF Normal [facility] Operative Reporton Operative Report [id number] #1.00TIFF Normal [facility] RAD - MISCon 12-08-2023 [facility] - MISC [id number] #1.00TIFF Normal [facility] [id number] #1.00TIFF Normal [facility] Ambulatory Visit Summaryon 0 12-07-2023 Ambulatory [...] including vitamins, herbs, eye drops, creams, and duvh-zsd-uqddejh medicines. ? Any problems you or family [...] tells you to take them. ? Taking qfil-tii-yctvyog medicines, vitamins, herbs, and supplements. Eating and [...] (more content not included)... Normal [facility] Amphetamine Screen Ql (U)Ord ered By: Sanford Mason on 12-07-2023 Amphetamines Ql (U) Negative Negative [facility] Barbiturates [Presence] in U rine by Screen methodOrdered By: Sanford aMson on 12-07-2023 Barbiturates Screen Ql (U) Negative Negative [facility] Benzodiazepines Screen Ql (U )Ordered By: Sanford Mason on 12-07-2023 Benzodiazepines Ql (U) Negative Negative [facility] Benzoylecgonine [Presence] i n Urine by Screen methodOrdered By: Sanford Mason on 12-07-2023 Benzoylecgonine Screen Ql (U) Negative Negative [facility] Cannabinoids [Presence] in U rine by Screen methodOrdered By: Sanford Mason on 12-07-2023 Cannabinoids Screen Ql (U) Positive Negative [facility] Comment on above: These are unconfirme d results and should not be used for legal purposes. Drug Cut-Off Concentration: AMPH 1000 ng/mL GARETT 200 ng/mL LEVY 200 ng/mL COCM 300 ng/mL OP 300 ng/mL PCP 25 ng/mL THC 20 ng/mL Drug Screen,Urineon 12-07-19 24 Amphetamine Screen,Urine Negative Normal Negative [facility] Comment on above: Performed By: #### U RDS #### [address] Barbiturate Screen,Urine Negative Normal Negative [facility] Comment on above: Performed By: #### U RDS #### [address] Benzodiazepines Screen,Urine Negative Normal Negative [facility] Comment on above: Performed By: #### U RDS #### [address] Cannabinoid Screen,Urine Positive High Negative [facility] Comment on above: Result Comment: Thes e are unconfirmed results and should not be used for legal purposes. Drug Cut-Off Concentration: AMPH 1000 ng/mL GARETT 200 ng/mL LEVY 200 ng/mL COCM 300 ng/mL OP 300 ng/mL PCP 25 ng/mL THC 20 ng/mL PERFORMED BY: [place] [address] PATHOLOGIST [employer]IT[employer]ICATIONS SPECIALIST DINA WALKER M.D. Performed By: #### U RDS #### [address] Cocaine Screen,Urine Negative Normal Negative [facility] Comment on above: Performed By: #### U RDS #### [address] Opiate Screen,Urine Negative Normal Negative [facility] Comment on above: Performed By: #### U RDS #### [address] Phencyclidine Screen,Urine Negative Normal Negative [facility] Comment on above: Performed By: #### U RDS #### [address] [place] urethrocystogram retroon 12-07-2023 [place] urethrocystogram retro [facility] [place] [address] [place] [address] Fluoroscopy Report Signed Patient: Nguyen Taylor MR#: [id number] : 1980 Acct:[id number] Age/Sex: 43 / F ADM Date: 12/07/23 Loc: [place] Room: Type: [facility] Attending Dr: Mariano Mcconnell MD Copies [...] Gabriele Corbin M.D.12/07/2023 6:04 PM Dictation Location: [place] [address] Transcribed By: [facility] 12/07/231803 Dictated By: Gabriele Corbin II, MD 12/07/231801 Signed By: 12/07/231803 Normal [facility] HCG ( test) IA.rapi d Ql (U)Ordered By: Sanford Mason on 12-07-2023 HCG ( test) Ql (U) Negative [facility] HCG,Urineon 12-07-2023 Beta HCG ( test) Ql (U) Negative Normal [facility] Comment on above: Result Comment: PERF ORMED BY: [place] [address] PATHOLOGIST MILIT[employer] COMMUNICATIONS SPECIALIST DINA WALKER M.D. Performed By: #### U HCG #### [address] Insurance Correspondenceon 0 12-07-2023 Insurance Correspondence [id number]#1.00TIFF Normal [facility] Opiates [Presence] in Urine by Screen methodOrdered By: Sanford Mason on 12-07-2023 Opiates Screen Ql (U) Negative Negative [facility] Patient Educationon 12-07-19 Patient Education [...] including vitamins, herbs, eye drops, creams, and tfkd-cxu-mbpsmyd medicines. ? Any problems you or family [...] tells you to take them. ? Taking rupn-xjw-ensodhj medicines, vitamins, herbs, and supplements. Eating and [...] the pieces (more content not included)... Normal [facility] Phencyclidine Screen Ql (U)O rdered By: Sanford Mason on 12-07-2023 Phencyclidine Ql (U) Negative Negative [facility] Urology Office/Clinic Noteon 12-07-2023 Urology Office/Clinic Note Chief Complaint Pt is here for [facility] f/u HPI Staff 43 year old female New Pt. Pt. was in the [facility] on 11/13/23 due to Lt. lower [...] 1. Ureteral stone (N20.1: Calculus of ureter) [facility] visit 11/13/23 due to left flank pain. Given Fomax and pain medication to help pass stone. CT AP w con 11/13/23 [facility] - Obstructing 3 mm L UVJ calculus [...] from a couple days ago at the [facility] is inconclusive. She continues with significant pain up to a level 7 out of 10 and does desire surgical intervention. This is well outlined above. She understands the ris (more content not included)... Normal [facility] Comment on above: Result Comment: Elec tronically Signed By: Mariano MCCONNELL MD\.br\Date and Time Signed: 12/07/23 12:06 EDT\.br\Electronically Co-Signed By: Lakeisha Beebe\.br\Date and Time Co-Signed: 12/07/23 12:02 EDT RAD - MISCon 12-06-2023 RAD - MISC [id number] #1.00TIFF [facility] XR KUBon 12-01-2023 XR KUB [facility] [place] [address] XRay Report Signed Patient: Nguyen Taylor MR#: [id number] : 1980 Acct:[id number] Age/Sex: 43 / F ADM Date: 12/01/23 Loc: XD Room: Type: [facility] Attending Dr: Mariano Mcconnell MD Copies to: [...] Palacios Jr., D.O.12/01/2023 4:13 PM Dictation Location: [place] [address] Transcribed By: [facility] 12/01/23 1613 Dictated By: Freeman Palacios Jr, DO 12/01/23 1611 Signed By: 12/01/23 1613 Normal [facility] ED Note-Physicianon 11-19-19 ED Note-Physician [id number] #1.00TIFF Normal [facility] Alanine aminotransferase [En zymatic activity/volume] in Serum or PlasmaOrdered By: Lucrecia Nunn on 11-13-2023 ALT [Catalytic activity/Vol] 16 U/L 7-52 [facility] Albumin [Mass/volume] in Ser um or Plasma by Bromocresol green (BCG) dye binding methoOrdered By: Lucrecia Nunn on 11-13-2023 Albumin BCG dye [Mass/Vol] 4.8 g/dL 3.5-5.7 [facility] Alkaline phosphatase [Enzyma tic activity/volume] in Serum or PlasmaOrdered By: Lucrecia Nunn on 11-13-2023 ALP [Catalytic activity/Vol] 59 U/L 34-104 [facility] Aspartate aminotransferase [ Enzymatic activity/volume] in Serum or PlasmaOrdered By: Lucrecia Nunn on 11-13-2023 AST [Catalytic activity/Vol] 18 U/L 13-39 [facility] Automated epithelial cells c ount in urine sediment (number/area)Ordered By: Lucrecia Nunn on 11-13-2023 Epithelial cells Auto (Urine sed) [#/Area] None seen [HPF] 0-2 [facility] Automated erythrocytes count in urine sediment (number/area)Ordered By: Lucrecia Nunn on 11-13-2023 RBC Auto (Urine sed) [#/Area] 20-49 [HPF] 0-4 [facility] Automated leukocytes count i n urine sediment (number/area)Ordered By: Lucrecia Edouard on 11-13-2023 WBC Auto (Urine sed) [#/Area] None seen [HPF] 0-4 [facility] Automated urine hyaline cast s count (number/volume)Ordered By: Lucrecia Edouard on 11-13-2023 Hyaline casts Auto (U) [#/Vol] None seen [LPF] 0-1 [facility] Basic Metabolic Panelon 10-28 Anion gap [Moles/Vol] 12.0 mmol/L Normal 6.0-15.0 [facility] Comment on above: Performed By: #### C BC, HEPATIC, LIPASE, HCGQUAL, BMP #### [address] Calcium [Mass/Vol] 9.6 mg/dL Normal 8.6-10.3 [facility] Comment on above: Performed By: #### C BC, HEPATIC, LIPASE, HCGQUAL, BMP #### [address] Chloride [Moles/Vol] 106 mmol/L Normal 98-107 [facility] Comment on above: Performed By: #### C BC, HEPATIC, LIPASE, HCGQUAL, BMP #### [address] CO2 [Moles/Vol] 22.8 mmol/L Normal 21.0-31.0 [facility] Comment on above: Performed By: #### C BC, HEPATIC, LIPASE, HCGQUAL, BMP #### [address] Creatinine [Mass/Vol] 0.73 mg/dL Normal 0.60-1.20 [facility] Comment on above: Performed By: #### C BC, HEPATIC, LIPASE, HCGQUAL, BMP #### [address] Creatinine Clr Calc Pharmacy 81.17 Normal [facility] Comment on above: Performed By: #### C BC, HEPATIC, LIPASE, HCGQUAL, BMP #### [address] GFR/1.73 sq M.predicted MDRD (S/P/Bld) [Vol rate/Area] mL/min/{1.73_m2} Normal [facility] Comment on above: Performed By: #### C BC, HEPATIC, LIPASE, HCGQUAL, BMP #### [facility] [address] Glucose [Mass/Vol] 92 mg/dL Normal 70-100 [facility] Comment on above: Result Comment: [facility] Glucose Reference Range is dependent on time and content of last meal. Glucose of more than 200 mg/dL in a nonstressed, ambulatory subject supports the diagnosis of Diabetes Mellitus. ADA recommended reference range Performed By: #### C BC, HEPATIC, LIPASE, HCGQUAL, BMP #### [address] Potassium [Moles/Vol] 3.8 mmol/L Normal 3.5-5.1 [facility] Comment on above: Performed By: #### C BC, HEPATIC, LIPASE, HCGQUAL, BMP #### [place] [address] [place] Sodium [Moles/Vol] 137 mmol/L Normal 136-145 [facility] Comment on above: Performed By: #### C BC, HEPATIC, LIPASE, HCGQUAL, BMP #### [place] [address] [place] Urea nitrogen [Mass/Vol] 10 mg/dL Normal 7-25 [facility] Comment on above: Performed By: #### C BC, HEPATIC, LIPASE, HCGQUAL, BMP #### [facility] [address] [place] [address] [place] Basophils Auto (Bld) [#/Vol] Ordered By: Lucrecia Nunn on 11-13-2023 Basophils (Bld) [#/Vol] 0.0 10*3/uL 0.0-0.2 [facility] Basophils/100 WBC Auto (Bld) Ordered By: Lucrecia Nunn on 11-13-2023 Basophils/100 WBC (Bld) 0.4 % . [facility] Bilirubin Test strip Ql (U)O rdered By: Lucrecia Nunn on 11-13-2023 Bilirubin Ql (U) Negative Negative [facility] Bilirubin.direct [Mass/volum e] in Serum or PlasmaOrdered By: Lucrecia Nunn on 11-13-2023 Bilirubin.direct [Mass/Vol] 0.10 mg/dL 0.03-0.18 [facility] Bilirubin.total [Mass/volume ] in Serum or PlasmaOrdered By: Lucrecia Nunn on 11-13-2023 Bilirubin [Mass/Vol] 0.5 mg/dL 0.3-1.0 [facility] CT abdomen pelvis w conon CT abdomen pelvis w con [facility] [place] [address] [place] [address] CT Scan Report Signed Patient: gNuyen Taylor MR#: [id number] : 1980 Acct:[id number] Age/Sex: 43 / F ADM Date: 11/13/23 Loc: ER Room: Type: [facility] ER Attending Dr: Copies to: Lucrecia [...] Palacios Jr., D.OPatito11/13/2023 11:29 AM Dictation Location: [place] [address] Transcribed By: [facility] 11/13/23 1129 Dictated By: Freeman Palacios Jr, DO 11/13/23 1125 Signed By: 11/13/23 1129 Normal [facility] Calcium [Mass/volume] in Ser um or PlasmaOrdered By: Lucrecia Nunn on 11-13-2023 Calcium [Mass/Vol] 9.6 mg/dL 8.6-10.3 [facility] Carbon dioxide, total [Moles /volume] in Serum or PlasmaOrdered By: Lucrecia Nunn on 11-13-2023 CO2 [Moles/Vol] 22.8 mmol/L 21.0-31.0 [facility] Chloride [Moles/volume] in S noemy or PlasmaOrdered By: Lucrecia Nunn on 11-13-2023 Chloride [Moles/Vol] 106 mmol/L 98-107 [facility] Choriogonadotropin.beta subu nit [Units/volume] in Serum or PlasmaOrdered By: Lucrecia Nunn on 11-13-2023 HCG.beta subunit Qn Negative [facility] Color Auto (U)Ordered By: Shashank Nunn on 11-13-2023 Color (U) Yellow Yellow [facility] Complete Blood Count Auto Di ffon 11-13-2023 Basophils (Bld) [#/Vol] 0.0 10*3/uL Normal 0.0-0.2 [facility] Comment on above: Result Comment: PERF ORMED BY: [place] [address] PATHOLOGIST [employer]IT[employer] COMMUNICATIONS SPECIALIST DINA WALKER M.D. Performed By: #### C BC, HEPATIC, LIPASE, HCGQUAL, BMP #### [address] Basophils/100 WBC (Bld) 0.4 % Normal . T [facility] Comment on above: Performed By: #### C BC, HEPATIC, LIPASE, HCGQUAL, BMP #### [address] Eosinophils (Bld) [#/Vol] 0.3 10*3/uL Normal 0.0-0.45 [facility] Comment on above: Performed By: #### C BC, HEPATIC, LIPASE, HCGQUAL, BMP #### [address] Eosinophils/100 WBC (Bld) 3.4 % Normal . [facility] Comment on above: Performed By: #### C BC, HEPATIC, LIPASE, HCGQUAL, BMP #### [address] Erythrocyte distribution width (RBC) [Ratio] 13.3 % Normal 11.9-15.3 [facility] Comment on above: Performed By: #### C BC, HEPATIC, LIPASE, HCGQUAL, BMP #### [address] Hematocrit (Bld) [Volume fraction] 40.4 % Normal 34.0-46.4 [facility] Comment on above: Performed By: #### C BC, HEPATIC, LIPASE, HCGQUAL, BMP #### [address] Hemoglobin (Bld) [Mass/Vol] 13.6 g/dL Normal 11.8-15.4 [facility] Comment on above: Performed By: #### C BC, HEPATIC, LIPASE, HCGQUAL, BMP #### [address] Lymphocytes (Bld) [#/Vol] 1.7 10*3/uL Normal 1.00-4.8 [facility] Comment on above: Performed By: #### C BC, HEPATIC, LIPASE, HCGQUAL, BMP #### [address] Lymphocytes/100 WBC (Bld) 22.8 % Normal . [facility] Comment on above: Performed By: #### C BC, HEPATIC, LIPASE, HCGQUAL, BMP #### [address] MCH (RBC) [Entitic mass] 29.8 pg Normal 24.7-34.3 [facility] Comment on above: Performed By: #### C BC, HEPATIC, LIPASE, HCGQUAL, BMP #### [address] MCV (RBC) [Entitic vol] 88.6 fL Normal 80-100 [facility] Comment on above: Performed By: #### C BC, HEPATIC, LIPASE, HCGQUAL, BMP #### [address] Mean Corpuscular HGB Conc 33.7 g/dL Normal 32.0-35.0 [facility] Comment on above: Performed By: #### C BC, HEPATIC, LIPASE, HCGQUAL, BMP #### [address] Monocytes (Bld) [#/Vol] 0.4 10*3/uL Normal 0.0-0.8 [facility] Comment on above: Performed By: #### C BC, HEPATIC, LIPASE, HCGQUAL, BMP #### [address] Monocytes/100 WBC (Bld) 15.49 % Normal 0.00-20.00 [facility] Comment on above: Performed By: #### C BC, HEPATIC, LIPASE, HCGQUAL, BMP #### [address] Monocytes/100 WBC (Bld) 5.9 % Normal . [facility] Comment on above: Performed By: #### C BC, HEPATIC, LIPASE, HCGQUAL, BMP #### [address] Neutrophils (Bld) [#/Vol] 5.1 10*3/uL Normal 1.8-7.7 [facility] Comment on above: Performed By: #### C BC, HEPATIC, LIPASE, HCGQUAL, BMP #### [address] Neutrophils/100 WBC (Bld) 67.5 % Normal . [facility] Comment on above: Performed By: #### C BC, HEPATIC, LIPASE, HCGQUAL, BMP #### [address] NRBC% 0.1 /100{WBC} Normal 0-0.5 [facility] Comment on above: Performed By: #### C BC, HEPATIC, LIPASE, HCGQUAL, BMP #### [address] Platelet mean volume (Bld) [Entitic vol] 8.6 fL Normal 6.3-10.7 [facility] Comment on above: Performed By: #### C BC, HEPATIC, LIPASE, HCGQUAL, BMP #### [address] Platelets (Bld) [#/Vol] 295 10*3/uL Normal 150-450 [facility] Comment on above: Performed By: #### C BC, HEPATIC, LIPASE, HCGQUAL, BMP #### [address] RBC (Bld) [#/Vol] 4.56 10*6/uL Normal 3.60-5.00 [facility] Comment on above: Performed By: #### C BC, HEPATIC, LIPASE, HCGQUAL, BMP #### [address] WBC (Bld) [#/Vol] 7.5 10*3/uL Normal 3.8-11.6 [facility] Comment on above: Performed By: #### C BC, HEPATIC, LIPASE, HCGQUAL, BMP #### [address] Creatinine [Mass/volume] in Serum or PlasmaOrdered By: Lucrecia Nunn on 11-13-2023 Creatinine [Mass/Vol] 0.73 mg/dL 0.60-1.20 [facility] Dipstick and Microscopicon 0 11-13-2023 Appearance (U) Clear Normal Clear [facility] Comment on above: Order Comment: Name Collection Type:: Clean-Voided Midstream Performed By: #### A DDONUAPLUS ####[place] [address] [place] [address] [facility] Bacteria,Urine None Seen Normal None Seen [facility] Comment on above: Order Comment: Name Collection Type:: Clean-Voided Midstream Performed By: #### A DDONUAPLUS ####[address] [address] [place] Bilirubin,Urine Negative Normal Negative [facility] Comment on above: Order Comment: Name Collection Type:: Clean-Voided Midstream Performed By: #### A DDONUAPLUS ####[address] [address] [facility] Color (U) Yellow Normal Yellow [facility] Comment on above: Order Comment: Name Collection Type:: Clean-Voided Midstream Performed By: #### A DDONUAPLUS ####[address] [address] [facility] Glucose Ql (U) Normal Normal Normal [facility] Comment on above: Order Comment: Name Collection Type:: Clean-Voided Midstream Performed By: #### A DDONUAPLUS ####[address] [address] [facility] Hyaline Casts,Urine None Seen Normal 0-1 [facility] Comment on above: Order Comment: Name Collection Type:: Clean-Voided Midstream Result Comment: PERF ORMED BY: [facility] [address] [place] [address] PATHOLOGIST [employer] COMM[employer]ICATION[employer] SPECIALIST DINA WALKER M.D. Performed By: #### A DDONUAPLUS ####[address] [address] [facility] Ketones Ql (U) 1+ High Negative [facility] Comment on above: Order Comment: Name Collection Type:: Clean-Voided Midstream Performed By: #### A DDONUAPLUS ####[place] [address] [place] [address] [facility] Leukocyte esterase Test strip Ql (U) Negative Normal Negative [facility] [facility] Comment on above: Order Comment: Name Collection Type:: Clean-Voided Midstream Performed By: #### A DDONUAPLUS ####[address] [address] [facility] Nitrite,Urine Negative Normal Negative [facility] Comment on above: Order Comment: Name Collection Type:: Clean-Voided Midstream Performed By: #### A DDONUAPLUS ####[address] [address] [facility] Occult Blood,Urine 3+ High Negative [facility] Comment on above: Order Comment: Name Collection Type:: Clean-Voided Midstream Result Comment: PERF ORMED BY: [facility] [address] [place] [id number] PATHOLOGIST MILITARY COMMUNICATIONS SPECIALIST DINA WALEKR M.D. Performed By: #### A DDONUAPLUS ####[address] [address] [facility] pH (U) 7.5 [pH] Normal 5.0-9.0 [facility] Comment on above: Order Comment: Name Collection Type:: Clean-Voided Midstream Performed By: #### A DDONUAPLUS ####[address] [address] [facility] Protein,Urine Negative Normal Negative [facility] Comment on above: Order Comment: Name Collection Type:: Clean-Voided Midstream Performed By: #### A DDONUAPLUS ####[address] [address] [facility] RBC,Urine 20-49 High 0-4 [facility] Comment on above: Order Comment: Name Collection Type:: Clean-Voided Midstream Performed By: #### A DDONUAPLUS ####[address] [address] [facility] Specificy [place],Urine 1.011 Normal 1.001-1.030 [facility] Comment on above: Order Comment: Name Collection Type:: Clean-Voided Midstream Performed By: #### A DDONUAPLUS ####[place] [id number] [address] Squamous Epithelial Cell,Urine None Seen Normal 0-2 [facility] Comment on above: Order Comment: Name Collection Type:: Clean-Voided Midstream Performed By: #### A DDONUAPLUS ####[place] [id number] [address] Urobilinogen,Urine Normal Normal Normal [facility] Comment on above: Order Comment: Name Collection Type:: Clean-Voided Midstream Performed By: #### A DDONUAPLUS ####[place] [id number] [address] WBC,Urine None Seen Normal 0-4 [facility] Comment on above: Order Comment: Name Collection Type:: Clean-Voided Midstream Performed By: #### A DDONUAPLUS ####[address] Eosinophils Auto (Bld) [#/Vo l]Ordered By: Lucrecia Nunn on 11-13-2023 Eosinophils (Bld) [#/Vol] 0.3 10*3/uL 0.0-0.45 [facility] Eosinophils/100 WBC Auto (Bl d)Ordered By: Lucrecia Nunn on 11-13-2023 Eosinophils/100 WBC (Bld) 3.4 % . [facility] Erythrocyte distribution wid th Auto (RBC) [Ratio]Ordered By: Lucrecia Nunn on 11-13-2023 Erythrocyte distribution width (RBC) [Ratio] 13.3 % 11.9-15.3 [facility] Globulin Calc (S) [Mass/Vol] Ordered By: Lucrecia Nunn on 11-13-2023 Globulin (S) [Mass/Vol] 3.0 g/dL [facility] Glucose [Mass/volume] in Ser um or PlasmaOrdered By: Lucrecia Nunn on 11-13-2023 Glucose [Mass/Vol] 92 mg/dL 70-100 [facility] Comment on above: ADA recommended refe rence rangeRandom Glucose Reference Range is dependent on time and content of last meal. Glucose of more than 200 mg/dL in a nonstressed, ambulatory subject supports the diagnosis of Diabetes Mellitus. HCG,Qualitative Serumon 10-28 HCG,Qualitative Serum Negative Normal [facility] Comment on above: Result Comment: PERF ORMED BY: [place] [address] PATHOLOGIST MILITARY COMMUNICATIONS SPECIALIST DINA WALKER M.D. Performed By: #### C BC, HEPATIC, LIPASE, HCGQUAL, BMP #### [address] Hematocrit Auto (Bld) [Volum e fraction]Ordered By: Lucrecia Nunn on 11-13-2023 Hematocrit (Bld) [Volume fraction] 40.4 % 34.0-46.4 [facility] Hemoglobin [Mass/volume] in BloodOrdered By: Lucrecia Nunn on 11-13-2023 Hemoglobin (Bld) [Mass/Vol] 13.6 g/dL 11.8-15.4 [facility] Hepatic Panelon 11-13-2023 Albumin [Mass/Vol] 4.8 g/dL Normal 3.5-5.7 [facility] Comment on above: Performed By: #### C BC, HEPATIC, LIPASE, HCGQUAL, BMP #### [address] Albumin/Globulin [Mass ratio] 1.6 {ratio} Normal [facility] Comment on above: Performed By: #### C BC, HEPATIC, LIPASE, HCGQUAL, BMP #### [address] ALP [Catalytic activity/Vol] 59 U/L Normal 34-104 [facility] Comment on above: Performed By: #### C BC, HEPATIC, LIPASE, HCGQUAL, BMP #### [address] ALT [Catalytic activity/Vol] 16 U/L Normal 7-52 [facility] Comment on above: Performed By: #### C BC, HEPATIC, LIPASE, HCGQUAL, BMP #### [address] AST [Catalytic activity/Vol] 18 U/L Normal 13-39 [facility] Comment on above: Performed By: #### C BC, HEPATIC, LIPASE, HCGQUAL, BMP #### [address] Bilirubin [Mass/Vol] 0.5 mg/dL Normal 0.3-1.0 [facility] Comment on above: Performed By: #### C BC, HEPATIC, LIPASE, HCGQUAL, BMP #### [address] Bilirubin,Indirect 0.4 mg/dL Normal [facility] Comment on above: Performed By: #### C BC, HEPATIC, LIPASE, HCGQUAL, BMP #### [address] Bilirubin.indirect [Mass/Vol] 0.10 mg/dL Normal 0.03-0.18 [facility] Comment on above: Performed By: #### C BC, HEPATIC, LIPASE, HCGQUAL, BMP #### [address] Globulin (S) [Mass/Vol] 3.0 g/dL Normal [facility] Comment on above: Performed By: #### C BC, HEPATIC, LIPASE, HCGQUAL, BMP #### [address] Protein [Mass/Vol] 7.8 g/dL Normal 6.4-8.9 [facility] Comment on above: Performed By: #### C BC, HEPATIC, LIPASE, HCGQUAL, BMP #### [address] Ketones Auto test strip (U) [Mass/Vol]Ordered By: Lucrecia Nunn on 11-13-2023 Ketones (U) [Mass/Vol] 1+ Negative [facility] Leukocytes [#/volume] correc marshal for nucleated erythrocytes in Blood by Automated counOrdered By: Lucrecia Nunn on 11-13-2023 WBC corrected for nucl RBC Auto (Bld) [#/Vol] 7.5 10*3/uL 3.8-11.6 [facility] Lipaseon 11-13-2023 Lipase [Catalytic activity/Vol] 45.0 U/L Normal 11.0-82.0 [facility] Comment on above: Performed By: #### C BC, HEPATIC, LIPASE, HCGQUAL, BMP #### [facility] [address] Lipase [Enzymatic activity/v olume] in Serum or PlasmaOrdered By: Lucrecia Nunn on 11-13-2023 Lipase [Catalytic activity/Vol] 45.0 U/L 11.0-82.0 [facility] Lymphocytes Auto (Bld) [#/Vo l]Ordered By: Lucrecia Nunn on 11-13-2023 Lymphocytes (Bld) [#/Vol] 1.7 10*3/uL 1.00-4.8 [facility] Lymphocytes/100 WBC Auto (Bl d)Ordered By: Lucrecia Nunn on 11-13-2023 Lymphocytes/100 WBC (Bld) 22.8 % . [facility] MCH Auto (RBC) [Entitic mass ]Ordered By: Lucrecia Nunn on 11-13-2023 MCH (RBC) [Entitic mass] 29.8 pg 24.7-34.3 [facility] MCHC Auto (RBC) [Mass/Vol]Or dered By: Lucrecia Nunn on 11-13-2023 MCHC (RBC) [Mass/Vol] 33.7 g/dL 32.0-35.0 [facility] MCV Auto (RBC) [Entitic vol] Ordered By: Lucrecia Nunn on 11-13-2023 MCV (RBC) [Entitic vol] 88.6 fL 80-100 [facility] Monocyte distribution width [Entitic volume] in Blood by AutomatedOrdered By: Lucrecia Nunn on 11-13-2023 Monocyte distribution width Auto (Bld) [Entitic vol] 15.49 % 0.00-20.00 [facility] Monocytes Auto (Bld) [#/Vol] Ordered By: Lucrecia Nunn on 11-13-2023 Monocytes (Bld) [#/Vol] 0.4 10*3/uL 0.0-0.8 [facility] Monocytes/100 WBC Auto (Bld) Ordered By: Lucrecia Nunn on 11-13-2023 Monocytes/100 WBC (Bld) 5.9 % . [facility] Neutrophils Auto (Bld) [#/Vo l]Ordered By: Lucrecia Nunn on 11-13-2023 Neutrophils (Bld) [#/Vol] 5.1 10*3/uL 1.8-7.7 [facility] Neutrophils/100 WBC Auto (Bl d)Ordered By: Lucrecia Nunn on 11-13-2023 Neutrophils/100 WBC (Bld) 67.5 % . [facility] Nitrite Test strip Ql (U)Ord ered By: Lucrecia Nunn on 11-13-2023 Nitrite Ql (U) Negative Negative [facility] No Panel InformationOrdered By: Lucrecia Nunn on 11-13-2023 Estimated GFR (CKD-EPI) > 60.0 mL/Min [facility] Creatinine Clearance (Chem 81.17 [facility] Nucleated erythrocytes [Pres ence] in Blood by Automated countOrdered By: Lucrecia Nunn on 11-13-2023 Nucleated RBC Auto Ql (Bld) 0.1 /100{WBC} 0-0.5 [facility] Platelet mean volume Auto (B ld) [Entitic vol]Ordered By: Lucrecia Nunn on 11-13-2023 Platelet mean volume (Bld) [Entitic vol] 8.6 fL 6.3-10.7 [facility] Platelets Auto (Bld) [#/Vol] Ordered By: Lucrecia Nunn on 11-13-2023 Platelets (Bld) [#/Vol] 295 10*3/uL 150-450 [facility] Potassium [Moles/volume] in Serum or PlasmaOrdered By: Lucrecia Nunn on 11-13-2023 Potassium [Moles/Vol] 3.8 mmol/L 3.5-5.1 [facility] Protein Auto test strip (U) [Mass/Vol]Ordered By: Lucrecia Nunn on 11-13-2023 Protein (U) [Mass/Vol] Negative Negative [facility] Protein [Mass/volume] in Ser um or PlasmaOrdered By: Lucrecia Nunn on 11-13-2023 Protein [Mass/Vol] 7.8 g/dL 6.4-8.9 [facility] RBC Auto (Bld) [#/Vol]Ordere d By: Lucrecia Nunn on 11-13-2023 RBC (Bld) [#/Vol] 4.56 10*6/uL 3.60-5.00 [facility] Serum or plasma albumin/glob ulin mass ratioOrdered By: Lucrecia Nunn on 11-13-2023 Albumin/Globulin [Mass ratio] 1.6 {ratio} [facility] Serum or plasma anion gap de terminationOrdered By: Lucrecia Nunn on 11-13-2023 Anion gap [Moles/Vol] 12.0 mmol/L 6.0-15.0 [facility] Serum or plasma non-glucuron idated bilirubin measurement (mass/volume)Ordered By: Lucrecia Nunn on 11-13-2023 Bilirubin.indirect [Mass/Vol] 0.4 mg/dL [facility] Sodium [Moles/volume] in Ser um or PlasmaOrdered By: Lucrecia Nunn on 11-13-2023 Sodium [Moles/Vol] 137 mmol/L 136-145 [facility] Specific gravity Auto test s trip (U) [Rel density]Ordered By: Lucrecia Nunn on 11-13-2023 Specific gravity (U) [Rel density] 1.011 1.001-1.030 [facility] Urea nitrogen [Mass/volume] in Serum or PlasmaOrdered By: Lucrecia Nunn on 11-13-2023 Urea nitrogen [Mass/Vol] 10 mg/dL 7-25 [facility] Urine bacteria detection by automated methodOrdered By: Lucrecia Nunn on 11-13-2023 Bacteria Auto Ql (U) None seen None Seen [facility] Urine clarity by refractomet ry automatedOrdered By: Lucrecia Nunn on 11-13-2023 Clarity Refractometry automated (U) Clear Clear [facility] Urine glucose measurement by automated test strip (mass/volume)Ordered By: Lucrecia Nunn on 11-13-2023 Glucose Auto test strip (U) [Mass/Vol] Normal mg/dL Normal [facility] Urine hemoglobin detection b y automated test stripOrdered By: Lucrecia Nunn on 11-13-2023 Hemoglobin Auto test strip Ql (U) 3+ Negative [facility] Urine leukocyte esterase det ection by automated test stripOrdered By: Lucrecia Nunn on 11-13-2023 Leukocyte esterase Auto test strip Ql (U) Negative Negative [facility] Urobilinogen Auto test strip (U) [Mass/Vol]Ordered By: Lucrecia Nunn on 11-13-2023 Urobilinogen (U) [Mass/Vol] Normal mg/dL Normal [facility] WBC Auto (Bld) [#/Vol]Ordere d By: Lucrecia Nunn on 11-13-2023 WBC (Bld) [#/Vol] 7.5 10*3/uL 3.8-11.6 [facility] pH Auto test strip (U)Ordere d By: Lucrecia Nunn on 11-13-2023 pH (U) 7.5 [pH] 5.0-9.0 [facility] CBC AUTO DIFFon 04-07-2022 BASO # 0.0 103/ul Normal 0.0-0.1 [facility] Comment on above: Performed By: #### C BC #### [facility] [address] [place] [address] Dr. Joe Desir Basophils/100 WBC (Bld) 0.2 % Normal 0.2-2.0 [facility] Comment on above: Performed By: #### C BC #### [facility] [address] [place] [address] Dr. Joe Desir EO # 0.3 103/ul Normal 0.0-0.7 [facility] Comment on above: Performed By: #### C BC #### [facility] [address] [place] [address] Dr. Joe Desir Eosinophils/100 WBC (Bld) 2.1 % Normal 0.9-7.0 [facility] Comment on above: Performed By: #### C BC #### [facility] [address] [place] [address] Dr. Joe Desir Erythrocyte distribution width (RBC) [Ratio] 12.9 % Normal 11.0-15.0 [facility] Comment on above: Performed By: #### C BC #### [facility] [address] [place] [address] Dr. Joe Desir Hematocrit (Bld) [Volume fraction] 41.1 % Normal 36.0-48.0 [facility] Comment on above: Performed By: #### C BC #### [facility] [address] [place] [address] Dr. Joe Desir Hemoglobin (Bld) [Mass/Vol] 13.5 g/dL Normal 12.0-16.0 [facility] Comment on above: Performed By: #### C BC #### [facility] [address] [place] [address] Dr. Joe Desir IG # 0.05 10e3/ul Critically high 0.00-0.03 [facility] Comment on above: Performed By: #### C BC #### [facility] [address] [place] [address] Dr. Joe Desir IG % 0.4 % Normal 0.0-0.5 [facility] Comment on above: Performed By: #### C BC #### [facility] [address] [place] [address] Dr. Joe Desir LYMPH # 2.3 103/ul Normal 1.2-3.8 [facility] Comment on above: Performed By: #### C BC #### [facility] [address] [place] [address] Dr. Joe Desir Lymphocytes/100 WBC (Bld) 17.7 % Critically low 20.5-60.0 [facility] Comment on above: Performed By: #### C BC #### [facility] [address] [place] [address] Dr. Joe Desir MANUAL DIFF REQ NO Normal [facility] Comment on above: Performed By: #### C BC #### [facility] [address] [place] [address] Dr. Joe Desir MCH (RBC) [Entitic mass] 30.4 pg Normal 26.7-34.0 [facility] Comment on above: Performed By: #### C BC #### [facility] [address] [place] [address] [address] Joe Desir MCHC (RBC) [Mass/Vol] 32.8 g/dL Normal 29.9-35.2 [facility] Comment on above: Performed By: #### C BC #### [facility] [address] [place] [address] [address] Joe Desir MCV (RBC) [Entitic vol] 92.6 fL Normal 81.0-99.0 [facility] Comment on above: Performed By: #### C BC #### [facility] [address] [place] [address] [address] Joe Desir MONO # 0.6 103/ul Normal 0.3-0.8 [facility] Comment on above: Performed By: #### C BC #### [facility] [address] [place] [address] [address] Joe Desir Monocytes/100 WBC (Bld) 4.7 % Normal 1.7-12.0 [facility] Comment on above: Performed By: #### C BC #### [facility] [address] [place] [address] [address] Joe Desir NEUT # 9.6 103/ul Critically high 1.4-6.5 [facility] Comment on above: Performed By: #### C BC #### [facility] [address] [place] [address] [address] Joe Desir Neutrophils/100 WBC (Bld) 74.9 % Normal 43.0-75.0 [facility] Comment on above: Performed By: #### C BC #### [facility] [address] [place] [address] [address] Joe Desir Platelet mean volume (Bld) [Entitic vol] 10.2 fL Normal 9.5-13.5 [facility] Comment on above: Performed By: #### C BC #### [facility] [address] [place] [address] [address] Joe Desir PLT 285 103/ul Normal 150-450 [facility] Comment on above: Performed By: #### C BC #### [facility] [address] [place] [address] Dr. Joe Desir RBC 4.44 106/ul Normal 4.20-5.40 [facility] Comment on above: Performed By: #### C BC #### [facility] [address] [place] [address] Dr. Joe Desir WBC 12.8 103/ul Critically high 4.0-11.0 [facility] Comment on above: Performed By: #### C BC #### [facility] [address] [place] [address] Dr. Joe Desir FREE T4on 04-07-2022 Free T4 [Mass/Vol] 0.70 ng/dL Critically low 0.76-1.46 [facility] Comment on above: Performed By: #### F T4 #### [facility] [address] [place] [address] Dr. Joe Desir TSHon 04-07-2022 TSH 19.728 uIU/mL Critically high 0.358-3.740 [facility] Comment on above: Performed By: #### T SH #### [facility] [address] [place] [address] Dr. Joe Desir [facility] SARS-CoV-2 (COVID-19) RNA KRISS+probe Ql (Unsp spec) Detected Critically abnormal NOT DETECTED [facility] Comment on above: Result Comment: This test is not yet approved or cleared by the [place] FDA. When there are no FDA-approved or cleared tests available, and other criteria are met, FDA can make tests available under an emergency access mechanism called an Emergency Use Authorization (EUA). The EUA for this test is supported by the [place] of Health and Human Service's (HHS's) declaration [...] longer be used). Performed By: #### [facility] #### [facility] [address] [place] [address] Dr. Joe Desir XR ANKLE ELISA MIN [...] YEMI CAMPBELL Date: 2021-07-15 11:42 Normal [facility] MRI ANKLE LT WO CONon 2020 [...] SANFORD MARTINEZ Date: 2021-07-07 19:44 Normal [facility] Covid-19 PCR ([facility])on SARS-CoV-2 (COVID-19) RNA KRISS+probe Ql (Unsp spec) Not detected Normal NOT DETECTED [facility] Comment on above: Result Comment: This test is not yet approved or cleared by the [place] FDA. When there are no FDA-approved or cleared tests available, and other criteria are met, FDA can make tests available under an emergency access mechanism called an Emergency Use Authorization (EUA). The EUA for this test is supported by the [employer] of Health and Human Service's (HHS's) declaration [...] Performed By: #### C VDAGS, CVDTB #### [facility] [address] [place] [address] Emy Cohen SYMPTOMATIC COVID-19 ANTIGEN on 05-30-2021 EUA Statement SEE BELOW Normal [facility] Comment on above: Result Comment: This test [...] Performed By: #### C SITAS, CVDTB #### [facility] [address] [place] [id number] Emy Cohen SARS-CoV-2 (COVID-19) RNA KRISS+probe Ql (Unsp spec) Negative Normal NEGATIVE [facility] Comment on above: Result Comment: CONF IRMATION BY PCR PENDING PER CDC GUIDELINES/ SYMPTOMATIC PATIENT. Performed By: #### C SYDAGS, CVDTB #### [facility] [address] [place], [place] [address] Emy Cohen Vital Signs Date Time Vital Sign Value Performing Clinician Facility 05-30-2024 14:38-0400 Body height 152.4 cm [facility] 05-30-2024 14:38-0400 Body mass index (BMI) [Ratio] 25.5 kg/m2 [facility] 05-30-2024 14:38-0400 Body weight 59.42 kg [facility] 05-30-2024 14:38-0400 Diastolic blood pressure 74 mm[Hg] [facility] 05-30-2024 14:38-0400 Heart rate 67 /min [facility] 05-30-2024 14:38-0400 SaO2% (BldA) [Mass fraction] 98 % [facility] 05-30-2024 14:38-0400 Systolic blood pressure 122 mm[Hg] [facility] 03-28-2024 14:25-0400 Body height 152.4 cm [facility] 03-28-2024 14:25-0400 Body mass index (BMI) [Ratio] 25 kg/m2 [facility] 03-28-2024 14:25-0400 Body weight 58.05 kg [facility] 03-28-2024 14:25-0400 Diastolic blood pressure 68 mm[Hg] [facility] 03-28-2024 14:25-0400 Heart rate 75 /min [facility] 03-28-2024 14:25-0400 Systolic blood pressure 103 mm[Hg] [facility] 01-12-2024 13:06-0400 Body height 152.4 cm MD Tiera Dumas Work Phone: [facility] 01-12-2024 13:06-0400 Body mass index (BMI) [Ratio] 25.7 kg/m2 MD Tiera Dumas Work Phone: [facility] 01-12-2024 13:06-0400 Body weight 59.87 kg MD Tiera Dumas Work Phone: [facility] 01-12-2024 13:06-0400 Diastolic blood pressure 72 mm[Hg] MD Tiera Dumas Work Phone: [facility] 01-12-2024 13:06-0400 Heart rate 74 /min MD Tiera Dumas Work Phone: [facility] 01-12-2024 13:06-0400 SaO2% (BldA) [Mass fraction] 98 % MD Tiera Dumas Work Phone: [facility] 01-12-2024 13:06-0400 Systolic blood pressure 110 mm[Hg] MD Tiera Dumas Work Phone: [facility] 12-07-2023 17:40-0400 Diastolic blood pressure 76 mm[Hg] MD Tiera Dumas Work Phone: [facility] 12-07-2023 17:40-0400 Heart rate 69 /min MD Tiera Dumas Work Phone: [facility] 12-07-2023 17:40-0400 Respiratory rate 16 /min MD Tiera Dumas Work Phone: [facility] 12-07-2023 17:40-0400 SaO2% (BldA) [Mass fraction] 99 % MD Tiera Dumas Work Phone: [facility] 12-07-2023 17:40-0400 Systolic blood pressure 111 mm[Hg] MD Tiera Dumas Work Phone: [facility] 12-07-2023 15:13-0400 Body height 152.4 cm MD Tiera Dumas Work Phone: [facility] 12-07-2023 15:13-0400 Body mass index (BMI) [Ratio] 25.4 kg/m2 MD Tiera Dumas Work Phone: [facility] 12-07-2023 15:13-0400 Body weight 58.96 kg MD Tiera Dumas Work Phone: [facility] 12-07-2023 14:47-0400 Body temperature 98.8 [degF] MD Tiera Dumas Work Phone: [facility] 12-07-2023 11:34-0400 Body temperature 98.6 [degF] Mariano ENEDINA [facility] [place] 12-07-2023 11:34-0400 Diastolic blood pressure 78 mm[Hg] Mariano MCCONNELL [facility] 12-07-2023 11:34-0400 Heart rate 64 /min Mariano COOK [facility] 12-07-2023 11:34-0400 Respiratory rate 16 /min Mariano COOK [facility] 12-07-2023 11:34-0400 Systolic blood pressure 111 mm[Hg] Mariano COOK [facility] 11-13-2023 12:21-0500 Diastolic blood pressure 72 mm[Hg] MD Tiera Dumas Work Phone: [facility] 11-13-2023 12:21-0500 Heart rate 63 /min MD Tiera Dumas Work Phone: [facility] 11-13-2023 12:21-0500 Respiratory rate 18 /min MD Tiera Dumas Work Phone: [facility] 11-13-2023 12:21-0500 SaO2% (BldA) [Mass fraction] 100 % MD Tiera Dumas Work Phone: [facility] 11-13-2023 12:21-0500 Systolic blood pressure 106 mm[Hg] MD Tiera Dumas Work Phone: [facility] 11-13-2023 10:02-0500 Body height 156.21 cm MD Tiera Dumas Work Phone: [facility] 11-13-2023 10:02-0500 Body temperature 97.4 [degF] MD Tiera Dumas Work Phone: [facility] 11-13-2023 10:02-0500 Body weight 59 kg MD Tiera Dumas Work Phone: [facility] 12-13-2022 11:21-0400 Body height 154.94 cm MD Tiera Dumas Work Phone: [facility] 12-13-2022 11:21-0400 Body temperature 97.9 [degF] MD Tiera Dumas Work Phone: [facility] 12-13-2022 11:21-0400 Body weight 59 kg MD Tiera Dumas Work Phone: [facility] 12-13-2022 11:21-0400 Diastolic blood pressure 79 mm[Hg] MD Tiera Dumas Work Phone: [facility] 12-13-2022 11:21-0400 Heart rate 87 /min MD Tiera Dumas Work Phone: [facility] 12-13-2022 11:21-0400 Respiratory rate 18 /min MD Tiera Dumas Work Phone: [facility] 12-13-2022 11:21-0400 SaO2% (BldA) [Mass fraction] 97 % MD Tiera Dumas Work Phone: [facility] 12-13-2022 11:21-0400 Systolic blood pressure 118 mm[Hg] MD Tiera Dumas Work Phone: [facility] 12-03-2022 11:15-0500 Body height 153.67 cm Tiera Dumas Other [employer] Other 12-03-2022 11:15-0500 Body mass index (BMI) [Ratio] 24.78 kg/m2 Tiera Dumas Other [employer] Other 12-03-2022 11:15-0500 Body temperature 99.7 [degF] Tiera Dumas Other [employer] Other 12-03-2022 11:15-0500 Body weight 58.51 kg Tiera Dumas Other [employer] Other 12-03-2022 11:15-0500 Diastolic blood pressure 72 mm[Hg] Tiera Dumas Other [employer] Other 12-03-2022 11:15-0500 SaO2% (BldA) [Mass fraction] 97 % Tiera Dumas Other [employer] Other 12-03-2022 11:15-0500 Systolic blood pressure 112 mm[Hg] Tiera Dumas Other [employer] Other Encounters Encounter Date Encounter Type Care Provider Facility Start: 05-30-2024 End: 05-30-2024 ambulatory [facility] Work Phone: Start: 05-30-2024 End: 05-30-2024 Patient encounter procedure [facility] Work Phone: Start: 03-28-2024 End: 03-28-2024 ambulatory [facility] Work Phone: Start: 03-28-2024 End: 03-28-2024 Patient encounter procedure [facility] Work Phone: Start: 01-12-2024 End: 01-12-2024 ambulatory MD Tiera Dumas Work Phone: [facility] Work Phone: Start: 01-12-2024 End: 01-12-2024 Patient encounter procedure MD Tiera Dumas Work Phone: [facility] Work Phone: Start: 12-07-2023 End: 12-07-2023 ambulatory Mariano Mcconnell Facility:[facility] Start: 12-07-2023 End: 12-07-2023 Admission to same day surgery center MD Tiera Dumas Work Phone: [facility] [place] Start: 12-07-2023 End: 12-08-2023 ambulatory Mariano MCCONNELL Facility:[id number] Start: 12-07-2023 End: 12-08-2023 ambulatory Mariano MCCONNELL Facility:[facility] Start: 12-07-2023 End: 12-07-2023 Patient encounter procedure Mariano MCCONNELL [facility] Start: 12-01-2023 End: 12-01-2023 ambulatory Tiera Dumas Facility:[facility] Start: 12-01-2023 End: 12-01-2023 Patient encounter procedure MD Tiera Dumas Work Phone: [facility] [place] Work Phone: Start: 11-16-2023 ambulatory Mariano MCCONNELL Facility:[facility] Start: 11-13-2023 End: 11-13-2023 Emergency department patient visit Tiera Dumas Facility:[facility] Start: 11-13-2023 End: 11-13-2023 Emergency department patient visit MD Tiera Dumas Work Phone: [facility] Work Phone: Start: 07-07-2023 (Televisit) Televisit Tiera Dumas [facility] Start: 07-07-2023 End: 07-07-2023 ambulatory Tiera Dumas Other [employer] Other Start: 12-16-2022 End: 12-16-2022 ambulatory Tiera Dumas Other [employer] Other Start: 12-16-2022 Telephone encounter Tiera Dumas [facility] Start: 12-13-2022 End: 12-13-2022 Emergency department patient visit MD Tiera Dumas Work Phone: [facility] Work Phone: Start: 12-03-2022 End: 12-03-2022 ambulatory Tiera Dumas Other [employer] Other Start: 12-03-2022 Office outpatient vi sit 15 minutes Tiera Dumas [facility] Start: 04-07-2022 End: 04-08-[address] TIERA [...] Date Care Activity Detail Author Start: 12-07-2023 [facility] Start: 12-07-2023 [facility] Patient Education [facility] Work Phone: Patient referral [facility] Work Phone: [facility] Immunizations Immunization Date Immunization Notes Care Provider Fa cility 02-13-2021 SARS-CoV-2 (COVID-19 ) mRNA-1273 vaccine Mariano MCCONNELL [facility] 01-15-2021 SARS-CoV-2 (COVID-19 ) mRNA-1273 vaccine Mariano MCCONNELL [facility] 07-10-2018 influenza virus vaccine, unspecified formulation Mariano MCCONNELL [facility] 07-10-2018 Influenza, injectabl e, Madin Amairani Canine Kidney, preservative free, quadrivalent MD Tiera Dumas Work Phone: [facility] 07-24-2015 influenza virus vaccine, unspecified formulation Mariano MCCONNELL [facility] 07-24-2015 influenza, injectabl e, quadrivalent, contains preservative MD Tiera Dumas Work Phone: [facility] 07-25-2014 influenza virus vaccine, unspecified formulation Mariano MCCONNELL [facility] 07-25-2014 influenza, seasonal, injectable, preservative free MD Tiera Dumas Work Phone: [facility] 08-02-2013 influenza virus vaccine, unspecified formulation Mariano MCCONNELL [facility] 08-02-2013 influenza, seasonal, injectable MD Tiera Dumas Work Phone: [facility] NEGATED: Highlighted row has not occurred!12-07-2023 influenza virus vaccine, unspecified formulation Mariano MCCONNELL [facility] Payers Date Payer Category Payer Self-pay [id number] 2015 Unknown 1979 Unknown [id number] .16.84 [id number] 1979 Unknown [id number] .16.84 [id number] 1979 Unknown [id number] .16.84 [id number] 1979 Unknown [id number] .16.84 [id number] 1979 Unknown [id number] .16.84 [id number] 1979 Unknown [id number] .16.84 [id number] 1979 Unknown [id number] 2.16.8 [id number] 1979 Unknown [id number] 2.16.8 [id number] 1979 Unknown [id number] 2.16.8 [id number] 1959 Unknown [id number] Unknown [id number] 2.16.8 [id number] Unknown [id number] 2.16.8 [id number] Unknown [id number] 2.16.8 [id number] Social History Date Type Detail Facility Start: 12-13-2022 Tobacco smoking status [facility] Never smoked tobacco (finding) [facility] Start: 1980 Sex Assigned At Female [facility]igned [facility] Start: 11-13-2023 End: 03-28-2024 Tobacco smoking status DEIS Ex-smoker (finding) [facility] Tobacco smoking status Never [facility] NEGATED: Highlighted row [facility] Goals Date Patient Goal Desired Activity /State Functional Status Date Assessment Result Facility 12-07-2023 Functional Status N/A [facility] Clinical Notes 12-03-2022 to 12-07-2023 Note Date [...] including vitamins, herbs, eye drops, creams, and pspd-xkd-szolayi medicines. Any problems you or family members [...] provider tells you to take them. ?Taking mqmt-bnw-nfsvaqn medicines, vitamins, herbs, and supplements. Eating and [...] provider. Document Revised: 01/20/2023 Document Reviewed: 05/18/[address] Patient Education 2022 [employer]. Follow Up Care 12/06/2023 08:36:19 With:ENEDINA CONTRERAS, Mariano Causey, URL Address: [address] [place] [address] [place], [place] [id number]- When: Unknown Comments:sched cysto/L RGP/URS/possible stent [facility] Jane 07-07-2023 Evaluation note Encounter Date Diagnosis Assessment Notes Jun, Bronchitis (ICD-10 - J40) Finish antibiotics as prescribed. Medrol for chest tightness. Will call if needs work note. [employer] Other 03-09-2023 Evaluation note* Encounter Date Diagnosis Assessment Notes Treatment Notes Treatment Clinical Notes Nov, Hematuria, unspecified type (ICD-10 - R31.9) Will treat based on her symptoms Nov, Lumbar pain (ICD-10 - M54.50) Generalized pain. no acute injury. Recommend rest and heat. [employer] Other Evaluation + Plan note No data available for this section [facility] [place] Evaluation noteNo assessment information available [facility] Work Phone: Evaluation noteNo InformationN[employer] Other Evaluation note* Diagnosis Onset Date Resolution Status Sinusitis acute Fatigue acute Hypothyroid acute [facility] Work Phone: Evaluation note* Diagnosis Onset Date Resolution Status Acute thoracic back pain acu te Fatigue acute Hypothyroid acute [facility] Work Phone: History general Narrative - [...] Left Shoulder Surgery, Problem Status : Active, [employer] Other Hospital Discharge instructions Additional Instructions We [...] if you develop any worsening or concerning symptoms.[facility] Work Phone: Progress note No data available for this section [facility] Summary Purpose Family History Relationship Condition Age [...] DATE CREATED AUTHOR AUTHOR'S ORGANIZ ATION 12/15/2023 [facility] DATE CREATED AUTHOR AUTHOR'S ORGANIZ ATION 01/14/2024 [facility] Care Teams (unrecognized sec [...] End: January 12, 2024 Nguyen Aguirre APRN HEAD NECK SURGEON-C Attending Provider Act ophelia Start: January 12, [...] IssuesNeeds off Wor k NoteSinuses, Congestion, Cough- [phone] FOR RECORDS PERTAINING TO PATIENTS WHO ARE [...] BE BASED ON THE PRIMARY CLINICAL RECORDS. [facility]. provides no warranty or guarantee of the accuracy or completeness of information in this document.
--- NOTE | 2024-09-13 10:35 | XR_ITS ---
The [address] [address] Patient Name: RACHEL TAYLOR MRN: [id number] date: 1980 Sex: F Assigned Patient Location: Current Patient Location: Accession/Order Number: [id number] Exam Date: 09/13/2024 10:44 Report Date: 09/14/2024 06:02 At the request of: LACY SHARMA Procedure: XR foot LT min 3V PROCEDURE: XR foot LT min 3V HISTORY: Left Foot Pain COMPARISON: XR foot left 08/16/2024 FINDINGS: BONES:No fracture, acute abnormality, or significant arthropathy. SOFT TISSUES:No visible soft tissue swelling. EFFUSION:None visible. OTHER: Negative. XR/XR foot LT min 3V IMPRESSION: 1. No appreciable abnormality. Electronically authenticated by: EDWARD SMITH Date: 09/14/2024 06:02
--- OUTSIDE RECORDS SUMMARY | 2024-09-13 10:51 | XMS_ITS | CCD ---
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 Name Role Phone SHAIKH Desmond HOUSE Admitting [...] TIERA Zacarias Primary Care Unavailable MD Tiera uDmas Primary Care Provider [phone] LELA Quijano Emergency Provider [phone] Tiera Dumas Unavailable MD Tiera Dumas Primary Care Provider DO Lucrecia Nunn Emergency Provider [phone] TIERA DUMAS Primary Care Physician Mariano MCCONNELL [...] Translations: [codeine] Drug Allergy 5 unknown [facility] Repository (4 sources) Morphine; Translations: [morphine] Drug Allergy 5 Gastrointestinal Upset [facility] Repository (1 source) Codeine; Translations: [codeine] Drug Allergy Nausea and vomiting [facility] (1 source) Morphine; Translations: [morphine] Drug Allergy Nausea [facility] (1 source) Codeine Drug Allergy 4 [facility] Repository (1 source) Morphine Drug Allergy [address] [place] [address] Repository Medications Current Medications Medication Drug Class(es) [...] (Bld) [#/Vol] 0.0 10 3/uL 0.0-0.1 [facility] Basophils/100 WBC Auto (Bld) on 03-28-2024 Basophils/100 WBC (Bld) 0.6 % 0.2-2.0 [facility] Eosinophils/100 WBC Auto (Bl d)on 03-28-2024 Eosinophils/100 WBC (Bld) 5.2 % 0.9-7.0 [facility] Erythrocyte distribution wid th Auto (RBC) [Ratio]on 03-28-2024 Erythrocyte distribution width (RBC) [Ratio] 12.7 % 11.0-15.0 [facility] Estimated glomerular filtrat ion rate (GFR) non- Americanon 03-28-2024 GFR/1.73 sq M.predicted among non-blacks MDRD (S/P/Bld) [Vol rate/Area] mL/min/{1.73_m2} >=60 [facility] Hematocrit Auto (Bld) [Volum e fraction]on 03-28-2024 Hematocrit (Bld) [Volume fraction] 38.0 % 36.0-48.0 [facility] Hemoglobin [Mass/volume] in Bloodon 03-28-2024 Hemoglobin (Bld) [Mass/Vol] 12.2 g/dL 12.0-16.0 [facility] Laboratory - Chemistry and C hemistry - challengeon 03-28-2024 Calcium [Mass/Vol] 8.9 mg/dL 8.5-10.1 [facility] Chloride [Moles/Vol] 105 mmol/L 98-107 [facility] CO2 [Moles/Vol] 28.1 mmol/L 21.0-32.0 [facility] Creatinine [Mass/Vol] 0.78 mg/dL 0.55-1.02 [facility] Free T4 [Mass/Vol] 1.17 ng/dL 0.76-1.46 [facility] GFR/1.73 sq M.predicted MDRD (S/P/Bld) [Vol rate/Area] mL/min/{1.73_m2} >=60 [facility] Glucose [Mass/Vol] 98 mg/dL 74-106 [facility] Potassium [Moles/Vol] 3.7 mmol/L 3.5-5.1 [facility] Sodium [Moles/Vol] 140 mmol/L 136-145 [facility] TSH Qn 1.152 m[IU]/L 0.358-3.740 [facility] Urea nitrogen [Mass/Vol] 9.0 mg/dL 7.0-18.0 [facility] Urea nitrogen/Creatinine [Mass ratio] 11.5 mg/mg [facility] Laboratory - Hematology and Cell countson 03-28-2024 Immature granulocytes/100 WBC (Bld) 0.3 % 0.0-0.5 [facility] Leukocytes [#/volume] correc marshal for nucleated erythrocytes in Blood by Automated counon 03-28-2024 WBC corrected for nucl RBC Auto (Bld) [#/Vol] 7.1 10 3/uL 4.0-11.0 [facility] Lymphocytes Auto (Bld) [#/Vo l]on 03-28-2024 Lymphocytes (Bld) [#/Vol] 2.2 10 3/uL 1.2-3.8 [facility] Lymphocytes/100 WBC Auto (Bl d)on 03-28-2024 Lymphocytes/100 WBC (Bld) 31.1 % 20.5-60.0 [facility] MCH Auto (RBC) [Entitic mass ]on 03-28-2024 MCH (RBC) [Entitic mass] 29.9 pg 26.7-34.0 [facility] MCHC Auto (RBC) [Mass/Vol]on 03-28-2024 MCHC (RBC) [Mass/Vol] 32.1 g/dL 29.9-35.2 [facility] MCV Auto (RBC) [Entitic vol] on 03-28-2024 MCV (RBC) [Entitic vol] 93.1 fL 81.0-99.0 [facility] Monocytes Auto (Bld) [#/Vol] on 03-28-2024 Monocytes (Bld) [#/Vol] 0.4 10 3/uL 0.3-0.8 [facility] Monocytes/100 WBC Auto (Bld) on 03-28-2024 Monocytes/100 WBC (Bld) 6.1 % 1.7-12.0 [facility] Neutrophils Auto (Bld) [#/Vo l]on 03-28-2024 Neutrophils (Bld) [#/Vol] 4.0 10 3/uL 1.4-6.5 [facility] Neutrophils/100 WBC Auto (Bl d)on 03-28-2024 Neutrophils/100 WBC (Bld) 56.7 % 43.0-75.0 [facility] No Panel Informationon 03-28 Eosinophils # (Auto) 0.4 10 3/uL 0.0-0.7 [facility] Immature Granulocyte # (Auto) 0.02 10 3/uL 0.00-0.03 [facility] Platelet mean volume Auto (B ld) [Entitic vol]on 03-28-2024 Platelet mean volume (Bld) [Entitic vol] 10.4 fL 9.5-13.5 [facility] Platelets Auto (Bld) [#/Vol] on 03-28-2024 Platelets (Bld) [#/Vol] 270 10 3/uL 150-450 [facility] RBC Auto (Bld) [#/Vol]on RBC (Bld) [#/Vol] 4.08 10 6/uL Low 4.20-5.40 [facility] Serum or plasma anion gap de terminationon 03-28-2024 Anion gap [Moles/Vol] 10.6 mmol/L [facility] Formson 12-08-2023 Forms [id number] #1.00TIFF Normal [facility] Operative Reporton Operative Report [id number] #1.00TIFF Normal [facility] RAD - MISCon 12-08-2023 [facility] - MISC [id number] #1.00TIFF Normal [facility] [id number] #1.00TIFF Normal [facility] Ambulatory Visit Summaryon 0 12-07-2023 [...] including vitamins, herbs, eye drops, creams, and jxcu-ssx-vypnqwv medicines. ? Any problems you or family [...] tells you to take them. ? Taking fytx-zzi-fyxafhf medicines, vitamins, herbs, and supplements. Eating and [...] dri (more content not included)... Normal [facility] Amphetamine Screen Ql (U)Ord ered By: Sanford Mason on 12-07-2023 Amphetamines Ql (U) Negative Negative [facility] Barbiturates [Presence] in U rine by Screen methodOrdered By: Sanford Mason on 12-07-2023 Barbiturates Screen Ql (U) Negative Negative [facility] Benzodiazepines Screen Ql (U )Ordered By: Sanford Mason on 12-07-2023 Benzodiazepines Ql (U) Negative Negative [facility] Benzoylecgonine [Presence] i n Urine by Screen methodOrdered By: Sanford Mason on 12-07-2023 Benzoylecgonine Screen Ql (U) Negative Negative [facility] Cannabinoids [Presence] in U rine by Screen methodOrdered By: Sanford Mason on 12-07-2023 Cannabinoids Screen Ql (U) Positive Negative [facility] Comment on above: These are unconfirme d results and should not be used for legal purposes. Drug Cut-Off Concentration: AMPH 1000 ng/mL GARETT 200 ng/mL LEVY 200 ng/mL COCM 300 ng/mL OP 300 ng/mL PCP 25 ng/mL THC 20 ng/mL Drug Screen,Urineon 12-07-19 24 Amphetamine Screen,Urine Negative Normal Negative [facility] Comment on above: Performed By: #### U RDS #### [address] Barbiturate Screen,Urine Negative Normal Negative [facility] Comment on above: Performed By: #### U RDS #### [address] Benzodiazepines Screen,Urine Negative Normal Negative [facility] Comment on above: Performed By: #### U RDS #### [address] Cannabinoid Screen,Urine Positive High Negative [facility] Comment on above: Result Comment: Thes e are unconfirmed results and should not be used for legal purposes. Drug Cut-Off Concentration: AMPH 1000 ng/mL GARETT 200 ng/mL LEVY 200 ng/mL COCM 300 ng/mL OP 300 ng/mL PCP 25 ng/mL THC 20 ng/mL PERFORMED BY: [place] [address] PATHOLOGIST TRIPE SCRAPER DINA WALKER M.D. Performed By: #### U RDS #### [address] Cocaine Screen,Urine Negative Normal Negative [facility] Comment on above: Performed By: #### U RDS #### [address] Opiate Screen,Urine Negative Normal Negative [facility] Comment on above: Performed By: #### U RDS #### [address] Phencyclidine Screen,Urine Negative Normal Negative [facility] Comment on above: Performed By: #### U RDS #### [address] [place] urethrocystogram retroon 12-07-2023 [place] urethrocystogram retro [facility] [place] [address] [place] [address] Fluoroscopy Report Signed Patient: Nguyen Taylor MR#: [id number] : 1980 Acct:[id number] Age/Sex: 43 / F ADM Date: 12/07/23 Loc: ID Room: Type: [facility] Attending Dr: Mariano Mcconnell MD Copies to: [...] Gabriele Corbin M.D.12/07/2023 6:04 PM Dictation Location: [place] [address] Transcribed By: [facility] 12/07/231803 Dictated By: Gabriele Corbin II, MD 12/07/231801 Signed By: 12/07/231803 Normal [facility] HCG ( test) IA.rapi d Ql (U)Ordered By: Sanford Mason on 12-07-2023 HCG ( test) Ql (U) Negative [facility] HCG,Urineon 12-07-2023 Beta HCG ( test) Ql (U) Negative Normal [facility] Comment on above: Result Comment: PERF ORMED BY: [place] [address] PATHOLOGIST TRIPE SCRAPER DINA WALKER M.D. Performed By: #### U HCG #### [address] Insurance Correspondenceon 0 12-07-2023 Insurance Correspondence [id number] 29#1.00TIFF Normal [facility] Opiates [Presence] in Urine by Screen methodOrdered By: Sanford Mason on 12-07-2023 Opiates Screen Ql (U) Negative Negative [facility] Patient Educationon 12-07-19 Patient Education Nephrology [...] including vitamins, herbs, eye drops, creams, and vgvn-rns-qtpwxcf medicines. ? Any problems you or family [...] tells you to take them. ? Taking gqfg-xhy-osbygvf medicines, vitamins, herbs, and supplements. Eating and [...] the pieces (more content not included)... Normal [facility] Phencyclidine Screen Ql (U)O rdered By: Sanford Mason on 12-07-2023 Phencyclidine Ql (U) Negative Negative [facility] Urology Office/Clinic Noteon 12-07-2023 Urology Office/Clinic Note Chief Complaint Pt is here for [facility] f/u HPI Staff 43 year old female New Pt. Pt. was in the [facility] ER on 11/13/23 due to Lt. lower [...] 1. Ureteral stone (N20.1: Calculus of ureter) [facility] ER visit 11/13/23 due to left flank pain. Given Fomax and pain medication to help pass stone. CT AP w con 11/13/23 [facility] - Obstructing 3 mm L UVJ calculus [...] from a couple days ago at the [facility] is inconclusive. She continues with significant pain up to a level 7 out of 10 and does desire surgical intervention. This is well outlined above. She understands the ris (more content not included)... Normal [facility] Comment on above: Result Comment: Elec tronically Signed By: Mariano MCCONNELL MD\.br\Date and Time Signed: 12/07/23 12:06 EDT\.br\Electronically Co-Signed By: Lakeisha Beebe\.br\Date and Time Co-Signed: 12/07/23 12:02 EDT RAD - MISCon 12-06-2023 RAD - MISC [id number] #1.00TIFF [facility] XR KUBon 12-01-2023 XR KUB [facility] [place] [address] XRay Report Signed Patient: Nguyen Taylor MR#: [id number] : 1980 Acct:[id number] Age/Sex: 43 / F ADM Date: 12/01/23 Loc: XD Room: Type: [facility] Attending Dr: Mariano Mcconnell MD Copies [...] Palacios Jr., D.O.12/01/2023 4:13 PM Dictation Location: [place] [address] Transcribed By: [facility] 12/01/23 1613 Dictated By: Freeman Palacios Jr, DO 12/01/23 1611 Signed By: 12/01/23 1613 Normal [facility] ED Note-Physicianon 11-19-19 ED Note-Physician [id number] #1.00TIFF Normal [facility] Alanine aminotransferase [En zymatic activity/volume] in Serum or PlasmaOrdered By: Lucrecia Nunn on 11-13-2023 ALT [Catalytic activity/Vol] 16 U/L 7-52 [facility] Albumin [Mass/volume] in Ser um or Plasma by Bromocresol green (BCG) dye binding methoOrdered By: Lucrecia Nunn on 11-13-2023 Albumin BCG dye [Mass/Vol] 4.8 g/dL 3.5-5.7 [facility] Alkaline phosphatase [Enzyma tic activity/volume] in Serum or PlasmaOrdered By: Lucrecia Nunn on 11-13-2023 ALP [Catalytic activity/Vol] 59 U/L 34-104 [facility] Aspartate aminotransferase [ Enzymatic activity/volume] in Serum or PlasmaOrdered By: Lucrecia Nunn on 11-13-2023 AST [Catalytic activity/Vol] 18 U/L 13-39 [facility] Automated epithelial cells c ount in urine sediment (number/area)Ordered By: Lucrecia Nunn on 11-13-2023 Epithelial cells Auto (Urine sed) [#/Area] None seen [HPF] 0-2 [facility] Automated erythrocytes count in urine sediment (number/area)Ordered By: Lucrecia Nunn on 11-13-2023 RBC Auto (Urine sed) [#/Area] 20-49 [HPF] 0-4 [facility] Automated leukocytes count i n urine sediment (number/area)Ordered By: Lucrecia Edouard on 11-13-2023 WBC Auto (Urine sed) [#/Area] None seen [HPF] 0-4 [facility] Automated urine hyaline cast s count (number/volume)Ordered By: Lucrecia Edouard on 11-13-2023 Hyaline casts Auto (U) [#/Vol] None seen [LPF] 0-1 [facility] Basic Metabolic Panelon 10-28 Anion gap [Moles/Vol] 12.0 mmol/L Normal 6.0-15.0 [facility] Comment on above: Performed By: #### C BC, HEPATIC, LIPASE, HCGQUAL, BMP #### [address] Calcium [Mass/Vol] 9.6 mg/dL Normal 8.6-10.3 [facility] Comment on above: Performed By: #### C BC, HEPATIC, LIPASE, HCGQUAL, BMP #### [address] Chloride [Moles/Vol] 106 mmol/L Normal 98-107 [facility] Comment on above: Performed By: #### C BC, HEPATIC, LIPASE, HCGQUAL, BMP #### [address] CO2 [Moles/Vol] 22.8 mmol/L Normal 21.0-31.0 [facility] Comment on above: Performed By: #### C BC, HEPATIC, LIPASE, HCGQUAL, BMP #### [address] Creatinine [Mass/Vol] 0.73 mg/dL Normal 0.60-1.20 [facility] Comment on above: Performed By: #### C BC, HEPATIC, LIPASE, HCGQUAL, BMP #### [address] Creatinine Clr Calc Pharmacy 81.17 Normal [facility] Comment on above: Performed By: #### C BC, HEPATIC, LIPASE, HCGQUAL, BMP #### [address] GFR/1.73 sq M.predicted MDRD (S/P/Bld) [Vol rate/Area] mL/min/{1.73_m2} Normal [facility] Comment on above: Performed By: #### C BC, HEPATIC, LIPASE, HCGQUAL, BMP #### [facility] [address] Glucose [Mass/Vol] 92 mg/dL Normal 70-100 [facility] Comment on above: Result Comment: [facility] Glucose Reference Range is dependent on time and content of last meal. Glucose of more than 200 mg/dL in a nonstressed, ambulatory subject supports the diagnosis of Diabetes Mellitus. ADA recommended reference range Performed By: #### C BC, HEPATIC, LIPASE, HCGQUAL, BMP #### [address] Potassium [Moles/Vol] 3.8 mmol/L Normal 3.5-5.1 [facility] Comment on above: Performed By: #### C BC, HEPATIC, LIPASE, HCGQUAL, BMP #### [place] [address] [place] Sodium [Moles/Vol] 137 mmol/L Normal 136-145 [facility] Comment on above: Performed By: #### C BC, HEPATIC, LIPASE, HCGQUAL, BMP #### [place] [address] [place] Urea nitrogen [Mass/Vol] 10 mg/dL Normal 7-25 [facility] Comment on above: Performed By: #### C BC, HEPATIC, LIPASE, HCGQUAL, BMP #### [facility] [address] [place] [address] [place] Basophils Auto (Bld) [#/Vol] Ordered By: Lucrecia Nunn on 11-13-2023 Basophils (Bld) [#/Vol] 0.0 10*3/uL 0.0-0.2 [facility] Basophils/100 WBC Auto (Bld) Ordered By: Lucrecia Nunn on 11-13-2023 Basophils/100 WBC (Bld) 0.4 % . [facility] Bilirubin Test strip Ql (U)O rdered By: Lucrecia Nunn on 11-13-2023 Bilirubin Ql (U) Negative Negative [facility] Bilirubin.direct [Mass/volum e] in Serum or PlasmaOrdered By: Lucrecia Nunn on 11-13-2023 Bilirubin.direct [Mass/Vol] 0.10 mg/dL 0.03-0.18 [facility] Bilirubin.total [Mass/volume ] in Serum or PlasmaOrdered By: Lucrecia Nunn on 11-13-2023 Bilirubin [Mass/Vol] 0.5 mg/dL 0.3-1.[address] [facility] CT abdomen pelvis w conon CT abdomen pelvis w con [facility] [place] [address] [place] [address] CT Scan Report Signed Patient: Nguyen Taylor MR#: [id number] : 1980 Acct:[id number] Age/Sex: 43 / F ADM Date: 11/13/23 Loc: ER Room: Type: [facility] ER Attending Dr: Copies to: [...] Palacios Jr., D.OPatito11/13/2023 11:29 AM Dictation Location: [place] [address] Transcribed By: [facility] 11/13/23 1129 Dictated By: Freeman Palacios Jr, DO 11/13/23 1125 Signed By: 11/13/23 1129 Normal [facility] Calcium [Mass/volume] in Ser um or PlasmaOrdered By: Lucrecia Nunn on 11-13-2023 Calcium [Mass/Vol] 9.6 mg/dL 8.6-10.3 [facility] Carbon dioxide, total [Moles /volume] in Serum or PlasmaOrdered By: Lucrecia Nunn on 11-13-2023 CO2 [Moles/Vol] 22.8 mmol/L 21.0-31.0 [facility] Chloride [Moles/volume] in S noemy or PlasmaOrdered By: Lucrecia Nunn on 11-13-2023 Chloride [Moles/Vol] 106 mmol/L 98-107 [facility] Choriogonadotropin.beta subu nit [Units/volume] in Serum or PlasmaOrdered By: Lucrecia Nunn on 11-13-2023 HCG.beta subunit Qn Negative [facility] Color Auto (U)Ordered By: Shashank Nunn on 11-13-2023 Color (U) Yellow Yellow [facility] Complete Blood Count Auto Di ffon 11-13-2023 Basophils (Bld) [#/Vol] 0.0 10*3/uL Normal 0.0-0.2 [facility] Comment on above: Result Comment: PERF ORMED BY: [place] [address] PATHOLOGIST TRIPE SCRAPER DINA WALKER M.D. Performed By: #### C BC, HEPATIC, LIPASE, HCGQUAL, BMP #### [address] Basophils/100 WBC (Bld) 0.4 % Normal . [facility] Comment on above: Performed By: #### C BC, HEPATIC, LIPASE, HCGQUAL, BMP #### [address] Eosinophils (Bld) [#/Vol] 0.3 10*3/uL Normal 0.0-0.45 [facility] Comment on above: Performed By: #### C BC, HEPATIC, LIPASE, HCGQUAL, BMP #### [address] Eosinophils/100 WBC (Bld) 3.4 % Normal . [facility] Comment on above: Performed By: #### C BC, HEPATIC, LIPASE, HCGQUAL, BMP #### [address] Erythrocyte distribution width (RBC) [Ratio] 13.3 % Normal 11.9-15.3 [facility] Comment on above: Performed By: #### C BC, HEPATIC, LIPASE, HCGQUAL, BMP #### [address] Hematocrit (Bld) [Volume fraction] 40.4 % Normal 34.0-46.4 [facility] Comment on above: Performed By: #### C BC, HEPATIC, LIPASE, HCGQUAL, BMP #### [address] Hemoglobin (Bld) [Mass/Vol] 13.6 g/dL Normal 11.8-15.4 [facility] Comment on above: Performed By: #### C BC, HEPATIC, LIPASE, HCGQUAL, BMP #### [address] Lymphocytes (Bld) [#/Vol] 1.7 10*3/uL Normal 1.00-4.8 [facility] Comment on above: Performed By: #### C BC, HEPATIC, LIPASE, HCGQUAL, BMP #### [address] Lymphocytes/100 WBC (Bld) 22.8 % Normal . [facility] Comment on above: Performed By: #### C BC, HEPATIC, LIPASE, HCGQUAL, BMP #### [address] MCH (RBC) [Entitic mass] 29.8 pg Normal 24.7-34.3 [facility] Comment on above: Performed By: #### C BC, HEPATIC, LIPASE, HCGQUAL, BMP #### [address] MCV (RBC) [Entitic vol] 88.6 fL Normal 80-100 [facility] Comment on above: Performed By: #### C BC, HEPATIC, LIPASE, HCGQUAL, BMP #### [address] Mean Corpuscular HGB Conc 33.7 g/dL Normal 32.0-35.0 [facility] Comment on above: Performed By: #### C BC, HEPATIC, LIPASE, HCGQUAL, BMP #### [address] Monocytes (Bld) [#/Vol] 0.4 10*3/uL Normal 0.0-0.8 [facility] Comment on above: Performed By: #### C BC, HEPATIC, LIPASE, HCGQUAL, BMP #### [address] Monocytes/100 WBC (Bld) 15.49 % Normal 0.00-20.00 [facility] Comment on above: Performed By: #### C BC, HEPATIC, LIPASE, HCGQUAL, BMP #### [address] Monocytes/100 WBC (Bld) 5.9 % Normal . [facility] Comment on above: Performed By: #### C BC, HEPATIC, LIPASE, HCGQUAL, BMP #### [address] Neutrophils (Bld) [#/Vol] 5.1 10*3/uL Normal 1.8-7.7 [facility] Comment on above: Performed By: #### C BC, HEPATIC, LIPASE, HCGQUAL, BMP #### [address] Neutrophils/100 WBC (Bld) 67.5 % Normal . [facility] Comment on above: Performed By: #### C BC, HEPATIC, LIPASE, HCGQUAL, BMP #### [address] NRBC% 0.1 /100{WBC} Normal 0-0.5 [facility] Comment on above: Performed By: #### C BC, HEPATIC, LIPASE, HCGQUAL, BMP #### [address] Platelet mean volume (Bld) [Entitic vol] 8.6 fL Normal 6.3-10.7 [facility] Comment on above: Performed By: #### C BC, HEPATIC, LIPASE, HCGQUAL, BMP #### [address] Platelets (Bld) [#/Vol] 295 10*3/uL Normal 150-450 [facility] Comment on above: Performed By: #### C BC, HEPATIC, LIPASE, HCGQUAL, BMP #### [address] RBC (Bld) [#/Vol] 4.56 10*6/uL Normal 3.60-5.00 [facility] Comment on above: Performed By: #### C BC, HEPATIC, LIPASE, HCGQUAL, BMP #### [address] WBC (Bld) [#/Vol] 7.5 10*3/uL Normal 3.8-11.6 [facility] Comment on above: Performed By: #### C BC, HEPATIC, LIPASE, HCGQUAL, BMP #### [address] Creatinine [Mass/volume] in Serum or PlasmaOrdered By: Lucrecia Nunn on 11-13-2023 Creatinine [Mass/Vol] 0.73 mg/dL 0.60-1.20 [facility] Dipstick and Microscopicon 0 11-13-2023 Appearance (U) Clear Normal Clear [facility] Comment on above: Order Comment: Name Collection Type:: Clean-Voided Midstream Performed By: #### A DDONUAPLUS ####[place] [address] [place] [address] [facility] Bacteria,Urine None Seen Normal None Seen [facility] Comment on above: Order Comment: Name Collection Type:: Clean-Voided Midstream Performed By: #### A DDONUAPLUS ####[address] [address] [place] Bilirubin,Urine Negative Normal Negative [facility] Comment on above: Order Comment: Name Collection Type:: Clean-Voided Midstream Performed By: #### A DDONUAPLUS ####[address] [address] [facility] Color (U) Yellow Normal Yellow [facility] Comment on above: Order Comment: Name Collection Type:: Clean-Voided Midstream Performed By: #### A DDONUAPLUS ####[address] [address] [facility] Glucose Ql (U) Normal Normal Normal [facility] Comment on above: Order Comment: Name Collection Type:: Clean-Voided Midstream Performed By: #### A DDONUAPLUS ####[address] [address] [facility] Hyaline Casts,Urine None Seen Normal 0-1 [facility] Comment on above: Order Comment: Name Collection Type:: Clean-Voided Midstream Result Comment: PERF ORMED BY: [facility] [address] [place] [address] PATHOLOGIST TRIPE SCRAPER DINA WALKER M.D. Performed By: #### A DDONUAPLUS ####[address] [address] [facility] Ketones Ql (U) 1+ High Negative [facility] Comment on above: Order Comment: Name Collection Type:: Clean-Voided Midstream Performed By: #### A DDONUAPLUS ####[place] [address] [place] [address] [facility] Leukocyte esterase Test strip Ql (U) Negative Normal Negative [facility] Comment on above: Order Comment: Name Collection Type:: Clean-Voided Midstream Performed By: #### A DDONUAPLUS ####[address] [address] [facility] Nitrite,Urine Negative Normal Negative [facility] Comment on above: Order Comment: Name Collection Type:: Clean-Voided Midstream Performed By: #### A DDONUAPLUS ####[address] [address] [facility] Occult Blood,Urine 3+ High Negative [facility] Comment on above: Order Comment: Name Collection Type:: Clean-Voided Midstream Result Comment: PERF ORMED BY: [facility] [address] [place] [id number] PATHOLOGIST TRIPE SCRAPER DINA WALKER M.D. Performed By: #### A DDONUAPLUS ####[address] [address] [facility] pH (U) 7.5 [pH] Normal 5.0-9.0 [facility] Comment on above: Order Comment: Name Collection Type:: Clean-Voided Midstream Performed By: #### A DDONUAPLUS ####[address] [address] [facility] Protein,Urine Negative Normal Negative [facility] Comment on above: Order Comment: Name Collection Type:: Clean-Voided Midstream Performed By: #### A DDONUAPLUS ####[address] [address] [facility] RBC,Urine 20-49 High 0-4 [facility] Comment on above: Order Comment: Name Collection Type:: Clean-Voided Midstream Performed By: #### A DDONUAPLUS ####[address] [address] [facility] Specificy [place],Urine 1.011 Normal 1.001-1.030 [facility] Comment on above: Order Comment: Name Collection Type:: Clean-Voided Midstream Performed By: #### A DDONUAPLUS ####[place] [id number] [address] Squamous Epithelial Cell,Urine None Seen Normal 0-2 [facility] Comment on above: Order Comment: Name Collection Type:: Clean-Voided Midstream Performed By: #### A DDONUAPLUS ####[place] [address] Urobilinogen,Urine Normal Normal Normal [facility] Comment on above: Order Comment: Name Collection Type:: Clean-Voided Midstream Performed By: #### A DDONUAPLUS ####[place] [address] WBC,Urine None Seen Normal 0-4 [facility] Comment on above: Order Comment: Name Collection Type:: Clean-Voided Midstream Performed By: #### A DDONUAPLUS ####[address] Eosinophils Auto (Bld) [#/Vo l]Ordered By: Lucrecia Nunn on 11-13-2023 Eosinophils (Bld) [#/Vol] 0.3 10*3/uL 0.0-0.45 [facility] Eosinophils/100 WBC Auto (Bl d)Ordered By: Lucrecia Nunn on 11-13-2023 Eosinophils/100 WBC (Bld) 3.4 % . [facility] Erythrocyte distribution wid th Auto (RBC) [Ratio]Ordered By: Lucrecia Nunn on 11-13-2023 Erythrocyte distribution width (RBC) [Ratio] 13.3 % 11.9-15.3 [facility] Globulin Calc (S) [Mass/Vol] Ordered By: Lucrecia Nunn on 11-13-2023 Globulin (S) [Mass/Vol] 3.0 g/dL [facility] Glucose [Mass/volume] in Ser um or PlasmaOrdered By: Lucrecia Nunn on 11-13-2023 Glucose [Mass/Vol] 92 mg/dL 70-100 [facility] Comment on above: ADA recommended refe rence rangeRandom Glucose Reference Range is dependent on time and content of last meal. Glucose of more than 200 mg/dL in a nonstressed, ambulatory subject supports the diagnosis of Diabetes Mellitus. HCG,Qualitative Serumon 10-28 HCG,Qualitative Serum Negative Normal [facility] Comment on above: Result Comment: PERF ORMED BY: [place] [address] PATHOLOGIST TRIPE SCRAPER DINA WALKER M.D. Performed By: #### C BC, HEPATIC, LIPASE, HCGQUAL, BMP #### [address] Hematocrit Auto (Bld) [Volum e fraction]Ordered By: Lucrecia Nunn on 11-13-2023 Hematocrit (Bld) [Volume fraction] 40.4 % 34.0-46.4 [facility] Hemoglobin [Mass/volume] in BloodOrdered By: Lucrecia Nunn on 11-13-2023 Hemoglobin (Bld) [Mass/Vol] 13.6 g/dL 11.8-15.4 [facility] Hepatic Panelon 11-13-2023 Albumin [Mass/Vol] 4.8 g/dL Normal 3.5-5.7 [facility] Comment on above: Performed By: #### C BC, HEPATIC, LIPASE, HCGQUAL, BMP #### [address] Albumin/Globulin [Mass ratio] 1.6 {ratio} Normal [facility] Comment on above: Performed By: #### C BC, HEPATIC, LIPASE, HCGQUAL, BMP #### [address] ALP [Catalytic activity/Vol] 59 U/L Normal 34-104 [facility] Comment on above: Performed By: #### C BC, HEPATIC, LIPASE, HCGQUAL, BMP #### [address] ALT [Catalytic activity/Vol] 16 U/L Normal 7-52 [facility] Comment on above: Performed By: #### C BC, HEPATIC, LIPASE, HCGQUAL, BMP #### [address] AST [Catalytic activity/Vol] 18 U/L Normal 13-39 [facility] Comment on above: Performed By: #### C BC, HEPATIC, LIPASE, HCGQUAL, BMP #### [address] Bilirubin [Mass/Vol] 0.5 mg/dL Normal 0.3-1.0 [facility] Comment on above: Performed By: #### C BC, HEPATIC, LIPASE, HCGQUAL, BMP #### [address] Bilirubin,Indirect 0.4 mg/dL Normal [facility] Comment on above: Performed By: #### C BC, HEPATIC, LIPASE, HCGQUAL, BMP #### [address] Bilirubin.indirect [Mass/Vol] 0.10 mg/dL Normal 0.03-0.18 [facility] Comment on above: Performed By: #### C BC, HEPATIC, LIPASE, HCGQUAL, BMP #### [address] Globulin (S) [Mass/Vol] 3.0 g/dL Normal [facility] Comment on above: Performed By: #### C BC, HEPATIC, LIPASE, HCGQUAL, BMP #### [address] Protein [Mass/Vol] 7.8 g/dL Normal 6.4-8.9 [facility] Comment on above: Performed By: #### C BC, HEPATIC, LIPASE, HCGQUAL, BMP #### [address] Ketones Auto test strip (U) [Mass/Vol]Ordered By: Lucrecia Nunn on 11-13-2023 Ketones (U) [Mass/Vol] 1+ Negative [facility] Leukocytes [#/volume] correc marshal for nucleated erythrocytes in Blood by Automated counOrdered By: Lucrecia Nunn on 11-13-2023 WBC corrected for nucl RBC Auto (Bld) [#/Vol] 7.5 10*3/uL 3.8-11.6 [facility] Lipaseon 11-13-2023 Lipase [Catalytic activity/Vol] 45.0 U/L Normal 11.0-82.0 [facility] Comment on above: Performed By: #### C BC, HEPATIC, LIPASE, HCGQUAL, BMP #### [facility] [address] Lipase [Enzymatic activity/v olume] in Serum or PlasmaOrdered By: Lucrecia Nunn on 11-13-2023 Lipase [Catalytic activity/Vol] 45.0 U/L 11.0-82.0 [facility] Lymphocytes Auto (Bld) [#/Vo l]Ordered By: Lucrecia Nunn on 11-13-2023 Lymphocytes (Bld) [#/Vol] 1.7 10*3/uL 1.00-4.8 [facility] Lymphocytes/100 WBC Auto (Bl d)Ordered By: Lucrecia Nunn on 11-13-2023 Lymphocytes/100 WBC (Bld) 22.8 % . [facility] MCH Auto (RBC) [Entitic mass ]Ordered By: Lucrecia Nunn on 11-13-2023 MCH (RBC) [Entitic mass] 29.8 pg 24.7-34.3 [facility] MCHC Auto (RBC) [Mass/Vol]Or dered By: Lucrecia Nunn on 11-13-2023 MCHC (RBC) [Mass/Vol] 33.7 g/dL 32.0-35.0 [facility] MCV Auto (RBC) [Entitic vol] Ordered By: Lucrecia Nunn on 11-13-2023 MCV (RBC) [Entitic vol] 88.6 fL 80-100 [facility] Monocyte distribution width [Entitic volume] in Blood by AutomatedOrdered By: Lucrecia Nunn on 11-13-2023 Monocyte distribution width Auto (Bld) [Entitic vol] 15.49 % 0.00-20.00 [facility] Monocytes Auto (Bld) [#/Vol] Ordered By: Lucrecia Nunn on 11-13-2023 Monocytes (Bld) [#/Vol] 0.4 10*3/uL 0.0-0.8 [facility] Monocytes/100 WBC Auto (Bld) Ordered By: Lucrecia Nunn on 11-13-2023 Monocytes/100 WBC (Bld) 5.9 % . [facility] Neutrophils Auto (Bld) [#/Vo l]Ordered By: Lucrecia Nunn on 11-13-2023 Neutrophils (Bld) [#/Vol] 5.1 10*3/uL 1.8-7.7 [facility] Neutrophils/100 WBC Auto (Bl d)Ordered By: Lucrecia Nunn on 11-13-2023 Neutrophils/100 WBC (Bld) 67.5 % . [facility] Nitrite Test strip Ql (U)Ord ered By: Lucrecia Nunn on 11-13-2023 Nitrite Ql (U) Negative Negative [facility] No Panel InformationOrdered By: Lucrecia Nunn on 11-13-2023 Estimated GFR (CKD-EPI) > 60.0 mL/Min [facility] Creatinine Clearance (Chem 81.17 [facility] Nucleated erythrocytes [Pres ence] in Blood by Automated countOrdered By: Lucrecia Nunn on 11-13-2023 Nucleated RBC Auto Ql (Bld) 0.1 /100{WBC} 0-0.5 [facility] Platelet mean volume Auto (B ld) [Entitic vol]Ordered By: Lucrecia Nunn on 11-13-2023 Platelet mean volume (Bld) [Entitic vol] 8.6 fL 6.3-10.7 [facility] Platelets Auto (Bld) [#/Vol] Ordered By: Lucrecia Nunn on 11-13-2023 Platelets (Bld) [#/Vol] 295 10*3/uL 150-450 [facility] Potassium [Moles/volume] in Serum or PlasmaOrdered By: Lucrecia Nunn on 11-13-2023 Potassium [Moles/Vol] 3.8 mmol/L 3.5-5.1 [facility] Protein Auto test strip (U) [Mass/Vol]Ordered By: Lucrecia Nunn on 11-13-2023 Protein (U) [Mass/Vol] Negative Negative [facility] Protein [Mass/volume] in Ser um or PlasmaOrdered By: Lucrecia Nunn on 11-13-2023 Protein [Mass/Vol] 7.8 g/dL 6.4-8.9 [facility] RBC Auto (Bld) [#/Vol]Ordere d By: Lucrecia Nunn on 11-13-2023 RBC (Bld) [#/Vol] 4.56 10*6/uL 3.60-5.00 [facility] Serum or plasma albumin/glob ulin mass ratioOrdered By: Lucrecia Nunn on 11-13-2023 Albumin/Globulin [Mass ratio] 1.6 {ratio} [facility] Serum or plasma anion gap de terminationOrdered By: Lucrecia Nunn on 11-13-2023 Anion gap [Moles/Vol] 12.0 mmol/L 6.0-15.0 [facility] Serum or plasma non-glucuron idated bilirubin measurement (mass/volume)Ordered By: Lucrecia Nunn on 11-13-2023 Bilirubin.indirect [Mass/Vol] 0.4 mg/dL [facility] Sodium [Moles/volume] in Ser um or PlasmaOrdered By: Lucrecia Nunn on 11-13-2023 Sodium [Moles/Vol] 137 mmol/L 136-145 [facility] Specific gravity Auto test s trip (U) [Rel density]Ordered By: Lucrecia Nunn on 11-13-2023 Specific gravity (U) [Rel density] 1.011 1.001-1.030 [facility] Urea nitrogen [Mass/volume] in Serum or PlasmaOrdered By: Lucrecia Nunn on 11-13-2023 Urea nitrogen [Mass/Vol] 10 mg/dL 7-25 [facility] Urine bacteria detection by automated methodOrdered By: Lucrecia Nunn on 11-13-2023 Bacteria Auto Ql (U) None seen None Seen [facility] Urine clarity by refractomet ry automatedOrdered By: Lucrecia Nunn on 11-13-2023 Clarity Refractometry automated (U) Clear Clear [facility] Urine glucose measurement by automated test strip (mass/volume)Ordered By: Lucrecia Nunn on 11-13-2023 Glucose Auto test strip (U) [Mass/Vol] Normal mg/dL Normal [facility] Urine hemoglobin detection b y automated test stripOrdered By: Lucrecia Nunn on 11-13-2023 Hemoglobin Auto test strip Ql (U) 3+ Negative [facility] Urine leukocyte esterase det ection by automated test stripOrdered By: Lucrecia Nunn on 11-13-2023 Leukocyte esterase Auto test strip Ql (U) Negative Negative [facility] Urobilinogen Auto test strip (U) [Mass/Vol]Ordered By: Lucrecia Nunn on 11-13-2023 Urobilinogen (U) [Mass/Vol] Normal mg/dL Normal [facility] WBC Auto (Bld) [#/Vol]Ordere d By: Lucrecia Nunn on 11-13-2023 WBC (Bld) [#/Vol] 7.5 10*3/uL 3.8-11.6 [facility] pH Auto test strip (U)Ordere d By: Lucrecia Nunn on 11-13-2023 pH (U) 7.5 [pH] 5.0-9.0 [facility] CBC AUTO DIFFon 04-07-2022 BASO # 0.0 103/ul Normal 0.0-0.1 [facility] Comment on above: Performed By: #### C BC #### [facility] [address] [place] [address] Dr. Joe Desir Basophils/100 WBC (Bld) 0.2 % Normal 0.2-2.0 [facility] Comment on above: Performed By: #### C BC #### [facility] [address] [place] [address] Dr. Joe Desir EO # 0.3 103/ul Normal 0.0-0.7 [facility] Comment on above: Performed By: #### C BC #### [facility] [address] [place] [address] Dr. Joe Desir Eosinophils/100 WBC (Bld) 2.1 % Normal 0.9-7.0 [facility] Comment on above: Performed By: #### C BC #### [facility] [address] [place] [address] Dr. Joe Desir Erythrocyte distribution width (RBC) [Ratio] 12.9 % Normal 11.0-15.0 [facility] Comment on above: Performed By: #### C BC #### [facility] [address] [place] [address] Dr. Joe Desir Hematocrit (Bld) [Volume fraction] 41.1 % Normal 36.0-48.0 [facility] Comment on above: Performed By: #### C BC #### [facility] [address] [place] [address] Dr. Joe Desir Hemoglobin (Bld) [Mass/Vol] 13.5 g/dL Normal 12.0-16.0 [facility] Comment on above: Performed By: #### C BC #### [facility] [address] [place] [address] Dr. Joe Desir IG # 0.05 10e3/ul Critically high 0.00-0.03 [facility] Comment on above: Performed By: #### C BC #### [facility] [address] [place] [address] Dr. Joe Desir IG % 0.4 % Normal 0.0-0.5 [facility] Comment on above: Performed By: #### C BC #### [facility] [address] [place] [address] Dr. Joe Desir LYMPH # 2.3 103/ul Normal 1.2-3.8 [facility] Comment on above: Performed By: #### C BC #### [facility] [address] [place] [address] Dr. Joe Desir Lymphocytes/100 WBC (Bld) 17.7 % Critically low 20.5-60.0 [facility] Comment on above: Performed By: #### C BC #### [facility] [address] [place] [address] Dr. Joe Desir MANUAL DIFF REQ NO Normal [facility] Comment on above: Performed By: #### C BC #### [facility] [address] [place] [address] Dr. Joe Desir MCH (RBC) [Entitic mass] 30.4 pg Normal 26.7-34.0 [facility] Comment on above: Performed By: #### C BC #### [facility] [address] [place] [address] [address] Joe Desir MCHC (RBC) [Mass/Vol] 32.8 g/dL Normal 29.9-35.2 [facility] Comment on above: Performed By: #### C BC #### [facility] [address] [place] [address] [address] Joe Desir MCV (RBC) [Entitic vol] 92.6 fL Normal 81.0-99.0 [facility] Comment on above: Performed By: #### C BC #### [facility] [address] [place] [address] [address] Joe Desir MONO # 0.6 103/ul Normal 0.3-0.8 [facility] Comment on above: Performed By: #### C BC #### [facility] [address] [place] [address] [address] Joe Desir Monocytes/100 WBC (Bld) 4.7 % Normal 1.7-12.0 [facility] Comment on above: Performed By: #### C BC #### [facility] [address] [place] [address] [address] Joe Desir NEUT # 9.6 103/ul Critically high 1.4-6.5 [facility] Comment on above: Performed By: #### C BC #### [facility] [address] [place] [address] [address] Joe Desir Neutrophils/100 WBC (Bld) 74.9 % Normal 43.0-75.0 [facility] Comment on above: Performed By: #### C BC #### [facility] [address] [place] [address] [address] Joe Desir Platelet mean volume (Bld) [Entitic vol] 10.2 fL Normal 9.5-13.5 [facility] Comment on above: Performed By: #### C BC #### [facility] [address] [place] [address] [address] Joe Desir PLT 285 103/ul Normal 150-450 [facility] Comment on above: Performed By: #### C BC #### [facility] [address] [place] [address] Dr. Joe Desir RBC 4.44 106/ul Normal 4.20-5.40 [facility] Comment on above: Performed By: #### C BC #### [facility] [address] [place] [address] Dr. Joe Desir WBC 12.8 103/ul Critically high 4.0-11.0 [facility] Comment on above: Performed By: #### C BC #### [facility] [address] [place] [address] Dr. Joe Desir FREE T4on 04-07-2022 Free T4 [Mass/Vol] 0.70 ng/dL Critically low 0.76-1.46 [facility] Comment on above: Performed By: #### F T4 #### [facility] [address] [place] [address] Dr. Joe Desir TSHon 04-07-2022 TSH 19.728 uIU/mL Critically high 0.358-3.740 [facility] Comment on above: Performed By: #### T SH #### [facility] [address] [place] [address] Dr. Joe Desir [facility]on SARS-CoV-2 (COVID-19) RNA RKISS+probe Ql (Unsp spec) Detected Critically abnormal NOT DETECTED [facility] Comment on above: Result Comment: This test is not yet approved or cleared by the [place] FDA. When there are no FDA-approved or cleared tests available, and other criteria are met, FDA can make tests available under an emergency access mechanism called an Emergency Use Authorization (EUA). The EUA for this test is supported by the [place] of Health and Human Service's (HHS's) declaration [...] longer be used). Performed By: #### C [facility] #### [facility] [address] [place] [address] Dr. Joe Desir XR ANKLE ELISA MIN [...] YEMI CAMPBELL Date: 2021-07-15 11:42 Normal [facility] MRI ANKLE LT WO CONon 2020 [...] SANFORD MARTINEZ Date: 2021-07-07 19:44 Normal [facility] Covid-19 PCR ([facility])on SARS-CoV-2 (COVID-19) RNA KRISS+probe Ql (Unsp spec) Not detected Normal NOT DETECTED [facility] Comment on above: Result Comment: This test is not yet approved or cleared by the [place] FDA. When there are no FDA-approved or cleared tests available, and other criteria are met, FDA can make tests available under an emergency access mechanism called an Emergency Use Authorization (EUA). The EUA for this test is supported by the [employer] Teacher of Health and Human Service's (HHS's) declaration [...] Performed By: #### C VDAGS, CVDTB #### [facility] [address] [place] [address] Emy Cohen SYMPTOMATIC COVID-19 ANTIGEN on 05-30-2021 EUA Statement SEE BELOW Normal [facility] Comment on above: Result Comment: This [...] Performed By: #### C SITAS, CVDTB #### [facility] [address] [place] [id number] Emy Cohen SARS-CoV-2 (COVID-19) RNA KRISS+probe Ql (Unsp spec) Negative Normal NEGATIVE [facility] Comment on above: Result Comment: CONF IRMATION BY PCR PENDING PER CDC GUIDELINES/ SYMPTOMATIC PATIENT. Performed By: #### C SYDAGS, CVDTB #### [facility] [address] [place], [place] [address] Emy Cohen Vital Signs Date Time Vital Sign Value Performing Clinician Facility 05-30-2024 14:38-0400 Body height 152.4 cm [facility] 05-30-2024 14:38-0400 Body mass index (BMI) [Ratio] 25.5 kg/m2 [facility] 05-30-2024 14:38-0400 Body weight 59.42 kg [facility] 05-30-2024 14:38-0400 Diastolic blood pressure 74 mm[Hg] [facility] 05-30-2024 14:38-0400 Heart rate 67 /min [facility] 05-30-2024 14:38-0400 SaO2% (BldA) [Mass fraction] 98 % [facility] 05-30-2024 14:38-0400 Systolic blood pressure 122 mm[Hg] [facility] 03-28-2024 14:25-0400 Body height 152.4 cm [facility] 03-28-2024 14:25-0400 Body mass index (BMI) [Ratio] 25 kg/m2 [facility] 03-28-2024 14:25-0400 Body weight 58.05 kg [facility] 03-28-2024 14:25-0400 Diastolic blood pressure 68 mm[Hg] [facility] 03-28-2024 14:25-0400 Heart rate 75 /min [facility] 03-28-2024 14:25-0400 Systolic blood pressure 103 mm[Hg] [facility] 01-12-2024 13:06-0400 Body height 152.4 cm MD Tiera Dumas Work Phone: [facility] 01-12-2024 13:06-0400 Body mass index (BMI) [Ratio] 25.7 kg/m2 MD Tiera Dumas Work Phone: [facility] 01-12-2024 13:06-0400 Body weight 59.87 kg MD Tiera Dumas Work Phone: [facility] 01-12-2024 13:06-0400 Diastolic blood pressure 72 mm[Hg] MD Tiera Dumas Work Phone: [facility] 01-12-2024 13:06-0400 Heart rate 74 /min MD Tiera Dumas Work Phone: [facility] 01-12-2024 13:06-0400 SaO2% (BldA) [Mass fraction] 98 % MD Tiera Dumas Work Phone: [facility] 01-12-2024 13:06-0400 Systolic blood pressure 110 mm[Hg] MD Tiera Dumas Work Phone: [facility] 12-07-2023 17:40-0400 Diastolic blood pressure 76 mm[Hg] MD Tiera Dumas Work Phone: [facility] 12-07-2023 17:40-0400 Heart rate 69 /min MD Tiera Dumas Work Phone: [facility] 12-07-2023 17:40-0400 Respiratory rate 16 /min MD Tiera Dumas Work Phone: [facility] 12-07-2023 17:40-0400 SaO2% (BldA) [Mass fraction] 99 % MD Tiera Dumas Work Phone: [facility] 12-07-2023 17:40-0400 Systolic blood pressure 111 mm[Hg] MD Tiera Dumas Work Phone: [facility] 12-07-2023 15:13-0400 Body height 152.4 cm MD Tiera Dumas Work Phone: [facility] 12-07-2023 15:13-0400 Body mass index (BMI) [Ratio] 25.4 kg/m2 MD Tiera Dumas Work Phone: [facility] 12-07-2023 15:13-0400 Body weight 58.96 kg MD Tiera Dumas Work Phone: [facility] 12-07-2023 14:47-0400 Body temperature 98.8 [degF] MD Tiera Dumas Work Phone: [facility] 12-07-2023 11:34-0400 Body temperature 98.6 [degF] Mariano ENEDINA [facility] 12-07-2023 11:34-0400 Diastolic blood pressure 78 mm[Hg] Mariano MCCONNELL [facility] 12-07-2023 11:34-0400 Heart rate 64 /min Mariano COOK [facility] 12-07-2023 11:34-0400 Respiratory rate 16 /min Mariano COOK [facility] 12-07-2023 11:34-0400 Systolic blood pressure 111 mm[Hg] Mariano COOK [facility] 11-13-2023 12:21-0500 Diastolic blood pressure 72 mm[Hg] MD Tiera Dumas Work Phone: [facility] 11-13-2023 12:21-0500 Heart rate 63 /min MD Tiera Dumas Work Phone: [facility] 11-13-2023 12:21-0500 Respiratory rate 18 /min MD Tiera Dumas Work Phone: [facility] 11-13-2023 12:21-0500 SaO2% (BldA) [Mass fraction] 100 % MD Tiera Dumas Work Phone: [facility] 11-13-2023 12:21-0500 Systolic blood pressure 106 mm[Hg] MD Tiera Dumas Work Phone: [facility] 11-13-2023 10:02-0500 Body height 156.21 cm MD Tiera Dumas Work Phone: [facility] 11-13-2023 10:02-0500 Body temperature 97.4 [degF] MD Tiera Dumas Work Phone: [facility] 11-13-2023 10:02-0500 Body weight 59 kg MD Tiera Dumas Work Phone: [facility] 12-13-2022 11:21-0400 Body height 154.94 cm MD Tiera Dumas Work Phone: [facility] 12-13-2022 11:21-0400 Body temperature 97.9 [degF] MD Tiera Dumas Work Phone: [facility] 12-13-2022 11:21-0400 Body weight 59 kg MD Tiera Dumas Work Phone: [facility] 12-13-2022 11:21-0400 Diastolic blood pressure 79 mm[Hg] MD Tiera Dumas Work Phone: [facility] 12-13-2022 11:21-0400 Heart rate 87 /min MD Tiera Dumas Work Phone: [facility] 12-13-2022 11:21-0400 Respiratory rate 18 /min MD Tiera Dumas Work Phone: [facility] 12-13-2022 11:21-0400 SaO2% (BldA) [Mass fraction] 97 % MD Tiera Dumas Work Phone: [facility] 12-13-2022 11:21-0400 Systolic blood pressure 118 mm[Hg] MD Tiera Dumas Work Phone: [facility] 12-03-2022 11:15-0500 Body height 153.67 cm Tiera Dumas Other [facility] Other 12-03-2022 11:15-0500 Body mass index (BMI) [Ratio] 24.78 kg/m2 Tiera Dumas Other [facility] Other 12-03-2022 11:15-0500 Body temperature 99.7 [degF] Tiera Dumas Other [facility] Other 12-03-2022 11:15-0500 Body weight 58.51 kg Tiera Dumas Other [facility] Other 12-03-2022 11:15-0500 Diastolic blood pressure 72 mm[Hg] Tiera Dumas Other [facility] Other 12-03-2022 11:15-0500 SaO2% (BldA) [Mass fraction] 97 % Tiera Dumas Other [facility] Other 12-03-2022 11:15-0500 Systolic blood pressure 112 mm[Hg] Tiera Dumas Other [facility] Other Encounters Encounter Date Encounter Type Care Provider Facility Start: 05-30-2024 End: 05-30-2024 ambulatory [facility] Work Phone: Start: 05-30-2024 End: 05-30-2024 Patient encounter procedure [facility] Work Phone: Start: 03-28-2024 End: 03-28-2024 ambulatory [facility] Work Phone: Start: 03-28-2024 End: 03-28-2024 Patient encounter procedure [facility] Work Phone: Start: 01-12-2024 End: 01-12-2024 ambulatory MD Tiera Dumas Work Phone: [facility] Work Phone: Start: 01-12-2024 End: 01-12-2024 Patient encounter procedure MD Tiera Dumas Work Phone: [facility] Work Phone: Start: 12-07-2023 End: 12-07-2023 ambulatory Mariano Mcconnell Facility:[facility] Start: 12-07-2023 End: 12-07-2023 Admission to same day surgery center MD Tiera Dumas Work Phone: [facility] [place] Start: 12-07-2023 End: 12-08-2023 ambulatory Mariano MCCONNELL Facility:CD:[id number] Start: 12-07-2023 End: 12-08-2023 ambulatory Mariano MCCONNELL Facility:[facility] Start: 12-07-2023 End: 12-07-2023 Patient encounter procedure Mariano MCCONNELL [facility] Start: 12-01-2023 End: 12-01-2023 ambulatory Tiera Dumas Facility:[facility] Start: 12-01-2023 End: 12-01-2023 Patient encounter procedure MD Tiera Dumas Work Phone: [facility] [place] Work Phone: Start: 11-16-2023 ambulatory Mariano MCCONNELL Facility:[facility] Start: 11-13-2023 End: 11-13-2023 Emergency department patient visit Tiera Dumas Facility:[facility] Start: 11-13-2023 End: 11-13-2023 Emergency department patient visit MD Tiera Dumas Work Phone: [facility] Work Phone: Start: 07-07-2023 (Televisit) Televisit Tiera Dumas [facility] Start: 07-07-2023 End: 07-07-2023 ambulatory Tiera Dumas Other [facility] Other Start: 12-16-2022 End: 12-16-2022 ambulatory Tiera Dumas Other [facility] Other Start: 12-16-2022 Telephone encounter Tiera Dumas [facility] Start: 12-13-2022 End: 12-13-2022 Emergency department patient visit MD Tiera Dumas Work Phone: [facility] Work Phone: Start: 12-03-2022 End: 12-03-2022 ambulatory Tiera Dumas Other [facility] Other Start: 12-03-2022 Office outpatient vi sit 15 minutes Tiera Dumas [facility] Start: 04-07-2022 End: 04-08-[address] TIERA [...] Care Activity Detail Author Start: 12-07-2023 [facility] Start: 12-07-2023 [facility] Patient Education [facility] Work Phone: Patient referral [facility] Work Phone: [facility] Immunizations Immunization Date Immunization Notes Care Provider Fa cility 02-13-2021 SARS-CoV-2 (COVID-19 ) mRNA-1273 vaccine Mariano MCCONNELL [facility] 01-15-2021 SARS-CoV-2 (COVID-19 ) mRNA-1273 vaccine Mariano MCCONNELL [facility] 07-10-2018 influenza virus vaccine, unspecified formulation Mariano MCCONNELL [facility] 07-10-2018 Influenza, injectabl e, Madin Amairani Canine Kidney, preservative free, quadrivalent MD Tiera Dumas Work Phone: [facility] 07-24-2015 influenza virus vaccine, unspecified formulation Mariano MCCONNELL [facility] 07-24-2015 influenza, injectabl e, quadrivalent, contains preservative MD Tiera Dumas Work Phone: [facility] 07-25-2014 influenza virus vaccine, unspecified formulation Mariano MCCONNELL [facility] 07-25-2014 influenza, seasonal, injectable, preservative free MD Tiera Dumas Work Phone: [facility] 08-02-2013 influenza virus vaccine, unspecified formulation Mariano MCCONNELL [facility] 08-02-2013 influenza, seasonal, injectable MD Tiera Dumas Work Phone: [facility] NEGATED: Highlighted row has not occurred!12-07-2023 influenza virus vaccine, unspecified formulation Mariano MCCONNELL [facility] Payers Date Payer Category Payer Self-pay [id number] 2015 Unknown 1979 Unknown [id number] .16.84 [id number] 1979 Unknown [id number] .16.84 [id number] 1979 Unknown [id number] .16.84 [id number] 1979 Unknown [id number] .16.84 [id number] 1979 Unknown [id number] .16.84 [id number] 1979 Unknown [id number] .16.84 0.1.805784.3.579.2.593 1979 Unknown [id number] 2.16.8 [id number] 1979 Unknown [id number] 2.16.8 40.1.744763.3.579.2.727 1979 Unknown [id number] 2.16.8 [id number] 1959 Unknown [id number] Unknown [id number] 2.16.8 [id number] Unknown [id number] 2.16.8 [id number] Unknown [id number] 2.16.8 [id number] Social History Date Type Detail Facility Start: 12-13-2022 Tobacco smoking status [facility] Never smoked tobacco (finding) [facility] Start: 1980 Sex Assigned At Female [facility] Sex Assigned At [facility] Start: 11-13-2023 End: 03-28-2024 Tobacco smoking status [facility] Ex-smoker (finding) [facility] Tobacco smoking status Never [facility] NEGATED: Highlighted row [facility] Goals Date Patient Goal Desired Activity /State Functional Status Date Assessment Result Facility 12-07-2023 Functional Status N/A [facility] Clinical Notes 12-03-2022 to 12-07-2023 Note [...] including vitamins, herbs, eye drops, creams, and vrzd-yff-rewsrci medicines. Any problems you or family members [...] provider tells you to take them. ?Taking kkey-gok-osleutz medicines, vitamins, herbs, and supplements. Eating and [...] provider. Document Revised: 01/20/2023 Document Reviewed: 05/18/2022 [employer] Patient Education 2022 [employer]. Follow Up Care 12/06/2023 08:36:19 With:ENEDINA CONTRERAS, Mariano Causey, URL Address: [address] [place] [address] [place], [place] [id number]- When: Unknown Comments:sched cysto/L RGP/URS/possible stent [facility] 07-07-2023 Evaluation note Encounter Date Diagnosis Assessment Notes Jun, Bronchitis (ICD-10 - J40) Finish antibiotics as prescribed. Medrol for chest tightness. Will call if needs work note. [facility] Other 03-09-2023 Evaluation note* Encounter Date Diagnosis Assessment Notes Treatment Notes Treatment Clinical Notes Nov, Hematuria, unspecified type (ICD-10 - R31.9) Will treat based on her symptoms Nov, Lumbar pain (ICD-10 - M54.50) Generalized pain. no acute injury. Recommend rest and heat. [facility] Other Evaluation + Plan note No data available for this section [facility] Evaluation noteNo assessment information available [facility] Work Phone: Evaluation noteNo InformationNort [employer] Other Evaluation note* Diagnosis Onset Date Resolution Status Sinusitis acute Fatigue acute Hypothyroid acute [facility] Work Phone: Evaluation note* Diagnosis Onset Date Resolution Status Acute thoracic back pain acu te Fatigue acute Hypothyroid acute [facility] Work Phone: History general Narrative - [...] Left Shoulder Surgery, Problem Status : Active, [facility] Other Hospital Discharge instructions Additional Instructions We [...] develop any worsening or concerning symptoms.[facility] Work Phone: Progress note No data available for this section [facility] Summary Purpose Family History Relationship Condition [...] DATE CREATED AUTHOR AUTHOR'S ORGANIZ ATION 12/15/2023 [facility] DATE CREATED AUTHOR AUTHOR'S ORGANIZ ATION 01/14/2024 [facility] Care Teams (unrecognized sec [...] End: January 12, 2024 Nguyen Aguirre APRN REGULATORY AND 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 [facility]. provides no warranty or guarantee of the accuracy or completeness of information in this document.
== END 2024-09-13 10:33 | disposition home or self-care (01) ==
LOC: EC 10:32
PROVIDERS: PCP Family Medicine; Visit Provider Podiatrist Foot & Ankle Surgery
DX: M79.672 Pain in left foot (principal)
CPT/HCPCS: 73630

== ENCOUNTER 2024-10-11 09:20 | Outpatient (OUT) | payer BC, SELFPAY ==
--- OUTSIDE RECORDS SUMMARY | 2024-10-11 09:36 | XMS_ITS | CCD ---
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 Name Role Phone SHAIKH Desmond HOUSE Admitting [...] MD Tiera Dumas Primary Care Provider [phone] LELA Quijano Emergency Provider [phone] Tiera Dumas Unavailable MD Tiera Dumas Primary Care Provider DO Lucrecia Nunn Emergency Provider [phone] TIERA DUMAS Primary Care Physician [phone] Mariano MCCONNELL Attending Unavailable Mariano MCCONNELL Attending [...] Translations: [codeine] Drug Allergy 5 unknown [facility] Repository (4 sources) Morphine; Translations: [morphine] Drug Allergy 5 Gastrointestinal Upset [facility] Repository (1 source) Codeine; Translations: [codeine] Drug Allergy Nausea and vomiting [facility] (1 source) Morphine; Translations: [morphine] Drug Allergy Nausea [facility] (1 source) Codeine Drug Allergy 4 [facility] Repository (1 source) Morphine Drug Allergy [address] [place] [address] Repository Medications Current Medications Medication Drug Class(es) [...] Basophils (Bld) [#/Vol] 0.0 10 3/uL 0.0-0.1 [facility] Basophils/100 WBC Auto (Bld) on 03-28-2024 Basophils/100 WBC (Bld) 0.6 % 0.2-2.0 [facility] Eosinophils/100 WBC Auto (Bl d)on 03-28-2024 Eosinophils/100 WBC (Bld) 5.2 % 0.9-7.0 [facility] Erythrocyte distribution wid th Auto (RBC) [Ratio]on 03-28-2024 Erythrocyte distribution width (RBC) [Ratio] 12.7 % 11.0-15.0 [facility] Estimated glomerular filtrat ion rate (GFR) non- Americanon 03-28-2024 GFR/1.73 sq M.predicted among non-blacks MDRD (S/P/Bld) [Vol rate/Area] mL/min/{1.73_m2} >=60 [facility] Hematocrit Auto (Bld) [Volum e fraction]on 03-28-2024 Hematocrit (Bld) [Volume fraction] 38.0 % 36.0-48.0 [facility] Hemoglobin [Mass/volume] in Bloodon 03-28-2024 Hemoglobin (Bld) [Mass/Vol] 12.2 g/dL 12.0-16.0 [facility] Laboratory - Chemistry and C hemistry - challengeon 03-28-2024 Calcium [Mass/Vol] 8.9 mg/dL 8.5-10.1 [facility] Chloride [Moles/Vol] 105 mmol/L 98-107 [facility] CO2 [Moles/Vol] 28.1 mmol/L 21.0-32.0 [facility] Creatinine [Mass/Vol] 0.78 mg/dL 0.55-1.02 [facility] Free T4 [Mass/Vol] 1.17 ng/dL 0.76-1.46 [facility] GFR/1.73 sq M.predicted MDRD (S/P/Bld) [Vol rate/Area] mL/min/{1.73_m2} >=60 [facility] Glucose [Mass/Vol] 98 mg/dL 74-106 [facility] Potassium [Moles/Vol] 3.7 mmol/L 3.5-5.1 [facility] Sodium [Moles/Vol] 140 mmol/L 136-145 [facility] TSH Qn 1.152 m[IU]/L 0.358-3.740 [facility] Urea nitrogen [Mass/Vol] 9.0 mg/dL 7.0-18.0 [facility] Urea nitrogen/Creatinine [Mass ratio] 11.5 mg/mg [facility] Laboratory - Hematology and Cell countson 03-28-2024 Immature granulocytes/100 WBC (Bld) 0.3 % 0.0-0.5 [facility] Leukocytes [#/volume] correc marshal for nucleated erythrocytes in Blood by Automated counon 03-28-2024 WBC corrected for nucl RBC Auto (Bld) [#/Vol] 7.1 10 3/uL 4.0-11.0 [facility] Lymphocytes Auto (Bld) [#/Vo l]on 03-28-2024 Lymphocytes (Bld) [#/Vol] 2.2 10 3/uL 1.2-3.8 [facility] Lymphocytes/100 WBC Auto (Bl d)on 03-28-2024 Lymphocytes/100 WBC (Bld) 31.1 % 20.5-60.0 [facility] MCH Auto (RBC) [Entitic mass ]on 03-28-2024 MCH (RBC) [Entitic mass] 29.9 pg 26.7-34.0 [facility] MCHC Auto (RBC) [Mass/Vol]on 03-28-2024 MCHC (RBC) [Mass/Vol] 32.1 g/dL 29.9-35.2 [facility] MCV Auto (RBC) [Entitic vol] on 03-28-2024 MCV (RBC) [Entitic vol] 93.1 fL 81.0-99.0 [facility] Monocytes Auto (Bld) [#/Vol] on 03-28-2024 Monocytes (Bld) [#/Vol] 0.4 10 3/uL 0.3-0.8 [facility] Monocytes/100 WBC Auto (Bld) on 03-28-2024 Monocytes/100 WBC (Bld) 6.1 % 1.7-12.0 [facility] Neutrophils Auto (Bld) [#/Vo l]on 03-28-2024 Neutrophils (Bld) [#/Vol] 4.0 10 3/uL 1.4-6.5 [facility] Neutrophils/100 WBC Auto (Bl d)on 03-28-2024 Neutrophils/100 WBC (Bld) 56.7 % 43.0-75.0 [facility] No Panel Informationon 03-28 Eosinophils # (Auto) 0.4 10 3/uL 0.0-0.7 [facility] Immature Granulocyte # (Auto) 0.02 10 3/uL 0.00-0.03 [facility] Platelet mean volume Auto (B ld) [Entitic vol]on 03-28-2024 Platelet mean volume (Bld) [Entitic vol] 10.4 fL 9.5-13.5 [facility] Platelets Auto (Bld) [#/Vol] on 03-28-2024 Platelets (Bld) [#/Vol] 270 10 3/uL 150-450 [facility] RBC Auto (Bld) [#/Vol]on RBC (Bld) [#/Vol] 4.08 10 6/uL Low 4.20-5.40 [facility] Serum or plasma anion gap de terminationon 03-28-2024 Anion gap [Moles/Vol] 10.6 mmol/L [facility] Formson 12-08-2023 Forms [id number] #1.00TIFF [facility] Operative Reporton Operative Report [id number] #1.00TIFF [facility] RAD - MISCon 12-08-2023 [facility] - MISC [id number] #1.00TIFF Normal [facility] [id number] #1.00TIFF [facility] Ambulatory Visit Summaryon 0 12-07-2023 Ambulatory [...] including vitamins, herbs, eye drops, creams, and rupt-rrr-sctxcgk medicines. ? Any problems you or family [...] tells you to take them. ? Taking qlqu-kbb-sqjwtag medicines, vitamins, herbs, and supplements. Eating and [...] not included)... Normal [facility] Amphetamine Screen Ql (U)Ord ered By: Sanford Mason on 12-07-2023 Amphetamines Ql (U) Negative Negative [facility] Barbiturates [Presence] in U rine by Screen methodOrdered By: Sanford Mason on 12-07-2023 Barbiturates Screen Ql (U) Negative Negative [facility] Benzodiazepines Screen Ql (U )Ordered By: Sanford Mason on 12-07-2023 Benzodiazepines Ql (U) Negative Negative [facility] Benzoylecgonine [Presence] i n Urine by Screen methodOrdered By: Sanford Mason on 12-07-2023 Benzoylecgonine Screen Ql (U) Negative Negative [facility] Cannabinoids [Presence] in U rine by Screen methodOrdered By: Sanford Mason on 12-07-2023 Cannabinoids Screen Ql (U) Positive Negative [facility] Comment on above: These are unconfirme [...] above: Performed By: #### U RDS #### [address] Barbiturate Screen,Urine Negative Normal Negative [facility] Comment on above: Performed By: #### U RDS #### [address] Benzodiazepines Screen,Urine Negative Normal Negative [facility] Comment on above: Performed By: #### U RDS #### [address] Cannabinoid Screen,Urine Positive High Negative [facility] Comment on above: Result Comment: Thes e are unconfirmed results and should not be used for legal purposes. Drug Cut-Off Concentration: AMPH 1000 ng/mL GARETT 200 ng/mL LEVY 200 ng/mL COCM 300 ng/mL OP 300 ng/mL PCP 25 ng/mL THC 20 ng/mL PERFORMED BY: [place] [address] PATHOLOGIST FLIGHT HOSTESS DINA WALKER M.D. Performed By: #### U RDS #### [address] Cocaine Screen,Urine Negative Normal Negative [facility] Comment on above: Performed By: #### U RDS #### [address] Opiate Screen,Urine Negative Normal Negative [facility] Comment on above: Performed By: #### U RDS #### [address] Phencyclidine Screen,Urine Negative Normal Negative [facility] Comment on above: Performed By: #### U RDS #### [address] [place] urethrocystogram retroon 12-07-2023 [place] urethrocystogram retro [facility] [place] [address] [place] [address] Fluoroscopy Report Signed Patient: Nguyen Taylor MR#: [id number] : 1980 Acct:[id number] Age/Sex: 43 / F ADM Date: 12/07/23 Loc: [place] Room: Type: [facility] Attending Dr: Mariano Mcconnell MD [...] Gabriele Corbin M.D.12/07/2023 6:04 PM Dictation Location: [place] [address] Transcribed By: [facility] 12/07/231803 Dictated By: Gabriele Corbin II, MD 12/07/231801 Signed By: 12/07/231803 Normal [facility] HCG ( test) IA.rapi d Ql (U)Ordered By: Sanford Mason on 12-07-2023 HCG ( test) Ql (U) Negative [facility] HCG,Urineon 12-07-2023 Beta HCG ( test) Ql (U) Negative Normal [facility] Comment on above: Result Comment: PERF ORMED BY: [place] [address] PATHOLOGIST FLIGHT HOSTESS DINA WALKER M.D. Performed By: #### U HCG #### [address] Insurance Correspondenceon 0 12-07-2023 Insurance Correspondence [id number] 29#1.00TIFF [facility] Opiates [Presence] in Urine by Screen methodOrdered By: Sanford Mason on 12-07-2023 Opiates Screen Ql (U) Negative Negative [facility] Patient Educationon 12-07-19 Patient Education Nephrology Laser [...] including vitamins, herbs, eye drops, creams, and taoq-xof-kilwhug medicines. ? Any problems you or family [...] tells you to take them. ? Taking msoz-hfd-getlqtj medicines, vitamins, herbs, and supplements. Eating and [...] the pieces (more content not included)... [facility] Phencyclidine Screen Ql (U)O rdered By: Sanford Mason on 12-07-2023 Phencyclidine Ql (U) Negative Negative [facility] Urology Office/Clinic Noteon 12-07-2023 Urology Office/Clinic Note Chief Complaint Pt is here for [facility] f/u HPI Staff 43 year old female New Pt. Pt. was in the [facility] on 11/13/23 due to Lt. lower [...] 1. Ureteral stone (N20.1: Calculus of ureter) [facility] visit 11/13/23 due to left flank pain. Given Fomax and pain medication to help pass stone. CT AP w con 11/13/23 [facility] - Obstructing 3 mm L UVJ calculus [...] from a couple days ago at the [facility] is inconclusive. She continues with significant pain up to a level 7 out of 10 and does desire surgical intervention. This is well outlined above. She understands the ris (more content not included)... [facility] Comment on above: Result Comment: Elec tronically Signed By: Mariano MCCONNELL MD\.br\Date and Time Signed: 12/07/23 12:06 EDT\.br\Electronically Co-Signed By: Lakeisha Beebe\.br\Date and Time Co-Signed: 12/07/23 12:02 EDT RAD - MISCon 12-06-2023 RAD - MISC [id number] #1.00TIFF [facility] XR KUBon 12-01-2023 XR KUB [facility] [place] [address] XRay Report Signed Patient: Nguyen Taylor MR#: [id number] : 1980 Acct:[id number] Age/Sex: 43 / F ADM Date: 12/01/23 Loc: XD Room: Type: [facility] Attending Dr: Mariano Mcconnell MD Copies [...] Palacios Jr., D.O.12/01/2023 4:13 PM Dictation Location: [place] [address] Transcribed By: [facility] 12/01/23 1613 Dictated By: Freeman Palacios Jr, DO 12/01/23 1611 Signed By: 12/01/23 1613 Normal [facility] ED Note-Physicianon 11-19-19 ED Note-Physician [id number] #1.00TIFF [facility] Alanine aminotransferase [En zymatic activity/volume] in Serum or PlasmaOrdered By: Lucrecia Nunn on 11-13-2023 ALT [Catalytic activity/Vol] 16 U/L 7-52 [facility] Albumin [Mass/volume] in Ser um or Plasma by Bromocresol green (BCG) dye binding methoOrdered By: Lucrecia Nunn on 11-13-2023 Albumin BCG dye [Mass/Vol] 4.8 g/dL 3.5-5.7 [facility] Alkaline phosphatase [Enzyma tic activity/volume] in Serum or PlasmaOrdered By: Lucrecia Nunn on 11-13-2023 ALP [Catalytic activity/Vol] 59 U/L 34-104 [facility] Aspartate aminotransferase [ Enzymatic activity/volume] in Serum or PlasmaOrdered By: Lucrecia Nunn on 11-13-2023 AST [Catalytic activity/Vol] 18 U/L 13-39 [facility] Automated epithelial cells c ount in urine sediment (number/area)Ordered By: Lucrecia Nunn on 11-13-2023 Epithelial cells Auto (Urine sed) [#/Area] None seen [HPF] 0-2 [facility] Automated erythrocytes count in urine sediment (number/area)Ordered By: Lucrecia Nunn on 11-13-2023 RBC Auto (Urine sed) [#/Area] 20-49 [HPF] 0-4 [facility] Automated leukocytes count i n urine sediment (number/area)Ordered By: Lucrecia Edouard on 11-13-2023 WBC Auto (Urine sed) [#/Area] None seen [HPF] 0-4 [facility] Automated urine hyaline cast s count (number/volume)Ordered By: Lucrecia Edouard on 11-13-2023 Hyaline casts Auto (U) [#/Vol] None seen [LPF] 0-1 [facility] Basic Metabolic Panelon 10-28 Anion gap [Moles/Vol] 12.0 mmol/L Normal 6.0-15.0 [facility] Comment on above: Performed By: #### C BC, HEPATIC, LIPASE, HCGQUAL, BMP #### [address] Calcium [Mass/Vol] 9.6 mg/dL Normal 8.6-10.3 [facility] Comment on above: Performed By: #### C BC, HEPATIC, LIPASE, HCGQUAL, BMP #### [address] Chloride [Moles/Vol] 106 mmol/L Normal 98-107 [facility] Comment on above: Performed By: #### C BC, HEPATIC, LIPASE, HCGQUAL, BMP #### [address] CO2 [Moles/Vol] 22.8 mmol/L Normal 21.0-31.0 [facility] Comment on above: Performed By: #### C BC, HEPATIC, LIPASE, HCGQUAL, BMP #### [address] Creatinine [Mass/Vol] 0.73 mg/dL Normal 0.60-1.20 [facility] Comment on above: Performed By: #### C BC, HEPATIC, LIPASE, HCGQUAL, BMP #### [address] Creatinine Clr Calc Pharmacy 81.17 Normal [facility] Comment on above: Performed By: #### C BC, HEPATIC, LIPASE, HCGQUAL, BMP #### [address] GFR/1.73 sq M.predicted MDRD (S/P/Bld) [Vol rate/Area] mL/min/{1.73_m2} Normal [facility] Comment on above: Performed By: #### C BC, HEPATIC, LIPASE, HCGQUAL, BMP #### [facility] [address] Glucose [Mass/Vol] 92 mg/dL Normal 70-100 [facility] Comment on above: Result Comment: [facility] Glucose Reference Range is dependent on time and content of last meal. Glucose of more than 200 mg/dL in a nonstressed, ambulatory subject supports the diagnosis of Diabetes Mellitus. ADA recommended reference range Performed By: #### C BC, HEPATIC, LIPASE, HCGQUAL, BMP #### [address] Potassium [Moles/Vol] 3.8 mmol/L Normal 3.5-5.1 [facility] Comment on above: Performed By: #### C BC, HEPATIC, LIPASE, HCGQUAL, BMP #### [place] [address] [place] Sodium [Moles/Vol] 137 mmol/L Normal 136-145 [facility] Comment on above: Performed By: #### C BC, HEPATIC, LIPASE, HCGQUAL, BMP #### [place] [address] [place] Urea nitrogen [Mass/Vol] 10 mg/dL Normal 7-25 [facility] Comment on above: Performed By: #### C BC, HEPATIC, LIPASE, HCGQUAL, BMP #### [facility] [address] [place] [address] [place] Basophils Auto (Bld) [#/Vol] Ordered By: Lucrecia Nunn on 11-13-2023 Basophils (Bld) [#/Vol] 0.0 10*3/uL 0.0-0.2 [facility] Basophils/100 WBC Auto (Bld) Ordered By: Lucrecia Nunn on 11-13-2023 Basophils/100 WBC (Bld) 0.4 % . [facility] Bilirubin Test strip Ql (U)O rdered By: Lucrecia Nunn on 11-13-2023 Bilirubin Ql (U) Negative Negative [facility] Bilirubin.direct [Mass/volum e] in Serum or PlasmaOrdered By: Lucrecia Nunn on 11-13-2023 Bilirubin.direct [Mass/Vol] 0.10 mg/dL 0.03-0.18 [facility] Bilirubin.total [Mass/volume ] in Serum or PlasmaOrdered By: Lucrecia Nunn on 11-13-2023 Bilirubin [Mass/Vol] 0.5 mg/dL 0.3-1.0 [facility] CT abdomen pelvis w conon CT abdomen pelvis w con [facility] [place] [address] [place] [address] CT Scan Report Signed Patient: Nguyen Taylor MR#: [id number] : 1980 Acct:[id number] Age/Sex: 43 / F ADM Date: 11/13/23 Loc: ER Room: Type: [facility] ER Attending Dr: Copies to: [...] Palacios Jr., D.OPatito11/13/2023 11:29 AM Dictation Location: [place] [address] Transcribed By: [facility] 11/13/23 1129 Dictated By: Freeman Palacios Jr, DO 11/13/23 1125 Signed By: 11/13/23 1129 Normal [facility] Calcium [Mass/volume] in Ser um or PlasmaOrdered By: Lucrecia Nunn on 11-13-2023 Calcium [Mass/Vol] 9.6 mg/dL 8.6-10.3 [facility] Carbon dioxide, total [Moles /volume] in Serum or PlasmaOrdered By: Lucrecia Nunn on 11-13-2023 CO2 [Moles/Vol] 22.8 mmol/L 21.0-31.0 [facility] Chloride [Moles/volume] in S noemy or PlasmaOrdered By: Lucrecia Nunn on 11-13-2023 Chloride [Moles/Vol] 106 mmol/L 98-107 [facility] Choriogonadotropin.beta subu nit [Units/volume] in Serum or PlasmaOrdered By: Lucrecia Nunn on 11-13-2023 HCG.beta subunit Qn Negative [facility] Color Auto (U)Ordered By: Shashank Nunn on 11-13-2023 Color (U) Yellow Yellow [facility] Complete Blood Count Auto Di ffon 11-13-2023 Basophils (Bld) [#/Vol] 0.0 10*3/uL Normal 0.0-0.2 [facility] Comment on above: Result Comment: PERF ORMED BY: [place] [address] PATHOLOGIST FLIGHT HOSTESS DINA WALKER M.D. Performed By: #### C BC, HEPATIC, LIPASE, HCGQUAL, BMP #### [address] Basophils/100 WBC (Bld) 0.4 % Normal . [facility] Comment on above: Performed By: #### C BC, HEPATIC, LIPASE, HCGQUAL, BMP #### [address] Eosinophils (Bld) [#/Vol] 0.3 10*3/uL Normal 0.0-0.45 [facility] Comment on above: Performed By: #### C BC, HEPATIC, LIPASE, HCGQUAL, BMP #### [address] Eosinophils/100 WBC (Bld) 3.4 % Normal . [facility] Comment on above: Performed By: #### C BC, HEPATIC, LIPASE, HCGQUAL, BMP #### [address] Erythrocyte distribution width (RBC) [Ratio] 13.3 % Normal 11.9-15.3 [facility] Comment on above: Performed By: #### C BC, HEPATIC, LIPASE, HCGQUAL, BMP #### [address] Hematocrit (Bld) [Volume fraction] 40.4 % Normal 34.0-46.4 [facility] Comment on above: Performed By: #### C BC, HEPATIC, LIPASE, HCGQUAL, BMP #### [address] Hemoglobin (Bld) [Mass/Vol] 13.6 g/dL Normal 11.8-15.4 [facility] Comment on above: Performed By: #### C BC, HEPATIC, LIPASE, HCGQUAL, BMP #### [address] Lymphocytes (Bld) [#/Vol] 1.7 10*3/uL Normal 1.00-4.8 [facility] Comment on above: Performed By: #### C BC, HEPATIC, LIPASE, HCGQUAL, BMP #### [address] Lymphocytes/100 WBC (Bld) 22.8 % Normal . [facility] Comment on above: Performed By: #### C BC, HEPATIC, LIPASE, HCGQUAL, BMP #### [address] MCH (RBC) [Entitic mass] 29.8 pg Normal 24.7-34.3 [facility] Comment on above: Performed By: #### C BC, HEPATIC, LIPASE, HCGQUAL, BMP #### [address] MCV (RBC) [Entitic vol] 88.6 fL Normal 80-100 [facility] Comment on above: Performed By: #### C BC, HEPATIC, LIPASE, HCGQUAL, BMP #### [address] Mean Corpuscular HGB Conc 33.7 g/dL Normal 32.0-35.0 [facility] Comment on above: Performed By: #### C BC, HEPATIC, LIPASE, HCGQUAL, BMP #### [address] Monocytes (Bld) [#/Vol] 0.4 10*3/uL Normal 0.0-0.8 [facility] Comment on above: Performed By: #### C BC, HEPATIC, LIPASE, HCGQUAL, BMP #### [address] Monocytes/100 WBC (Bld) 15.49 % Normal 0.00-20.00 [facility] Comment on above: Performed By: #### C BC, HEPATIC, LIPASE, HCGQUAL, BMP #### [address] Monocytes/100 WBC (Bld) 5.9 % Normal . [facility] Comment on above: Performed By: #### C BC, HEPATIC, LIPASE, HCGQUAL, BMP #### [address] Neutrophils (Bld) [#/Vol] 5.1 10*3/uL Normal 1.8-7.7 [facility] Comment on above: Performed By: #### C BC, HEPATIC, LIPASE, HCGQUAL, BMP #### [address] Neutrophils/100 WBC (Bld) 67.5 % Normal . [facility] Comment on above: Performed By: #### C BC, HEPATIC, LIPASE, HCGQUAL, BMP #### [address] NRBC% 0.1 /100{WBC} Normal 0-0.5 [facility] Comment on above: Performed By: #### C BC, HEPATIC, LIPASE, HCGQUAL, BMP #### [address] Platelet mean volume (Bld) [Entitic vol] 8.6 fL Normal 6.3-10.7 [facility] Comment on above: Performed By: #### C BC, HEPATIC, LIPASE, HCGQUAL, BMP #### [address] Platelets (Bld) [#/Vol] 295 10*3/uL Normal 150-450 [facility] Comment on above: Performed By: #### C BC, HEPATIC, LIPASE, HCGQUAL, BMP #### [address] RBC (Bld) [#/Vol] 4.56 10*6/uL Normal 3.60-5.00 [facility] Comment on above: Performed By: #### C BC, HEPATIC, LIPASE, HCGQUAL, BMP #### [address] WBC (Bld) [#/Vol] 7.5 10*3/uL Normal 3.8-11.6 [facility] Comment on above: Performed By: #### C BC, HEPATIC, LIPASE, HCGQUAL, BMP #### [address] Creatinine [Mass/volume] in Serum or PlasmaOrdered By: Lucrecia Nunn on 11-13-2023 Creatinine [Mass/Vol] 0.73 mg/dL 0.60-1.20 [facility] Dipstick and Microscopicon 0 11-13-2023 Appearance (U) Clear Normal Clear [facility] Comment on above: Order Comment: Name Collection Type:: Clean-Voided Midstream Performed By: #### A DDONUAPLUS ####[place] [id number] [place] [address] [facility] Bacteria,Urine None Seen Normal None Seen [facility] Comment on above: Order Comment: Name Collection Type:: Clean-Voided Midstream Performed By: #### A DDONUAPLUS ####[address] [address] [place] Bilirubin,Urine Negative Normal Negative [facility] Comment on above: Order Comment: Name Collection Type:: Clean-Voided Midstream Performed By: #### A DDONUAPLUS ####[address] [address] [facility] Color (U) Yellow Normal Yellow [facility] Comment on above: Order Comment: Name Collection Type:: Clean-Voided Midstream Performed By: #### A DDONUAPLUS ####[address] [address] [facility] Glucose Ql (U) Normal Normal Normal [facility] Comment on above: Order Comment: Name Collection Type:: Clean-Voided Midstream Performed By: #### A DDONUAPLUS ####[address] [address] [facility] Hyaline Casts,Urine None Seen Normal 0-1 [facility] Comment on above: Order Comment: Name Collection Type:: Clean-Voided Midstream Result Comment: PERF ORMED BY: [facility] [address] [place] [address] PATHOLOGIST FLIGHT HOSTESS DINA WALKER M.D. Performed By: #### A DDONUAPLUS ####[address] [address] [facility] Ketones Ql (U) 1+ High Negative [facility] Comment on above: Order Comment: Name Collection Type:: Clean-Voided Midstream Performed By: #### A DDONUAPLUS ####[place] [address] [place] [address] [facility] Leukocyte esterase Test strip Ql (U) Negative Normal Negative [facility] Comment on above: Order Comment: Name Collection Type:: Clean-Voided Midstream Performed By: #### A DDONUAPLUS ####[address] [address] [facility] Nitrite,Urine Negative Normal Negative [facility] Comment on above: Order Comment: Name Collection Type:: Clean-Voided Midstream Performed By: #### A DDONUAPLUS ####[address] [address] [facility] Occult Blood,Urine 3+ High Negative [facility] Comment on above: Order Comment: Name Collection Type:: Clean-Voided Midstream Result Comment: PERF ORMED BY: [facility] [address] [place] [id number] PATHOLOGIST FLIGHT HOSTESS DINA WALKER M.D. Performed By: #### A DDONUAPLUS ####[address] [address] [facility] pH (U) 7.5 [pH] Normal 5.0-9.0 [facility] Comment on above: Order Comment: Name Collection Type:: Clean-Voided Midstream Performed By: #### A DDONUAPLUS ####[address] [address] [facility] Protein,Urine Negative Normal Negative [facility] Comment on above: Order Comment: Name Collection Type:: Clean-Voided Midstream Performed By: #### A DDONUAPLUS ####[address] [address] [facility] RBC,Urine 20-49 High 0-4 [facility] Comment on above: Order Comment: Name Collection Type:: Clean-Voided Midstream Performed By: #### A DDONUAPLUS ####[address] [address] [facility] Specificy [place],Urine 1.011 Normal 1.001-1.030 [facility] Comment on above: Order Comment: Name Collection Type:: Clean-Voided Midstream Performed By: #### A DDONUAPLUS ####[place] [id number] [address] Squamous Epithelial Cell,Urine None Seen Normal 0-2 [facility] Comment on above: Order Comment: Name Collection Type:: Clean-Voided Midstream Performed By: #### A DDONUAPLUS ####[place] [id number] [address] Urobilinogen,Urine Normal Normal Normal [facility] Comment on above: Order Comment: Name Collection Type:: Clean-Voided Midstream Performed By: #### A DDONUAPLUS ####[place] [id number] [address] WBC,Urine None Seen Normal 0-4 [facility] Comment on above: Order Comment: Name Collection Type:: Clean-Voided Midstream Performed By: #### A DDONUAPLUS ####[address] Eosinophils Auto (Bld) [#/Vo l]Ordered By: Lucrecia Nunn on 11-13-2023 Eosinophils (Bld) [#/Vol] 0.3 10*3/uL 0.0-0.45 [facility] Eosinophils/100 WBC Auto (Bl d)Ordered By: Lucrecia Nunn on 11-13-2023 Eosinophils/100 WBC (Bld) 3.4 % . [facility] Erythrocyte distribution wid th Auto (RBC) [Ratio]Ordered By: Lucrecia Nunn on 11-13-2023 Erythrocyte distribution width (RBC) [Ratio] 13.3 % 11.9-15.3 [facility] Globulin Calc (S) [Mass/Vol] Ordered By: Lucrecia Nunn on 11-13-2023 Globulin (S) [Mass/Vol] 3.0 g/dL [facility] Glucose [Mass/volume] in Ser um or PlasmaOrdered By: Lucrecia Nunn on 11-13-2023 Glucose [Mass/Vol] 92 mg/dL 70-100 [facility] Comment on above: ADA recommended refe rence rangeRandom Glucose Reference Range is dependent on time and content of last meal. Glucose of more than 200 mg/dL in a nonstressed, ambulatory subject supports the diagnosis of Diabetes Mellitus. HCG,Qualitative Serumon 10-28 HCG,Qualitative Serum Negative Normal [facility] Comment on above: Result Comment: PERF ORMED BY: [place] [address] PATHOLOGIST FLIGHT HOSTESS DINA WALKER M.D. Performed By: #### C BC, HEPATIC, LIPASE, HCGQUAL, BMP #### [address] Hematocrit Auto (Bld) [Volum e fraction]Ordered By: Lucrecia Nunn on 11-13-2023 Hematocrit (Bld) [Volume fraction] 40.4 % 34.0-46.4 [facility] Hemoglobin [Mass/volume] in BloodOrdered By: Lucrecia Nunn on 11-13-2023 Hemoglobin (Bld) [Mass/Vol] 13.6 g/dL 11.8-15.4 [facility] Hepatic Panelon 11-13-2023 Albumin [Mass/Vol] 4.8 g/dL Normal 3.5-5.7 [facility] Comment on above: Performed By: #### C BC, HEPATIC, LIPASE, HCGQUAL, BMP #### [address] Albumin/Globulin [Mass ratio] 1.6 {ratio} Normal [facility] Comment on above: Performed By: #### C BC, HEPATIC, LIPASE, HCGQUAL, BMP #### [address] ALP [Catalytic activity/Vol] 59 U/L Normal 34-104 [facility] Comment on above: Performed By: #### C BC, HEPATIC, LIPASE, HCGQUAL, BMP #### [address] ALT [Catalytic activity/Vol] 16 U/L Normal 7-52 [facility] Comment on above: Performed By: #### C BC, HEPATIC, LIPASE, HCGQUAL, BMP #### [address] AST [Catalytic activity/Vol] 18 U/L Normal 13-39 [facility] Comment on above: Performed By: #### C BC, HEPATIC, LIPASE, HCGQUAL, BMP #### [address] Bilirubin [Mass/Vol] 0.5 mg/dL Normal 0.3-1.0 [facility] Comment on above: Performed By: #### C BC, HEPATIC, LIPASE, HCGQUAL, BMP #### [address] Bilirubin,Indirect 0.4 mg/dL Normal [facility] Comment on above: Performed By: #### C BC, HEPATIC, LIPASE, HCGQUAL, BMP #### [address] Bilirubin.indirect [Mass/Vol] 0.10 mg/dL Normal 0.03-0.18 [facility] Comment on above: Performed By: #### C BC, HEPATIC, LIPASE, HCGQUAL, BMP #### [address] Globulin (S) [Mass/Vol] 3.0 g/dL Normal [facility] Comment on above: Performed By: #### C BC, HEPATIC, LIPASE, HCGQUAL, BMP #### [address] Protein [Mass/Vol] 7.8 g/dL Normal 6.4-8.9 [facility] Comment on above: Performed By: #### C BC, HEPATIC, LIPASE, HCGQUAL, BMP #### [address] Ketones Auto test strip (U) [Mass/Vol]Ordered By: Lucrecia Nunn on 11-13-2023 Ketones (U) [Mass/Vol] 1+ Negative [facility] Leukocytes [#/volume] correc marshal for nucleated erythrocytes in Blood by Automated counOrdered By: Lucrecia Nunn on 11-13-2023 WBC corrected for nucl RBC Auto (Bld) [#/Vol] 7.5 10*3/uL 3.8-11.6 [facility] Lipaseon 11-13-2023 Lipase [Catalytic activity/Vol] 45.0 U/L Normal 11.0-82.0 [facility] Comment on above: Performed By: #### C BC, HEPATIC, LIPASE, HCGQUAL, BMP #### [facility] [address] Lipase [Enzymatic activity/v olume] in Serum or PlasmaOrdered By: Lucrecia Nunn on 11-13-2023 Lipase [Catalytic activity/Vol] 45.0 U/L 11.0-82.0 [facility] Lymphocytes Auto (Bld) [#/Vo l]Ordered By: Lucrecia Nunn on 11-13-2023 Lymphocytes (Bld) [#/Vol] 1.7 10*3/uL 1.00-4.8 [facility] Lymphocytes/100 WBC Auto (Bl d)Ordered By: Lucrecia Nunn on 11-13-2023 Lymphocytes/100 WBC (Bld) 22.8 % . [facility] MCH Auto (RBC) [Entitic mass ]Ordered By: Lucrecia Nunn on 11-13-2023 MCH (RBC) [Entitic mass] 29.8 pg 24.7-34.3 [facility] MCHC Auto (RBC) [Mass/Vol]Or dered By: Lucrecia Nunn on 11-13-2023 MCHC (RBC) [Mass/Vol] 33.7 g/dL 32.0-35.0 [facility] MCV Auto (RBC) [Entitic vol] Ordered By: Lucrecia Nunn on 11-13-2023 MCV (RBC) [Entitic vol] 88.6 fL 80-100 [facility] Monocyte distribution width [Entitic volume] in Blood by AutomatedOrdered By: Lucrecia Nunn on 11-13-2023 Monocyte distribution width Auto (Bld) [Entitic vol] 15.49 % 0.00-20.00 [facility] Monocytes Auto (Bld) [#/Vol] Ordered By: Lucrecia Nunn on 11-13-2023 Monocytes (Bld) [#/Vol] 0.4 10*3/uL 0.0-0.8 [facility] Monocytes/100 WBC Auto (Bld) Ordered By: Lucrecia Nunn on 11-13-2023 Monocytes/100 WBC (Bld) 5.9 % . [facility] Neutrophils Auto (Bld) [#/Vo l]Ordered By: Lucrecia Nunn on 11-13-2023 Neutrophils (Bld) [#/Vol] 5.1 10*3/uL 1.8-7.7 [facility] Neutrophils/100 WBC Auto (Bl d)Ordered By: Lucrecia Nunn on 11-13-2023 Neutrophils/100 WBC (Bld) 67.5 % . [facility] Nitrite Test strip Ql (U)Ord ered By: Lucrecia Nunn on 11-13-2023 Nitrite Ql (U) Negative Negative [facility] No Panel InformationOrdered By: Lucrecia Nunn on 11-13-2023 Estimated GFR (CKD-EPI) > 60.0 mL/Min [facility] Creatinine Clearance (Chem 81.17 [facility] Nucleated erythrocytes [Pres ence] in Blood by Automated countOrdered By: Lucrecia Nunn on 11-13-2023 Nucleated RBC Auto Ql (Bld) 0.1 /100{WBC} 0-0.5 [facility] Platelet mean volume Auto (B ld) [Entitic vol]Ordered By: Lucrecia Nunn on 11-13-2023 Platelet mean volume (Bld) [Entitic vol] 8.6 fL 6.3-10.7 [facility] Platelets Auto (Bld) [#/Vol] Ordered By: Lucrecia Nunn on 11-13-2023 Platelets (Bld) [#/Vol] 295 10*3/uL 150-450 [facility] Potassium [Moles/volume] in Serum or PlasmaOrdered By: Lucrecia Nunn on 11-13-2023 Potassium [Moles/Vol] 3.8 mmol/L 3.5-5.1 [facility] Protein Auto test strip (U) [Mass/Vol]Ordered By: Lucrecia Nunn on 11-13-2023 Protein (U) [Mass/Vol] Negative Negative [facility] Protein [Mass/volume] in Ser um or PlasmaOrdered By: Lucrecia Nunn on 11-13-2023 Protein [Mass/Vol] 7.8 g/dL 6.4-8.9 [facility] RBC Auto (Bld) [#/Vol]Ordere d By: Lucrecia Nunn on 11-13-2023 RBC (Bld) [#/Vol] 4.56 10*6/uL 3.60-5.00 [facility] Serum or plasma albumin/glob ulin mass ratioOrdered By: Lucrecia Nunn on 11-13-2023 Albumin/Globulin [Mass ratio] 1.6 {ratio} [facility] Serum or plasma anion gap de terminationOrdered By: Lucrecia Nunn on 11-13-2023 Anion gap [Moles/Vol] 12.0 mmol/L 6.0-15.0 [facility] Serum or plasma non-glucuron idated bilirubin measurement (mass/volume)Ordered By: Lucrecia Nunn on 11-13-2023 Bilirubin.indirect [Mass/Vol] 0.4 mg/dL [facility] Sodium [Moles/volume] in Ser um or PlasmaOrdered By: Lucrecia Nunn on 11-13-2023 Sodium [Moles/Vol] 137 mmol/L 136-145 [facility] Specific gravity Auto test s trip (U) [Rel density]Ordered By: Lucrecia Nunn on 11-13-2023 Specific gravity (U) [Rel density] 1.011 1.001-1.030 [facility] Urea nitrogen [Mass/volume] in Serum or PlasmaOrdered By: Lucrecia Nunn on 11-13-2023 Urea nitrogen [Mass/Vol] 10 mg/dL 7-25 [facility] Urine bacteria detection by automated methodOrdered By: Lucrecia Nunn on 11-13-2023 Bacteria Auto Ql (U) None seen None Seen [facility] Urine clarity by refractomet ry automatedOrdered By: Lucrecia Nunn on 11-13-2023 Clarity Refractometry automated (U) Clear Clear [facility] Urine glucose measurement by automated test strip (mass/volume)Ordered By: Lucrecia Nunn on 11-13-2023 Glucose Auto test strip (U) [Mass/Vol] Normal mg/dL Normal [facility] Urine hemoglobin detection b y automated test stripOrdered By: Lucrecia Nunn on 11-13-2023 Hemoglobin Auto test strip Ql (U) 3+ Negative [facility] Urine leukocyte esterase det ection by automated test stripOrdered By: Lucrecia Nunn on 11-13-2023 Leukocyte esterase Auto test strip Ql (U) Negative Negative [facility] Urobilinogen Auto test strip (U) [Mass/Vol]Ordered By: Lucrecia Nunn on 11-13-2023 Urobilinogen (U) [Mass/Vol] Normal mg/dL Normal [facility] WBC Auto (Bld) [#/Vol]Ordere d By: Lucrecia Nunn on 11-13-2023 WBC (Bld) [#/Vol] 7.5 10*3/uL 3.8-11.6 [facility] pH Auto test strip (U)Ordere d By: Lucrecia Nunn on 11-13-2023 pH (U) 7.5 [pH] 5.0-9.0 [facility] CBC AUTO DIFFon 04-07-2022 BASO # 0.0 103/ul Normal 0.0-0.1 [facility] Comment on above: Performed By: #### C BC #### [facility] [address] [place] [address] Dr. Joe Desir Basophils/100 WBC (Bld) 0.2 % Normal 0.2-2.0 [facility] Comment on above: Performed By: #### C BC #### [facility] [address] [place] [address] Dr. Joe Desir EO # 0.3 103/ul Normal 0.0-0.7 [facility] Comment on above: Performed By: #### C BC #### [facility] [address] [place] [address] Dr. Joe Desir Eosinophils/100 WBC (Bld) 2.1 % Normal 0.9-7.0 [facility] Comment on above: Performed By: #### C BC #### [facility] [address] [place] [address] Dr. Joe Desir Erythrocyte distribution width (RBC) [Ratio] 12.9 % Normal 11.0-15.0 [facility] Comment on above: Performed By: #### C BC #### [facility] [address] [place] [address] Dr. Joe Desir Hematocrit (Bld) [Volume fraction] 41.1 % Normal 36.0-48.0 [facility] Comment on above: Performed By: #### C BC #### [facility] [address] [place] [address] Dr. Joe Desir Hemoglobin (Bld) [Mass/Vol] 13.5 g/dL Normal 12.0-16.0 [facility] Comment on above: Performed By: #### C BC #### [facility] [address] [place] [address] Dr. Joe Desir IG # 0.05 10e3/ul Critically high 0.00-0.03 [facility] Comment on above: Performed By: #### C BC #### [facility] [address] [place] [address] Dr. Joe Desir IG % 0.4 % Normal 0.0-0.5 [facility] Comment on above: Performed By: #### C BC #### [facility] [address] [place] [address] Dr. Joe Desir LYMPH # 2.3 103/ul Normal 1.2-3.8 [facility] Comment on above: Performed By: #### C BC #### [facility] [address] [place] [address] Dr. Joe Desir Lymphocytes/100 WBC (Bld) 17.7 % Critically low 20.5-60.0 [facility] Comment on above: Performed By: #### C BC #### [facility] [address] [place] [address] Dr. Joe Desir MANUAL DIFF REQ NO Normal [facility] Comment on above: Performed By: #### C BC #### [facility] [address] [place] [address] Dr. Joe Desir MCH (RBC) [Entitic mass] 30.4 pg Normal 26.7-34.0 [facility] Comment on above: Performed By: #### C BC #### [facility] [address] [place] [address] [address] Joe Desir MCHC (RBC) [Mass/Vol] 32.8 g/dL Normal 29.9-35.2 [facility] Comment on above: Performed By: #### C BC #### [facility] [address] [place] [address] [address] Joe Desir MCV (RBC) [Entitic vol] 92.6 fL Normal 81.0-99.0 [facility] Comment on above: Performed By: #### C BC #### [facility] [address] [place] [address] [address] Joe Desir MONO # 0.6 103/ul Normal 0.3-0.8 [facility] Comment on above: Performed By: #### C BC #### [facility] [address] [place] [address] [address] Joe Desir Monocytes/100 WBC (Bld) 4.7 % Normal 1.7-12.0 [facility] Comment on above: Performed By: #### C BC #### [facility] [address] [place] [address] [address] Joe Desir NEUT # 9.6 103/ul Critically high 1.4-6.5 [facility] Comment on above: Performed By: #### C BC #### [facility] [address] [place] [address] [address] Joe Desir Neutrophils/100 WBC (Bld) 74.9 % Normal 43.0-75.0 [facility] Comment on above: Performed By: #### C BC #### [facility] [address] [place] [address] [address] Joe Desir Platelet mean volume (Bld) [Entitic vol] 10.2 fL Normal 9.5-13.5 [facility] Comment on above: Performed By: #### C BC #### [facility] [address] [place] [address] [address] Joe Desir PLT 285 103/ul Normal 150-450 [facility] Comment on above: Performed By: #### C BC #### [facility] [address] [place] [address] Dr. Joe Desir RBC 4.44 106/ul Normal 4.20-5.40 [facility] Comment on above: Performed By: #### C BC #### [facility] [address] [place] [address] Dr. Joe Desir WBC 12.8 103/ul Critically high 4.0-11.0 [facility] Comment on above: Performed By: #### C BC #### [facility] [address] [place] [address] Dr. Joe Desir FREE T4on 04-07-2022 Free T4 [Mass/Vol] 0.70 ng/dL Critically low 0.76-1.46 Th e [facility] Comment on above: Performed By: #### F T4 #### [facility] [address] [place] [address] Dr. Joe Desir TSHon 04-07-2022 TSH 19.728 uIU/mL Critically high 0.358-3.740 [facility] Comment on above: Performed By: #### T SH #### [facility] [address] [place] [address] Dr. Joe Desir [facility]on SARS-CoV-2 (COVID-19) RNA KRISS+probe Ql (Unsp spec) Detected Critically abnormal NOT DETECTED [facility] Comment on above: Result Comment: This test is not yet approved or cleared by the [place] FDA. When there are no FDA-approved or cleared tests available, and other criteria are met, FDA can make tests available under an emergency access mechanism called an Emergency Use Authorization (EUA). The EUA for this test is supported by the [employer] Consultant of Health and Human Service's (HHS's) declaration [...] used). Performed By: #### C [facility] #### [facility] [address] [place] [address] Dr. Joe Desir XR ANKLE ELISA MIN [...] YEMI CAMPBELL Date: 2021-07-15 11:42 Normal [facility] MRI ANKLE LT WO CONon 2020 [...] SANFORD MARTINEZ Date: 2021-07-07 19:44 Normal [facility] Covid-19 PCR ([facility])on SARS-CoV-2 (COVID-19) RNA KRISS+probe Ql (Unsp spec) Not detected Normal NOT DETECTED [facility] Comment on above: Result Comment: This test is not yet approved or cleared by the [place] FDA. When there are no FDA-approved or cleared tests available, and other criteria are met, FDA can make tests available under an emergency access mechanism called an Emergency Use Authorization (EUA). The EUA for this test is supported by the [employer] Consultant of Health and Human Service's (HHS's) declaration [...] Performed By: #### C VDAGS, CVDTB #### [facility] [address] [place] [address] Emy Cohen SYMPTOMATIC COVID-19 ANTIGEN on 05-30-2021 EUA Statement SEE BELOW Normal [facility] Comment on above: Result Comment: [...] Performed By: #### C SITAS, CVDTB #### [facility] [address] [place] [address] Emy Cohen SARS-CoV-2 (COVID-19) RNA KRISS+probe Ql (Unsp spec) Negative Normal NEGATIVE [facility] Comment on above: Result Comment: CONF IRMATION BY PCR PENDING PER CDC GUIDELINES/ SYMPTOMATIC PATIENT. Performed By: #### C SYDAGS, CVDTB #### [facility] [address] [place], [place] [address] Emy Cohen Vital Signs Date Time Vital Sign Value Performing Clinician Facility 05-30-2024 14:38-0400 Body height 152.4 cm [facility] 05-30-2024 14:38-0400 Body mass index (BMI) [Ratio] 25.5 kg/m2 [facility] 05-30-2024 14:38-0400 Body weight 59.42 kg [facility] 05-30-2024 14:38-0400 Diastolic blood pressure 74 mm[Hg] [facility] 05-30-2024 14:38-0400 Heart rate 67 /min [facility] 05-30-2024 14:38-0400 SaO2% (BldA) [Mass fraction] 98 % [facility] 05-30-2024 14:38-0400 Systolic blood pressure 122 mm[Hg] [facility] 03-28-2024 14:25-0400 Body height 152.4 cm [facility] 03-28-2024 14:25-0400 Body mass index (BMI) [Ratio] 25 kg/m2 [facility] 03-28-2024 14:25-0400 Body weight 58.05 kg [facility] 03-28-2024 14:25-0400 Diastolic blood pressure 68 mm[Hg] [facility] 03-28-2024 14:25-0400 Heart rate 75 /min [facility] 03-28-2024 14:25-0400 Systolic blood pressure 103 mm[Hg] [facility] 01-12-2024 13:06-0400 Body height 152.4 cm MD Tiera Dumas Work Phone: [facility] 01-12-2024 13:06-0400 Body mass index (BMI) [Ratio] 25.7 kg/m2 MD Tiera Dumas Work Phone: [facility] 01-12-2024 13:06-0400 Body weight 59.87 kg MD Tiera Dumas Work Phone: [facility] 01-12-2024 13:06-0400 Diastolic blood pressure 72 mm[Hg] MD Tiera Dumas Work Phone: [facility] 01-12-2024 13:06-0400 Heart rate 74 /min MD Tiera Dumas Work Phone: [facility] 01-12-2024 13:06-0400 SaO2% (BldA) [Mass fraction] 98 % MD Tiera Dumas Work Phone: [facility] 01-12-2024 13:06-0400 Systolic blood pressure 110 mm[Hg] MD Tiera Dumas Work Phone: [facility] 12-07-2023 17:40-0400 Diastolic blood pressure 76 mm[Hg] MD Tiera Dumas Work Phone: [facility] 12-07-2023 17:40-0400 Heart rate 69 /min MD Tiera Dumas Work Phone: [facility] 12-07-2023 17:40-0400 Respiratory rate 16 /min MD Tiera Dumas Work Phone: [facility] 12-07-2023 17:40-0400 SaO2% (BldA) [Mass fraction] 99 % MD Tiera Dumas Work Phone: [facility] 12-07-2023 17:40-0400 Systolic blood pressure 111 mm[Hg] MD Tiera Dumas Work Phone: [facility] 12-07-2023 15:13-0400 Body height 152.4 cm MD Tiera Dumas Work Phone: [facility] 12-07-2023 15:13-0400 Body mass index (BMI) [Ratio] 25.4 kg/m2 MD Tiera Dumas Work Phone: [facility] 12-07-2023 15:13-0400 Body weight 58.96 kg MD Tiera Dumas Work Phone: [facility] 12-07-2023 14:47-0400 Body temperature 98.8 [degF] MD Tiera Dumas Work Phone: [facility] 12-07-2023 11:34-0400 Body temperature 98.6 [degF] Mariano ENEDINA [facility] 12-07-2023 11:34-0400 Diastolic blood pressure 78 mm[Hg] Mariano MCCONNELL [facility] 12-07-2023 11:34-0400 Heart rate 64 /min Mariano COOK [facility] 12-07-2023 11:34-0400 Respiratory rate 16 /min Mariano COOK [facility] 12-07-2023 11:34-0400 Systolic blood pressure 111 mm[Hg] Mariano COOK [facility] 11-13-2023 12:21-0500 Diastolic blood pressure 72 mm[Hg] MD Tiera Dumas Work Phone: [facility] 11-13-2023 12:21-0500 Heart rate 63 /min MD Tiera Dumas Work Phone: [facility] 11-13-2023 12:21-0500 Respiratory rate 18 /min MD Tiera Dumas Work Phone: [facility] 11-13-2023 12:21-0500 SaO2% (BldA) [Mass fraction] 100 % MD Tiera Dumas Work Phone: [facility] 11-13-2023 12:21-0500 Systolic blood pressure 106 mm[Hg] MD Tiera Dumas Work Phone: [facility] 11-13-2023 10:02-0500 Body height 156.21 cm MD Tiera Dumas Work Phone: [facility] 11-13-2023 10:02-0500 Body temperature 97.4 [degF] MD Tiera Dumas Work Phone: [facility] 11-13-2023 10:02-0500 Body weight 59 kg MD Tiera Dumas Work Phone: [facility] 12-13-2022 11:21-0400 Body height 154.94 cm MD Tiera Dumas Work Phone: [facility] 12-13-2022 11:21-0400 Body temperature 97.9 [degF] MD Tiera Dumas Work Phone: [facility] 12-13-2022 11:21-0400 Body weight 59 kg MD Tiera Dumas Work Phone: [facility] 12-13-2022 11:21-0400 Diastolic blood pressure 79 mm[Hg] MD Tiera Dumas Work Phone: [facility] 12-13-2022 11:21-0400 Heart rate 87 /min MD Tiera Dumas Work Phone: [facility] 12-13-2022 11:21-0400 Respiratory rate 18 /min MD Tiera Dumas Work Phone: [facility] 12-13-2022 11:21-0400 SaO2% (BldA) [Mass fraction] 97 % MD Tiera Dumas Work Phone: [facility] 12-13-2022 11:21-0400 Systolic blood pressure 118 mm[Hg] MD Tiera Dumas Work Phone: [facility] 12-03-2022 11:15-0500 Body height 153.67 cm Tiera Dumas Other [facility] Other 12-03-2022 11:15-0500 Body mass index (BMI) [Ratio] 24.78 kg/m2 Tiera Dumas Other [facility] Other 12-03-2022 11:15-0500 Body temperature 99.7 [degF] Tiera Dumas Other [facility] Other 12-03-2022 11:15-0500 Body weight 58.51 kg Tiera Dumas Other [facility] Other 12-03-2022 11:15-0500 Diastolic blood pressure 72 mm[Hg] Tiera Dumas Other [facility] Other 12-03-2022 11:15-0500 SaO2% (BldA) [Mass fraction] 97 % Tiera Dumas Other [facility] Other 12-03-2022 11:15-0500 Systolic blood pressure 112 mm[Hg] Tiera Dumas Other [facility] Other Encounters Encounter Date Encounter Type Care Provider Facility Start: 05-30-2024 End: 05-30-2024 ambulatory [facility] Work Phone: Start: 05-30-2024 End: 05-30-2024 Patient encounter procedure [facility] Work Phone: Start: 03-28-2024 End: 03-28-2024 ambulatory [facility] Work Phone: Start: 03-28-2024 End: 03-28-2024 Patient encounter procedure [facility] Work Phone: Start: 01-12-2024 End: 01-12-2024 ambulatory MD Tiera Dumas Work Phone: [facility] Work Phone: Start: 01-12-2024 End: 01-12-2024 Patient encounter procedure MD Tiera Dumas Work Phone: [facility] Work Phone: Start: 12-07-2023 End: 12-07-2023 ambulatory Mariano Mcconnell Facility:[facility] Start: 12-07-2023 End: 12-07-2023 Admission to same day surgery center MD Tiera Dumas Work Phone: [facility] [place] Start: 12-07-2023 End: 12-08-2023 ambulatory Mariano MCCONNELL Facility:[id number] Start: 12-07-2023 End: 12-08-2023 ambulatory Mariano MCCONNELL Facility:[facility] Start: 12-07-2023 End: 12-07-2023 Patient encounter procedure Mariano MCCONNELL [facility] Start: 12-01-2023 End: 12-01-2023 ambulatory Tiera Dumas Facility:[facility] Start: 12-01-2023 End: 12-01-2023 Patient encounter procedure MD Tiera Dumas Work Phone: [facility] [place] Work Phone: Start: 11-16-2023 ambulatory Mariano MCCONNELL Facility:[facility] Start: 11-13-2023 End: 11-13-2023 Emergency department patient visit Tiera Dumas Facility:[facility] Start: 11-13-2023 End: 11-13-2023 Emergency department patient visit MD Tiera Dumas Work Phone: [facility] Work Phone: Start: 07-07-2023 (Televisit) Televisit Tiera Dumas [facility] Start: 07-07-2023 End: 07-07-2023 ambulatory Tiera Dumas Other [facility] Other Start: 12-16-2022 End: 12-16-2022 ambulatory Tiera Dumas Other [facility] Other Start: 12-16-2022 Telephone encounter Tiera Dumas [facility] Start: 12-13-2022 End: 12-13-2022 Emergency department patient visit MD Tiera Dumas Work Phone: [facility] Work Phone: Start: 12-03-2022 End: 12-03-2022 ambulatory Tiera Dumas Other [facility] Other Start: 12-03-2022 Office outpatient vi sit 15 minutes Tiera Dumas [facility] Start: 04-07-2022 End: 04-08-[address] [...] Date Care Activity Detail Author Start: 12-07-2023 [facility] Start: 12-07-2023 [facility] Patient Education [facility] Work Phone: Patient referral [facility] Work Phone: [facility] Immunizations Immunization Date Immunization Notes Care Provider Fa cility 02-13-2021 SARS-CoV-2 (COVID-19 ) mRNA-1273 vaccine Mariano MCCONNELL [facility] 01-15-2021 SARS-CoV-2 (COVID-19 ) mRNA-1273 vaccine Mariano MCCONNELL [facility] 07-10-2018 influenza virus vaccine, unspecified formulation Mariano MCCONNELL [facility] 07-10-2018 Influenza, injectabl e, Madin Amairani Canine Kidney, preservative free, quadrivalent MD Tiera Dumas Work Phone: [facility] 07-24-2015 influenza virus vaccine, unspecified formulation Mariano MCCONNELL [facility] 07-24-2015 influenza, injectabl e, quadrivalent, contains preservative MD Tiera Dumas Work Phone: [facility] 07-25-2014 influenza virus vaccine, unspecified formulation Mariano MCCONNELL [facility] 07-25-2014 influenza, seasonal, injectable, preservative free MD Tiera Dumas Work Phone: [facility] 08-02-2013 influenza virus vaccine, unspecified formulation Mariano MCCONNELL [facility] 08-02-2013 influenza, seasonal, injectable MD Tiera Dumas Work Phone: [facility] NEGATED: Highlighted row has not occurred!12-07-2023 influenza virus vaccine, unspecified formulation Mariano MCCONNELL [facility] Payers Date Payer Category Payer Self-pay [id number] 2015 Unknown 1980 Unknown [id number] .16.84 [id number] 1979 Unknown [id number] .16.84 [id number] 1979 Unknown [id number] .16.84 [id number] 1979 Unknown [id number] .16.84 [id number] 1979 Unknown [id number] .16.84 [id number] 1979 Unknown [id number] .16.84 [id number] 1979 Unknown [id number] 2.16.8 [id number] 1979 Unknown [id number] 2.16.8 [id number] 1979 Unknown [id number] 2.16.8 [id number] 1959 Unknown [id number] Unknown [id number] 2.16.8 [id number] Unknown [id number] 2.16.8 [id number] Unknown [id number] 2.16.8 [id number] Social History Date Type Detail Facility Start: 12-13-2022 Tobacco smoking status [facility] Never smoked tobacco (finding) [facility] Start: 1980 Sex Assigned At Female [facility] Sex Assigned At [facility] Start: 11-13-2023 End: 03-28-2024 Tobacco smoking status [facility] Ex-smoker (finding) [facility] Tobacco smoking status Never [facility] NEGATED: Highlighted row [facility] Goals Date Patient Goal Desired Activity /State Functional Status Date Assessment Result Facility 12-07-2023 Functional Status N/A [facility] Clinical Notes 12-03-2022 to 12-07-2023 [...] including vitamins, herbs, eye drops, creams, and fmuu-vvh-pjivzzm medicines. Any problems you or family members [...] provider tells you to take them. ?Taking mahl-rpj-daagqtu medicines, vitamins, herbs, and supplements. Eating and [...] provider. Document Revised: 01/20/2023 Document Reviewed: 05/18/2022 [employer] Patient Education 2022 [employer]. Follow Up Care 12/06/2023 08:36:19 With:ENEDINA CONTRERAS, Mariano Causey, URL Address: [address] [place] [address] [place], [place] [id number]- When: Unknown Comments:sched cysto/L RGP/URS/possible stent [facility] 07-07-2023 Evaluation note Encounter Date Diagnosis Assessment Notes Jun, Bronchitis (ICD-10 - J40) Finish antibiotics as prescribed. Medrol for chest tightness. Will call if needs work note. [facility] Other 03-09-2023 Evaluation note* Encounter Date Diagnosis Assessment Notes Treatment Notes Treatment Clinical Notes Nov, Hematuria, unspecified type (ICD-10 - R31.9) Will treat based on her symptoms Nov, Lumbar pain (ICD-10 - M54.50) Generalized pain. no acute injury. Recommend rest and heat. [facility] Other Evaluation + Plan note No data available for this section [facility] Evaluation noteNo assessment information available [facility] Work Phone: Evaluation noteNo [place] [employer] Other Evaluation note* Diagnosis Onset Date Resolution Status Sinusitis acute Fatigue acute Hypothyroid acute [facility] Work Phone: Evaluation note* Diagnosis Onset Date Resolution Status Acute thoracic back pain acu te Fatigue acute Hypothyroid acute [facility] Work Phone: History general Narrative - [...] Left Shoulder Surgery, Problem Status : Active, [facility] Other Hospital Discharge instructions Additional Instructions We [...] if you develop any worsening or concerning symptoms.[facility] Work Phone: Progress note No data available for this section [facility] Summary Purpose Family History Relationship Condition Age [...] AUTHOR AUTHOR'S ORGANIZ ATION 12/15/2023 [facility] DATE CREATED AUTHOR AUTHOR'S ORGANIZ ATION 01/14/2024 [facility] Care Teams (unrecognized sec [...] End: January 12, 2024 Nguyen Aguirre APRN [employer]-C Attending Provider Act ophelia Start: January 12, [...] IssuesNeeds off Wor k NoteSinuses, Congestion, Cough- [phone] FOR RECORDS PERTAINING TO PATIENTS WHO ARE [...] BE BASED ON THE PRIMARY CLINICAL RECORDS. [employer] [facility]. provides no warranty or guarantee of the accuracy or completeness of information in this document.
--- NOTE | 2024-10-11 09:38 | XR_ITS ---
The [place] [id number] Patient Name: RACHEL TAYLOR MRN: [id number] date: 1980 Sex: F Assigned Patient Location: [facility] Current Patient Location: [facility] Accession/Order Number: [id number] Exam Date: 10/11/2024 09:30 Report Date: 10/11/2024 13:17 At the request of: LACY SHARMA Procedure: XR foot LT min 3V PROCEDURE: XR foot LT min 3V COMPARISON: 09/11/2024 HISTORY: Left Foot Pain FINDINGS: BONES:No fracture, acute abnormality, or significant arthropathy. SOFT TISSUES:Negative. No visible soft tissue swelling. EFFUSION:None visible. OTHER: Negative. XR/XR foot LT min 3V IMPRESSION: No acute disease. Electronically authenticated by: YEMI CAMPBELL Date: 10/11/2024 13:17
== END 2024-10-11 09:21 | disposition home or self-care (01) ==
LOC: RAD 09:20
PROVIDERS: PCP Family Medicine; Visit Provider Podiatrist Foot & Ankle Surgery
DX: M79.672 Pain in left foot (principal)
CPT/HCPCS: 73630

== ENCOUNTER 2024-11-15 12:29 | Outpatient (OUT) | payer BC, SELFPAY ==
--- NOTE | 2024-11-15 12:32 | CT_ITS ---
The [address] [address] Patient Name: RACHEL TAYLOR MRN: [id number] date: 1980 Sex: F Assigned Patient Location: CT Current Patient Location: CT Accession/Order Number: [id number] Exam Date: 11/15/2024 22:11 Report Date: 11/15/2024 22:15 At the request of: LACY SHARMA DPM Procedure: CT foot LT wo con CT foot LT wo con 11/15/2024 12:45 PM SIGNS AND SYMPTOMS: navicular fracture, assess healing TECHNIQUE: Multidetector CT axial slices of the left foot without IV contrast. Multiplanar reformats were performed and viewed on a separate workstation and reviewed to further define anatomy and possible pathology. CT was performed with one or more of the following dose reduction techniques: Automated exposure control, adjustment of the mA and/or kV according to patient size, or use of iterative reconstruction technique. COMPARISON: 07/13/2024 FINDINGS: The relatively nondisplaced fracture along the medial margin of the navicular shows no change in alignment. Healing appears to be complete or nearly complete with a focal area of lucency in the most proximal aspect of the fracture. No additional fractures are appreciated. The bones are in anatomic alignment. No significant soft tissue swelling. The joint spaces are preserved. CT/CT foot LT wo con IMPRESSION: The relatively nondisplaced fracture along the medial margin of the navicular shows no change in alignment. Healing appears to be complete or nearly complete with a focal area of lucency in the most proximal aspect of the fracture. Impression dictated by: Gabriele Corbin M.D.11/15/2024 10:15 PM Dictation Location: [place] [address] Electronically authenticated by: [id number] Y Date: 11/15/2024 22:15
--- OUTSIDE RECORDS SUMMARY | 2024-11-15 12:40 | XMS_ITS | CCD ---
Author Organization [facility] CliniSynv Care Team Providers Care Computer Instructor Name Role Phone SHAIKH Desmond HOUSE Admitting [...] Primary Care Provider LELA Quijano Emergency Provider [phone] Tiera Dumas Unavailable MD Tiera Dumas Primary Care Provider DO Lucrecia Nunn Emergency Provider TIERA DUMAS Primary Care Physician [phone] Mariano MCCONNELL Attending Unavailable Mariano MCCONNELL Attending [...] Translations: [codeine] Drug Allergy 5 unknown [facility] (4 sources) Morphine; Translations: [morphine] Drug Allergy 5 Gastrointestinal Upset [facility] (1 source) Codeine; Translations: [codeine] Drug Allergy Nausea and vomiting [facility] (1 source) Morphine; Translations: [morphine] Drug Allergy Nausea [facility] (1 source) Codeine Drug Allergy 4 [facility] Repository (1 source) Morphine Drug Allergy [address] [place] [address] Repository Medications Current Medications Medication Drug Class(es) [...] Basophils (Bld) [#/Vol] 0.0 10 3/uL 0.0-0.1 [facility] Basophils/100 WBC Auto (Bld) on 03-28-2024 Basophils/100 WBC (Bld) 0.6 % 0.2-2.0 [facility] Eosinophils/100 WBC Auto (Bl d)on 03-28-2024 Eosinophils/100 WBC (Bld) 5.2 % 0.9-7.0 [facility] Erythrocyte distribution wid th Auto (RBC) [Ratio]on 03-28-2024 Erythrocyte distribution width (RBC) [Ratio] 12.7 % 11.0-15.0 [facility] Estimated glomerular filtrat ion rate (GFR) non- Americanon 03-28-2024 GFR/1.73 sq M.predicted among non-blacks MDRD (S/P/Bld) [Vol rate/Area] mL/min/{1.73_m2} >=60 [facility] Hematocrit Auto (Bld) [Volum e fraction]on 03-28-2024 Hematocrit (Bld) [Volume fraction] 38.0 % 36.0-48.0 [facility] Hemoglobin [Mass/volume] in Bloodon 03-28-2024 Hemoglobin (Bld) [Mass/Vol] 12.2 g/dL 12.0-16.0 [facility] Laboratory - Chemistry and C hemistry - challengeon 03-28-2024 Calcium [Mass/Vol] 8.9 mg/dL 8.5-10.1 [facility] Chloride [Moles/Vol] 105 mmol/L 98-107 [facility] CO2 [Moles/Vol] 28.1 mmol/L 21.0-32.0 [facility] Creatinine [Mass/Vol] 0.78 mg/dL 0.55-1.02 [facility] Free T4 [Mass/Vol] 1.17 ng/dL 0.76-1.46 [facility] GFR/1.73 sq M.predicted MDRD (S/P/Bld) [Vol rate/Area] mL/min/{1.73_m2} >=60 [facility] Glucose [Mass/Vol] 98 mg/dL 74-106 [facility] Potassium [Moles/Vol] 3.7 mmol/L 3.5-5.1 [facility] Sodium [Moles/Vol] 140 mmol/L 136-145 [facility] TSH Qn 1.152 m[IU]/L 0.358-3.740 [facility] Urea nitrogen [Mass/Vol] 9.0 mg/dL 7.0-18.0 [facility] Urea nitrogen/Creatinine [Mass ratio] 11.5 mg/mg [facility] Laboratory - Hematology and Cell countson 03-28-2024 Immature granulocytes/100 WBC (Bld) 0.3 % 0.0-0.5 [facility] Leukocytes [#/volume] correc marshal for nucleated erythrocytes in Blood by Automated counon 03-28-2024 WBC corrected for nucl RBC Auto (Bld) [#/Vol] 7.1 10 3/uL 4.0-11.0 [facility] Lymphocytes Auto (Bld) [#/Vo l]on 03-28-2024 Lymphocytes (Bld) [#/Vol] 2.2 10 3/uL 1.2-3.8 [facility] Lymphocytes/100 WBC Auto (Bl d)on 03-28-2024 Lymphocytes/100 WBC (Bld) 31.1 % 20.5-60.0 [facility] MCH Auto (RBC) [Entitic mass ]on 03-28-2024 MCH (RBC) [Entitic mass] 29.9 pg 26.7-34.0 [facility] MCHC Auto (RBC) [Mass/Vol]on 03-28-2024 MCHC (RBC) [Mass/Vol] 32.1 g/dL 29.9-35.2 [facility] MCV Auto (RBC) [Entitic vol] on 03-28-2024 MCV (RBC) [Entitic vol] 93.1 fL 81.0-99.0 [facility] Monocytes Auto (Bld) [#/Vol] on 03-28-2024 Monocytes (Bld) [#/Vol] 0.4 10 3/uL 0.3-0.8 [facility] Monocytes/100 WBC Auto (Bld) on 03-28-2024 Monocytes/100 WBC (Bld) 6.1 % 1.7-12.0 [facility] Neutrophils Auto (Bld) [#/Vo l]on 03-28-2024 Neutrophils (Bld) [#/Vol] 4.0 10 3/uL 1.4-6.5 [facility] Neutrophils/100 WBC Auto (Bl d)on 03-28-2024 Neutrophils/100 WBC (Bld) 56.7 % 43.0-75.0 [facility] No Panel Informationon 03-28 Eosinophils # (Auto) 0.4 10 3/uL 0.0-0.7 [facility] Immature Granulocyte # (Auto) 0.02 10 3/uL 0.00-0.03 [facility] Platelet mean volume Auto (B ld) [Entitic vol]on 03-28-2024 Platelet mean volume (Bld) [Entitic vol] 10.4 fL 9.5-13.5 [facility] Platelets Auto (Bld) [#/Vol] on 03-28-2024 Platelets (Bld) [#/Vol] 270 10 3/uL 150-450 [facility] RBC Auto (Bld) [#/Vol]on RBC (Bld) [#/Vol] 4.08 10 6/uL Low 4.20-5.40 [facility] Serum or plasma anion gap de terminationon 03-28-2024 Anion gap [Moles/Vol] 10.6 mmol/L [facility] Formson 12-08-2023 Forms [id number] #1.00TIFF Normal [facility] Operative Reporton Operative Report [id number] #1.00TIFF Normal [facility] RAD - MISCon 12-08-2023 [facility] - MISC [id number] #1.00TIFF Normal [facility] [id number] #1.00TIFF Normal [facility] Ambulatory Visit Summaryon 0 12-07-2023 Ambulatory Visit [...] including vitamins, herbs, eye drops, creams, and oorv-srl-zhzmzmy medicines. ? Any problems you or family [...] tells you to take them. ? Taking grpt-pyg-wzyknvi medicines, vitamins, herbs, and supplements. Eating and [...] dri (more content not included)... Normal [facility] Amphetamine Screen Ql (U)Ord ered By: Sanford Mason on 12-07-2023 Amphetamines Ql (U) Negative Negative [facility] Barbiturates [Presence] in U rine by Screen methodOrdered By: Sanford Mason on 12-07-2023 Barbiturates Screen Ql (U) Negative Negative [facility] Benzodiazepines Screen Ql (U )Ordered By: Sanford Mason on 12-07-2023 Benzodiazepines Ql (U) Negative Negative [facility] Benzoylecgonine [Presence] i n Urine by Screen methodOrdered By: Sanford Mason on 12-07-2023 Benzoylecgonine Screen Ql (U) Negative Negative [facility] Cannabinoids [Presence] in U rine by Screen methodOrdered By: Sanford Mason on 12-07-2023 Cannabinoids Screen Ql (U) Positive Negative [facility] Comment on above: These are unconfirme d results and should not be used for legal purposes. Drug Cut-Off Concentration: AMPH 1000 ng/mL GARETT 200 ng/mL LEVY 200 ng/mL COCM 300 ng/mL OP 300 ng/mL PCP 25 ng/mL THC 20 ng/mL Drug Screen,Urineon 12-07-19 24 Amphetamine Screen,Urine Negative Normal Negative [facility] Comment on above: Performed By: #### U RDS #### [address] Barbiturate Screen,Urine Negative Normal Negative [facility] Comment on above: Performed By: #### U RDS #### [address] Benzodiazepines Screen,Urine Negative Normal Negative [facility] Comment on above: Performed By: #### U RDS #### [address] Cannabinoid Screen,Urine Positive High Negative [facility] Comment on above: Result Comment: Thes e are unconfirmed results and should not be used for legal purposes. Drug Cut-Off Concentration: AMPH 1000 ng/mL GARETT 200 ng/mL LEVY 200 ng/mL COCM 300 ng/mL OP 300 ng/mL PCP 25 ng/mL THC 20 ng/mL PERFORMED BY: [place] [address] PATHOLOGIST [employer] BOX TESTER DINA WALKER M.D. Performed By: #### U RDS #### [address] Cocaine Screen,Urine Negative Normal Negative [facility] Comment on above: Performed By: #### U RDS #### [address] Opiate Screen,Urine Negative Normal Negative [facility] Comment on above: Performed By: #### U RDS #### [address] Phencyclidine Screen,Urine Negative Normal Negative [facility] Comment on above: Performed By: #### U RDS #### [address] [place] urethrocystogram retroon 12-07-2023 [place] urethrocystogram retro [facility] Main [place] [address] [place] [address] Fluoroscopy Report Signed Patient: Nguyen Taylor MR#: [id number] : 1980 Acct:[id number] Age/Sex: 43 / F ADM Date: 12/07/23 Loc: [place] Room: Type: [facility] Attending Dr: Mariano Mcconnell MD Copies [...] Gabriele Corbin M.D.12/07/2023 6:04 PM Dictation Location: [place] [address] Transcribed By: [facility] 12/07/231803 Dictated By: Gabriele Corbin II, MD 12/07/231801 Signed By: 12/07/231803 Normal [facility] HCG ( test) IA.rapi d Ql (U)Ordered By: Sanford Mason on 12-07-2023 HCG ( test) Ql (U) Negative [facility] HCG,Urineon 12-07-2023 Beta HCG ( test) Ql (U) Negative Normal [facility] Comment on above: Result Comment: PERF ORMED BY: [place] [address] PATHOLOGIST [employer] BOX TESTER DINA WALKER M.D. Performed By: #### U HCG #### [address] Insurance Correspondenceon 0 12-07-2023 Insurance Correspondence [id number]#1.00TIFF Normal [facility] Opiates [Presence] in Urine by Screen methodOrdered [...] including vitamins, herbs, eye drops, creams, and xmiy-fee-dxfeigd medicines. ? Any problems you or family [...] tells you to take them. ? Taking omxg-zcc-lqygwqb medicines, vitamins, herbs, and supplements. Eating and [...] the pieces (more content not included)... Normal [facility] Phencyclidine Screen Ql (U)O rdered By: Sanford Mason on 12-07-2023 Phencyclidine Ql (U) Negative Negative [facility] Urology Office/Clinic Noteon 12-07-2023 Urology Office/Clinic Note Chief Complaint Pt is here for [facility] ER f/u HPI Staff 43 year old female New Pt. Pt. was in the [facility] ER on 11/13/23 due to Lt. lower [...] 1. Ureteral stone (N20.1: Calculus of ureter) [facility] ER visit 11/13/23 due to left flank pain. Given Fomax and pain medication to help pass stone. CT AP w con 11/13/23 [facility] - Obstructing 3 mm L UVJ calculus [...] from a couple days ago at the [facility] is inconclusive. She continues with significant pain up to a level 7 out of 10 and does desire surgical intervention. This is well outlined above. She understands the ris (more content not included)... Normal [facility] Comment on above: Result Comment: Elec tronically Signed By: Mariano MCCONNELL MD\.br\Date and Time Signed: 12/07/23 12:06 EDT\.br\Electronically Co-Signed By: Lakeisha Beebe\.br\Date and Time Co-Signed: 12/07/23 12:02 EDT RAD - MISCon 12-06-2023 RAD - MISC [id number] #1.00TIFF [facility] XR KUBon 12-01-2023 XR KUB [facility] [place] [address] XRay Report Signed Patient: Nguyen Taylor MR#: [id number] : 1980 Acct:[id number] Age/Sex: 43 / F ADM Date: 12/01/23 Loc: XD Room: Type: [facility] Attending Dr: Mariano Mcconnell MD Copies [...] Palacios Jr., D.O.12/01/2023 4:13 PM Dictation Location: [place] [address] Transcribed By: [facility] 12/01/23 1613 Dictated By: Freeman Palacios Jr, DO 12/01/23 1611 Signed By: 12/01/23 1613 Normal [facility] ED Note-Physicianon 11-19-19 ED Note-Physician [id number] #1.00TIFF Normal [facility] Alanine aminotransferase [En zymatic activity/volume] in Serum or PlasmaOrdered By: Lucrecia Nunn on 11-13-2023 ALT [Catalytic activity/Vol] 16 U/L 7-52 [facility] Albumin [Mass/volume] in Ser um or Plasma by Bromocresol green (BCG) dye binding methoOrdered By: Lucrecia Nunn on 11-13-2023 Albumin BCG dye [Mass/Vol] 4.8 g/dL 3.5-5.7 [facility] Alkaline phosphatase [Enzyma tic activity/volume] in Serum or PlasmaOrdered By: Lucrecia Nunn on 11-13-2023 ALP [Catalytic activity/Vol] 59 U/L 34-104 [facility] Aspartate aminotransferase [ Enzymatic activity/volume] in Serum or PlasmaOrdered By: Lucrecia Nunn on 11-13-2023 AST [Catalytic activity/Vol] 18 U/L 13-39 [facility] Automated epithelial cells c ount in urine sediment (number/area)Ordered By: Lucrecia Nunn on 11-13-2023 Epithelial cells Auto (Urine sed) [#/Area] None seen [HPF] 0-2 [facility] Automated erythrocytes count in urine sediment (number/area)Ordered By: Lucrecia Nunn on 11-13-2023 RBC Auto (Urine sed) [#/Area] 20-49 [HPF] 0-4 [facility] Automated leukocytes count i n urine sediment (number/area)Ordered By: Lucrecia Edouard on 11-13-2023 WBC Auto (Urine sed) [#/Area] None seen [HPF] 0-4 [facility] Automated urine hyaline cast s count (number/volume)Ordered By: Lucrecia Edouard on 11-13-2023 Hyaline casts Auto (U) [#/Vol] None seen [LPF] 0-1 [facility] Basic Metabolic Panelon 10-28 Anion gap [Moles/Vol] 12.0 mmol/L Normal 6.0-15.0 [facility] Comment on above: Performed By: #### C BC, HEPATIC, LIPASE, HCGQUAL, BMP #### [address] Calcium [Mass/Vol] 9.6 mg/dL Normal 8.6-10.3 [facility] Comment on above: Performed By: #### C BC, HEPATIC, LIPASE, HCGQUAL, BMP #### [address] Chloride [Moles/Vol] 106 mmol/L Normal 98-107 [facility] Comment on above: Performed By: #### C BC, HEPATIC, LIPASE, HCGQUAL, BMP #### [address] CO2 [Moles/Vol] 22.8 mmol/L Normal 21.0-31.0 [facility] Comment on above: Performed By: #### C BC, HEPATIC, LIPASE, HCGQUAL, BMP #### [address] Creatinine [Mass/Vol] 0.73 mg/dL Normal 0.60-1.20 [facility] Comment on above: Performed By: #### C BC, HEPATIC, LIPASE, HCGQUAL, BMP #### [address] Creatinine Clr Calc Pharmacy 81.17 Normal [facility] Comment on above: Performed By: #### C BC, HEPATIC, LIPASE, HCGQUAL, BMP #### [address] GFR/1.73 sq M.predicted MDRD (S/P/Bld) [Vol rate/Area] mL/min/{1.73_m2} Normal [facility] Comment on above: Performed By: #### C BC, HEPATIC, LIPASE, HCGQUAL, BMP #### [facility] [address] Glucose [Mass/Vol] 92 mg/dL Normal 70-100 [facility] Comment on above: Result Comment: [facility] Glucose Reference Range is dependent on time and content of last meal. Glucose of more than 200 mg/dL in a nonstressed, ambulatory subject supports the diagnosis of Diabetes Mellitus. ADA recommended reference range Performed By: #### C BC, HEPATIC, LIPASE, HCGQUAL, BMP #### [address] Potassium [Moles/Vol] 3.8 mmol/L Normal 3.5-5.1 [facility] Comment on above: Performed By: #### C BC, HEPATIC, LIPASE, HCGQUAL, BMP #### [place] [address] [place] Sodium [Moles/Vol] 137 mmol/L Normal 136-145 [facility] Comment on above: Performed By: #### C BC, HEPATIC, LIPASE, HCGQUAL, BMP #### [place] [address] [place] Urea nitrogen [Mass/Vol] 10 mg/dL Normal 7-25 [facility] Comment on above: Performed By: #### C BC, HEPATIC, LIPASE, HCGQUAL, BMP #### [facility] [address] [place] [address] [place] Basophils Auto (Bld) [#/Vol] Ordered By: Lucrecia Nunn on 11-13-2023 Basophils (Bld) [#/Vol] 0.0 10*3/uL 0.0-0.2 [facility] Basophils/100 WBC Auto (Bld) Ordered By: Lucrecia Nunn on 11-13-2023 Basophils/100 WBC (Bld) 0.4 % . [facility] Bilirubin Test strip Ql (U)O rdered By: Lucrecia Nunn on 11-13-2023 Bilirubin Ql (U) Negative Negative [facility] Bilirubin.direct [Mass/volum e] in Serum or PlasmaOrdered By: Lucrecia Nunn on 11-13-2023 Bilirubin.direct [Mass/Vol] 0.10 mg/dL 0.03-0.18 [facility] Bilirubin.total [Mass/volume ] in Serum or PlasmaOrdered By: Lucrecia Nunn on 11-13-2023 Bilirubin [Mass/Vol] 0.5 mg/dL 0.3-1.[address] [facility] CT abdomen pelvis w conon CT abdomen pelvis w con [facility] Main [place] [address] [place] [address] CT Scan Report Signed Patient: Nguyen Taylor MR#: [id number] : 1980 Acct:[id number] Age/Sex: 43 / F ADM Date: 11/13/23 Loc: ER Room: Type: [facility] ER Attending Dr: Copies to: [...] Palacios Jr., D.OPatito11/13/2023 11:29 AM Dictation Location: [place] [address] Transcribed By: [facility] 11/13/23 1129 Dictated By: Freeman Palacios Jr, DO 11/13/23 1125 Signed By: 11/13/23 1129 Normal [facility] Calcium [Mass/volume] in Ser um or PlasmaOrdered By: Lucrecia Nunn on 11-13-2023 Calcium [Mass/Vol] 9.6 mg/dL 8.6-10.3 [facility] Carbon dioxide, total [Moles /volume] in Serum or PlasmaOrdered By: Lucrecia Nunn on 11-13-2023 CO2 [Moles/Vol] 22.8 mmol/L 21.0-31.0 [facility] Chloride [Moles/volume] in S noemy or PlasmaOrdered By: Lucrecia Nunn on 11-13-2023 Chloride [Moles/Vol] 106 mmol/L 98-107 [facility] Choriogonadotropin.beta subu nit [Units/volume] in Serum or PlasmaOrdered By: Lucrecia Nunn on 11-13-2023 HCG.beta subunit Qn Negative [facility] Color Auto (U)Ordered By: Shashank Nunn on 11-13-2023 Color (U) Yellow Yellow [facility] Complete Blood Count Auto Di ffon 11-13-2023 Basophils (Bld) [#/Vol] 0.0 10*3/uL Normal 0.0-0.2 [facility] Comment on above: Result Comment: PERF ORMED BY: [place] [address] PATHOLOGIST [employer] BOX TESTER DINA WALKER M.D. Performed By: #### C BC, HEPATIC, LIPASE, HCGQUAL, BMP #### [address] Basophils/100 WBC (Bld) 0.4 % Normal . T [facility] Comment on above: Performed By: #### C BC, HEPATIC, LIPASE, HCGQUAL, BMP #### [address] Eosinophils (Bld) [#/Vol] 0.3 10*3/uL Normal 0.0-0.45 [facility] Comment on above: Performed By: #### C BC, HEPATIC, LIPASE, HCGQUAL, BMP #### [address] Eosinophils/100 WBC (Bld) 3.4 % Normal . [facility] Comment on above: Performed By: #### C BC, HEPATIC, LIPASE, HCGQUAL, BMP #### [address] Erythrocyte distribution width (RBC) [Ratio] 13.3 % Normal 11.9-15.3 [facility] Comment on above: Performed By: #### C BC, HEPATIC, LIPASE, HCGQUAL, BMP #### [address] Hematocrit (Bld) [Volume fraction] 40.4 % Normal 34.0-46.4 [facility] Comment on above: Performed By: #### C BC, HEPATIC, LIPASE, HCGQUAL, BMP #### [address] Hemoglobin (Bld) [Mass/Vol] 13.6 g/dL Normal 11.8-15.4 [facility] Comment on above: Performed By: #### C BC, HEPATIC, LIPASE, HCGQUAL, BMP #### [address] Lymphocytes (Bld) [#/Vol] 1.7 10*3/uL Normal 1.00-4.8 [facility] Comment on above: Performed By: #### C BC, HEPATIC, LIPASE, HCGQUAL, BMP #### [address] Lymphocytes/100 WBC (Bld) 22.8 % Normal . [facility] Comment on above: Performed By: #### C BC, HEPATIC, LIPASE, HCGQUAL, BMP #### [address] MCH (RBC) [Entitic mass] 29.8 pg Normal 24.7-34.3 [facility] Comment on above: Performed By: #### C BC, HEPATIC, LIPASE, HCGQUAL, BMP #### [address] MCV (RBC) [Entitic vol] 88.6 fL Normal 80-100 [facility] Comment on above: Performed By: #### C BC, HEPATIC, LIPASE, HCGQUAL, BMP #### [address] Mean Corpuscular HGB Conc 33.7 g/dL Normal 32.0-35.0 [facility] Comment on above: Performed By: #### C BC, HEPATIC, LIPASE, HCGQUAL, BMP #### [address] Monocytes (Bld) [#/Vol] 0.4 10*3/uL Normal 0.0-0.8 [facility] Comment on above: Performed By: #### C BC, HEPATIC, LIPASE, HCGQUAL, BMP #### [address] Monocytes/100 WBC (Bld) 15.49 % Normal 0.00-20.00 [facility] Comment on above: Performed By: #### C BC, HEPATIC, LIPASE, HCGQUAL, BMP #### [address] Monocytes/100 WBC (Bld) 5.9 % Normal . [facility] Comment on above: Performed By: #### C BC, HEPATIC, LIPASE, HCGQUAL, BMP #### [address] Neutrophils (Bld) [#/Vol] 5.1 10*3/uL Normal 1.8-7.7 [facility] Comment on above: Performed By: #### C BC, HEPATIC, LIPASE, HCGQUAL, BMP #### [address] Neutrophils/100 WBC (Bld) 67.5 % Normal . [facility] Comment on above: Performed By: #### C BC, HEPATIC, LIPASE, HCGQUAL, BMP #### [address] NRBC% 0.1 /100{WBC} Normal 0-0.5 [facility] Comment on above: Performed By: #### C BC, HEPATIC, LIPASE, HCGQUAL, BMP #### [address] Platelet mean volume (Bld) [Entitic vol] 8.6 fL Normal 6.3-10.7 [facility] Comment on above: Performed By: #### C BC, HEPATIC, LIPASE, HCGQUAL, BMP #### [address] Platelets (Bld) [#/Vol] 295 10*3/uL Normal 150-450 [facility] Comment on above: Performed By: #### C BC, HEPATIC, LIPASE, HCGQUAL, BMP #### [address] RBC (Bld) [#/Vol] 4.56 10*6/uL Normal 3.60-5.00 [facility] Comment on above: Performed By: #### C BC, HEPATIC, LIPASE, HCGQUAL, BMP #### [address] WBC (Bld) [#/Vol] 7.5 10*3/uL Normal 3.8-11.6 [facility] Comment on above: Performed By: #### C BC, HEPATIC, LIPASE, HCGQUAL, BMP #### [address] Creatinine [Mass/volume] in Serum or PlasmaOrdered By: Lcurecia Nunn on 11-13-2023 Creatinine [Mass/Vol] 0.73 mg/dL 0.60-1.20 [facility] Dipstick and Microscopicon 0 11-13-2023 Appearance (U) Clear Normal Clear [facility] Comment on above: Order Comment: Name Collection Type:: Clean-Voided Midstream Performed By: #### A DDONUAPLUS ####[place] [address] [place] [address] [facility] Bacteria,Urine None Seen Normal None Seen [facility] Comment on above: Order Comment: Name Collection Type:: Clean-Voided Midstream Performed By: #### A DDONUAPLUS ####[address] [address] [place] Bilirubin,Urine Negative Normal Negative [facility] Comment on above: Order Comment: Name Collection Type:: Clean-Voided Midstream Performed By: #### A DDONUAPLUS ####[address] [address] [facility] Color (U) Yellow Normal Yellow [facility] Comment on above: Order Comment: Name Collection Type:: Clean-Voided Midstream Performed By: #### A DDONUAPLUS ####[address] [address] [facility] Glucose Ql (U) Normal Normal Normal [facility] Comment on above: Order Comment: Name Collection Type:: Clean-Voided Midstream Performed By: #### A DDONUAPLUS ####[address] [address] [facility] Hyaline Casts,Urine None Seen Normal 0-1 [facility] Comment on above: Order Comment: Name Collection Type:: Clean-Voided Midstream Result Comment: PERF ORMED BY: [facility] [facility] [address] [place] [address] PATHOLOGIST AIR BOX TESTER DINA WALKER M.D. Performed By: #### A DDONUAPLUS ####[address] [address] [facility] Ketones Ql (U) 1+ High Negative [facility] Comment on above: Order Comment: Name Collection Type:: Clean-Voided Midstream Performed By: #### A DDONUAPLUS ####[address] [address] [place] [address] [facility] Leukocyte esterase Test strip Ql (U) Negative Normal Negative [facility] Comment on above: Order Comment: Name Collection Type:: Clean-Voided Midstream Performed By: #### A DDONUAPLUS ####[address] [address] [facility] Nitrite,Urine Negative Normal Negative [facility] Comment on above: Order Comment: Name Collection Type:: Clean-Voided Midstream Performed By: #### A DDONUAPLUS ####[address] [address] [facility] Occult Blood,Urine 3+ High Negative [facility] Comment on above: Order Comment: Name Collection Type:: Clean-Voided Midstream Result Comment: PERF ORMED BY: [facility] [address] [place] [id number] PATHOLOGIST AIR BOX TESTER DINA WALKER M.D. Performed By: #### A DDONUAPLUS ####[address] [address] [facility] pH (U) 7.5 [pH] Normal 5.0-9.0 [facility] Comment on above: Order Comment: Name Collection Type:: Clean-Voided Midstream Performed By: #### A DDONUAPLUS ####[address] [address] [facility] Protein,Urine Negative Normal Negative [facility] Comment on above: Order Comment: Name Collection Type:: Clean-Voided Midstream Performed By: #### A DDONUAPLUS ####[address] [address] [facility] RBC,Urine 20-49 High 0-4 [facility] Comment on above: Order Comment: Name Collection Type:: Clean-Voided Midstream Performed By: #### A DDONUAPLUS ####[address] [address] [facility] Specificy [place],Urine 1.011 Normal 1.001-1.030 [facility] Comment on above: Order Comment: Name Collection Type:: Clean-Voided Midstream Performed By: #### A DDONUAPLUS ####[place] [address] Squamous Epithelial Cell,Urine None Seen Normal 0-2 [facility] Comment on above: Order Comment: Name Collection Type:: Clean-Voided Midstream Performed By: #### A DDONUAPLUS ####[place] [address] Urobilinogen,Urine Normal Normal Normal [facility] Comment on above: Order Comment: Name Collection Type:: Clean-Voided Midstream Performed By: #### A DDONUAPLUS ####[place] [address] WBC,Urine None Seen Normal 0-4 [facility] Comment on above: Order Comment: Name Collection Type:: Clean-Voided Midstream Performed By: #### A DDONUAPLUS ####[address] Eosinophils Auto (Bld) [#/Vo l]Ordered By: Lucrecia Nunn on 11-13-2023 Eosinophils (Bld) [#/Vol] 0.3 10*3/uL 0.0-0.45 [facility] Eosinophils/100 WBC Auto (Bl d)Ordered By: Lucrecia Nunn on 11-13-2023 Eosinophils/100 WBC (Bld) 3.4 % . [facility] Erythrocyte distribution wid th Auto (RBC) [Ratio]Ordered By: Lucrecia Nunn on 11-13-2023 Erythrocyte distribution width (RBC) [Ratio] 13.3 % 11.9-15.3 [facility] Globulin Calc (S) [Mass/Vol] Ordered By: Lucrecia Nunn on 11-13-2023 Globulin (S) [Mass/Vol] 3.0 g/dL [facility] Glucose [Mass/volume] in Ser um or PlasmaOrdered By: Lucrecia Nunn on 11-13-2023 Glucose [Mass/Vol] 92 mg/dL 70-100 [facility] Comment on above: ADA recommended refe rence rangeRandom Glucose Reference Range is dependent on time and content of last meal. Glucose of more than 200 mg/dL in a nonstressed, ambulatory subject supports the diagnosis of Diabetes Mellitus. HCG,Qualitative Serumon 10-28 HCG,Qualitative Serum Negative Normal [facility] Comment on above: Result Comment: PERF ORMED BY: [place] [address] PATHOLOGIST AIR BOX TESTER DINA WALKER M.D. Performed By: #### C BC, HEPATIC, LIPASE, HCGQUAL, BMP #### [address] Hematocrit Auto (Bld) [Volum e fraction]Ordered By: Lucrecia Nunn on 11-13-2023 Hematocrit (Bld) [Volume fraction] 40.4 % 34.0-46.4 [facility] Hemoglobin [Mass/volume] in BloodOrdered By: Lucrecia Nunn on 11-13-2023 Hemoglobin (Bld) [Mass/Vol] 13.6 g/dL 11.8-15.4 [facility] Hepatic Panelon 11-13-2023 Albumin [Mass/Vol] 4.8 g/dL Normal 3.5-5.7 [facility] Comment on above: Performed By: #### C BC, HEPATIC, LIPASE, HCGQUAL, BMP #### [address] Albumin/Globulin [Mass ratio] 1.6 {ratio} Normal [facility] Comment on above: Performed By: #### C BC, HEPATIC, LIPASE, HCGQUAL, BMP #### [address] ALP [Catalytic activity/Vol] 59 U/L Normal 34-104 [facility] Comment on above: Performed By: #### C BC, HEPATIC, LIPASE, HCGQUAL, BMP #### [address] ALT [Catalytic activity/Vol] 16 U/L Normal 7-52 [facility] Comment on above: Performed By: #### C BC, HEPATIC, LIPASE, HCGQUAL, BMP #### [address] AST [Catalytic activity/Vol] 18 U/L Normal 13-39 [facility] Comment on above: Performed By: #### C BC, HEPATIC, LIPASE, HCGQUAL, BMP #### [address] Bilirubin [Mass/Vol] 0.5 mg/dL Normal 0.3-1.0 [facility] Comment on above: Performed By: #### C BC, HEPATIC, LIPASE, HCGQUAL, BMP #### [address] Bilirubin,Indirect 0.4 mg/dL Normal [facility] Comment on above: Performed By: #### C BC, HEPATIC, LIPASE, HCGQUAL, BMP #### [address] Bilirubin.indirect [Mass/Vol] 0.10 mg/dL Normal 0.03-0.18 [facility] Comment on above: Performed By: #### C BC, HEPATIC, LIPASE, HCGQUAL, BMP #### [address] Globulin (S) [Mass/Vol] 3.0 g/dL Normal T [facility] Comment on above: Performed By: #### C BC, HEPATIC, LIPASE, HCGQUAL, BMP #### [address] Protein [Mass/Vol] 7.8 g/dL Normal 6.4-8.9 [facility] Comment on above: Performed By: #### C BC, HEPATIC, LIPASE, HCGQUAL, BMP #### [address] Ketones Auto test strip (U) [Mass/Vol]Ordered By: Lucrecia Nunn on 11-13-2023 Ketones (U) [Mass/Vol] 1+ Negative [facility] Leukocytes [#/volume] correc marshal for nucleated erythrocytes in Blood by Automated counOrdered By: Lucrecia Nunn on 11-13-2023 WBC corrected for nucl RBC Auto (Bld) [#/Vol] 7.5 10*3/uL 3.8-11.6 [facility] Lipaseon 11-13-2023 Lipase [Catalytic activity/Vol] 45.0 U/L Normal 11.0-82.0 [facility] Comment on above: Performed By: #### C BC, HEPATIC, LIPASE, HCGQUAL, BMP #### [facility] [address] Lipase [Enzymatic activity/v olume] in Serum or PlasmaOrdered By: Lucrecia Nunn on 11-13-2023 Lipase [Catalytic activity/Vol] 45.0 U/L 11.0-82.0 [facility] Lymphocytes Auto (Bld) [#/Vo l]Ordered By: Lucrecia Nunn on 11-13-2023 Lymphocytes (Bld) [#/Vol] 1.7 10*3/uL 1.00-4.8 [facility] Lymphocytes/100 WBC Auto (Bl d)Ordered By: Lucrecia Nunn on 11-13-2023 Lymphocytes/100 WBC (Bld) 22.8 % . [facility] MCH Auto (RBC) [Entitic mass ]Ordered By: Lucrecia Nunn on 11-13-2023 MCH (RBC) [Entitic mass] 29.8 pg 24.7-34.3 [facility] MCHC Auto (RBC) [Mass/Vol]Or dered By: Lucrecia Nunn on 11-13-2023 MCHC (RBC) [Mass/Vol] 33.7 g/dL 32.0-35.0 [facility] MCV Auto (RBC) [Entitic vol] Ordered By: Lucrecia Nunn on 11-13-2023 MCV (RBC) [Entitic vol] 88.6 fL 80-100 [facility] Monocyte distribution width [Entitic volume] in Blood by AutomatedOrdered By: Lucrecia Nunn on 11-13-2023 Monocyte distribution width Auto (Bld) [Entitic vol] 15.49 % 0.00-20.00 [facility] Monocytes Auto (Bld) [#/Vol] Ordered By: Lucrecia Nunn on 11-13-2023 Monocytes (Bld) [#/Vol] 0.4 10*3/uL 0.0-0.8 [facility] Monocytes/100 WBC Auto (Bld) Ordered By: Lucrecia Nunn on 11-13-2023 Monocytes/100 WBC (Bld) 5.9 % . [facility] Neutrophils Auto (Bld) [#/Vo l]Ordered By: Lucrecia Nunn on 11-13-2023 Neutrophils (Bld) [#/Vol] 5.1 10*3/uL 1.8-7.7 [facility] Neutrophils/100 WBC Auto (Bl d)Ordered By: Lucrecia Nunn on 11-13-2023 Neutrophils/100 WBC (Bld) 67.5 % . [facility] Nitrite Test strip Ql (U)Ord ered By: Lucrecia Nunn on 11-13-2023 Nitrite Ql (U) Negative Negative [facility] No Panel InformationOrdered By: Lucrecia Nunn on 11-13-2023 Estimated GFR (CKD-EPI) > 60.0 mL/Min [facility] Creatinine Clearance (Chem 81.17 [facility] Nucleated erythrocytes [Pres ence] in Blood by Automated countOrdered By: Lucrecia Nunn on 11-13-2023 Nucleated RBC Auto Ql (Bld) 0.1 /100{WBC} 0-0.5 [facility] Platelet mean volume Auto (B ld) [Entitic vol]Ordered By: Lucrecia Nunn on 11-13-2023 Platelet mean volume (Bld) [Entitic vol] 8.6 fL 6.3-10.7 [facility] Platelets Auto (Bld) [#/Vol] Ordered By: Lucrecia Nunn on 11-13-2023 Platelets (Bld) [#/Vol] 295 10*3/uL 150-450 [facility] Potassium [Moles/volume] in Serum or PlasmaOrdered By: Lucrecia Nunn on 11-13-2023 Potassium [Moles/Vol] 3.8 mmol/L 3.5-5.1 [facility] Protein Auto test strip (U) [Mass/Vol]Ordered By: Lucrecia Nunn on 11-13-2023 Protein (U) [Mass/Vol] Negative Negative [facility] Protein [Mass/volume] in Ser um or PlasmaOrdered By: Lucrecia Nunn on 11-13-2023 Protein [Mass/Vol] 7.8 g/dL 6.4-8.9 [facility] RBC Auto (Bld) [#/Vol]Ordere d By: Lucrecia Nunn on 11-13-2023 RBC (Bld) [#/Vol] 4.56 10*6/uL 3.60-5.00 [facility] Serum or plasma albumin/glob ulin mass ratioOrdered By: Lucrecia Nunn on 11-13-2023 Albumin/Globulin [Mass ratio] 1.6 {ratio} [facility] Serum or plasma anion gap de terminationOrdered By: Lucrecia Nunn on 11-13-2023 Anion gap [Moles/Vol] 12.0 mmol/L 6.0-15.0 [facility] Serum or plasma non-glucuron idated bilirubin measurement (mass/volume)Ordered By: Lucrecia Nunn on 11-13-2023 Bilirubin.indirect [Mass/Vol] 0.4 mg/dL [facility] Sodium [Moles/volume] in Ser um or PlasmaOrdered By: Lucrecia Nunn on 11-13-2023 Sodium [Moles/Vol] 137 mmol/L 136-145 [facility] Specific gravity Auto test s trip (U) [Rel density]Ordered By: Lucreica Nunn on 11-13-2023 Specific gravity (U) [Rel density] 1.011 1.001-1.030 [facility] Urea nitrogen [Mass/volume] in Serum or PlasmaOrdered By: Lucrecia Nunn on 11-13-2023 Urea nitrogen [Mass/Vol] 10 mg/dL 7-25 [facility] Urine bacteria detection by automated methodOrdered By: Lucrecia Nunn on 11-13-2023 Bacteria Auto Ql (U) None seen None Seen [facility] Urine clarity by refractomet ry automatedOrdered By: Lucrecia Nunn on 11-13-2023 Clarity Refractometry automated (U) Clear Clear [facility] Urine glucose measurement by automated test strip (mass/volume)Ordered By: Lucrecia Nunn on 11-13-2023 Glucose Auto test strip (U) [Mass/Vol] Normal mg/dL Normal [facility] Urine hemoglobin detection b y automated test stripOrdered By: Lucrecia Nunn on 11-13-2023 Hemoglobin Auto test strip Ql (U) 3+ Negative [facility] Urine leukocyte esterase det ection by automated test stripOrdered By: Lucrecia Nunn on 11-13-2023 Leukocyte esterase Auto test strip Ql (U) Negative Negative [facility] Urobilinogen Auto test strip (U) [Mass/Vol]Ordered By: Lucrecia Nunn on 11-13-2023 Urobilinogen (U) [Mass/Vol] Normal mg/dL Normal [facility] WBC Auto (Bld) [#/Vol]Ordere d By: Lucrecia Nunn on 11-13-2023 WBC (Bld) [#/Vol] 7.5 10*3/uL 3.8-11.6 [facility] pH Auto test strip (U)Ordere d By: Lucrecia Nunn on 11-13-2023 pH (U) 7.5 [pH] 5.0-9.0 [facility] CBC AUTO DIFFon 04-07-2022 BASO # 0.0 103/ul Normal 0.0-0.1 [facility] Comment on above: Performed By: #### C BC #### [facility] [address] [place] [address] Dr. Joe Desir Basophils/100 WBC (Bld) 0.2 % Normal 0.2-2.0 [facility] Comment on above: Performed By: #### C BC #### [facility] [address] [place] [address] Dr. Joe Desir EO # 0.3 103/ul Normal 0.0-0.7 [facility] Comment on above: Performed By: #### C BC #### [facility] [address] [place] [address] Dr. Joe Desir Eosinophils/100 WBC (Bld) 2.1 % Normal 0.9-7.0 [facility] Comment on above: Performed By: #### C BC #### [facility] [address] [place] [address] Dr. Joe Desir Erythrocyte distribution width (RBC) [Ratio] 12.9 % Normal 11.0-15.0 [facility] Comment on above: Performed By: #### C BC #### [facility] [address] [place] [address] Dr. Joe Desir Hematocrit (Bld) [Volume fraction] 41.1 % Normal 36.0-48.0 [facility] Comment on above: Performed By: #### C BC #### [facility] [address] [place] [address] Dr. Joe Desir Hemoglobin (Bld) [Mass/Vol] 13.5 g/dL Normal 12.0-16.0 [facility] Comment on above: Performed By: #### C BC #### [facility] [address] [place] [address] Dr. Joe Desir IG # 0.05 10e3/ul Critically high 0.00-0.03 [facility] Comment on above: Performed By: #### C BC #### [facility] [address] [place] [address] Dr. Joe Desir IG % 0.4 % Normal 0.0-0.5 [facility] Comment on above: Performed By: #### C BC #### [facility] [address] [place] [address] Dr. Joe Desir LYMPH # 2.3 103/ul Normal 1.2-3.8 [facility] Comment on above: Performed By: #### C BC #### [facility] [address] [place] [address] Dr. Joe Desir Lymphocytes/100 WBC (Bld) 17.7 % Critically low 20.5-60.0 [facility] Comment on above: Performed By: #### C BC #### [facility] [address] [place] [address] Dr. Joe Desir MANUAL DIFF REQ NO Normal [facility] Comment on above: Performed By: #### C BC #### [facility] [address] [place] [address] Dr. Joe Desir MCH (RBC) [Entitic mass] 30.4 pg Normal 26.7-34.0 [facility] Comment on above: Performed By: #### C BC #### [facility] [address] [address] [address] Joe Desir MCHC (RBC) [Mass/Vol] 32.8 g/dL Normal 29.9-35.2 [facility] Comment on above: Performed By: #### C BC #### [facility] [address] [address] [address] Joe Desir MCV (RBC) [Entitic vol] 92.6 fL Normal 81.0-99.0 [facility] Comment on above: Performed By: #### C BC #### [facility] [address] [address] [address] Joe Desir MONO # 0.6 103/ul Normal 0.3-0.8 [facility] Comment on above: Performed By: #### C BC #### [facility] [address] [address] [address] Joe Desir Monocytes/100 WBC (Bld) 4.7 % Normal 1.7-12.0 [facility] Comment on above: Performed By: #### C BC #### [facility] [address] [address] [address] Joe Desir NEUT # 9.6 103/ul Critically high 1.4-6.5 [facility] Comment on above: Performed By: #### C BC #### [facility] [address] [address] [address] Joe Desir Neutrophils/100 WBC (Bld) 74.9 % Normal 43.0-75.0 [facility] Comment on above: Performed By: #### C BC #### [facility] [address] [address] [address] Joe Desir Platelet mean volume (Bld) [Entitic vol] 10.2 fL Normal 9.5-13.5 [facility] Comment on above: Performed By: #### C BC #### [facility] [address] [address] [address] Joe Desir PLT 285 103/ul Normal 150-450 [facility] Comment on above: Performed By: #### C BC #### [facility] [address] [place] [address] Dr. Joe Desir RBC 4.44 106/ul Normal 4.20-5.40 [facility] Comment on above: Performed By: #### C BC #### [facility] [address] [place] [address] Dr. Joe Desir WBC 12.8 103/ul Critically high 4.0-11.0 [facility] Comment on above: Performed By: #### C BC #### [facility] [address] [place] [address] Dr. Joe Desir FREE T4on 04-07-2022 Free T4 [Mass/Vol] 0.70 ng/dL Critically low 0.76-1.46 [facility] Comment on above: Performed By: #### F T4 #### [facility] [address] [place] [address] Dr. Joe Desir TSHon 04-07-2022 TSH 19.728 uIU/mL Critically high 0.358-3.740 [facility] Comment on above: Performed By: #### T SH #### [facility] [address] [place] [address] Dr. Joe Desir [facility]on SARS-CoV-2 (COVID-19) RNA KRISS+probe Ql (Unsp spec) Detected Critically abnormal NOT DETECTED [facility] Comment on above: Result Comment: This test is not yet approved or cleared by the [place] FDA. When there are no FDA-approved or cleared tests available, and other criteria are met, FDA can make tests available under an emergency access mechanism called an Emergency Use Authorization (EUA). The EUA for this test is supported by the [place] of Health and Human Service's (HHS's) declaration [...] longer be used). Performed By: #### C [facility] #### [facility] [address] [place] [address] Dr. Joe Desir XR ANKLE ELISA MIN [...] YEMI CAMPBELL Date: 2021-07-15 11:42 Normal [facility] MRI ANKLE LT WO CONon 2020 MRI [...] SANFORD MARTINEZ Date: 2021-07-07 19:44 Normal [facility] Covid-19 PCR ([facility])on SARS-CoV-2 (COVID-19) RNA KRISS+probe Ql (Unsp spec) Not detected Normal NOT DETECTED [facility] Comment on above: Result Comment: This test is not yet approved or cleared by the [place] FDA. When there are no FDA-approved or cleared tests available, and other criteria are met, FDA can make tests available under an emergency access mechanism called an Emergency Use Authorization (EUA). The EUA for this test is supported by the [employer] of Health and Human Service's (HHS's) declaration [...] Performed By: #### C VDAGS, CVDTB #### [facility] [address] [place] [address] Emy Cohen SYMPTOMATIC COVID-19 ANTIGEN on 05-30-2021 EUA Statement SEE BELOW Normal [facility] Comment on above: Result Comment: [...] Performed By: #### C SITAS, CVDTB #### [facility] [address] [place] [address] Emy Cohen SARS-CoV-2 (COVID-19) RNA KRISS+probe Ql (Unsp spec) Negative Normal NEGATIVE [facility] Comment on above: Result Comment: CONF IRMATION BY PCR PENDING PER CDC GUIDELINES/ SYMPTOMATIC PATIENT. Performed By: #### C SYDAGS, CVDTB #### [facility] [address] [place], [place] [address] Emy Cohen Vital Signs Date Time Vital Sign Value Performing Clinician Facility 05-30-2024 14:38-0400 Body height 152.4 cm [facility] 05-30-2024 14:38-0400 Body mass index (BMI) [Ratio] 25.5 kg/m2 [facility] 05-30-2024 14:38-0400 Body weight 59.42 kg [facility] 05-30-2024 14:38-0400 Diastolic blood pressure 74 mm[Hg] [facility] 05-30-2024 14:38-0400 Heart rate 67 /min [facility] 05-30-2024 14:38-0400 SaO2% (BldA) [Mass fraction] 98 % [facility] 05-30-2024 14:38-0400 Systolic blood pressure 122 mm[Hg] [facility] 03-28-2024 14:25-0400 Body height 152.4 cm [facility] 03-28-2024 14:25-0400 Body mass index (BMI) [Ratio] 25 kg/m2 [facility] 03-28-2024 14:25-0400 Body weight 58.05 kg [facility] 03-28-2024 14:25-0400 Diastolic blood pressure 68 mm[Hg] [facility] 03-28-2024 14:25-0400 Heart rate 75 /min [facility] 03-28-2024 14:25-0400 Systolic blood pressure 103 mm[Hg] [facility] 01-12-2024 13:06-0400 Body height 152.4 cm MD Tiera Dumas Work Phone: [facility] 01-12-2024 13:06-0400 Body mass index (BMI) [Ratio] 25.7 kg/m2 MD Tiera Dumas Work Phone: [facility] 01-12-2024 13:06-0400 Body weight 59.87 kg MD Tiera Dumas Work Phone: [facility] 01-12-2024 13:06-0400 Diastolic blood pressure 72 mm[Hg] MD Tiera Dumas Work Phone: [facility] 01-12-2024 13:06-0400 Heart rate 74 /min MD Tiera Dumas Work Phone: [facility] 01-12-2024 13:06-0400 SaO2% (BldA) [Mass fraction] 98 % MD Tiera Dumas Work Phone: [facility] 01-12-2024 13:06-0400 Systolic blood pressure 110 mm[Hg] MD Tiera Dumas Work Phone: [facility] 12-07-2023 17:40-0400 Diastolic blood pressure 76 mm[Hg] MD Tiera Dumas Work Phone: [facility] 12-07-2023 17:40-0400 Heart rate 69 /min MD Tiera Dumas Work Phone: [facility] 12-07-2023 17:40-0400 Respiratory rate 16 /min MD Tiera Dumas Work Phone: [facility] 12-07-2023 17:40-0400 SaO2% (BldA) [Mass fraction] 99 % MD Tiera Dumas Work Phone: [facility] 12-07-2023 17:40-0400 Systolic blood pressure 111 mm[Hg] MD Tiera Dumas Work Phone: [facility] 12-07-2023 15:13-0400 Body height 152.4 cm MD Tiera Dumas Work Phone: [facility] 12-07-2023 15:13-0400 Body mass index (BMI) [Ratio] 25.4 kg/m2 MD Tiera Dumas Work Phone: [facility] 12-07-2023 15:13-0400 Body weight 58.96 kg MD Tiera Dumas Work Phone: [facility] 12-07-2023 14:47-0400 Body temperature 98.8 [degF] MD Tiera Dumas Work Phone: [facility] 12-07-2023 11:34-0400 Body temperature 98.6 [degF] Mariano ENEDINA [facility] 12-07-2023 11:34-0400 Diastolic blood pressure 78 mm[Hg] Mariano MCCONNELL [facility] 12-07-2023 11:34-0400 Heart rate 64 /min Mariano COOK [facility] 12-07-2023 11:34-0400 Respiratory rate 16 /min Mariano COOK [facility] 12-07-2023 11:34-0400 Systolic blood pressure 111 mm[Hg] Mariano COOK [facility] 11-13-2023 12:21-0500 Diastolic blood pressure 72 mm[Hg] MD Tiera Dumas Work Phone: [facility] 11-13-2023 12:21-0500 Heart rate 63 /min MD Tiera Dumas Work Phone: [facility] 11-13-2023 12:21-0500 Respiratory rate 18 /min MD Tiera Dumas Work Phone: [facility] 11-13-2023 12:21-0500 SaO2% (BldA) [Mass fraction] 100 % MD Tiera Dumas Work Phone: [facility] 11-13-2023 12:21-0500 Systolic blood pressure 106 mm[Hg] MD Tiera Dumas Work Phone: [facility] 11-13-2023 10:02-0500 Body height 156.21 cm MD Tiera Dumas Work Phone: [facility] 11-13-2023 10:02-0500 Body temperature 97.4 [degF] MD Tiera Dumas Work Phone: [facility] 11-13-2023 10:02-0500 Body weight 59 kg MD Tiera Dumas Work Phone: [facility] 12-13-2022 11:21-0400 Body height 154.94 cm MD Tiera Dumas Work Phone: [facility] 12-13-2022 11:21-0400 Body temperature 97.9 [degF] MD Tiera Dumas Work Phone: [facility] 12-13-2022 11:21-0400 Body weight 59 kg MD Tiera Dumas Work Phone: [facility] 12-13-2022 11:21-0400 Diastolic blood pressure 79 mm[Hg] MD Tiera Dumas Work Phone: [facility] 12-13-2022 11:21-0400 Heart rate 87 /min MD Tiera Dumas Work Phone: [facility] 12-13-2022 11:21-0400 Respiratory rate 18 /min MD Tiera Dumas Work Phone: [facility] 12-13-2022 11:21-0400 SaO2% (BldA) [Mass fraction] 97 % MD Tiera Dumas Work Phone: [facility] 12-13-2022 11:21-0400 Systolic blood pressure 118 mm[Hg] MD Tiera Dumas Work Phone: [facility] 12-03-2022 11:15-0500 Body height 153.67 cm Tiera Dumas Other [facility] Other 12-03-2022 11:15-0500 Body mass index (BMI) [Ratio] 24.78 kg/m2 Tiera Dumas Other [facility] Other 12-03-2022 11:15-0500 Body temperature 99.7 [degF] Tiera Dumas Other [facility] Other 12-03-2022 11:15-0500 Body weight 58.51 kg Tiera Dumas Other [employer] Other 12-03-2022 11:15-0500 Diastolic blood pressure 72 mm[Hg] Tiera Dumas Other [facility] Other 12-03-2022 11:15-0500 SaO2% (BldA) [Mass fraction] 97 % Tiera Dumas Other [facility] Other 12-03-2022 11:15-0500 Systolic blood pressure 112 mm[Hg] Tiera Dumas Other [facility] Other Encounters Encounter Date Encounter Type Care Provider Facility Start: 05-30-2024 End: 05-30-2024 ambulatory [facility] Work Phone: Start: 05-30-2024 End: 05-30-2024 Patient encounter procedure [facility] Work Phone: Start: 03-28-2024 End: 03-28-2024 ambulatory [facility] Work Phone: Start: 03-28-2024 End: 03-28-2024 Patient encounter procedure [facility] Work Phone: Start: 01-12-2024 End: 01-12-2024 ambulatory MD Tiera Dumas Work Phone: [facility] Work Phone: Start: 01-12-2024 End: 01-12-2024 Patient encounter procedure MD Tiera Dumas Work Phone: [facility] Work Phone: Start: 12-07-2023 End: 12-07-2023 ambulatory Mariano Mcconnell Facility:[facility] Start: 12-07-2023 End: 12-07-2023 Admission to same day surgery center MD Tiera Dumas Work Phone: [facility] [place] Start: 12-07-2023 End: 12-08-2023 ambulatory Mariano MCCONNELL Facility:[id number] Start: 12-07-2023 End: 12-08-2023 ambulatory Mariano MCCONNELL Facility:[facility] Start: 12-07-2023 End: 12-07-2023 Patient encounter procedure Mariano MCCONNELL [facility] Start: 12-01-2023 End: 12-01-2023 ambulatory Tiera Dumas Facility:[facility] Start: 12-01-2023 End: 12-01-2023 Patient encounter procedure MD Tiera Dumas Work Phone: [facility] [place] Work Phone: Start: 11-16-2023 ambulatory Mariano MCCONNELL Facility:[facility] Start: 11-13-2023 End: 11-13-2023 Emergency department patient visit Tiera Dumas Facility:[facility] Start: 11-13-2023 End: 11-13-2023 Emergency department patient visit MD Tiera Dumas Work Phone: [facility] Work Phone: Start: 07-07-2023 (Televisit) Televisit Tiera Dumas [facility] Start: 07-07-2023 End: 07-07-2023 ambulatory Tiera Dumas Other [facility] Other Start: 12-16-2022 End: 12-16-2022 ambulatory Tiera Dumas Other [facility] Other Start: 12-16-2022 Telephone encounter Tiera Dumas [facility] Start: 12-13-2022 End: 12-13-2022 Emergency department patient visit MD Tiera Dumas Work Phone: [facility] Work Phone: Start: 12-03-2022 End: 12-03-2022 ambulatory Tiera Dumas Other [facility] Other Start: 12-03-2022 Office outpatient vi sit 15 minutes Tiera Dumas [facility] Start: 04-07-2022 End: 04-08-[address] [...] Date Care Activity Detail Author Start: 12-07-2023 [facility] Start: 12-07-2023 [facility] Patient Education [facility] Work Phone: Patient referral [facility] Work Phone: [facility] Immunizations Immunization Date Immunization Notes Care Provider Fa cility 02-13-2021 SARS-CoV-2 (COVID-19 ) mRNA-1273 vaccine Mariano MCCONNELL [facility] 01-15-2021 SARS-CoV-2 (COVID-19 ) mRNA-1273 vaccine Mariano MCCONNELL [facility] 07-10-2018 influenza virus vaccine, unspecified formulation Mariano MCCONNELL [facility] 07-10-2018 Influenza, injectabl e, Madin Amairani Canine Kidney, preservative free, quadrivalent MD Tiera Dumas Work Phone: [facility] 07-24-2015 influenza virus vaccine, unspecified formulation Mariano MCCONNELL [facility] 07-24-2015 influenza, injectabl e, quadrivalent, contains preservative MD Tiera Dumas Work Phone: [facility] 07-25-2014 influenza virus vaccine, unspecified formulation Mariano MCCONNELL [facility] 07-25-2014 influenza, seasonal, injectable, preservative free MD Tiera Dumas Work Phone: [facility] 08-02-2013 influenza virus vaccine, unspecified formulation Mariano MCCONNELL [facility] 08-02-2013 influenza, seasonal, injectable MD Tiera Dumas Work Phone: [facility] NEGATED: Highlighted row has not occurred!12-07-2023 influenza virus vaccine, unspecified formulation Mariano MCCONNELL [facility] Payers Date Payer Category Payer Self-pay [id number] 2015 Unknown 1979 Unknown [id number] .16.84 [id number] 1979 Unknown [id number] .16.84 [id number] 1979 Unknown [id number] .16.84 [id number] 1979 Unknown [id number] .16.84 [id number] 1979 Unknown [id number] .16.84 [id number] 1979 Unknown [id number] .16.84 [id number] 1979 Unknown [id number] 2.16.8 [id number] 1979 Unknown [id number] 2.16.8 [id number] 1979 Unknown [id number] 2.16.8 [id number] 1959 Unknown [id number] Unknown [id number] 2.16.8 [id number] Unknown [id number] 2.16.8 [id number] Unknown [id number] 2.16.8 [id number] Social History Date Type Detail Facility Start: 12-13-2022 Tobacco smoking status [facility] Never smoked tobacco (finding) [facility] Start: 1980 Sex Assigned At Female [facility] Sex Assigned At [facility] Start: 11-13-2023 End: 03-28-2024 Tobacco smoking status [facility] Ex-smoker (finding) [facility] Tobacco smoking status Never [facility] NEGATED: Highlighted row [facility] Goals Date Patient Goal Desired Activity /State Functional Status Date Assessment Result Facility 12-07-2023 Functional Status N/A [facility] Clinical Notes 12-03-2022 to 12-07-2023 [...] including vitamins, herbs, eye drops, creams, and oxww-stm-fssyqxh medicines. Any problems you or family members [...] provider tells you to take them. ?Taking caka-kma-zunseyg medicines, vitamins, herbs, and supplements. Eating and [...] provider. Document Revised: 01/20/2023 Document Reviewed: 05/18/2022 [email or web address] Patient Education 2022 [place]. Follow Up Care 12/06/2023 08:36:19 With:ENEDINA CONTRERAS, Mariano Causey, URL Address: [address] [place] [address] [place], [place] [id number]- When: Unknown Comments:sched cysto/L RGP/URS/possible stent [facility] 07-07-2023 Evaluation note Encounter Date Diagnosis Assessment Notes Jun, Bronchitis (ICD-10 - J40) Finish antibiotics as prescribed. Medrol for chest tightness. Will call if needs work note. [facility] Other 03-09-2023 Evaluation note* Encounter Date Diagnosis Assessment Notes Treatment Notes Treatment Clinical Notes Nov, Hematuria, unspecified type (ICD-10 - R31.9) Will treat based on her symptoms Nov, Lumbar pain (ICD-10 - M54.50) Generalized pain. no acute injury. Recommend rest and heat. [facility] Other Evaluation + Plan note No data available for this section [facility] [place] Evaluation noteNo assessment information available [facility] Work Phone: Evaluation noteNo InformationNort [employer] Other Evaluation note* Diagnosis Onset Date Resolution Status Sinusitis acute Fatigue acute Hypothyroid acute [facility] Work Phone: Evaluation note* Diagnosis Onset Date Resolution Status Acute thoracic back pain acu te Fatigue acute Hypothyroid acute [facility] Work Phone: History general Narrative [...] Left Shoulder Surgery, Problem Status : Active, [facility] Other Hospital Discharge instructions Additional Instructions We [...] if you develop any worsening or concerning symptoms.[facility] Work Phone: Progress note No data available for this section [facility] Summary Purpose Family History Relationship Condition [...] DATE CREATED AUTHOR AUTHOR'S ORGANIZ ATION 12/15/2023 [facility] DATE CREATED AUTHOR AUTHOR'S ORGANIZ ATION 01/14/2024 [facility] Care Teams (unrecognized sec [...] End: January 12, 2024 Nguyen Aguirre APRN 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 [facility]. provides no warranty or guarantee of the accuracy or completeness of information in this document.
== END 2024-11-15 12:30 | disposition home or self-care (01) ==
LOC: CT 12:29
PROVIDERS: PCP Family Medicine; Visit Provider Podiatrist Foot & Ankle Surgery
DX: S92.255D Nondisplaced fracture of navicular [scaphoid] of left foot, subsequent encounter for fracture with routine healing (principal)
CPT/HCPCS: 73700

== ENCOUNTER 2024-11-28 09:52 | Outpatient (RCR) | payer BC, SELFPAY | END 2024-12-13 08:18 | disposition home or self-care (01) | LOC: PT 09:52 | PROVIDERS: PCP Family Medicine; Visit Provider Podiatrist Foot & Ankle Surgery | DX: S93.491D Sprain of other ligament of right ankle, subsequent encounter (principal); S92.255D Nondisplaced fracture of navicular [scaphoid] of left foot, subsequent encounter for fracture with routine healing | CPT/HCPCS: 97110; 97113; 97140; 97161 ==